=== PATIENT | female | born 1960 | race Caucasian/White ===

== ENCOUNTER → 2018-02-21 12:14 | Outpatient (REF) | payer BC, SELFPAY ==
--- NOTE | 2018-02-21 11:00 | PAPFT_PTH ---
PATIENT: Janeen Rogel LOC: [facility] U#:[id number] AGE/SX: 65/F ROOM: RE02/21/[address]: Tonya Costello MD, DC : 1960 BED: DIS: SPEC #: [id number] RECD: 02/21/18 18:15 STATUS: [place] RERonna #: [id number] MELLISA: 02/21/18 11:[address]: Tonya Costello DEPT: [facility] Cytology RECD BY: Kacie Leigh Tissues: 1 - CX/ENDOCX FOR PAP SMEARS Procedures: PAP THIN PREP/UVM Screening HPV DNA PROBE Comments: [id number]
== END ==
LOC: LBN 12:14
PROVIDERS: PCP Family Medicine; Visit Provider Family Medicine
DX: Z12.4 Encounter for screening for malignant neoplasm of cervix (principal); Z11.51 Encounter for screening for human papillomavirus (HPV)
CPT/HCPCS: 88142; 87624

== ENCOUNTER 2018-05-13 06:24 | Day surgery (SDC) | payer BC, SELFPAY ==
[2018-05-13 06:43] VITALS: BP 139/84; PULSE 77; RESP 16; TEMP 37.1; O2SAT 98
[2018-05-13] MEDS: Lidocaine 2% Pres-Free 5 ML VIAL (07:26)
--- NOTE | 2018-05-13 08:08 | W.PM.DSUDISC ---
Discharge Plan Disposition Patient Disposition: HOME Condition: Improving Discharge Details Attending Provider: Leonel Cuadra Primary Care Provider: Tonya Costello Home Meds and New Rx's Prescriptions: No Action aspirin [Aspirin Low-Strength] 81 MG tablet,chewable 1 tab PO DAILY RF: 0 triamcinolone acetonide 80 GM ointment 2 gm Topical BID Qty: 80 RF: 3 loratadine 10 MG tablet 10 mg PO DAILY PRNRF: 0 latanoprost [Xalatan] 2.5 ML drops 1 drp Ophthalmic HS RF: 0 carboxymethylcellulose-glycern [Lubricating Drops] 15 ML drops 15 ml Ophthalmic PRN RF: 0 cetirizine [Zyrtec] 10 MG tablet 10 mg PO DAILY PRNRF: 0 losartan 50 MG tablet 50 mg PO DAILY Qty: 90 RF: 12 clotrimazole-betamethasone 15 GM cream 15 gm Topical BID Qty: 15 RF: 12 estradiol [Vagifem] 10 MCG tablet 10 mcg VG 2X Week Qty: 25 RF: 12 ibuprofen [Advil] 200 MG tablet 200 mg PO PRN PRNRF: 0 chlorpheniramine-dextromethorp [Coricidin HBP Cough and Cold] 4-30 mg Tablet 1 tab PO PRN PRN (Reason: Cough) RF: 0 Discharge Instructions Additional Instructions: KEEP YOUR RIGHT HAND ELEVATED ABOVE HEART LEVEL MUCH POSSIBLE FOR THE NEXT 48 HOURS. EXERCISE YOUR FINGERS AND THUMB COMFORT ALLOWS. YOU MAY LOOSEN THE WRIST SPLINT AND/OR THE UNDERLYING OSMANY BANDAGE IF THEY FEEL TOO TIGHT. EXPECT SOME BLOODY DRAINAGE ON THE UNDERLYING GAUZE BANDAGES. FOR SHOWERING TOMORROW, COVER YOUR WRIST AND HAND WITH A PLASTIC BAG AND A RUBBER BAND ABOUT THE UPPER FOREARM TO KEEP THE WOUND DRY. ON 05/15/18, YOU MAY REMOVE ALL OF YOUR BANDAGES AND GET YOUR INCISION WET IN THE SHOWER WITH SOAP AND WATER. GENTLY PAT THE STITCHES DRY AND COVER THEM WITH GAUZE OR EXTRA-LARGE BANDAIDS. RESUME NORMAL USE TOLERATED GOING WITHOUT THE SPLINT SOON YOU ARE COMFORTABLE. FOLLOW-UP WITH DR. CUADRA IN 1 WEEK FOR STITCH REMOVAL. TAKE YOUR REGULAR MEDICATIONS BEFORE. TAKE TYLENOL, ADVIL OR ALEVE FOR MILDER PAIN. TYLENOL MAY BE TAKEN AT THE SAME TIME ALEVE OR AT THE SAME TIME ADVIL THEY ARE METABOLIZED DIFFERENTLY AND ARE NOT CROSS TOXIC. TAKE NORCO (HYDROCODONE 5/325MG) 1-2 EVERY 4-6 HOURS FOR MORE SERIOUS PAIN. [facility] [place] LIMIT THE AMOUNT OF NORCO THAT CAN BE PRESCRIBED TO 18 TABLETS. Stand Alone Forms: Alla Tapia (DSU) Equipment/Supplies: Brace Activity:: Elevate Remove Dressings/Wound Care:: 48 hours Shower/Bathe:: 48 hours Diet:: Carb Counting Discharge Orders Discharge Orders: Discharge Order (Routine); Ordered 05/13/18 Ordered By: Leonel Cuadra
--- NOTE | 2018-05-13 08:17 | PDOC.DSDIS_ITS ---
Discharge Plan Disposition Patient Disposition: HOME Condition: Improving Discharge Details Attending Provider: Leonel Cuadra Primary Care Provider: Tonya Costello Home Meds and New Rx's Prescriptions: No Action aspirin [Aspirin Low-Strength] 81 MG tablet,chewable 1 tab PO DAILY RF: 0 triamcinolone acetonide 80 GM ointment 2 gm Topical BID Qty: 80 RF: 3 loratadine 10 MG tablet 10 mg PO DAILY PRNRF: 0 latanoprost [Xalatan] 2.5 ML drops 1 drp Ophthalmic HS RF: 0 carboxymethylcellulose-glycern [Lubricating Drops] 15 ML drops 15 ml Ophthalmic PRN RF: 0 cetirizine [Zyrtec] 10 MG tablet 10 mg PO DAILY PRNRF: 0 losartan 50 MG tablet 50 mg PO DAILY Qty: 90 RF: 12 clotrimazole-betamethasone 15 GM cream 15 gm Topical BID Qty: 15 RF: 12 estradiol [Vagifem] 10 MCG tablet 10 mcg VG 2X Week Qty: 25 RF: 12 ibuprofen [Advil] 200 MG tablet 200 mg PO PRN PRNRF: 0 chlorpheniramine-dextromethorp [Coricidin HBP Cough and Cold] 4-30 mg Tablet 1 tab PO PRN PRN (Reason: Cough) RF: 0 Discharge Instructions Additional Instructions: KEEP YOUR RIGHT HAND ELEVATED ABOVE HEART LEVEL MUCH POSSIBLE FOR THE NEXT 48 HOURS. EXERCISE YOUR FINGERS AND THUMB COMFORT ALLOWS. YOU MAY LOOSEN THE WRIST SPLINT AND/OR THE UNDERLYING OSMANY BANDAGE IF THEY FEEL TOO TIGHT. EXPECT SOME BLOODY DRAINAGE ON THE UNDERLYING GAUZE BANDAGES. FOR SHOWERING TOMORROW, COVER YOUR WRIST AND HAND WITH A PLASTIC BAG AND A RUBBER BAND ABOUT THE UPPER FOREARM TO KEEP THE WOUND DRY. ON 05/15/18, YOU MAY REMOVE ALL OF YOUR BANDAGES AND GET YOUR INCISION WET IN THE SHOWER WITH SOAP AND WATER. GENTLY PAT THE STITCHES DRY AND COVER THEM WITH GAUZE OR EXTRA- LARGE BANDAIDS. RESUME NORMAL USE TOLERATED GOING WITHOUT THE SPLINT SOON YOU ARE COMFORTABLE. FOLLOW-UP WITH DR. CUADRA IN 1 WEEK FOR STITCH REMOVAL. TAKE YOUR REGULAR MEDICATIONS BEFORE. TAKE TYLENOL, ADVIL OR ALEVE FOR MILDER PAIN. TYLENOL MAY BE TAKEN AT THE SAME TIME ALEVE OR AT THE SAME TIME ADVIL THEY ARE METABOLIZED DIFFERENTLY AND ARE NOT CROSS TOXIC. TAKE NORCO (HYDROCODONE 5/325MG) 1-2 EVERY 4-6 HOURS FOR MORE SERIOUS PAIN. [facility] [place] THE AMOUNT OF NORCO THAT CAN BE PRESCRIBED TO 18 TABLETS. Stand Alone Forms: Alla Tapia (DSU) Equipment/Supplies: Brace Activity:: Elevate Remove Dressings/Wound Care:: 48 hours Shower/Bathe:: 48 hours Diet:: Carb Counting Discharge Orders Discharge Orders: Discharge Order (Routine); Ordered 05/13/18 Ordered By: Leonel Cuadra
--- NOTE | 2018-05-13 09:18 | ROE_ITS ---
REPORT OF OPERATIVE PROCEDURE DATE OF PROCEDURE May 13, 2018 PREOPERATIVE DIAGNOSIS Right chronic carpal tunnel syndrome. POSTOPERATIVE DIAGNOSIS Right chronic carpal tunnel syndrome. PROCEDURE Right open carpal tunnel release. SURGEON Leonel Giron M.D. [employer] Nurse. ANESTHETIC 2% lidocaine plain. PREP ChloraPrep. INDICATIONS This patient is 58, she is status post successful left ECTR. She presented to me several years after that operation for chronic right carpal tunnel syndrome. I recommended open carpal tunnel release as I felt that this had lesser morbidity in terms of potential injury to the common branch of the digita l nerve to the middle finger. I discussed the differences in detail and she understood and wished to proceed. I discussed this in the office and then reiterated it today in the Day Surgery holding area . The right arm was appropriately marked. OPERATIVE PROCEDURE The patient was taken to the Operating Suite and her right hand was prepped with ChloraPrep. Timeout was instituted confirming the planned surgical site and the procedure. As well, this also included t he patient allergies. After prepping the hand with ChloraPrep, a universal carpal tunnel incision was utilized centered ove r the ring finger ray. 2% lidocaine was then used to create an anesthetic wheal over the proposed inc ision site. After waiting and appropriate amount of time, and determining complete anesthesia of the incision region, I made the incision a #15-scalpel blade using loupe magnification. Skin and subcuta neous tissues were incised and hemostasis was controlled with just direct pressure. A combination of sharp and blunt dissection was utilized to expose the palmar fascia and the transverse carpal ligamen t. Heiss retractors were inserted. Under direct vision, the transverse carpal ligament was resected completely including the distal portion of the antebrachial fascia to the very distal edge of the lig ament. The underlying flexor tendon showed a mild to moderate amount of synovitis. No loose bodies, f oreign bodies or ganglion cysts were found. The median nerve had classic hourglass constriction in it s mid portion, there was also prominent vein traveling with the nerve that showed some edema. There w as no significant bleeding. I had the patient flex and extend the fingers and verified that there wer e no problems or cysts on the tendons themselves. The wound was then irrigated and the skin closed wi th sutures of #5-0 Ethilon, this was done with sutures placed in a near-far far-near retention techni que, as well as simple sutures. The wound was then dressed with Xeroform gauze, 4x4s, a 3-inch confo rming gauze bandage, a 3-inch Rubén wrap, and a commercial wrist immobilizer. The patient was taken to the outpatient Recovery Room in satisfactory condition, tolerating the procedure well.
--- NOTE | 2018-05-18 09:21 | W.PM.DSUDISC ---
Discharge Plan Disposition Patient Disposition: HOME Condition: Improving Discharge Details Attending Provider: Leonel Cuadra Primary Care Provider: Tonya Costello Home Meds and New Rx's Prescriptions: No Action aspirin [Aspirin Low-Strength] 81 MG tablet,chewable 1 tab PO DAILY RF: 0 triamcinolone acetonide 80 GM ointment 2 gm Topical BID Qty: 80 RF: 3 loratadine 10 MG tablet 10 mg PO DAILY PRNRF: 0 latanoprost [Xalatan] 2.5 ML drops 1 drp Ophthalmic HS RF: 0 carboxymethylcellulose-glycern [Lubricating Drops] 15 ML drops 15 ml Ophthalmic PRN RF: 0 cetirizine [Zyrtec] 10 MG tablet 10 mg PO DAILY PRNRF: 0 losartan 50 MG tablet 50 mg PO DAILY Qty: 90 RF: 12 clotrimazole-betamethasone 15 GM cream 15 gm Topical BID Qty: 15 RF: 12 estradiol [Vagifem] 10 MCG tablet 10 mcg VG 2X Week Qty: 25 RF: 12 ibuprofen [Advil] 200 MG tablet 200 mg PO PRN PRNRF: 0 chlorpheniramine-dextromethorp [Coricidin HBP Cough and Cold] 4-30 mg Tablet 1 tab PO PRN PRN (Reason: Cough) RF: 0 hydrocodone-acetaminophen [[place]] 5-325 mg Tablet 1 tab PO Q4H PRNRF: 0 Discharge Instructions Additional Instructions: KEEP YOUR RIGHT HAND ELEVATED ABOVE HEART LEVEL MUCH POSSIBLE FOR THE NEXT 48 HOURS. EXERCISE YOUR FINGERS AND THUMB COMFORT ALLOWS. YOU MAY LOOSEN THE WRIST SPLINT AND/OR THE UNDERLYING OSMANY BANDAGE IF THEY FEEL TOO TIGHT. EXPECT SOME BLOODY DRAINAGE ON THE UNDERLYING GAUZE BANDAGES. FOR SHOWERING TOMORROW, COVER YOUR WRIST AND HAND WITH A PLASTIC BAG AND A RUBBER BAND ABOUT THE UPPER FOREARM TO KEEP THE WOUND DRY. ON 05/15/18, YOU MAY REMOVE ALL OF YOUR BANDAGES AND GET YOUR INCISION WET IN THE SHOWER WITH SOAP AND WATER. GENTLY PAT THE STITCHES DRY AND COVER THEM WITH GAUZE OR EXTRA-LARGE BANDAIDS. RESUME NORMAL USE TOLERATED GOING WITHOUT THE SPLINT SOON YOU ARE COMFORTABLE. FOLLOW-UP WITH DR. CUADRA IN 1 WEEK FOR STITCH REMOVAL. TAKE YOUR REGULAR MEDICATIONS BEFORE. TAKE TYLENOL, ADVIL OR ALEVE FOR MILDER PAIN. TYLENOL MAY BE TAKEN AT THE SAME TIME ALEVE OR AT THE SAME TIME ADVIL THEY ARE METABOLIZED DIFFERENTLY AND ARE NOT CROSS TOXIC. TAKE NORCO (HYDROCODONE 5/325MG) 1-2 EVERY 4-6 HOURS FOR MORE SERIOUS PAIN. [facility] REGULATIONS LIMIT THE AMOUNT OF NORCO THAT CAN BE PRESCRIBED TO 18 TABLETS. Stand Alone Forms: Alla Tapia (STALIN) Equipment/Supplies: Brace Activity:: Elevate Remove Dressings/Wound Care:: 48 hours Shower/Bathe:: 48 hours Diet:: Carb Counting Discharge Orders Discharge Orders: Discharge Order (Routine); Ordered 05/13/18 Ordered By: Leonel Cuadra Discharge Data Discharge Date/Time-TO BE ENTERED AT DEPARTURE: 05/13/18 08:18 Discharge Comment: DISCHARGE INFORMATION REVIEWED WITH PT AND SPOUSE.
--- NOTE | 2018-05-19 08:45 | PDOC.DSDIS_ITS ---
Discharge Plan Disposition Patient Disposition: HOME Condition: Improving Discharge Details Attending Provider: Leonel Cuadra Primary Care Provider: Tonya Costello Home Meds and New Rx's Prescriptions: No Action aspirin [Aspirin Low-Strength] 81 MG tablet,chewable 1 tab PO DAILY RF: 0 triamcinolone acetonide 80 GM ointment 2 gm Topical BID Qty: 80 RF: 3 loratadine 10 MG tablet 10 mg PO DAILY PRNRF: 0 latanoprost [Xalatan] 2.5 ML drops 1 drp Ophthalmic HS RF: 0 carboxymethylcellulose-glycern [Lubricating Drops] 15 ML drops 15 ml Ophthalmic PRN RF: 0 cetirizine [Zyrtec] 10 MG tablet 10 mg PO DAILY PRNRF: 0 losartan 50 MG tablet 50 mg PO DAILY Qty: 90 RF: 12 clotrimazole-betamethasone 15 GM cream 15 gm Topical BID Qty: 15 RF: 12 estradiol [Vagifem] 10 MCG tablet 10 mcg VG 2X Week Qty: 25 RF: 12 ibuprofen [Advil] 200 MG tablet 200 mg PO PRN PRNRF: 0 chlorpheniramine-dextromethorp [Coricidin HBP Cough and Cold] 4-30 mg Tablet 1 tab PO PRN PRN (Reason: Cough) RF: 0 hydrocodone-acetaminophen [[place]] 5-325 mg Tablet 1 tab PO Q4H PRNRF: 0 Discharge Instructions Additional Instructions: KEEP YOUR RIGHT HAND ELEVATED ABOVE HEART LEVEL MUCH POSSIBLE FOR THE NEXT 48 HOURS. EXERCISE YOUR FINGERS AND THUMB COMFORT ALLOWS. YOU MAY LOOSEN THE WRIST SPLINT AND/OR THE UNDERLYING OSMANY BANDAGE IF THEY FEEL TOO TIGHT. EXPECT SOME BLOODY DRAINAGE ON THE UNDERLYING GAUZE BANDAGES. FOR SHOWERING TOMORROW, COVER YOUR WRIST AND HAND WITH A PLASTIC BAG AND A RUBBER BAND ABOUT THE UPPER FOREARM TO KEEP THE WOUND DRY. ON 05/15/18, YOU MAY REMOVE ALL OF YOUR BANDAGES AND GET YOUR INCISION WET IN THE SHOWER WITH SOAP AND WATER. GENTLY PAT THE STITCHES DRY AND COVER THEM WITH GAUZE OR EXTRA- LARGE BANDAIDS. RESUME NORMAL USE TOLERATED GOING WITHOUT THE SPLINT SOON YOU ARE COMFORTABLE. FOLLOW-UP WITH DR. CUADRA IN 1 WEEK FOR STITCH REMOVAL. TAKE YOUR REGULAR MEDICATIONS BEFORE. TAKE TYLENOL, ADVIL OR ALEVE FOR MILDER PAIN. TYLENOL MAY BE TAKEN AT THE SAME TIME ALEVE OR AT THE SAME TIME ADVIL THEY ARE METABOLIZED DIFFERENTLY AND ARE NOT CROSS TOXIC. TAKE NORCO (HYDROCODONE 5/325MG) 1-2 EVERY 4-6 HOURS FOR MORE SERIOUS PAIN. [facility] [place] REGULATIONS LIMIT THE AMOUNT OF NORCO THAT CAN BE PRESCRIBED TO 18 TABLETS. Stand Alone Forms: Alla Tapia (STALIN) Equipment/Supplies: Brace Activity:: Elevate Remove Dressings/Wound Care:: 48 hours Shower/Bathe:: 48 hours Diet:: Carb Counting Discharge Orders Discharge Orders: Discharge Order (Routine); Ordered 05/13/18 Ordered By: Leonel Cuadra Discharge Data Discharge Date/Time-TO BE ENTERED AT DEPARTURE: 05/13/18 08:18 Discharge Comment: DISCHARGE INFORMATION REVIEWED WITH PT AND SPOUSE.
== END 2018-05-13 08:18 | disposition home or self-care (01) ==
PROVIDERS: PCP Family Medicine; Visit Provider Orthopaedic Surgery
PROC: (CPT 64721; principal; 2018-05-13 07:30)
DX: G56.01 Carpal tunnel syndrome, right upper limb (principal)
CPT/HCPCS: 64721; L3908

== ENCOUNTER 2019-03-02 09:44 | Outpatient (CLI) | payer BC, SELFPAY ==
[2019-03-02 13:04] LABS: ALT 19 U/L (14-59); AST 15 U/L (15-37); Alkaline Phosphatase 79 U/L (46-116); Anion Gap 11.3 mmol/L (3-11); BUN 11 mg/dL (7-18); Bilirubin, Total 0.5 mg/dL (0.2-1.0); CO2 25.7 mmol/L (21.0-32.0); CREATININE 0.93 mg/dL (0.55-1.02); Calcium 9.3 mg/dL (8.5-10.1); Calculated LDL 208 mg/dL; Chloride 105 mmol/L (98-107); Cholesterol 275 mg/dL (50-200); Glucose 99 mg/dL (70-100); HDL Cholesterol 46 mg/dL (40-60); Potassium 4.6 mmol/L (3.5-5.1); Sodium 142 mmol/L (136-145); TSH (W/Ref FT4) 0.71 uIU/mL (0.36-3.74); Total Protein 7.4 g/dL (6.4-8.2); Triglyceride 109 mg/dL (30-150)
== END 2019-03-02 10:04 ==
PROVIDERS: PCP Family Medicine; Visit Provider Family Medicine
DX: I10 Essential (primary) hypertension (principal); Z00.00 Encounter for general adult medical examination without abnormal findings
CPT/HCPCS: 36415; 80053; 80061; 84443

== ENCOUNTER 2019-03-27 00:33 | Outpatient (CLI) | payer BC, SELFPAY ==
--- NOTE | 2019-03-27 16:13 | DI.MAMMO_ITS ---
EXAM: MG MAMMO SCREENING CLINICAL HISTORY: screening Z12.39. TECHNIQUE: Mammograms were interpreted according to the usual protocol including computer analysis w [employer] CAD system, tomosynthesis and C-view imaging. COMPARISON: Comparison with prior examination. FINDINGS: The breasts are of moderate radiodensity. There is no evidence of a dominant mass. There are no suspi cious calcifications. There has been no significant interval change when compared with prior images. IMPRESSION: No evidence of malignancy, Category 1, yearly screening mammography is recommended. Breast density Ca tegory B. BI-RADS Cat 1 - Negative Breast Density - Category B - Scattered areas of fibroglandular density
== END 2019-03-27 00:53 ==
PROVIDERS: PCP Family Medicine; Visit Provider Family Medicine
DX: Z12.31 Encounter for screening mammogram for malignant neoplasm of breast (principal)
CPT/HCPCS: 77063; 77067

== ENCOUNTER 2020-07-01 03:07 | Outpatient (CLI) | payer BC, SELFPAY ==
[2020-07-01 08:10] LABS: Hemoglobin A1C 5.4 % (<5.7)
[2020-07-01 08:53] LABS: ALT 21 U/L (14-59); AST 11 U/L (15-37); Alkaline Phosphatase 71 U/L (46-116); BUN 14 mg/dL (7-18); Bilirubin, Total 0.4 mg/dL (0.2-1.0); Calculated LDL 183 mg/dL (<100); Chloride 104 mmol/L (98-107); Cholesterol 276 mg/dL (<200); Estimated GFR 56.75 (mL/min/1.73m2); Glucose 99 mg/dL (74-106); HDL Cholesterol 37 mg/dL (40-60); Potassium 4.5 mmol/L (3.5-5.1); Sodium 141 mmol/L (136-145); TSH (W/Ref FT4) 0.74 uIU/mL (0.36-3.74); Total Protein 7.4 g/dL (6.4-8.2); Triglyceride 283 mg/dL (<150)
[2020-07-02 19:17] LABS: COVID-19 RT-PCR UVMMC Result Negative (Negative)
== END 2020-07-01 03:27 ==
PROVIDERS: PCP Family Medicine; Visit Provider Family Medicine
DX: Z00.00 Encounter for general adult medical examination without abnormal findings (principal); E78.00 Pure hypercholesterolemia, unspecified; E11.9 Type 2 diabetes mellitus without complications; Z20.828 Contact with and (suspected) exposure to other viral communicable diseases
CPT/HCPCS: 36415; 80053; 80061; U0003; 83036; 84443

== ENCOUNTER 2020-07-10 02:54 | Outpatient (CLI) | payer BC, SELFPAY ==
--- NOTE | 2020-07-10 08:10 | DI.RAD_ITS ---
EXAM: XR HIP LT COMPLETE AP PELVIS CLINICAL HISTORY: L hip pain,m25.552. TECHNIQUE: 2D digital imaging was performed. COMPARISON: No exams were available for comparison FINDINGS: The bones are intact and normally mineralized. There are degenerative changes seen at the left sacro iliac joint. Mild degenerative changes are seen in the left hip with mild prominence of the acetabul ar osteophyte. The joint spaces otherwise well maintained. The right hip is unremarkable. The soft tissues are unremarkable. 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 DATA REPOSITORY: RADIATION DOSE DELIVERED:
== END 2020-07-10 03:14 ==
PROVIDERS: PCP Family Medicine; Visit Provider Family Medicine
DX: M16.11 Unilateral primary osteoarthritis, right hip (principal)
CPT/HCPCS: 73502

== ENCOUNTER 2020-10-25 02:39 | Outpatient (CLI) | payer BC, SELFPAY ==
[2020-10-26 12:20] LABS: COVID-19 RT-PCR UVMMC Result Negative (Negative)
== END 2020-10-25 02:40 | disposition home or self-care (01) ==
LOC: LBO 02:39
PROVIDERS: PCP Family Medicine; Visit Provider Family Medicine
DX: Z20.822 Contact with and (suspected) exposure to COVID-19 (principal)
CPT/HCPCS: U0003

== ENCOUNTER 2021-04-07 17:15 | Outpatient (CLI) | payer BC, SELFPAY ==
--- NOTE | 2021-04-07 17:15 | RT.EKG_ITS ---
APPROVED REPORT Exam: Resting ECG Reason for Exam: Dizzy Patient Location: O HR:79 bpm ECG Measurements Heart Rate 79 AXIS OR 140 P 49 QRSd 78 QRS 0 QT 364 T 41 QTc 416 Conclusion Sinus rhythm...normal P axis, V-rate 60- 99 Low voltage, extremity leads...all extremity leads <0.5mV
== END 2021-04-07 17:16 | disposition home or self-care (01) ==
LOC: DI.CM 17:16
PROVIDERS: PCP Family Medicine; Visit Provider Nurse Practitioner Family
DX: R42 Dizziness and giddiness (principal)
CPT/HCPCS: 93010

== ENCOUNTER 2021-05-15 12:51 | Emergency (ER) | payer BC, SELFPAY ==
--- NOTE | 2021-05-15 12:45 | RT.EKG_ITS ---
APPROVED REPORT Exam: Resting ECG Reason for Exam: chest pain Patient Location: E HR:86 bpm ECG Measurements Heart Rate 86 AXIS NC 150 P 147 QRSd 80 QRS -26 QT 369 T -26 QTc 441 Conclusion Sinus or ectopic atrial rhythm...P axis (-45,135) Left atrial enlargement...P, P'>60mS, <-0.15mV V1 Inferior infarct, old...Q >35mS, II III aVF. Sinus. No STEMI. I have reviewed and interpreted ECG and agree with software generated interpretation.
[2021-05-15 12:59] VITALS: BP 160/86; PULSE 94; RESP 18; TEMP 36.8; O2SAT 99
--- NOTE | 2021-05-15 13:06 | W.ED.GENAD ---
Discharge Plan Disposition Patient Disposition: HOME Condition: Stable Discharge Details Clinical Impression: Chest pain Primary Care Provider: Tonya Costello ED Provider: Petrona Bolton Home Meds and New Rx's Prescriptions: Continued naproxen sodium [Aleve] 220 mg tablet 220 mg PO HS PRNRF: 0 cetirizine [Zyrtec] 10 mg tablet 10 mg PO DAILY PRNRF: 0 acetaminophen 650 mg tablet extended release 1,300 mg PO QAM RF: 0 clotrimazole-betamethasone 1-0.05 % cream 1 applic Topical BID PRNRF: 0 triamcinolone acetonide 0.1 % ointment 1 applic Topical BID PRNRF: 0 meclizine 12.5 mg tablet 12.5 mg PO TID PRN (Reason: dizziness) Qty: 21 RF: 0 latanoprost [Xalatan] 2.5 ML drops 1 drp Ophthalmic HS RF: 0 Lubricating Drops 15 ML drops 15 ml Ophthalmic PRN RF: 0 estradiol [Vagifem] 10 mcg tablet 10 mcg VG 2X Week Qty: 25 RF: 12 losartan 50 mg tablet 50 mg PO DAILY Qty: 90 RF: 12 Discharge Instructions Instructions: Chest Pain (ED) Additional Instructions: Your lab work, EKGs and CT scan today are reassuring and did not note any significant concerning findings. Your platelet count was elevated and it is recommended that you have this rechecked through your primary care doctor. An outpatient stress test has been ordered. You will receive a call from the radiology department to schedule this outpatient test. Follow-up with your primary care doctor in 1 week. Return to the emergency department with any worsening or new concerning symptoms such as worsening chest pain, shortness of breath, dizziness or any other concerns. Referrals: Adrianna Fajardo MD [ [facility] STAFF PHYSICIAN] - Discharge Data Discharge Date/Time-TO BE ENTERED AT DEPARTURE: 05/15/21 17:38 Discharge Physician: Petrona Bolton Medical Decision Making 61-year-old female with a history of hypertension, hyperlipidemia, GERD, migraines who presents for left-sided chest pain that started while sitting on the computer at work today. EKG on arrival notes a rate of 86, sinus, no STEMI, nondiagnostic. Patient appears comfortable and nontoxic. Chest is nontender. History and presentation does not appear consistent with ACS, PE or dissection. Will obtain screening labs, CT chest, give dose of morphine and valium and reassess. Labs and imaging reviewed. Normal white blood cell count. Hemoglobin 15. Normal electrolytes. Troponin negative. CT chest negative. Repeat troponin negative. Repeat EKG unchanged. Patient reassessed and she still has some pain but no acute complaints. She was given a dose of Toradol prior to discharge and patient feels good to go home. An outpatient stress test was ordered. Patient advised patient advised to call her PCP for follow-up and for results of the stress test. Usual and customary return precautions given prior to discharge. Medical Records Medical records reviewed: Yes I reviewed the patient's medical records. Imaging Data Radiologic Study: Radiologist's impression: CT CHEST PE CTA CLINICAL HISTORY: L chest and back pain, r/o pe. TECHNIQUE: Imaging Protocol: Axial CT angiography was performed with multi-slice acquisition and multi-planar and/or 3D reconstructions. CONTRAST MATERIAL: Intravenous: Omnipaque 350 Contrast volume:100 ml COMPARISON: No exams were available for comparison FINDINGS: Pulmonary Arteries: No evidence of filling defect to suggest pulmonary emboli. Tracheobronchial tree: Patent where visualized. Mediastinum and Sofia: No dominant adenopathy or fluid collection. Pulmonary parenchyma: Expiratory changes. No consolidation or dominant measurable mass. No architectural distortion. Pleura: No effusion or pneumothorax. Heart: The heart is mildly dilated. Coronary artery calcifications are seen. Aorta: Thoracic aorta non-dilated. No dissection Upper abdomen: Unremarkable. Bones: Degenerative disc changes. IMPRESSION: No evidence of pulmonary embolism or other acute abnormality.. Lab Data Lab results reviewed: Yes I reviewed the patient's lab results. Labs: Laboratory Tests Range/Units 05/15/21 05/15/21 13:20 13:20 WBC (4.4-10.8) 10^3/uL 7.30 RBC (3.93-5.22) 10^6/uL 5.25 H Hgb (11.2-15.7) g/dL 15.7 Hct (36.0-46.0) % 48.7 H MCV (80-95) fL 92.8 MCH (27.0-33.0) pg 29.9 MCHC (32.0-36.0) % 32.2 RDW (11.7-14.6) % 12.7 Plt Count (130-400) 10^3/uL 627 H MPV (8.0-11.0) fL 8.1 Immature Gran % 0.1 Neutrophils % 74.4 Lymphocytes % 15.9 Monocytes % 7.5 Eosinophils % 1.4 Basophils % 0.7 Nucleated RBC % % 0 Absolute Neutrophils (1.2-6.7) 10^3/uL 5.43 Absolute Lymphocytes (1.2-3.4) 10^3/uL 1.16 L Absolute Monocytes (0.1-0.8) 10^3/uL 0.55 Absolute Eosinophils (0.0-0.7) 10^3/uL 0.10 Absolute Basophils (0.0-0.2) 10^3/uL 0.05 Sodium (136-145) mmol/L 140 Potassium (3.5-5.1) mmol/L 4.5 Chloride (98-107) mmol/L 104 Carbon Dioxide (21.0-32.0) mmol/L 30.0 Anion Gap (3-11) mmol/L 6.0 BUN (7-18) mg/dL 11 Creatinine (0.55-1.02) mg/dL 1.0 Estimated GFR/1.73 m2 (mL/min/1.73m2) 56.56 Glucose (74-106) mg/dL 108 H Calcium (8.5-10.1) mg/dL 9.1 Magnesium (1.8-2.4) mg/dL 2.4 Total Bilirubin (0.2-1.0) mg/dL 0.4 AST (15-37) U/L 18 ALT (14-59) U/L 21 Alkaline Phosphatase (46-116) U/L 75 Troponin I (<0.06) ng/mL < 0.05 Total Protein (6.4-8.2) g/dL 7.5 Albumin (3.4-5.0) g/dL 4.0 ECG Data Attestation: I personally reviewed and interpreted this ECG (s) as follows: Interpretation: #1 -- rate of 86, sinus, no acute ST elevation or depression. IA 150. QRS 80. QTc 441. #2 -- rate of 70, sinus, no acute ST elevation or depression. IA 145. QRS 79. QTc 434. HPI General Mode of arrival: ambulatory. Date/Time Provider Initiated Documentation: 05/15/21 13:04. Limitations to Documentation: no limitations. Information obtained by: patient. HPI Narrative: Pt is a 61yo F who presents to the ED w/ a c/o L sided chest pain that started while sitting at her computer at work today. Pt states she felt fine when she awoke this morning. She states she was on a class on the computer and sitting down when she noticed sharp left sided chest pain that has been constant for the past few hours. She states it radiates around to the left side of her back and down her left arm intermittently. She denies fever, cough, nausea, vomiting, dizziness, or shortness of breath. She denies any recent injury. She is fully vaccinated including a booster for Covid and denies any known expsure to coronavirus. She does admit to stress at work recently. Related Data Home Medications Medication Instructions Recorded Confirmed Lubricating Drops 15 ml OPHTHALMIC PRN 02/15/17 05/15/21 latanoprost [Xalatan] 1 drp OPHTHALMIC HS drp 02/15/17 05/15/21 cetirizine 10 mg tablet 10 mg PO DAILY PRN 03/02/19 05/15/21 estradiol 10 mcg vaginal tablet 10 mcg VG 2X Week #25 tab-cap 01/31/20 05/15/21 losartan 50 mg tablet 50 mg PO DAILY #90 tab-cap 01/31/20 05/15/21 acetaminophen 650 mg 1,300 mg PO QAM tab 07/08/20 05/15/21 tablet,extended release clotrimazole-betamethasone 1 1 applic TOPICAL BID PRN gm 07/08/20 05/15/21 %-0.05 % topical cream triamcinolone acetonide 0.1 % 1 applic TOPICAL BID PRN gm 07/08/20 05/15/21 topical ointment meclizine 12.5 mg tablet 12.5 mg PO TID PRN #21 tab 04/07/21 05/15/21 naproxen sodium 220 mg tablet 220 mg PO HS PRN tab 04/11/21 05/15/21 Previous Rx's Medication Instructions Recorded estradiol 10 mcg vaginal tablet 10 mcg VG 2X Week #25 tab-cap 01/31/20 losartan 50 mg tablet 50 mg PO DAILY #90 tab-cap 01/31/20 meclizine 12.5 mg tablet 12.5 mg PO TID PRN #21 tab 04/07/21 Allergies Allergy/AdvReac Type Severity Reaction Status Date / Time aspartame AdvReac Intermediate Verified 05/15/21 13:01 hydrochlorothiazide AdvReac Intermediate Leg cramps Verified 05/15/21 13:01 latex AdvReac Intermediate skin Verified 05/15/21 13:01 cracks and bleeds General Stated Complaint: Chest Pain HCERI: 2 Review of Systems All systems reviewed & are unremarkable except as noted in HPI and below Constitutional Constitutional: Reports as per HPI, Denies chills and Denies fever(s) Eyes Eyes: Denies blurry vision ENT Ears, Nose, Mouth, and Throat: Denies dizziness, Denies sore throat and Denies throat swelling Cardiovascular Cardiovascular: Reports chest pain and Denies dyspnea Respiratory Respiratory: Denies cough and Denies dyspnea Gastrointestinal Gastrointestinal: Denies abdominal pain, Denies diarrhea and Denies vomiting Genitourinary Genitourinary: Denies hematuria and Denies dysuria Musculoskeletal Musculoskeletal: Denies back pain and Denies numbness Integumentary/Breasts Skin/Breast: Denies lesions and Denies rash Neurologic Neurologic: Denies dizziness, Denies localized weakness and Denies numbness Allergic/Immunologic Allergic/Immunologic: Denies throat swelling [facility] Medical History Abnormal glandular Pap smear of vagina 10/24/12 follow up normal Achilles bursitis confirmed by MRI 06/11 Achilles bursitis Atypical mole 01/18/17 Atypical mole (01/18/17) Carpal tunnel syndrome bilateral; left by EMS; left medial nerve release Carpal tunnel syndrome 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 3.5 cm left kidney cyst Eczema (08/20/14) Essential hypertension Essential hypertension (04/21/13) External otitis 05/07/14 Gastroesophageal reflux disease Hypercholesterolemia Hyperlipidemia Increased body mass index Knee pain (01/01/07) MRI 01/08= neg. tear; ? of chondromalacia; Med. patellar fault Latex allergy (04/21/13) SEVERE Left shoulder pain 08/05/15 Left shoulder pain (08/05/15) Microscopic hematuria neg. C&S; nl Bun and Cr.; neg IUP; neg cystocopy Microscopic hematuria Mild stage chronic narrow angle glaucoma of right eye 12/28/16 [facility] [place] Muscle strain Otitis externa (05/07/14) Peptic reflux disease (06/03/02) EGS=positive; neg. Hpylori; + BX-GERD; + HH Right carpal tunnel syndrome (02/21/18) Patient has clinically obvious carpal tunnel syndrome right upper extremity. I explained her that I know do all my carpal tunnel surgeries via open technique. This avoid an incomplete release or or an injury to the common digital nerve to the middle finger. Patient understands the reason for the change the open technique and agrees to have this done on her right side despite the fact that she had a E CTR on the left side Vaginal atrophy (11/26/15) Vascular headache Vascular headache Surgical History Endometrial Biopsy neg History of carpal tunnel release 05/13/18 DR. CUADRA; RIGHT History of gynecologic surgery endometrial Bx-neg Open Carpal Tunnel release (~2002) left medial nerve release PROCEDURES 07/21/16; LASERLIDOTOMY S/P carpal tunnel release left medial nerve release Status post carpal tunnel release Status post carpal tunnel release Family History Mother , 59 Essential hypertension Anxiety Depression Heart disease Hyperlipidemia Leukemia Father , MET/LUNG CA at age 79. Diabetes Alcohol abuse Essential hypertension Heart disease Hyperlipidemia Asthma Lung cancer Sister No problems noted. Brother Essential hypertension Anxiety Depression Hyperlipidemia Maternal Grandfather , 90s No problems noted. Paternal Grandfather , 90s Heart disease Stroke Maternal Grandmother , 70s No problems noted. Paternal Grandmother , 70s Alcohol abuse Heart disease Hypertension Stroke Social History Smoking/Tobacco Use Status: Never Second Hand Exposure: Yes Smoking risk assessment performed?: Yes Alcohol Intake: current Alcohol Intake frequency: holidays/special occasions only Alcohol type: wine Drug use: Never Substance use type: does not use Caregiver/Support person: No Household members: spouse Housing: house Communication Needs: Corrective Lenses Do you need help understanding health information?: Never Pets and animals: No Sexually active: Yes Do you think of yourself as: straight/heterosexual Current gender identity: female What is your relationship status?: How often do you talk on the phone with friends or family?: three or more times per week How often do you get together with friends or relatives?: twice per week How often do you attend yarsanism or scientology services?: 1-3 times per year Do you belong to any clubs or organized social groups?: no Panel score (0-1 are the most socially isolated patients): 2 What type of physical activity do you participate in: walking Duration: decline to answer Frequency: 1-2 times per week Barbara/Religious: L[employer] Special barbara needs: No Seatbelt use: always Drive intox or ride w/intox driver medic: No Do you feel safe at home: Yes Do you feel safe in your relationship?: Yes Exam Const General: cooperative and no acute distress HENMT Head: normal to inspection Face and sinus: normal facial exam Eyes General: appearance normal, both eyes and all related structures EOM: EOM intact bilaterally Neck Neck: normal visual inspection and No submandibular swelling Lymphatic: no lymphadenopathy noted Chest Chest: normal inspection of the chest and no tenderness Resp Effort & Inspection: normal respiratory effort and able to speak in complete sentences Auscultation: clear to auscultation bilaterally Cardio Rate: regular rate Rhythm: regular rhythm GI Inspection: normal to inspection and obesity Palpation: soft, not firm, not rigid and nontender Auscultation: hypoactive bowel sounds Skin General skin exam: no rashes or lesions noted Neuro General: patient alert, patient awake and patient oriented x3 Cognition: normal cognition Speech: speech normal Motor: muscle tone normal throughout Sensory Exam: no sensory deficits noted Extrem General: normal to inspection, full ROM, capillary refill normal, no calf tenderness bilaterally and no edema Other: Distal bilateral upper extremity pulses intact. Psych Appearance: grossly normal Mental Status: mental status grossly normal Speech and Movement: speech and movement normal Affect: normal affect Course Vital Signs Vital signs: Vital Signs Temperature 98.2 F 05/15/21 12:59 Pulse 94 H 05/15/21 12:59 Respiratory Rate 18 05/15/21 12:59 Blood Pressure 160/86 H 05/15/21 12:59 Pulse Oximetry 99 05/15/21 12:59 Temperature 98.2 F 05/15/21 12:59 Temperature Source Temporal Artery Scan 05/15/21 12:59 Pulse 94 H 05/15/21 12:59 Respiratory Rate 18 05/15/21 12:59 Blood Pressure 160/86 H 05/15/21 12:59 Blood Pressure Position Sitting 05/15/21 12:59 Pulse Oximetry 99 05/15/21 12:59 Oxygen Delivery Method Room Air 05/15/21 12:59 Oxygen Flow Rate 0 05/15/21 12:59 Pain Level 5 05/15/21 12:59
[2021-05-15 13:12] VITALS: RESP 18
[2021-05-15 13:30] LABS: Abs Immature Grans 0.01 10^3/uL (0.0-0.06); Absolute Basophil Count 0.05 10^3/uL (0.0-0.2); Absolute Lymphocyte Count 1.16 10^3/uL (1.2-3.4); Absolute Monocyte Count 0.55 10^3/uL (0.1-0.8); Absolute Neutrophil Count 5.43 10^3/uL (1.2-6.7); Basophils % 0.7; Eosinophils % 1.4; HCT 48.7 % (36.0-46.0); HGB 15.7 g/dL (11.2-15.7); Immature Grans % 0.1; Lymphocytes % 15.9; MCH 29.9 pg (27.0-33.0); MCHC 32.2 % (32.0-36.0); MCV 92.8 fL (80-95); MPV 8.1 fL (8.0-11.0); Monocytes % 7.5; Neutrophils % 74.4; Nucleated RBC 0 %; Platelet Count 627 10^3/uL (130-400); RBC 5.25 10^6/uL (3.93-5.22); RDW 12.7 % (11.7-14.6); RDW-SD 43.4 fL
[2021-05-15 13:46] LABS: BUN 11 mg/dL (7-18); Bilirubin, Total 0.4 mg/dL (0.2-1.0); Calcium 9.1 mg/dL (8.5-10.1); Estimated GFR 56.56 (mL/min/1.73m2); Glucose 108 mg/dL (74-106); Total Protein 7.5 g/dL (6.4-8.2)
[2021-05-15 13:47] LABS: ALT 21 U/L (14-59); AST 18 U/L (15-37); Alkaline Phosphatase 75 U/L (46-116); Chloride 104 mmol/L (98-107); Magnesium 2.4 mg/dL (1.8-2.4); Potassium 4.5 mmol/L (3.5-5.1); Sodium 140 mmol/L (136-145); Troponin I < 0.05 ng/mL (<0.06)
--- NOTE | 2021-05-15 14:15 | RT.EKG_ITS ---
APPROVED REPORT Exam: Resting ECG Reason for Exam: 2nd ekg Patient Location: E HR:70 bpm ECG Measurements Heart Rate 70 AXIS IL 145 P 92 QRSd 79 QRS -28 QT 402 T [id number] QTc 434 Conclusion Sinus rhythm...normal P axis, V-rate 60- 99 Left atrial enlargement...P, P'>60mS, <-0.15mV V1 Inferior infarct, old...Q >35mS, II III aVF. Sinus. No STEMI. I have reviewed and interpreted ECG and agree with software generated interpretation.
--- NOTE | 2021-05-15 14:15 | DI.CT_ITS ---
Exam(s) CT CHEST PE CTA EXAM: CT CHEST PE CTA CLINICAL HISTORY: L chest and back pain, r/o pe. TECHNIQUE: Imaging Protocol: Axial CT angiography was performed with multi-slice acquisition and mu lti-planar and/or 3D reconstructions. CONTRAST MATERIAL: Intravenous: Omnipaque 350 Contrast volume:100 ml COMPARISON: No exams were available for comparison FINDINGS: Pulmonary Arteries: No evidence of filling defect to suggest pulmonary emboli. Tracheobronchial tree: Patent where visualized. Mediastinum and Sofia: No dominant adenopathy or fluid collection. Pulmonary parenchyma: Expiratory changes. No consolidation or dominant measurable mass. No net application architect ural distortion. Pleura: No effusion or pneumothorax. Heart: The heart is mildly dilated. Coronary artery calcifications are seen. Aorta: Thoracic aorta non-dilated. No dissection Upper abdomen: Unremarkable. Bones: Degenerative disc changes. IMPRESSION: No evidence of pulmonary embolism or other acute abnormality.. RADIATION DOSE DELIVERED: 567.16mGy.cm Total DLP DATA REPOSITORY: All CT scans at this facility are submitted to the National Radiology Data Registry (NRDR) Dose Index Registry (DIR) with the [employer] (ACR). RADIATION OPTIMIZATION: All CT scans at this facility use at least one of these dose optimization te chniques: automated exposure control; mA and/or kV adjustment per patient size (includes targeted exa ms where dose is matched to clinical indication); or iterative reconstruction.
[2021-05-15] MEDS: Omnipaque 350 MG/ML 100 ML BTL IJ (14:33)
[2021-05-15] MEDS: Normal Saline 500 ML IV (15:09)
[2021-05-15] MEDS: diazePAM 5 MG TAB PO (15:10)
[2021-05-15 16:52] LABS: Troponin I < 0.05 ng/mL (<0.06)
[2021-05-15] MEDS: Ketorolac 30 MG/ML VIAL IVP (17:28)
[2021-05-15 17:41] VITALS: BP 151/71; PULSE 89; RESP 19; TEMP 37; O2SAT 98
--- NOTE | 2021-05-16 12:18 | PDOC.ERCMACT ---
- If Service Date Differs Date of service: 05/16/21 Time of Service: 12:18 Care Management Activity Note CM hand-delivered order for outpatient stress test to radiology.
== END 2021-05-15 17:38 | disposition home or self-care (01) ==
PROVIDERS: Emergency Provider Physician Assistant; PCP Family Medicine
DX: R07.9 Chest pain, unspecified (principal)
CPT/HCPCS: 36415; 71275; 80053; 93005; 96361; 96374; 96375; 99285; 83735; 84484; 85025; 93010; 99284; J1885; J3490

== ENCOUNTER 2021-05-19 15:40 | Outpatient (CLI) | payer BC, SELFPAY ==
--- NOTE | 2021-05-19 15:30 | RT.EKG_ITS ---
APPROVED REPORT Exam: Resting ECG Reason for Exam: chest pain Patient Location: O HR:79 bpm ECG Measurements Heart Rate 79 AXIS NC 151 P 45 QRSd 84 QRS -13 QT 390 T 28 QTc 447 Conclusion Sinus rhythm...normal P axis, V-rate 60- 99 Normal Electrocardiogram
== END 2021-05-19 15:41 | disposition home or self-care (01) ==
LOC: DI.CM 15:41
PROVIDERS: PCP Family Medicine; Visit Provider Family Medicine
DX: R07.89 Other chest pain (principal)
CPT/HCPCS: 93010

== ENCOUNTER 2021-05-19 16:37 | Observation (INO) | payer BC, SELFPAY ==
[2021-05-19] VITALS (16 sets, daily range): BP systolic 179–205; BP diastolic 84–104; PULSE 78–100; RESP 14–20; TEMP 36.2–37; O2SAT 93–100
--- NOTE | 2021-05-19 16:30 | DI.CT_ITS ---
Exam(s) CT ABDOMEN PELVIS W EXAM: CT ABDOMEN PELVIS W CLINICAL HISTORY: R/O Cholecystectomy,. TECHNIQUE: Imaging Protocol: Axial computed tomography images with coronal and sagittal reformatted images were created and reviewed CONTRAST MATERIAL: Intravenous: Omnipaque 350 Contrast volume:100 ml Oral: yes / no COMPARISON: CT CT CHEST PE CTA from 05/15/2021 FINDINGS: ABDOMEN: Lung Bases: Normal where visualized. Liver: Mildly enlarged. Normal density. No measurable mass. Gallbladder and biliary tract: No radiodense calculus or dilation. Pancreas: Normal density, no abnormal calcifications or inflammatory process. Spleen: Normal. Kidneys: Normal size, contour and axis. No radiodense stones or obstructive uropathy. No masses seen. Bilateral cysts, left larger than right. Adrenal glands: No masses seen. Abdominal Aorta: Abdominal portion non-dilated. Soft tissues: Small tiny fatty containing umbilical hernia. PELVIS: Bladder: No gross wall thickening. No calculi.No focal mass. Bowel: No obstruction . Appendix normal. Prominent diverticulosis descending and sigmoid colon. Que stion of minimal surrounding inflammatory changes. Large amount of stool in the rectum. Peritoneal cavity: No ascites, collection or mesenteric inflammatory response. Bones: Degenerative disc changes and facet degenerative changes. Reproductive organs: Within normal limits. Mild atherosclerotic changes. Lymph nodes: Unremarkable. Impression: Mild hepatomegaly. Normal gallbladder. Prominent diverticulosis with question of minimal inflammation in the sigmoid region. RADIATION DOSE DELIVERED: 1,397.46mGy.cm Total DLP DATA REPOSITORY: All CT scans at this facility are submitted to the National Radiology Data Registry (NRDR) Dose Index Registry (DIR) with the [employer] (ACR). RADIATION OPTIMIZATION: All CT scans at this facility use at least one of these dose optimization te chniques: automated exposure control; mA and/or kV adjustment per patient size (includes targeted exa ms where dose is matched to clinical indication); or iterative reconstruction.
--- NOTE | 2021-05-19 16:30 | RT.EKG_ITS ---
APPROVED REPORT Exam: Resting ECG Reason for Exam: Mid epigastric pain Patient Location: E HR:81 bpm ECG Measurements Heart Rate 81 AXIS CA 152 P 56 QRSd 76 QRS -6 QT 380 T 15 QTc 441 Conclusion Sinus rhythm...normal P axis, V-rate 60- 99
--- NOTE | 2021-05-19 16:44 | W.ED.FU ---
Date of service: 05/19/21 Time of Service: 16:45 Follow Up Plan: 61-year-old female presents to the ER chief complaint of midepigastric abdominal pain which began acutely at 245 this afternoon after eating some butter noodles and yogurt. Patient was seen by Dr. Costello her PCP prior to arrival and had a EKG done. Patient reports severe increase in pain not relieved by Tylenol. She does have some nausea has not vomited denies any diarrhea fever chills. She reports that Dr. Costello ordered a outpatient ultrasound and a stress test.
[2021-05-19] MEDS: HYDROmorphone 2 MG/ML VIAL 0.5 MG IVP ×2 (16:52→17:27)
[2021-05-19] MEDS: Normal Saline 1,000 ML 1000 ML IV (16:53)
[2021-05-19 16:59] LABS: Abs Immature Grans 0.04 10^3/uL (0.0-0.06); Absolute Basophil Count 0.06 10^3/uL (0.0-0.2); Absolute Eosinophil Count 0.09 10^3/uL (0.0-0.7); Absolute Lymphocyte Count 1.97 10^3/uL (1.2-3.4); Absolute Monocyte Count 0.63 10^3/uL (0.1-0.8); Absolute Neutrophil Count 7.82 10^3/uL (1.2-6.7); Basophils % 0.6; Eosinophils % 0.8; HCT 50.3 % (36.0-46.0); HGB 16.7 g/dL (11.2-15.7); Immature Grans % 0.4; Lymphocytes % 18.6; MCH 30.3 pg (27.0-33.0); MCHC 33.2 % (32.0-36.0); MCV 91.1 fL (80-95); MPV 8.2 fL (8.0-11.0); Monocytes % 5.9; Neutrophils % 73.7; Nucleated RBC 0 %; RBC 5.52 10^6/uL (3.93-5.22); RDW 12.6 % (11.7-14.6); RDW-SD 42.4 fL; WBC 10.61 10^3/uL (4.4-10.8)
[2021-05-19 17:01] LABS: Platelet Count 702 10^3/uL (130-400)
--- NOTE | 2021-05-19 17:04 | W.ED.GENAD ---
Discharge Plan Disposition Patient Disposition: [facility] INPATIENT Condition: Stable Discharge Details Clinical Impression: Chest pain Primary Care Provider: Tonya Costello ED Provider: Miles Brown Home Meds and New Rx's Prescriptions: No Action naproxen sodium [Aleve] 220 mg tablet 220 mg PO HS PRNRF: 0 cetirizine [Zyrtec] 10 mg tablet 10 mg PO DAILY PRNRF: 0 acetaminophen 650 mg tablet extended release 1,300 mg PO QAM RF: 0 clotrimazole-betamethasone 1-0.05 % cream 1 applic Topical BID PRNRF: 0 triamcinolone acetonide 0.1 % ointment 1 applic Topical BID PRNRF: 0 meclizine 12.5 mg tablet 12.5 mg PO TID PRN (Reason: dizziness) Qty: 21 RF: 0 losartan 100 mg tablet 100 mg PO DAILY Qty: 90 RF: 12 aspirin [Adult Aspirin Regimen] 81 mg tablet,delayed release (DR/EC) 81 mg PO DAILY Qty: 90 RF: 0 latanoprost [Xalatan] 2.5 ML drops 1 drp Ophthalmic HS RF: 0 Lubricating Drops 15 ML drops 15 ml Ophthalmic PRN RF: 0 estradiol [Vagifem] 10 mcg tablet 10 mcg VG 2X Week Qty: 25 RF: 12 Medical Decision Making 61-year-old female presents from home complaining of upper abdominal pain and seems similar to some mild pain earlier in the week but escalated significantly after seeing Dr. Costello in the office today. She has had a plan for outpatient ultrasound a cardiac work-up. Patient was seen in emergency room May [address] scan of the chest and laboratory data revealed troponin negative x2. Patient presents with moderate to severe distress. IV access established and she is given parenteral analgesia. The patient is referred for laboratory testing including troponin, comprehensive panel and CT of the abdomen and pelvis. Laboratories note a white count of 10, hematocrit 50, platelets 702, total bili 0.4, AST 14, ALT 26. CT scan shows colonic diverticulosis with questionable changes of mild diverticulitis in the proximal sigmoid. Note of bilateral adrenal gland congestion. See formal report. Patient did also undergo focused abdominal ultrasound: Mild hepatomegaly with slightly coarsened liver echotexture and mildly increased echogenicity around the portal triads. Gallbladder and bile ducts are normal in appearance. See formal report. Given patient's ongoing, undifferentiated kristin pain I discussed the case with Dr. Montano. She recommends consider treatment for early sigmoid diverticulitis, consideration of adrenal protocol CT tomorrow, admission to the medicine service with surgery in consultation. Patient seen by Dr. Lunsford, trial of nitroglycerin given with no significant change. Repeat troponin negative. Patient to be admitted to the hospitalist service. HPI General Mode of arrival: ambulatory. Date/Time Provider Initiated Documentation: 05/19/21 16:39. Limitations to Documentation: no limitations. Information obtained by: patient. History of Present Illness 61 year old F presents to the emergency department with the chief complaint of Upper abdominal pain, described as severe, Quality is described as dull and constant, and is localized to the abdomen. Patient reports radiation to back. Patient started experiencing this hour(s) and it has been constant. No relieving factors improve symptom(s), No exacerbating factors reported . Patient notes denies fever/chills. Patient did receive the following treatments prior to arrival, none Related Data Home Medications Medication Instructions Recorded Confirmed Lubricating Drops 15 ml OPHTHALMIC PRN 02/15/17 05/19/21 latanoprost [Xalatan] 1 drp OPHTHALMIC HS drp 02/15/17 05/19/21 cetirizine 10 mg tablet 10 mg PO DAILY PRN 03/02/19 05/19/21 estradiol 10 mcg vaginal tablet 10 mcg VG 2X Week #25 tab-cap 01/31/20 05/19/21 acetaminophen 650 mg 1,300 mg PO QAM tab 07/08/20 05/19/21 tablet,extended release clotrimazole-betamethasone 1 1 applic TOPICAL BID PRN gm 07/08/20 05/19/21 %-0.05 % topical cream triamcinolone acetonide 0.1 % 1 applic TOPICAL BID PRN gm 07/08/20 05/19/21 topical ointment meclizine 12.5 mg tablet 12.5 mg PO TID PRN #21 tab 04/07/21 05/19/21 naproxen sodium 220 mg tablet 220 mg PO HS PRN tab 04/11/21 05/19/21 aspirin 81 mg tablet,delayed 81 mg PO DAILY #90 tab 05/19/21 05/19/21 release losartan 100 mg tablet 100 mg PO DAILY #90 tab-cap 05/19/21 05/19/21 Previous Rx's Medication Instructions Recorded estradiol 10 mcg vaginal tablet 10 mcg VG 2X Week #25 tab-cap 01/31/20 meclizine 12.5 mg tablet 12.5 mg PO TID PRN #21 tab 04/07/21 aspirin 81 mg tablet,delayed 81 mg PO DAILY #90 tab 05/19/21 release losartan 100 mg tablet 100 mg PO DAILY #90 tab-cap 05/19/21 Allergies Allergy/AdvReac Type Severity Reaction Status Date / Time aspartame AdvReac Intermediate Verified 05/19/21 16:44 hydrochlorothiazide AdvReac Intermediate Leg cramps Verified 05/19/21 16:44 latex AdvReac Intermediate skin Verified 05/19/21 16:44 cracks and bleeds General Stated Complaint: Chest Pain CHERI: 2 Review of Systems Narrative: Seen on May [address] No recent illness. Denies change to bowel habits. 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 3.5 cm left kidney cyst Essential hypertension External otitis 05/07/14 Gastroesophageal reflux disease Hyperlipidemia Knee pain (01/01/07) MRI 01/08= neg. tear; ? of chondromalacia; Med. patellar fault Left shoulder pain 08/05/15 Left shoulder pain (08/05/15) Microscopic hematuria neg. C&S; nl Bun and Cr.; neg IUP; neg cystocopy Microscopic hematuria Muscle strain Otitis externa (05/07/14) Right carpal tunnel syndrome (02/21/18) Patient has clinically obvious carpal tunnel syndrome right upper extremity. I explained her that I know do all my carpal tunnel surgeries via open technique. This avoid an incomplete release or or an injury to the common digital nerve to the middle finger. Patient understands the reason for the change the open technique and agrees to have this done on her right side despite the fact that she had a E CTR on the left side Vascular headache Vascular headache Surgical History Endometrial Biopsy neg History of carpal tunnel release 05/13/18 DR. CUADRA; RIGHT History of gynecologic surgery endometrial Bx-neg Open Carpal Tunnel release (~2002) left medial nerve release PROCEDURES 07/21/16; LASERLIDOTOMY S/P carpal tunnel release left medial nerve release Status post carpal tunnel release Status post carpal tunnel release Family History Mother , 59 Essential hypertension Anxiety Depression Heart disease Hyperlipidemia Leukemia Father , MET/LUNG CA at age 79. Diabetes Alcohol abuse Essential hypertension Heart disease Hyperlipidemia Asthma Lung cancer Sister No problems noted. Brother Essential hypertension Anxiety Depression Hyperlipidemia Maternal Grandfather , 90s No problems noted. Paternal Grandfather , 90s Heart disease Stroke Maternal Grandmother , 70s No problems noted. Paternal Grandmother , 70s Alcohol abuse Heart disease Hypertension Stroke Social History Smoking/Tobacco Use Status: Never Second Hand Exposure: Yes Smoking risk assessment performed?: Yes Alcohol Intake: current Alcohol Intake frequency: holidays/special occasions only Alcohol type: wine Drug use: Never Substance use type: does not use Caregiver/Support person: No Household members: spouse Housing: house Communication Needs: Corrective Lenses Do you need help understanding health information?: Never Pets and animals: No Sexually active: Yes Do you think of yourself as: straight/heterosexual Current gender identity: female What is your relationship status?: How often do you talk on the phone with friends or family?: three or more times per week How often do you get together with friends or relatives?: twice per week How often do you attend baptism or adventism services?: 1-3 times per year Do you belong to any clubs or organized social groups?: no Panel score (0-1 are the most socially isolated patients): 2 What type of physical activity do you participate in: walking Duration: decline to answer Frequency: 1-2 times per week Barbara/Restoration: Sikhism Special barbara needs: No Seatbelt use: always 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 Pleasant, well groomed, interactive. HEAD: Normocephalic, atraumatic ENT: Mucous membranes moist, oropharynx unremarkable, External ear exam unremarkable EYES: PERRL, EOMI NECK: Full ROM, no DELMAR, no menigismus CHEST/RESP: Nontender, clear to auscultation bilateral, no wheeze/rhonchi/rales CARDIOVASCULAR: RRR, no murmur, rub rigoberto. 2+ Rad pulse bilateral ABDOMEN: Soft, tender in the upper abdomen without rebound or guarding, no mass. +Bowel sounds EXT: Full ROM, no edema, no rash Neuro: Grossly normal neurologic exam, conversant, interactive. Psych: Speech fluent, thoughts congruent, affect anxious Course Vital Signs Vital signs: Vital Signs Temperature 36.2 C L 05/19/21 16:40 Pulse 79 05/19/21 16:40 Respiratory Rate 14 05/19/21 16:40 Blood Pressure 179/98 H 05/19/21 16:40 Pulse Oximetry 99 05/19/21 16:40 Temperature 36.2 C L 05/19/21 16:40 Pulse 79 05/19/21 16:40 Respiratory Rate 14 05/19/21 16:40 Respiratory Effort Non-Labored 05/19/21 16:58 Respiratory Depth Normal 05/19/21 16:58 Respiratory Pattern Normal 05/19/21 16:58 Blood Pressure 179/98 H 05/19/21 16:40 Blood Pressure Position Sitting 05/19/21 16:40 Pulse Oximetry 99 05/19/21 16:40 Oxygen Delivery Method Room Air 05/19/21 16:40 Oxygen Flow Rate 0 05/19/21 16:40 Pain Level 10 05/19/21 16:40 Lab/Test Results Lab/Test Results: Laboratory Tests Range/Units 05/19/21 05/19/21 05/19/21 16:48 17:01 20:01 WBC (4.4-10.8) 10^3/uL 10.61 RBC (3.93-5.22) 10^6/uL 5.52 H Hgb (11.2-15.7) g/dL 16.7 H Hct (36.0-46.0) % 50.3 H MCV (80-95) fL 91.1 MCH (27.0-33.0) pg 30.3 MCHC (32.0-36.0) % 33.2 RDW (11.7-14.6) % 12.6 Plt Count (130-400) 10^3/uL 702 H MPV (8.0-11.0) fL 8.2 Immature Gran % 0.4 Neutrophils % 73.7 Lymphocytes % 18.6 Monocytes % 5.9 Eosinophils % 0.8 Basophils % 0.6 Nucleated RBC % % 0 Absolute Neutrophils (1.2-6.7) 10^3/uL 7.82 H Absolute Lymphocytes (1.2-3.4) 10^3/uL 1.97 Absolute Monocytes (0.1-0.8) 10^3/uL 0.63 Absolute Eosinophils (0.0-0.7) 10^3/uL 0.09 Absolute Basophils (0.0-0.2) 10^3/uL 0.06 Sodium Cancelled Potassium Cancelled Chloride Cancelled Carbon Dioxide Cancelled Anion Gap Cancelled BUN Cancelled Creatinine Cancelled Estimated GFR/1.73 m2 Cancelled Glucose Cancelled Calcium Cancelled Total Bilirubin Cancelled AST Cancelled ALT Cancelled Alkaline Phosphatase Cancelled Troponin I Cancelled Cancelled Total Protein Cancelled Albumin Cancelled PAWSS Have you Been Recently Intoxicated or Drunk Within the Last 30 days?: No Have you Ever Experienced Previous Episodes of Alcohol Withdrawal?: No Have you ever Experienced Withdrawal Seizures?: No Have you ever Experienced Delirium Tremens(DT)s?: No Have you ever undergone Alcohol Rehabilitation Treatment (i.e, inpt ot outpatient treatment programs)?: No Have you ever Experienced Blackouts?: No Have you ever Combined Alcohol with other Downers within the last 90 days?: No Have you ever Combined Alcohol with any other Substance of Abuse during the last 90 days?: No Positive Blood Alcohol level on Presentation? [PCS.BAL]: No Evidence of Increased Autonomic Activity (i.e. HR>120, tremor, sweating, agitation, nausea)?: No Result: 0
[2021-05-19] MEDS: Ondansetron 4 MG/2 ML VIAL IVP ×2 (17:06→18:35)
[2021-05-19] MEDS: HYDROmorphone 2 MG/ML VIAL 1 MG IVP (17:07)
[2021-05-19 17:17] LABS: ALT 26 U/L (14-59); AST 14 U/L (15-37); Albumin 4.5 g/dL (3.4-5.0); Alkaline Phosphatase 93 U/L (46-116); Anion Gap 14.7 mmol/L (3-11); BUN 13 mg/dL (7-18); Bilirubin, Total 0.4 mg/dL (0.2-1.0); CO2 25.3 mmol/L (21.0-32.0); CREATININE 1.1 mg/dL (0.55-1.02); Calcium 9.7 mg/dL (8.5-10.1); Chloride 99 mmol/L (98-107); Estimated GFR 50.67 (mL/min/1.73m2); Glucose 143 mg/dL (74-106); Lipase 49 U/L (73-393); Magnesium 2.1 mg/dL (1.8-2.4); Potassium 3.4 mmol/L (3.5-5.1); Sodium 139 mmol/L (136-145); Total Protein 8.5 g/dL (6.4-8.2)
[2021-05-19 17:18] LABS: Troponin I < 0.05 ng/mL (<0.06)
[2021-05-19] MEDS: Normal Saline - Diluent 50 ML VIAL IV (17:34)
[2021-05-19] MEDS: Omnipaque 350 MG/ML 100 ML BTL IJ (17:34)
[2021-05-19] MEDS: Normal Saline Flush 10 ML SYR IVP ×3 (17:35→22:40)
--- NOTE | 2021-05-19 17:45 | DI.US_ITS ---
Exam(s) US ABDOMEN LIMITED EXAM: US ABDOMEN LIMITED CLINICAL HISTORY: epigastric pain TECHNIQUE: Ultrasound abdomen performed using standard protocol. COMPARISON: CT CT ABDOMEN PELVIS W from 05/19/[address] ABDOMEN PELVIS W from 05/19/2021 FINDINGS: Exam is somewhat limited by patient body habitus. LIVER: Mildly enlarged at 16.8 cm. Normal echogenicity. No focal liver lesions are seen.. GALLBLADDER: No evidence of cholelithiasis. No evidence of wall thickening. No pericholecystic fluid identified. CROWDER'S SIGN: Negative. BILIARY SYSTEM: No intrahepatic or extrahepatic biliary ductal dilation. RIGHT KIDNEY: Normal size. No evidence of renal calculi. No evidence of hydronephrosis. No suspicious renal mass. Lower pole not well seen. PANCREAS: Normal where visualized. ABDOMINAL AORTA AND IVC: Visualized portions normal caliber. ASCITES: None seen. IMPRESSION: Mildly enlarged liver. No evidence of gallstones or gallbladder wall thickening. DATA REPOSITORY:
[2021-05-19] MEDS: Ketorolac 15 MG/ML VIAL IVP (17:59)
[2021-05-19] MEDS: fentaNYL 100 MCG/2 ML VIAL 50 MCG IVP (17:59)
--- NOTE | 2021-05-19 18:21 | DI.VRAD_ITS ---
PROCEDURE INFORMATION: Exam: CT Abdomen And Pelvis With Contrast Exam date and time: 05/19/2021 4:45 PM Age: 61 years old Clinical indication: Generalized; Patient HX: Abdominal pain; PT states hurts all sides; Additional info: R/O cholecystectomy TECHNIQUE: Imaging protocol: Computed tomography of the abdomen and pelvis with contrast. Total images: 1278 COMPARISON: CR XR HIP LT COMPLETE AP PELVIS 07/10/2020 8:01 AM FINDINGS: Lungs: Mild atelectasis in the lung bases. Heart: Heart size normal. Diaphragm: Question small hiatal hernia. Liver: Mild hepatomegaly measuring 19 cm craniocaudal. Normal contour. No mass lesions. No intrahepatic biliary ductal dilatation. Gallbladder and bile ducts: Normal. No calcified stones. No ductal dilation. Pancreas: Normal. No inflammatory changes or ductal dilation. Spleen: Mild splenomegaly measuring 14.0 cm craniocaudal. Adrenal glands: Symmetrical stranding around the adrenal glands suggesting adrenal congestion, nonspecific. No evidence of adrenal hemorrhage currently, correlate clinically for adrenal function. There is a 12 x 9 mm nodule in the right adrenal gland measuring 85 Hounsfield units average density. This is nonspecific in nature. Current consensus criteria do not require further evaluation for a nodule of this size. Kidneys and ureters: No acute abnormalities. No hydronephrosis or hydroureter. No urinary tract stones are identified. There are bilateral renal cortical lesions demonstrating low density values and circumscribed margins favoring simple renal cysts. No further imaging evaluation is required. Stomach and bowel: The stomach is unremarkable. The small bowel is nondilated with no gross abnormality. Moderate-severe distal colonic diverticulosis. Question minimal stranding/vascular congestion along the proximal sigmoid colon which may indicate mild diverticulitis but is not definitive. No evidence of perforation or abscess. Appendix: The appendix is normal in caliber and demonstrates no evidence of appendicitis. Intraperitoneal space: No free fluid or air. Vasculature: Mild atherosclerotic aortoiliac calcification without aneurysm. Lymph nodes: No adenopathy. Urinary bladder: Unremarkable as visualized. Reproductive: Unremarkable as visualized. Bones/joints: Transitional lumbosacral segment designated a partially lumbarized S1 segment for purposes of this exam. Grade 1 degenerative anterolisthesis at what are designated L4-L5 and L5-S1, with moderate lower lumbar degenerative facet hypertrophic changes. Soft tissues: Very small fatty umbilical hernia . No evidence of associated bowel herniation or strangulation. IMPRESSION: 1. Moderate-severe distal colonic diverticulosis, with questionable changes of mild diverticulitis in the proximal sigmoid colon. No evidence of perforation or abscess. 2. The gallbladder and bile ducts are unremarkable. 3. There is bilateral adrenal gland congestion, nonspecific. This has been described as a potential precursor to adrenal hemorrhage although there is no evidence of adrenal hemorrhage currently. Correlate clinically for adrenal function. 4. There is a right adrenal nodule measuring 9 mm short axis. This does not require further imaging based on current consensus criteria. 5. Mild hepatomegaly. 6. Mild splenomegaly. 7. Additional nonemergent findings detailed above. Dictated and Authenticated by: Douglas Green MD. Ordering:MYRON Ruiz MD
[2021-05-19] MEDS: ACETAMINOPHEN 1,000 MG/100 ML BTL 400 MG IVPB (18:34)
[2021-05-19 18:36] LABS: Clarity Clear (Clear); Leukocyte Esterase Negative (Negative)
[2021-05-19 18:37] LABS: Bilirubin Negative (Negative); Blood Trace-intact (Negative); Glucose Negative (Negative); Ketones 40 mg/dL (Negative); Nitrite Negative (Negative); Urobilinogen 0.2 EU/dL (Up TO 0.2)
[2021-05-19 18:41] LABS: Bacteria Negative HPF (Negative); C & S Indicated? No; Casts Negative LPF (Negative); Crystals Negative HPF (Negative); Epithelial Cells Few HPF (Negative); Mucus Trace (Negative)
--- NOTE | 2021-05-19 19:23 | DI.VRAD_ITS ---
PROCEDURE INFORMATION: Exam: US Abdomen, Limited; Right Upper Quadrant Exam date and time: 05/19/2021 5:49 PM Age: 61 years old Clinical indication: Other: Epigastric pain. TECHNIQUE: Imaging protocol: US abdomen. Real time ultrasound with image documentation. Limited exam focused on the right upper quadrant. Total images: 74 COMPARISON: CT ABDOMEN PELVIS W 05/19/2021 5:34 PM FINDINGS: Liver: Question mild hepatomegaly. No focal hepatic lesions are identified. No intrahepatic biliary ductal dilatation. Hepatopedal flow demonstrated in the main portal vein. Question slightly increased echogenicity around the portal triads and slight generalized coarsening of echotexture. This pattern can be seen with hepatitis. Gallbladder: The gallbladder is normal in appearance without evidence of stones, wall thickening, or pericholecystic fluid. Gallbladder wall thickness 1.6 mm. Negative sonographic Michaels's sign reported by the technologist. Common bile duct: Nondilated common bile duct measuring 5.9 mm diameter. Pancreas: Visualized portions of the pancreatic head, neck, and body were unremarkable. No pancreatic ductal dilatation is evident. Right kidney: The right kidney measures 11.2 x 4.9 x 4.9 cm. No hydronephrosis or gross nephrolithiasis. Normal cortical thickness and corticomedullary differentiation. Small simple renal cortical cysts in the lower pole of the right kidney seen on CT are not well seen sonographically due to obscuring bowel gas in the region. No perinephric abnormalities. Intraperitoneal space: No free fluid was identified. IMPRESSION: 1. Mild hepatomegaly with slightly coarsened liver echotexture and mildly increased echogenicity around the portal triads. This pattern can be seen with hepatitis or passive congestion, correlate clinically. 2. The gallbladder and bile ducts are normal in appearance. Dictated and Authenticated by: Douglas Green MD. Ordering:YOLANDA Aquino MD
[2021-05-19 20:12] LABS: Source Nasal/Nares
[2021-05-19] MEDS: nitroGLYcerin 0.4 MG TAB SL (20:23)
[2021-05-19 20:31] LABS: Troponin I < 0.05 ng/mL (<0.06)
[2021-05-19] MEDS: nitroGLYcerin 2% 1 INCH/1 GM PKT TP (20:35)
--- NOTE | 2021-05-19 20:37 | W.PM.HP.N ---
Date of service: 05/19/21 Time of Service: 20:37 Assessment and Plan Assessment and plan (1) Chest pain: Status: Acute Assessment and plan: CP. Note firstly that this was presented to ER more as abd pain, but she is absolutely clear to me that this in all essentials is entirely a matter of CP. At present I have no explanation, but extensive w/u has been so far unrevealing (I do note the issue of adrenal congestion, possible precursor lesion to adrenal hemorrhage, but this presentation is not c/w acute adrenal insufficiency and this finding will for present purposes be regarded as incidental. Will obtain ACTH stim but I think this is low likelihood). I would still consider esophageal origin and will await trial topical nitrates, and will trial PPI. I would also consider pericarditis in general terms, though nothing specific in presentation or findings to support this (although I do note the improvement in first ER visit following Toradol). There is also noted the thrombocytosis, possibly representing acute phase reactant, but this is nonspecific. Would consider trial dose Motrin 800. Would also consider EGD. History of Present Illness History of Present Illness Chief Complaint: CP Narrative: 61 female seen 4 days [employer] PUBL[employer] for episode of CP. W/u negative, including serial troponins and negative chest CT. Treated with Toradol and eventually pain resolved. Returns today with recurrent CP. It is described as diffuse, with involvement of entire back, and at its worst slightly into epigastrum. No SOB, but having some nausea. No diaphoresis. Here in ER w/u of note for negative EKG, negative trop, and CT abdomen negative except for questionable signs of mild sigmoid diverticulitis, and some congestion of adrenals, w/o hemorrhage. Labs otherwise of note for white count 10, Hct 50, platelet 702; Na 139, K 3.4, Cl 99, HCO3 25; glucose 143; negative TAs and lipase. Patient has received Toradol, Morphine, Dilaudid, Fentanyl and APAP -- all without help. Given NTG SL x one -- no effect, but it is noted that the tablet did not dissolve and patient reported no tingling. She has just been given NTG paste as of this writing. 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 3.5 cm left kidney cyst Essential hypertension External otitis 05/07/14 Gastroesophageal reflux disease Hyperlipidemia Knee pain (01/01/07) MRI 01/08= neg. tear; ? of chondromalacia; Med. patellar fault Left shoulder pain 08/05/15 Left shoulder pain (08/05/15) Microscopic hematuria neg. C&S; nl Bun and Cr.; neg IUP; neg cystocopy Microscopic hematuria Muscle strain Otitis externa (05/07/14) Right carpal tunnel syndrome (02/21/18) Patient has clinically obvious carpal tunnel syndrome right upper extremity. I explained her that I know do all my carpal tunnel surgeries via open technique. This avoid an incomplete release or or an injury to the common digital nerve to the middle finger. Patient understands the reason for the change the open technique and agrees to have this done on her right side despite the fact that she had a E CTR on the left side Vascular headache Vascular headache Surgical History Endometrial Biopsy neg History of carpal tunnel release 05/13/18 DR. CUADRA; RIGHT History of gynecologic surgery endometrial Bx-neg Open Carpal Tunnel release (~2002) left medial nerve release PROCEDURES 07/21/16; LASERLIDOTOMY S/P carpal tunnel release left medial nerve release Status post carpal tunnel release Status post carpal tunnel release Family History Mother , 59 Essential hypertension Anxiety Depression Heart disease Hyperlipidemia Leukemia Father , MET/LUNG CA at age 79. Diabetes Alcohol abuse Essential hypertension Heart disease Hyperlipidemia Asthma Lung cancer Sister No problems noted. Brother Essential hypertension Anxiety Depression Hyperlipidemia Maternal Grandfather , 90s No problems noted. Paternal Grandfather , 90s Heart disease Stroke Maternal Grandmother , 70s No problems noted. Paternal Grandmother , 70s Alcohol abuse Heart disease Hypertension Stroke Social History Smoking/Tobacco Use Status: Never Second Hand Exposure: Yes Smoking risk assessment performed?: Yes Alcohol Intake: current Alcohol Intake frequency: holidays/special occasions only Alcohol type: wine Drug use: Never Substance use type: does not use Caregiver/Support person: No Household members: spouse Housing: house Communication Needs: Corrective Lenses Do you need help understanding health information?: Never Pets and animals: No Sexually active: Yes Do you think of yourself as: straight/heterosexual Current gender identity: female What is your relationship status?: How often do you talk on the phone with friends or family?: three or more times per week How often do you get together with friends or relatives?: twice per week How often do you attend temple or congregation services?: 1-3 times per year Do you belong to any clubs or organized social groups?: no Panel score (0-1 are the most socially isolated patients): 2 What type of physical activity do you participate in: walking Duration: decline to answer Frequency: 1-2 times per week Barbara/Synagogue: [employer] Special barbara needs: No Seatbelt use: always Drive intox or ride w/intox full service vending driver: No Do you feel safe at home: Yes Do you feel safe in your relationship?: Yes Meds Allergies and Home Medications Allergies Allergy/AdvReac Type Severity Reaction Status Date / Time aspartame AdvReac Intermediate Verified 05/19/21 16:44 hydrochlorothiazide AdvReac Intermediate Leg cramps Verified 05/19/21 16:44 latex AdvReac Intermediate skin Verified 05/19/21 16:44 cracks and bleeds Home Medications Medication Instructions Recorded Confirmed Type Lubricating Drops 15 ml OPHTHALMIC PRN 02/15/17 05/19/21 History latanoprost [Xalatan] 1 drp OPHTHALMIC HS drp 02/15/17 05/19/21 History cetirizine 10 mg tablet 10 mg PO DAILY PRN 03/02/19 05/19/21 History estradiol 10 mcg vaginal tablet 10 mcg VG 2X Week #25 tab-cap 01/31/20 05/19/21 Rx acetaminophen 650 mg 1,300 mg PO QAM tab 07/08/20 05/19/21 History tablet,extended release clotrimazole-betamethasone 1 1 applic TOPICAL BID PRN gm 07/08/20 05/19/21 History %-0.05 % topical cream triamcinolone acetonide 0.1 % 1 applic TOPICAL BID PRN gm 07/08/20 05/19/21 History topical ointment meclizine 12.5 mg tablet 12.5 mg PO TID PRN #21 tab 04/07/21 05/19/21 Rx naproxen sodium 220 mg tablet 220 mg PO HS PRN tab 04/11/21 05/19/21 History aspirin 81 mg tablet,delayed 81 mg PO DAILY #90 tab 05/19/21 05/19/21 Rx release losartan 100 mg tablet 100 mg PO DAILY #90 tab-cap 05/19/21 05/19/21 Rx Exam Narrative Exam Narrative: 186/94, 100, 36.2, 20, 97% RA. HEENT atraumatic; neck supple; lungs clear; heart RRR w/o MRG; abdomen soft and NT; extremities w/o edema; neuro Ox3, lucid, moves all 4s. Results Labs Result diagrams: 05/19/21 16:48 05/19/21 16:48 Labs: Laboratory Results - last 24 hr 05/19/21 05/19/21 05/19/21 15:00 16:48 16:48 WBC 10.61 RBC 5.52 H Hgb 16.7 H Hct 50.3 H MCV 91.1 MCH 30.3 MCHC 33.2 RDW 12.6 Plt Count 702 H MPV 8.2 Immature Gran % 0.4 Neutrophils % 73.7 Lymphocytes % 18.6 Monocytes % 5.9 Eosinophils % 0.8 Basophils % 0.6 Nucleated RBC % 0 Absolute Neutrophils 7.82 H Absolute Lymphocytes 1.97 Absolute Monocytes 0.63 Absolute Eosinophils 0.09 Absolute Basophils 0.06 Sodium 139 Potassium 3.4 L Chloride 99 Carbon Dioxide 25.3 Anion Gap 14.7 H BUN 13 Creatinine 1.1 H Estimated GFR/1.73 m2 50.67 Glucose 143 H Calcium 9.7 Magnesium 2.1 Total Bilirubin 0.4 AST 14 L ALT 26 Alkaline Phosphatase 93 Troponin I < 0.05 < 0.05 Total Protein 8.5 H Albumin 4.5 Lipase 49 Urine Color Urine Clarity Urine pH Ur Specific [place] Urine Protein Urine Ketones Urine Blood Urine Nitrite Urine Bilirubin Urine Urobilinogen Ur Leukocyte Esterase Urine RBC Urine WBC Ur Epithelial Cells Urine Crystals Urine Bacteria Urine Casts Urine Mucus Ur Culture Indicated? Urine Glucose COVID-19 Source 05/19/21 05/19/21 05/19/21 17:01 18:28 20:01 WBC RBC Hgb Hct MCV MCH MCHC RDW Plt Count MPV Immature Gran % Neutrophils % Lymphocytes % Monocytes % Eosinophils % Basophils % Nucleated RBC % Absolute Neutrophils Absolute Lymphocytes Absolute Monocytes Absolute Eosinophils Absolute Basophils Sodium Cancelled Potassium Cancelled Chloride Cancelled Carbon Dioxide Cancelled Anion Gap Cancelled BUN Cancelled Creatinine Cancelled Estimated GFR/1.73 m2 Cancelled Glucose Cancelled Calcium Cancelled Magnesium Total Bilirubin Cancelled AST Cancelled ALT Cancelled Alkaline Phosphatase Cancelled Troponin I Cancelled Cancelled Total Protein Cancelled Albumin Cancelled Lipase Urine Color Yellow Urine Clarity Clear Urine pH 6.0 Ur Specific [place] 1.020 Urine Protein 30 H Urine Ketones 40 H Urine Blood Trace-intact H Urine Nitrite Negative Urine Bilirubin Negative Urine Urobilinogen 0.2 Ur Leukocyte Esterase Negative Urine RBC 3-5 H Urine WBC 3-5 Ur Epithelial Cells Few Urine Crystals Negative Urine Bacteria Negative Urine Casts Negative Urine Mucus Trace Ur Culture Indicated? No Urine Glucose Negative COVID-19 Source 05/19/21 20:05 WBC RBC Hgb Hct MCV MCH MCHC RDW Plt Count MPV Immature Gran % Neutrophils % Lymphocytes % Monocytes % Eosinophils % Basophils % Nucleated RBC % Absolute Neutrophils Absolute Lymphocytes Absolute Monocytes Absolute Eosinophils Absolute Basophils Sodium Potassium Chloride Carbon Dioxide Anion Gap BUN Creatinine Estimated GFR/1.73 m2 Glucose Calcium Magnesium Total Bilirubin AST ALT Alkaline Phosphatase Troponin I Total Protein Albumin Lipase Urine Color Urine Clarity Urine pH Ur Specific [place] Urine Protein Urine Ketones Urine Blood Urine Nitrite Urine Bilirubin Urine Urobilinogen Ur Leukocyte Esterase Urine RBC Urine WBC Ur Epithelial Cells Urine Crystals Urine Bacteria Urine Casts Urine Mucus Ur Culture Indicated? Urine Glucose COVID-19 Source Nasal/Nares Last Vital Signs Temp 36.2 C L 05/19/21 16:40 Pulse 100 H 05/19/21 20:34 Resp 20 05/19/21 20:34 BP 186/94 H 05/19/21 20:34 Pulse Ox 97 05/19/21 20:34 PAWSS Have you Been Recently Intoxicated or Drunk Within the Last 30 days?: No Have you Ever Experienced Previous Episodes of Alcohol Withdrawal?: No Have you ever Experienced Withdrawal Seizures?: No Have you ever Experienced Delirium Tremens(DT)s?: No Have you ever undergone Alcohol Rehabilitation Treatment (i.e, inpt ot outpatient treatment programs)?: No Have you ever Experienced Blackouts?: No Have you ever Combined Alcohol with other Downers within the last 90 days?: No Have you ever Combined Alcohol with any other Substance of Abuse during the last 90 days?: No Positive Blood Alcohol level on Presentation? [PCS.BAL]: No Evidence of Increased Autonomic Activity (i.e. HR>120, tremor, sweating, agitation, nausea)?: No Result: 0
[2021-05-19 21:06] LABS: COVID-19 PCR Negative (Negative)
[2021-05-19] MEDS: Lactated Ringers 1,000 ML 80 ML IV (22:12)
[2021-05-19] MEDS: Ibuprofen 800 MG TAB PO (22:26)
[2021-05-19] MEDS: Pantoprazole 40 MG VIAL IVP (22:28)
[2021-05-19 22:39] LABS: Troponin I < 0.05 ng/mL (<0.06)
[2021-05-19] MEDS: HYDROmorphone 2 MG/ML VIAL IVP (22:39)
--- NOTE | 2021-05-20 | DI.US_ITS ---
APPROVED REPORT EXAM: Comprehensive 2D, Doppler, and color-flow Echocardiogram Patient Location: In-Patient Room/Bed: [address] Carp[address] Instructor: Addie Bundy RDCS (AE) Indications: Severe unrelenting chest pain, r/o endocarditis Other Information Study Quality: Adequate. Technically limited study due to inability to position patient, body habitus . Conclusion Mild concentric left ventricular hypertrophy. Estimated ejection fraction is 60 to 65%. There are n o segmental wall motion abnormalities The right ventricle is not well visualized The left atrium is mildly dilated. The right atrium is normal in size There are no structural valvular abnormalities Trace mitral, tricuspid, and pulmonic regurgitation Mildly dilated ascending aorta measuring 3.5 cm Wall motion Left Ventricle The left ventricle is normal size. The left ventricular systolic function is normal. The left ventric ular ejection fraction is within the normal range. Mild concentric left ventricular hypertrophy. Ther e is normal LV segmental wall motion.. There is no ventricular septal defect visualized. LVEF is 60-6 5%. Right Ventricle Right ventricle is not well visualized. Right ventricular systolic function could not be assessed .Th e RVSP is 35.2 mmHg. Atria Left atrium is mildly dilated. The right atrium size is normal. The interatrial septum is intact with no evidence for an atrial septal defect. Aortic Valve The aortic valve is normal in structure. Aortic valve is trileaflet. No hemodynamically significant v alvular aortic stenosis. No aortic regurgitation is present. Mitral Valve The mitral valve is normal in structure. No evidence of mitral valve stenosis. Trace mitral regurgita tion. Tricuspid Valve The tricuspid valve is normal in structure. There is no tricuspid valve stenosis. Trace tricuspid reg urgitation. Pulmonic Valve The pulmonary valve is normal in structure. There is no pulmonic valvular stenosis. Trace pulmonic re gurgitation. Great Vessels The aortic root is normal in size. The ascending aorta is mildly dilated.3.5 cm IVC is normal in size and collapses >50% with inspiration. Pericardium There is no pericardial effusion. 2D Dimensions IVSD d PLAX 1.21 cm F: 0.6-1.0 LV Vol A2C d MOD 93.5 mL LVPW d PLAX 1.21 cm F: 0.6 - 1.0 LV Vol A4C d MOD 79.3 mL LVID d PLAX 4.46 cm F: 3.8 - 5.2 LA vol/ BSA A4C s A-L 26.3 mL/m2 LVDs 3.15 cm F: 2.2 - 3.5 LA Area A4C s MOD 20.31 cm2 Ao Root d 2.93 cm F: 2.7 - 3.3 LV EF A4C MOD 50.0 % RA Area A4C 11.59 cm2 LV EF A2C MOD 55.1 % RA Vol/ BSA A4C s A-L 11.7 mL/m2 LV EF Biplane MOD 52.8 % Ao Asc Diam d 3.50 cm F: 2.3 - 3.1 SV 47.25 mL LV EF Teichholz 55.2 % SV Index 21.80 mL/m2 LVEF (Chaudhary's) 52.79 % F: 54 - 74 LV Volume 65.40 mL F: 46 - 106 LV Volume Index 30.27 mL/m2 F: 29 - 61 LV Vol Biplane MOD 89.5 mL FS 28.50 % M-Mode TAPSE 2.77 cm (M/F) >1.7 LV Diastology MV E' medial 0.082 (>0.07 m/s) E/A Ratio 0.7 LV E/e MED 9.90 (<14) MV E Vmax 0.81 (0.4-1.3 m/s) MV E' lateral 0.093 (>0.1 m/s) MV A Vmax 1.15 (0.4-1.3 m/s) LV E/e LAT 8.75 (<14) MV E/A Ratio 0.69 MV E/E' medial 9.93 MV E/E' lateral 8.75 Aortic Valve LVOT Area 3.12 cm2 AoV Area Vmax 2.28 cm2 LVOT Vmax 1.59 m/s AoV Area/ BSA (Vmax) 1.05 cm2/m2 LVOT Mean Alonso. 0.94 m/s KEESHA Mean Alonso. 1.84 cm2 LVOT Peak Grad 10.1 mmHg KEESHA Mean Alonso. Index 0.85 cm2/m2 LVOT Mean Grad 4.4 mmHg LVOT VTI 0.324 m LVOT Diam s 1.95 cm AoV Vmax 2.18 m/s Velocity Ratio 0.72 AoV Mean Alonso. 1.59 m/s AoV Peak Grad 19.0 mmHg LVOT SV 101.14 mL AoV Mean Grad 11.0 mmHg AoV VTI 0.343 m AoV Area VTI 2.95 cm2 AoV Area/ BSA (VTI) 1.36 cm/m2 Mitral Valve MV DT 309 (160-240 msec) MV PHT 90 msec MV Area PHT 2.46 cm2 MV VTI 0.380 m MV Area VTI 2.66 (4.0-6.0 cm2) Pulmonary Valve PV Vmax 0.96 (0.5-1.5 m/s) RVOT Peak Gr. 2.32 mmHg PV Peak Grad 3.7 mmHg RVOT Mean Gr. 1.30 mmHg PV Mean Grad 2.2 mmHg RVOT VTI 0.203 m PV VTI 0.201 m RVOT Vmax 0.76 m/s Tricuspid Valve TR Peak Grad 32.1 mmHg TR Vmax 2.84 m/s RA Pressure 3.00 mmHg RVSP (TR) 35.2 mmHg
--- NOTE | 2021-05-20 | DI.US_ITS ---
Exam(s) US RENAL EXAM: US RENAL CLINICAL HISTORY: severe back pain, renal 9 mm nodule. TECHNIQUE: Bull scale, color and spectral Doppler were used. COMPARISON: CT CT CHEST PE CTA from 05/15/[address] CHEST PE CTA from 05/15/[address] ABDOMEN PELVIS W from 05/19/[address] ABDOMEN PELVIS W from 05/19/2021 FINDINGS: Exam is somewhat limited by patient body habitus. Renal size in cm: Right: 11.6 by 4.6 x 5.8 cm left: 11.2 x 5.8 x 4.8 cm Echogenicity: Normal Hydronephrosis: No Cyst or mass: 5.8 centimeter maximal dimension simple cyst mid left kidney. A 12 millimeters cyst wa s seen on recent CT at the lower pole of the right kidney which is not able to be visualized on this exam. Nephrolithiasis: No Bladder:Not well evaluated, nearly empty. Prevoid vol:15 cc Postvoid vol:Not performed. IMPRESSION: 5.8 centimeter left renal cyst. No evidence of hydronephrosis or perinephric collection. DATA REPOSITORY:
[2021-05-20] MEDS: Latanoprost 0.005% 2.5 ML BTL OP ×2 (00:20→22:02)
[2021-05-20] MEDS: HYDROmorphone 2 MG/ML VIAL IVP ×4 (02:30→13:44)
[2021-05-20] MEDS: Ondansetron 4 MG/2 ML VIAL IVP ×2 (03:40→09:48)
[2021-05-20 07:06] VITALS: PULSE 85
[2021-05-20 07:40] VITALS: BP 146/79; PULSE 82; RESP 17; TEMP 36.5; O2SAT 94
[2021-05-20] MEDS: Aspirin E.C. 81 MG TABEC PO (07:54)
[2021-05-20] MEDS: Losartan 50 MG TAB 100 MG PO (07:54)
[2021-05-20] MEDS: Acetaminophen 325 MG TAB 1300 MG PO (09:25)
[2021-05-20] MEDS: Normal Saline 10 ML VIAL UD (10:00)
[2021-05-20] MEDS: Cosyntropin 0.25 MG VIAL IM (10:00)
[2021-05-20] MEDS: Sucralfate 1 GM TAB PO ×3 (10:42→22:01)
[2021-05-20] MEDS: amLODIPine 2.5 MG TAB PO (10:42)
--- NOTE | 2021-05-20 10:51 | PDOC.CMIN ---
- If Service Date Differs Date of service: 05/20/21 Time of Service: 10:52 Care Management Initial Assess REASON FOR HOSPITALIZATION:: Chest Pain PAST MEDICAL HISTORY/PAST SURGICAL HISTORY:: Abnormal glandular Pap smear of vagina. 10/24/12 follow up normal. Achilles bursitis. confirmed by MRI 06/11. Achilles bursitis. Atypical mole. 01/18/17. Atypical mole (01/18/17). Carpal tunnel syndrome. bilateral; left by EMS; left medial nerve release. Carpal tunnel syndrome. Cough. 08/30/17. DUB (dysfunctional uterine bleeding). 2.6cm fundal fibroid; 3.8 cm right ovary cyst in 01/08 since resolved. 3.5 cm left kidney cyst. Essential hypertension. External otitis. 05/07/14. Gastroesophageal reflux disease. Hyperlipidemia. Knee pain (01/01/07). MRI 01/08= neg. tear; ? of chondromalacia; Med. patellar fault. Left shoulder pain. 08/05/15. Left shoulder pain (08/05/15). Microscopic hematuria. neg. C&S; nl Bun and Cr.; neg IUP; neg cystocopy. Microscopic hematuria. Muscle strain. Otitis externa (05/07/14). Right carpal tunnel syndrome (02/21/18). Patient has clinically obvious carpal tunnel syndrome right upper extremity. I explained her that I know do all my carpal tunnel surgeries via open technique. This avoid an incomplete release or or an injury to the common digital nerve to the middle finger. Patient understands the reason for the change the open technique and agrees to have this done on her right side despite the fact that she had a E CTR on the left side. Vascular headache. Vascular headache. Surgical History . Endometrial Biopsy. neg. History of carpal tunnel release. 05/13/18 DR. CUADRA; RIGHT. History of gynecologic surgery. endometrial Bx-neg. Open Carpal Tunnel release (~2002). left medial nerve release. PROCEDURES. 07/21/16; LASERLIDOTOMY. S/P carpal tunnel release. left medial nerve release. Status post carpal tunnel release. Status post carpal tunnel release PREVIOUS FUNCTIONAL STATUS/SOCIAL/FAMILY SUPPORTS:: Janeen resides in [place] with her , Travis. She is independent at baseline and employed at the [employer]. ADVANCE DIRECTIVES:: On file: Travis as agent, Vandana Plummer-sister as alternate. Others: Natasha Rogel, Aaron Powers. Has patient been provided with info about the portal/API?: Yes Did the patient sign up for the portal?: Yes (Previously ) CODE STATUS:: Full Code INSURANCE COVERAGE / FINANCIAL ISSUES:: BC/BS CURRENT HOME/COMMUNITY SERVICES/EQUIPMENT:: None, currently. PRIMARY CARE PHYSICIAN:: Tonya Costello DO. POTENTIAL DISCHARGE NEEDS:: Follow up appointments. PATIENT/FAMILY EDUCATION NEEDS:: Review discharge instructions, discuss Ask Me Three. ANTICIPATED BARRIERS TO DISCHARGE:: None identified at this time. TRANSPORTATION:: Via private vehicle with . PLAN:: Janeen will return home when ready per MD. Work up for chest pain continues, results will determine dispositon-anticipate at this time that Janeen will follow up with PCP and outpatient follow up appointments as prescribed in discharge plan. She will transport via private vehicle with her .
[2021-05-20] MEDS: Lactated Ringers 1,000 ML 80 ML IV (10:57)
--- NOTE | 2021-05-20 11:03 | NUR.NOTE ---
Nitroglycerin patch with cream on it removed from her right side of her chest and placed in the sharps container. Area cleaned to remove excess cream. JORGE TeagueN
[2021-05-20 11:14] LABS: ESR 20 mm/hr (0-30)
[2021-05-20 12:31] LABS: C-Reactive Protein 1.15 mg/dL (0.0-0.3)
[2021-05-20] MEDS: Prochlorperazine 10 MG/2 ML VIAL 5 MG IVP (13:07)
--- NOTE | 2021-05-20 14:53 | CHAPLAIN ---
I had a pleasant visit with Janeen and her Francisco. Janeen was in bed and explained she did not sleep last night because of pain control and needed interruptions, so she is very tired, and the pain is more controlled now. She said she has been stressed and now is dealing with pain and a health issue on top of this new pain. When I asked what she does to relax herself at home, she said she meditates and listens to a meditation karli. Last month she and Franciscob spent four days in [place], [place], and that spot is what Janeen said she thinks of when she is stressed. At one time she was connected to the [employer] but is no longer and was not interested in my contacting the advanced practice registered nurse there. Francisco said, we are more Jorge 18-16 'where are two or more gathered in my name, I am there. I left when Janeen was taken for xrays, but will continue to visit.
[2021-05-20 15:00] VITALS: PULSE 66
[2021-05-20 15:01] VITALS: BP 135/77; PULSE 69; RESP 16; TEMP 36.3; O2SAT 96
--- NOTE | 2021-05-20 16:05 | PGE_ITS ---
Date of Service Date of service: 05/20/21 Time of Service: 16:05 Assessment and Plan Assessment and plan (1) Chest pain: Start date: 05/20/21 Start time: 16:10 Status: Acute Assessment and plan: Echo: Conclusion Mild concentric left ventricular hypertrophy. Estimated ejection fraction is 60 to 65%. There are no segmental wall motion abnormalities The right ventricle is not well visualized The left atrium is mildly dilated. The right atrium is normal in size There are no structural valvular abnormalities Trace mitral, tricuspid, and pulmonic regurgitation Mildly dilated ascending aorta measuring 3.5 cm Not cardiac. CRP slightly elevated likely d/t vomiting. Could be esophageal spasms. Added reglan, compazine to regimen. Will trial toradol possible mesentric adenitis. Renal u/s with 5.8 cm cyst. Otherwise unremarkable. Abd/pelvis with diverticulosis, patient not exhibiting signs of diverticulitis all pain is midsternum and upper gastric. Qualifiers: Chest pain type: intercostal pain Qualified Code(s): R07.82 - Intercostal pain (2) Essential hypertension: Start date: 05/20/21 Start time: 16:14 Status: Chronic Assessment and plan: Elevated, amlodipine added to regimen, will trial small dose and monitor bp (3) Peptic reflux disease: Start date: 05/20/21 Start time: 16:15 Status: Chronic Assessment and plan: continue protonix discussed with Dr. Oconnell Subjective Subjective Patient reports: nausea Interval history since last seen: Patient continues to have nausea and upper abd pain radiating to chest. Imaging not revealing for anything. Question of mesenteric adenitis vs esophegeal spasms. Can not correlate sx with anything. Patient has not been eating or drinking. Will trial reglan and toradol. Add compazine for nausea Exam Narrative Exam Narrative: HEENT atraumatic; neck supple; lungs clear; heart RRR w/o MRG; abdomen soft and NT; extremities w/o edema; neuro Ox3, lucid, moves all 4s. Objective Last Vital Signs Temp 36.3 C L 05/20/21 15:01 Pulse 69 05/20/21 15:01 Resp 16 05/20/21 15:01 BP 135/77 05/20/21 15:01 Pulse Ox 96 05/20/21 15:01 Laboratory Results - last 24 hr 05/19/21 05/19/21 05/19/21 15:00 16:48 16:48 WBC 10.61 RBC 5.52 H Hgb 16.7 H Hct 50.3 H MCV 91.1 MCH 30.3 MCHC 33.2 RDW 12.6 Plt Count 702 H MPV 8.2 Immature Gran % 0.4 Neutrophils % 73.7 Lymphocytes % 18.6 Monocytes % 5.9 Eosinophils % 0.8 Basophils % 0.6 Nucleated RBC % 0 Absolute Neutrophils 7.82 H Absolute Lymphocytes 1.97 Absolute Monocytes 0.63 Absolute Eosinophils 0.09 Absolute Basophils 0.06 ESR Sodium 139 Potassium 3.4 L Chloride 99 Carbon Dioxide 25.3 Anion Gap 14.7 H BUN 13 Creatinine 1.1 H Estimated GFR/1.73 m2 50.67 Glucose 143 H Calcium 9.7 Magnesium 2.1 Total Bilirubin 0.4 AST 14 L ALT 26 Alkaline Phosphatase 93 Troponin I < 0.05 < 0.05 C-Reactive Protein Total Protein 8.5 H Albumin 4.5 Lipase 49 Urine Color Urine Clarity Urine pH Ur Specific [place] Urine Protein Urine Ketones Urine Blood Urine Nitrite Urine Bilirubin Urine Urobilinogen Ur Leukocyte Esterase Urine RBC Urine WBC Ur Epithelial Cells Urine Crystals Urine Bacteria Urine Casts Urine Mucus Ur Culture Indicated? Urine Glucose COVID-19 Source SARS-CoV-2 (PCR) 05/19/21 05/19/21 05/19/21 17:01 18:28 20:01 WBC RBC Hgb Hct MCV MCH MCHC RDW Plt Count MPV Immature Gran % Neutrophils % Lymphocytes % Monocytes % Eosinophils % Basophils % Nucleated RBC % Absolute Neutrophils Absolute Lymphocytes Absolute Monocytes Absolute Eosinophils Absolute Basophils ESR Sodium Cancelled Potassium Cancelled Chloride Cancelled Carbon Dioxide Cancelled Anion Gap Cancelled BUN Cancelled Creatinine Cancelled Estimated GFR/1.73 m2 Cancelled Glucose Cancelled Calcium Cancelled Magnesium Total Bilirubin Cancelled AST Cancelled ALT Cancelled Alkaline Phosphatase Cancelled Troponin I Cancelled Cancelled C-Reactive Protein Total Protein Cancelled Albumin Cancelled Lipase Urine Color Yellow Urine Clarity Clear Urine pH 6.0 Ur Specific [place] 1.020 Urine Protein 30 H Urine Ketones 40 H Urine Blood Trace-intact H Urine Nitrite Negative Urine Bilirubin Negative Urine Urobilinogen 0.2 Ur Leukocyte Esterase Negative Urine RBC 3-5 H Urine WBC 3-5 Ur Epithelial Cells Few Urine Crystals Negative Urine Bacteria Negative Urine Casts Negative Urine Mucus Trace Ur Culture Indicated? No Urine Glucose Negative COVID-19 Source SARS-CoV-2 (PCR) 05/19/21 05/19/21 05/20/21 20:05 22:13 11:00 WBC RBC Hgb Hct MCV MCH MCHC RDW Plt Count MPV Immature Gran % Neutrophils % Lymphocytes % Monocytes % Eosinophils % Basophils % Nucleated RBC % Absolute Neutrophils Absolute Lymphocytes Absolute Monocytes Absolute Eosinophils Absolute Basophils ESR Sodium Potassium Chloride Carbon Dioxide Anion Gap BUN Creatinine Estimated GFR/1.73 m2 Glucose Calcium Magnesium Total Bilirubin AST ALT Alkaline Phosphatase Troponin I < 0.05 C-Reactive Protein 1.15 H Total Protein Albumin Lipase Urine Color Urine Clarity Urine pH Ur Specific [place] Urine Protein Urine Ketones Urine Blood Urine Nitrite Urine Bilirubin Urine Urobilinogen Ur Leukocyte Esterase Urine RBC Urine WBC Ur Epithelial Cells Urine Crystals Urine Bacteria Urine Casts Urine Mucus Ur Culture Indicated? Urine Glucose COVID-19 Source Nasal/Nares SARS-CoV-2 (PCR) Negative 05/20/21 11:00 WBC RBC Hgb Hct MCV MCH MCHC RDW Plt Count MPV Immature Gran % Neutrophils % Lymphocytes % Monocytes % Eosinophils % Basophils % Nucleated RBC % Absolute Neutrophils Absolute Lymphocytes Absolute Monocytes Absolute Eosinophils Absolute Basophils ESR 20 Sodium Potassium Chloride Carbon Dioxide Anion Gap BUN Creatinine Estimated GFR/1.73 m2 Glucose Calcium Magnesium Total Bilirubin AST ALT Alkaline Phosphatase Troponin I C-Reactive Protein Total Protein Albumin Lipase Urine Color Urine Clarity Urine pH Ur Specific [place] Urine Protein Urine Ketones Urine Blood Urine Nitrite Urine Bilirubin Urine Urobilinogen Ur Leukocyte Esterase Urine RBC Urine WBC Ur Epithelial Cells Urine Crystals Urine Bacteria Urine Casts Urine Mucus Ur Culture Indicated? Urine Glucose COVID-19 Source SARS-CoV-2 (PCR) PAWSS Have you Been Recently Intoxicated or Drunk Within the Last 30 days?: No Have you Ever Experienced Previous Episodes of Alcohol Withdrawal?: No Have you ever Experienced Withdrawal Seizures?: No Have you ever Experienced Delirium Tremens(DT)s?: No Have you ever undergone Alcohol Rehabilitation Treatment (i.e, inpt ot outpatient treatment programs)?: No Have you ever Experienced Blackouts?: No Have you ever Combined Alcohol with other Downers within the last 90 days?: No Have you ever Combined Alcohol with any other Substance of Abuse during the last 90 days?: No Positive Blood Alcohol level on Presentation? [PCS.BAL]: No Evidence of Increased Autonomic Activity (i.e. HR>120, tremor, sweating, agitati on, nausea)?: No Result: 0
[2021-05-20] MEDS: Ketorolac 15 MG/ML VIAL IVP ×2 (17:06→22:01)
[2021-05-20 17:30] LABS: Cortisol (Baseline) 27 ug/dL (4-23)
[2021-05-20] MEDS: Normal Saline Flush 10 ML SYR IVP (22:02)
[2021-05-20 22:12] VITALS: BP 139/80; PULSE 76; RESP 18; TEMP 37; O2SAT 96
[2021-05-21] MEDS: Lactated Ringers 1,000 ML 80 ML IV (00:54)
[2021-05-21 03:30] VITALS: BP 160/89; PULSE 79; RESP 16; TEMP 37.4; O2SAT 96
[2021-05-21] MEDS: Ketorolac 15 MG/ML VIAL IVP ×2 (03:50→09:39)
[2021-05-21] MEDS: Metoclopramide 10 MG/2 ML VIAL IVP (03:50)
[2021-05-21] MEDS: Normal Saline Flush 10 ML SYR IVP (03:51)
[2021-05-21 07:00] VITALS: PULSE 70
[2021-05-21 08:30] VITALS: BP 130/77; PULSE 91; RESP 16; TEMP 37.1; O2SAT 93
[2021-05-21] MEDS: amLODIPine 2.5 MG TAB PO (08:37)
[2021-05-21] MEDS: Sucralfate 1 GM TAB PO ×2 (08:37→11:26)
[2021-05-21] MEDS: Acetaminophen 325 MG TAB 1300 MG PO (08:37)
[2021-05-21] MEDS: Losartan 50 MG TAB 100 MG PO (08:37)
[2021-05-21] MEDS: Aspirin E.C. 81 MG TABEC PO (08:37)
--- NOTE | 2021-05-21 09:45 | RT.EKG_ITS ---
APPROVED REPORT Exam: Resting ECG Reason for Exam: SVT RUN Patient Location: I HR:76 bpm ECG Measurements Heart Rate 76 AXIS OR 133 P 42 QRSd 78 QRS -16 QT 371 T 8 QTc 418 Conclusion Sinus rhythm...normal P axis, V-rate 60- 99
[2021-05-21 10:09] LABS: Anion Gap 6.7 mmol/L (3-11); BUN 10 mg/dL (7-18); CO2 29.3 mmol/L (21.0-32.0); CREATININE 0.8 mg/dL (0.55-1.02); Calcium 8.9 mg/dL (8.5-10.1); Chloride 107 mmol/L (98-107); Glucose 115 mg/dL (74-106); Sodium 143 mmol/L (136-145)
[2021-05-21 10:21] LABS: Troponin I < 0.05 ng/mL (<0.06)
--- NOTE | 2021-05-21 11:29 | W.PM.DS.N ---
Date of service: 05/21/21 Time of Service: 11:29 DS: Diagnosis Discharge Diagnosis (1) Chest pain: Start date: 05/21/21 Start time: 11:29 Status: Resolved Asessment and Plan: Patient feeling much better. CP resolved. She has not had any since last night. Per telemetry she did have a run of SVT 9 beats. No one available for stress today. She was ambulated by around the unit at a fast pace by cardiac nurse HR increase to 137 NSR, no c/o CP, she stated she felt great ambulating. Low probability for ischemic disease. EKG this am was normal NSR. Troponin negative. Abd symptoms resolved n/v resolved. She is ready for discharge. She states this is the best she has felt. Will give reglan schedule BID for a couple of days, compazine PRN, Celebrex 200 mg BID, protonix BID, carafate QID, unless eating ACHS. Follow up with PCP [place] as she is flying out on Wednesday Holter x 48 hours Follow up with GI for further work up. She states she does have hital hernia, CT reveals small tiny fatty containing umbicial hernia (2) Essential hypertension: Start date: 05/21/21 Start time: 11:37 Status: Chronic Asessment and Plan: Add amlodpine in addition to losartan as bp was 190-200' systolically. Will defer to PCP for further management. (3) Peptic reflux disease: Start date: 05/21/21 Start time: 11:38 Status: Chronic Asessment and Plan: as above discussed with Dr. lees Discharge Plan Disposition Patient Disposition: HOME Condition: Good Discharge Details Reason For Visit: CP Admit Date/Time: 05/19/21 21:01 Admit Provider: Garcia Lunsford Attending Provider: Garcia Lunsford Primary Care Provider: Tonya Costello Hospital Course Hospital Course: 61 y.o male admitted to [facility] with c/o upper gastric pain that radiates to sternum and initially down arm. On day of admission she went to see PCP who recommend NSAIDs. She proceeded to get in her car and drive home when the pain worsened, per her by the time she got home the pain was so bad he could hear her crying in the car outside. She was also nauseated and vomiting. She was brought to the emergency room for further evaluation. CBC was unremarkable expected elevated platelet count, polycythemia. Potassium was low and repleted, anion gap elevated trops negative. She was given, GI cocktail, dilaudid, ibprobfen, and nitro. She did not have any relief with any of the medication given. CXR normal, u/a without any evidence UTI. There was some concern for renal congestion abd us ordered revealing mildly enlarged liver. No evidence gall stone or gallbladder thickening. She was admitted to [facility] by hospitalist group for obs. She was vomiting overnight of admission without relief of zofran. compazine ordered. This gave her relief. Renal u/s ordered with only revealing renal cyst, no obstruction or hydronephrosis. She was placed on protonix BID, carafate. She described pain as in the middle under her breast radiating up to mid sternum. Differentials included mesenteric adenitis, she was placed on toradol mg q 6 scheduled vs esophegeal spasm, regalan 10 mg q 4 prn. Today after this regimen she stated she feels great. No CP or vomiting over night. Concern overnight as she had a 9 beat run of SVT. No stress test available however EKG with NSR at 76, trops negative. No CP and patient feels well. Patient was ambulated by cardiac nurse; HR increased to 137 no SOB with excretion, CP or difficulty ambulating. She stated it felt great to walk. She feels she is ready for discharge. No pain or n/v. She will be discharged home on 48 hour holter monitor. Reglan, compazine, celebrix, protonix and carafate. Recommend GI consult will defer to PCP for this. Will also discharge home on amlodipine will defer to PCP for further management of HTN. She denies CP, SOB, N/VD Home Meds and New Rx's Prescriptions: New sucralfate 1 gram Tablet 1 g PO AC & HS Qty: 120 RF: 0 amlodipine 2.5 mg Tablet 2.5 mg PO DAILY Qty: 30 RF: 0 prochlorperazine maleate [Compazine] 10 mg tablet 10 mg PO TID PRNQty: 90 RF: 0 metoclopramide HCl [Reglan] 10 mg tablet 10 mg PO Q6H PRNQty: 90 RF: 0 celecoxib [Celebrex] 200 mg capsule 200 mg PO BID Qty: 60 RF: 0 pantoprazole [Protonix] 40 mg tablet,delayed release (DR/EC) 40 mg PO BID Qty: 60 RF: 0 Continued cetirizine [Zyrtec] 10 mg tablet 10 mg PO DAILY PRNRF: 0 acetaminophen 650 mg tablet extended release 1,300 mg PO QAM RF: 0 clotrimazole-betamethasone 1-0.05 % cream 1 applic Topical BID PRNRF: 0 triamcinolone acetonide 0.1 % ointment 1 applic Topical BID PRNRF: 0 meclizine 12.5 mg tablet 12.5 mg PO TID PRN (Reason: dizziness) Qty: 21 RF: 0 losartan 100 mg tablet 100 mg PO DAILY Qty: 90 RF: 12 aspirin [Adult Aspirin Regimen] 81 mg tablet,delayed release (DR/EC) 81 mg PO DAILY Qty: 90 RF: 0 latanoprost [Xalatan] 2.5 ML drops 1 drp Ophthalmic HS RF: 0 Lubricating Drops 15 ML drops 15 ml Ophthalmic PRN RF: 0 estradiol [Vagifem] 10 mcg tablet 10 mcg VG 2X Week Qty: 25 RF: 12 Discontinued naproxen sodium [Aleve] 220 mg tablet 220 mg PO HS PRNRF: 0 Discharge Instructions Instructions: Chest Pain (DC), Diet for Stomach Ulcers and Gastritis (GEN), GERD (Gastroesophageal Reflux Disease) (DC), Esophageal Spasm (GEN), Mesenteric Adenitis (DC) Additional Instructions: You have been started on a new blood pressure while you were here in addition to your new one. Take daily Take reglan twice a day for 5 days, if you need to take this more for sternum pain or nausea you can take up to 4 times a day, after 5 days take as needed Take compazine as well as needed Take protonix twice a day as needed and take carafate four times a day if you are not eating much or 30 mins before every meal and at bedtime. Take celebrex twice a day this should help with any swelling Recommend follow up with GI for further testing Recommend official stress test. Holter monitor for 48 hours. Referrals: Tonya Costello MD, [place] [Primary Care Provider] - 05/23/21 9:20 am Activity:: Activity as Tolerated Equipment/Supplies:: No Equipment Needed Diet:: Mediterranean diet Discharge Orders Discharge Orders: Discharge Order (Routine); Ordered 05/21/21 Ordered By: Faith Whitney Other Ambulatory Orders: Holter Monitor (Routine) Timeframe: 1 Week Facility: [facility] - Location: Respiratory Therapy Ordered By: Faith Whitney NM MPI rest & stress grp (Routine) Location: None Selected Ordered By: Faith Whitney DS: Summary Time Spent with Patient providing and/or coordinating discharge services: Greater than 30 minutes Status at Discharge Functional status at discharge: independent ambulation Overall status at discharge: patient is back to baseline Mental Status: mental status grossly normal Speech and Movement: speech and movement normal Mood: congruent mood Affect: normal affect Exam Narrative Exam Narrative: HEENT atraumatic; neck supple; lungs clear; heart RRR w/o MRG; abdomen soft and NT; extremities w/o edema; neuro Ox3, lucid, moves all 4s. Psych Mental Status: mental status grossly normal Speech and Movement: speech and movement normal Mood: congruent mood Affect: normal affect DS: Data Vitals/I&O Vitals and I&O: Vital Signs Temperature 37.1 C 05/21/21 08:30 Temperature Source Tympanic 05/21/21 08:30 Pulse 91 H 05/21/21 08:30 Pulse Rhythm Regular 05/21/21 08:30 Respiratory Rate 16 05/21/21 08:30 Respiratory Effort 05/21/21 08:30 Respiratory Depth Normal 05/21/21 08:30 Respiratory Pattern Normal 05/21/21 08:30 Blood Pressure 130/77 05/21/21 08:30 Blood Pressure Mean 110 05/19/21 21:27 Blood Pressure Position Sitting 05/19/21 16:40 Pulse Oximetry 93 05/21/21 08:30 Oxygen Delivery Method Room Air 05/21/21 08:30 Oxygen Flow Rate 0 05/21/21 08:30 Pain Level 0 05/21/21 09:39 Comment 05/20/21 15:01 Intake & Output 05/20/21 05/20/21 05/21/21 11:59 23:59 11:59 Intake Total 1000 / 2375 1375 / 2375 540 / 540 Output Total 200 / 720 520 / 720 1200 / 1200 Balance 800 / 1655 855 / 1655 -660 / -660 Intake: IV 999 Oral 365 / 365 530 / 530 Output: Urine 200 / 720 520 / 720 1200 / 1200 Other: Urine Color Straw Dark Ting Yellow Light Ting Urine Appearance Clear Sediment Clear Urine Odor Normal Normal Comment Patient voids independently. patient up to void independently. Voiding Methods Toilet Toilet Toilet Data Completed and Pending Completed studies during hospitalization [Text1]: Exam(s) US ABDOMEN LIMITED EXAM: US ABDOMEN LIMITED CLINICAL HISTORY: epigastric pain TECHNIQUE: Ultrasound abdomen performed using standard protocol. COMPARISON: CT CT ABDOMEN PELVIS W from 05/19/[address] ABDOMEN PELVIS W from 05/19/2021 FINDINGS: Exam is somewhat limited by patient body habitus. LIVER: Mildly enlarged at 16.8 cm. Normal echogenicity. No focal liver lesions are seen.. GALLBLADDER: No evidence of cholelithiasis. No evidence of wall thickening. No pericholecystic fluid identified. MICHAELS'S SIGN: Negative. BILIARY SYSTEM: No intrahepatic or extrahepatic biliary ductal dilation. RIGHT KIDNEY: Normal size. No evidence of renal calculi. No evidence of hydronephrosis. No suspicious renal mass. Lower pole not well seen. PANCREAS: Normal where visualized. ABDOMINAL AORTA AND IVC: Visualized portions normal caliber. ASCITES: None seen. IMPRESSION: Mildly enlarged liver. No evidence of gallstones or gallbladder wall thickening. Exam(s) a CT:CT abdomen & pelvis w Exam(s) CT ABDOMEN PELVIS W EXAM: CT ABDOMEN PELVIS W CLINICAL HISTORY: R/O Cholecystectomy,. TECHNIQUE: Imaging Protocol: Axial computed tomography images with coronal and sagittal reformatted images were created and reviewed CONTRAST MATERIAL: Intravenous: Omnipaque 350 Contrast volume:100 ml Oral: yes / no COMPARISON: CT CT CHEST PE CTA from 05/15/2021 FINDINGS: ABDOMEN: Lung Bases: Normal where visualized. Liver: Mildly enlarged. Normal density. No measurable mass. Gallbladder and biliary tract: No radiodense calculus or dilation. Pancreas: Normal density, no abnormal calcifications or inflammatory process. Spleen: Normal. Kidneys: Normal size, contour and axis. No radiodense stones or obstructive uropathy. No masses seen. Bilateral cysts, left larger than right. Adrenal glands: No masses seen. Abdominal Aorta: Abdominal portion non-dilated. Soft tissues: Small tiny fatty containing umbilical hernia. PELVIS: Bladder: No gross wall thickening. No calculi.No focal mass. Bowel: No obstruction . Appendix normal. Prominent diverticulosis descending and sigmoid colon. Question of minimal surrounding inflammatory changes. Large amount of stool in the rectum. Peritoneal cavity: No ascites, collection or mesenteric inflammatory response. Bones: Degenerative disc changes and facet degenerative changes. Reproductive organs: Within normal limits. Mild atherosclerotic changes. Lymph nodes: Unremarkable. Impression: Mild hepatomegaly. Normal gallbladder. Prominent diverticulosis with question of minimal inflammation in the sigmoid region. Exam(s) PROCEDURE INFORMATION: Exam: CT Abdomen And Pelvis With Contrast Exam date and time: 05/19/2021 4:45 PM Age: 61 years old Clinical indication: Generalized; Patient HX: Abdominal pain; PT states hurts all sides; Additional info: R/O cholecystectomy TECHNIQUE: Imaging protocol: Computed tomography of the abdomen and pelvis with contrast. Total images: 1278 COMPARISON: CR XR HIP LT COMPLETE AP PELVIS 07/10/2020 8:01 AM FINDINGS: Lungs: Mild atelectasis in the lung bases. Heart: Heart size normal. Diaphragm: Question small hiatal hernia. Liver: Mild hepatomegaly measuring 19 cm craniocaudal. Normal contour. No mass lesions. No intrahepatic biliary ductal dilatation. Gallbladder and bile ducts: Normal. No calcified stones. No ductal dilation. Pancreas: Normal. No inflammatory changes or ductal dilation. Spleen: Mild splenomegaly measuring 14.0 cm craniocaudal. Adrenal glands: Symmetrical stranding around the adrenal glands suggesting adrenal congestion, nonspecific. No evidence of adrenal hemorrhage currently, correlate clinically for adrenal function. There is a 12 x 9 mm nodule in the right adrenal gland measuring 85 Hounsfield units average density. This is nonspecific in nature. Current consensus criteria do not require further evaluation for a nodule of this size. Kidneys and ureters: No acute abnormalities. No hydronephrosis or hydroureter. No urinary tract stones are identified. There are bilateral renal cortical lesions demonstrating low density values and circumscribed margins favoring simple renal cysts. No further imaging evaluation is required. Stomach and bowel: The stomach is unremarkable. The small bowel is nondilated with no gross abnormality. Moderate-severe distal colonic diverticulosis. Question minimal stranding/vascular congestion along the proximal sigmoid colon which may indicate mild diverticulitis but is not definitive. No evidence of perforation or abscess. Appendix: The appendix is normal in caliber and demonstrates no evidence of appendicitis. Intraperitoneal space: No free fluid or air. Vasculature: Mild atherosclerotic aortoiliac calcification without aneurysm. Lymph nodes: No adenopathy. Urinary bladder: Unremarkable as visualized. Reproductive: Unremarkable as visualized. Bones/joints: Transitional lumbosacral segment designated a partially lumbarized S1 segment for purposes of this exam. Grade 1 degenerative anterolisthesis at what are designated L4-L5 and L5-S1, with moderate lower lumbar degenerative facet hypertrophic changes. Soft tissues: Very small fatty umbilical hernia . No evidence of associated bowel herniation or strangulation. IMPRESSION: 1. Moderate-severe distal colonic diverticulosis, with questionable changes of mild diverticulitis in the proximal sigmoid colon. No evidence of perforation or abscess. 2. The gallbladder and bile ducts are unremarkable. 3. There is bilateral adrenal gland congestion, nonspecific. This has been described as a potential precursor to adrenal hemorrhage although there is no evidence of adrenal hemorrhage currently. Correlate clinically for adrenal function. 4. There is a right adrenal nodule measuring 9 mm short axis. This does not require further imaging based on current consensus criteria. 5. Mild hepatomegaly. 6. Mild splenomegaly. 7. Additional nonemergent findings detailed above. : 1960ge: 61 Exam(s) PROCEDURE INFORMATION: Exam: US Abdomen, Limited; Right Upper Quadrant Exam date and time: 05/19/2021 5:49 PM Age: 61 years old Clinical indication: Other: Epigastric pain. TECHNIQUE: Imaging protocol: US abdomen. Real time ultrasound with image documentation. Limited exam focused on the right upper quadrant. Total images: 74 COMPARISON: CT ABDOMEN PELVIS W 05/19/2021 5:34 PM FINDINGS: Liver: Question mild hepatomegaly. No focal hepatic lesions are identified. No intrahepatic biliary ductal dilatation. Hepatopedal flow demonstrated in the main portal vein. Question slightly increased echogenicity around the portal triads and slight generalized coarsening of echotexture. This pattern can be seen with hepatitis. Gallbladder: The gallbladder is normal in appearance without evidence of stones, wall thickening, or pericholecystic fluid. Gallbladder wall thickness 1.6 mm. Negative sonographic Michaels's sign reported by the technologist. Common bile duct: Nondilated common bile duct measuring 5.9 mm diameter. Pancreas: Visualized portions of the pancreatic head, neck, and body were unremarkable. No pancreatic ductal dilatation is evident. Right kidney: The right kidney measures 11.2 x 4.9 x 4.9 cm. No hydronephrosis or gross nephrolithiasis. Normal cortical thickness and corticomedullary differentiation. Small simple renal cortical cysts in the lower pole of the right kidney seen on CT are not well seen sonographically due to obscuring bowel gas in the region. No perinephric abnormalities. Intraperitoneal space: No free fluid was identified. IMPRESSION: 1. Mild hepatomegaly with slightly coarsened liver echotexture and mildly increased echogenicity around the portal triads. This pattern can be seen with hepatitis or passive congestion, correlate clinically. 2. The gallbladder and bile ducts are normal in appearance. Exam(s) PROCEDURE INFORMATION: Exam: US Abdomen, Limited; Right Upper Quadrant Exam date and time: 05/19/2021 5:49 PM Age: 61 years old Clinical indication: Other: Epigastric pain. TECHNIQUE: Imaging protocol: US abdomen. Real time ultrasound with image documentation. Limited exam focused on the right upper quadrant. Total images: 74 COMPARISON: CT ABDOMEN PELVIS W 05/19/2021 5:34 PM FINDINGS: Liver: Question mild hepatomegaly. No focal hepatic lesions are identified. No intrahepatic biliary ductal dilatation. Hepatopedal flow demonstrated in the main portal vein. Question slightly increased echogenicity around the portal triads and slight generalized coarsening of echotexture. This pattern can be seen with hepatitis. Gallbladder: The gallbladder is normal in appearance without evidence of stones, wall thickening, or pericholecystic fluid. Gallbladder wall thickness 1.6 mm. Negative sonographic Michaels's sign reported by the technologist. Common bile duct: Nondilated common bile duct measuring 5.9 mm diameter. Pancreas: Visualized portions of the pancreatic head, neck, and body were unremarkable. No pancreatic ductal dilatation is evident. Right kidney: The right kidney measures 11.2 x 4.9 x 4.9 cm. No hydronephrosis or gross nephrolithiasis. Normal cortical thickness and corticomedullary differentiation. Small simple renal cortical cysts in the lower pole of the right kidney seen on CT are not well seen sonographically due to obscuring bowel gas in the region. No perinephric abnormalities. Intraperitoneal space: No free fluid was identified. IMPRESSION: 1. Mild hepatomegaly with slightly coarsened liver echotexture and mildly increased echogenicity around the portal triads. This pattern can be seen with hepatitis or passive congestion, correlate clinically. 2. The gallbladder and bile ducts are normal in appearance. EXAM: Comprehensive 2D, Doppler, and color-flow Echocardiogram Patient Location: In-Patient Room/Bed: 218 [employer]pet [employer] U[employer]olstery: Addie Bundy RDCS (AE) Indications: Severe unrelenting chest pain, r/o endocarditis Other Information Study Quality: Adequate. Technically limited study due to inability to position patient, body habitus. Conclusion Mild concentric left ventricular hypertrophy. Estimated ejection fraction is 60 to 65%. There are no segmental wall motion abnormalities The right ventricle is not well visualized The left atrium is mildly dilated. The right atrium is normal in size There are no structural valvular abnormalities Trace mitral, tricuspid, and pulmonic regurgitation Mildly dilated ascending aorta measuring 3.5 cm FINDINGS: Exam is somewhat limited by patient body habitus. Renal size in cm: Right: 11.6 by 4.6 x 5.8 cm left: 11.2 x 5.8 x 4.8 cm Echogenicity: Normal Hydronephrosis: No Cyst or mass: 5.8 centimeter maximal dimension simple cyst mid left kidney. A 12 millimeters cyst was seen on recent CT at the lower pole of the right kidney which is not able to be visualized on this exam. Nephrolithiasis: No Bladder:Not well evaluated, nearly empty. Prevoid vol:15 cc Postvoid vol:Not performed. IMPRESSION: 5.8 centimeter left renal cyst. No evidence of hydronephrosis or perinephric collection. Labs on day of discharge: Labs from last 24 hours 05/21/21 05/21/21 05/20/21 09:42 09:42 11:00 Sodium 143 Potassium 4.0 Chloride 107 Carbon Dioxide 29.3 Anion Gap 6.7 BUN 10 Creatinine 0.8 Estimated GFR/1.73 m2 >= 60.00 Glucose 115 H Calcium 8.9 Troponin I < 0.05 C-Reactive Protein 1.15 H Cortisol Baseline Cortisol 60 Minute 05/20/21 05/20/21 11:00 10:00 Sodium Potassium Chloride Carbon Dioxide Anion Gap BUN Creatinine Estimated GFR/1.73 m2 Glucose Calcium Troponin I C-Reactive Protein Cortisol Baseline 27 H Cortisol 60 Minute 32 PFSH Active Problem List Chest pain (Acute) Abdominal pain (Acute) Chest pain (Acute) Hip pain, left (Acute) Annual physical exam (Acute) Cervical pain (Acute) Essential hypertension (Chronic 04/21/13) Vaginal atrophy (Chronic 11/26/15) Peptic reflux disease (Chronic 06/03/02) 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) Increased body mass index (Chronic) Hypercholesterolemia (Chronic) Eczema (Chronic 08/20/14) 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 3.5 cm left kidney cyst Essential hypertension External otitis 05/07/14 Gastroesophageal reflux disease Hyperlipidemia Knee pain (01/01/07) MRI 01/08= neg. tear; ? of chondromalacia; Med. patellar fault Left shoulder pain 08/05/15 Left shoulder pain (08/05/15) Microscopic hematuria neg. C&S; nl Bun and Cr.; neg IUP; neg cystocopy Microscopic hematuria Muscle strain Otitis externa (05/07/14) Right carpal tunnel syndrome (02/21/18) Patient has clinically obvious carpal tunnel syndrome right upper extremity. I explained her that I know do all my carpal tunnel surgeries via open technique. This avoid an incomplete release or or an injury to the common digital nerve to the middle finger. Patient understands the reason for the change the open technique and agrees to have this done on her right side despite the fact that she had a E CTR on the left side Vascular headache Vascular headache Surgical History Endometrial Biopsy neg History of carpal tunnel release 05/13/18 DR. CUADRA; RIGHT History of gynecologic surgery endometrial Bx-neg Open Carpal Tunnel release (~2002) left medial nerve release PROCEDURES 07/21/16; LASERLIDOTOMY S/P carpal tunnel release left medial nerve release Status post carpal tunnel release Status post carpal tunnel release Family History Mother , 59 Essential hypertension Anxiety Depression Heart disease Hyperlipidemia Leukemia Father , MET/LUNG CA at age 79. Diabetes Alcohol abuse Essential hypertension Heart disease Hyperlipidemia Asthma Lung cancer Sister No problems noted. Brother Essential hypertension Anxiety Depression Hyperlipidemia Maternal Grandfather , 90s No problems noted. Paternal Grandfather , 90s Heart disease Stroke Maternal Grandmother , 70s No problems noted. Paternal Grandmother , 70s Alcohol abuse Heart disease Hypertension Stroke Social History Smoking/Tobacco Use Status: Never Second Hand Exposure: Yes Smoking risk assessment performed?: Yes Alcohol Intake: current Alcohol Intake frequency: holidays/special occasions only Alcohol type: wine Drug use: Never Substance use type: does not use Caregiver/Support person: No Household members: spouse Housing: house Communication Needs: Corrective Lenses Do you need help understanding health information?: Never Pets and animals: No Sexually active: Yes Do you think of yourself as: straight/heterosexual Current gender identity: female What is your relationship status?: How often do you talk on the phone with friends or family?: three or more times per week How often do you get together with friends or relatives?: twice per week How often do you attend pentecostalism or jew services?: 1-3 times per year Do you belong to any clubs or organized social groups?: no Panel score (0-1 are the most socially isolated patients): 2 What type of physical activity do you participate in: walking Duration: decline to answer Frequency: 1-2 times per week Barbara/Alevism: Orthodox Special barbara needs: No Seatbelt use: always Drive intox or ride w/intox tank truck driver: No Do you feel safe at home: Yes Do you feel safe in your relationship?: Yes
[2021-05-21 13:08] VITALS: PULSE 84
--- NOTE | 2021-05-21 16:48 | PDOC.CMDIS ---
- If Service Date Differs Date of service: 05/21/21 Time of Service: 16:48 LACE Index Scoring Tool - Questions: Length of Stay (in days): 2 Acuity (Admit via E.D.?): Yes E.D. Visits: 2 - Answers: Total Score: 7 Risk of Readmission: Low Risk Care Management Discharge Reason for Hospitalization: Chest Pain Discharge Plan: Janeen returned home today with no new services. Her drove her home via private vehicle. She will follow up with her PCP and discharge plan of care. Patient/Family Education Needs: Review discharge instructions and limitations, discussion of self care needs including ask me three.
== END 2021-05-21 14:37 | disposition home or self-care (01) ==
LOC: ER 21:53 → MS 21:54
PROVIDERS: Nurse Practitioner Family; Registered Nurse Emergency; Admitting Provider General Practice; Emergency Provider Emergency Medicine; PCP Family Medicine; Visit Provider General Practice
DX: R07.9 Chest pain, unspecified (principal); I47.1 Supraventricular tachycardia; I77.810 Thoracic aortic ectasia; I10 Essential (primary) hypertension; K21.9 Gastro-esophageal reflux disease without esophagitis; R11.10 Vomiting, unspecified; R10.13 Epigastric pain; E78.00 Pure hypercholesterolemia, unspecified; Z20.822 Contact with and (suspected) exposure to COVID-19
CPT/HCPCS: 36410; 36415; 76770; 80048; 80053; 80400; 83690; 85652; 87206; 87635; 93005; 96361; 96365; 96375; 96376; 99285; 74177; 76705; 81003; 81015; 83735; 84484; 85025; 86140; 93010; 93306; 99217; 99220; 99226; G0378; J0131; J0780; J0834; J1885; J2405; J2765; J3010; J3490

== ENCOUNTER 2021-05-21 14:11 | Outpatient (RCR) | payer BC, SELFPAY ==
--- NOTE | 2021-05-21 14:00 | HOLTER_ITS ---
APPROVED REPORT Conclusion This is a 48-hour Holter monitor reportedly ordered for chest pain Rhythm throughout was sinus with an average heart rate of 82. Minimum was 62, maximum 131 There were very rare ventricular ectopic beats, no couplets, no ventricular tachycardia There were very rare atrial premature beats. There was one 7 beat atrial run There was no atrial fibrillation, no high-grade AV block, no pauses greater than 3 seconds There were no apparent patient symptoms
== END 2021-06-03 23:59 | disposition home or self-care (01) ==
LOC: RT 14:11
PROVIDERS: PCP Family Medicine; Visit Provider Family Medicine
DX: R07.9 Chest pain, unspecified (principal); I49.1 Atrial premature depolarization
CPT/HCPCS: 93225; 93226

== ENCOUNTER 2021-06-03 01:49 | Outpatient (CLI) | payer BC, SELFPAY ==
--- NOTE | 2021-06-03 07:15 | DI.NM_ITS ---
APPROVED REPORT Exam: Exercise Treadmill Patient Location: Out-Patient Room/Bed: Stress Nurse: María Landis RN Ordering Provider:TAVIA FARRIS, Contact Number: [phone] BMI: 39.93 Baseline Rhythm: Sinus Rhythm Indications: CHEST PAIN Medical History Medical History: HTN, HLD, Peptic reflux disease Cardiac Medications: Aspirin, Amlodipine, Losartan, Pantoprazole Allergies: Aspartame, Latex, Hydrochlorothiazide Cardiac Risk Factors: FHX of CAD, HTN, Hyperlipidemia, Obesity Previous Cardiac Procedures: None Pretest Chest Pain Characteristics: No chest pain Exercise History: Indeterminate Physical Disabilities: None Lung Sounds: Clear to auscultation Heart Sounds: Regular Stress Test Details Test: Exercise stress testing was performed using a Pa protocol. Nuclear Acquisition: Rest Tc-99m/Stress Tc-99m 1 day Rest Isotope: Tc-99m Sestamibi. Dose: 12.0 Date: 06/03/2021 Injection Time: 0900 Stress Isotope: Tc-99m Sestamibi. Dose: 37.0 Date: 06/03/2021 Injection Time: 1040 HR Resting HR Supine: 74 bpm Max Heart Rate (APMHR): 160.217629 bpm Resting HR Standin bpm Target HR (85% APMHR): 136.823915 bpm Max HR Achieved: 167 bpm % of APMHR: 104.38 Recovery HR: 92 bpm HR response to stress: Normal HR response to stress BP Resting BP Supine: 128/84 mmHg Resting BP Standin/88 mmHg Max BP: 202/94 mmHg Recovery BP: 130/70 mmHg BP response to stress: Normal blood pressure response to stress. ECG Resting ECG: Sinus Rhythm Ectopy: None Stress ECG: Sinus Tachycardia ST Change: No significant ST segment changes noted Arrhythmia: rare PVC Recovery ECG: Sinus Rhythm Recovery ST Change: No significant ST segment changes noted Recovery Arrhythmia: None Clinical Reason for Termination: Fatigue Stress Symptoms: General Fatigue Exercise duration: 06 min05 sec Highest Stage Reached: Stage 3: 3.4 mph at 14% grade. Exercise capacity: 7.15 METs Dean Treadmill Score: 5.6 Rate Pressure Product: 26782 Stress ECG Conclusion 1. Resting electrocardiogram showed poor R wave progression 2. Patient exercised on the Pa protocol and completed a workload of 7.15 METS, limited by fatigue 3. Normal heart rate and blood pressure response to exercise. Patient achieved greater than 100% of predicted heart rate for age 4. Electrocardiographically there was no evidence of myocardial ischemia 5. There were no significant dysrhythmias Dean Treadmill Score is 5.6 which is Low risk. Stress Test Summary STAGE Time (mins) Speed (mph) Grade (%) HR BP SYMPTOMS METS Supine 74 128/84 Standing 93 134/88 1 3 1.7 10 121 152/92 4.6 2 6 2.5 12 154 170/92 7 1 min recovery 130 202/94 3 min recovery 103 186/78 6 min recovery 92 130/70 MPI Conclusion No evidence of myocardial ischemia or prior infarction LV wall motion appears normal Calculated EF 43% Radiologist Interpretation Radiologist Interpretation by: Lamont Amezquita MD Interpretation Date/Time: 06/03/2021 15:49:34
== END 2021-06-03 02:09 ==
PROVIDERS: PCP Family Medicine; Visit Provider Family Medicine
DX: R07.9 Chest pain, unspecified (principal); Z82.49 Family history of ischemic heart disease and other diseases of the circulatory system; I10 Essential (primary) hypertension; E78.5 Hyperlipidemia, unspecified; E66.9 Obesity, unspecified
CPT/HCPCS: 78452; 93017

== ENCOUNTER 2021-06-03 02:37 | Outpatient (CLI) | payer BC, SELFPAY ==
[2021-06-03 07:39] LABS: Abs Immature Grans 0.02 10^3/uL (0.0-0.06); Absolute Basophil Count 0.04 10^3/uL (0.0-0.2); Absolute Eosinophil Count 0.16 10^3/uL (0.0-0.7); Absolute Lymphocyte Count 1.09 10^3/uL (1.2-3.4); Absolute Monocyte Count 0.49 10^3/uL (0.1-0.8); Absolute Neutrophil Count 4.24 10^3/uL (1.2-6.7); Basophils % 0.7; Eosinophils % 2.6; HGB 16.4 g/dL (11.2-15.7); Immature Grans % 0.3; MCH 29.8 pg (27.0-33.0); MCHC 32.2 % (32.0-36.0); MCV 92.6 fL (80-95); MPV 8.1 fL (8.0-11.0); Monocytes % 8.1; Neutrophils % 70.3; Nucleated RBC 0 %; RBC 5.51 10^6/uL (3.93-5.22); RDW 12.6 % (11.7-14.6); RDW-SD 43.6 fL; WBC 6.04 10^3/uL (4.4-10.8)
[2021-06-03 07:55] LABS: Platelet Count 678 10^3/uL (130-400)
[2021-06-03 10:21] LABS: ALT 33 U/L (14-59); AST 13 U/L (15-37); Alkaline Phosphatase 87 U/L (46-116); Anion Gap 7.5 mmol/L (3-11); BUN 12 mg/dL (7-18); Bilirubin, Total 0.6 mg/dL (0.2-1.0); CO2 29.5 mmol/L (21.0-32.0); CREATININE 0.9 mg/dL (0.55-1.02); Calcium 9.2 mg/dL (8.5-10.1); Calculated LDL 148 mg/dL (<100); Chloride 105 mmol/L (98-107); Cholesterol 228 mg/dL (<200); Glucose 99 mg/dL (74-106); HDL Cholesterol 30 mg/dL (40-60); Potassium 4.5 mmol/L (3.5-5.1); Sodium 142 mmol/L (136-145); TSH (W/Ref FT4) 0.92 uIU/mL (0.36-3.74); Total Protein 7.3 g/dL (6.4-8.2); Triglyceride 254 mg/dL (<150)
[2021-06-03 10:37] LABS: Lipase 42 U/L (73-393)
== END 2021-06-03 02:38 | disposition home or self-care (01) ==
LOC: LBO 02:37
PROVIDERS: PCP Family Medicine; Visit Provider Family Medicine
DX: E78.5 Hyperlipidemia, unspecified; D75.1 Secondary polycythemia; D75.839 Thrombocytosis, unspecified; R07.9 Chest pain, unspecified; I10 Essential (primary) hypertension
CPT/HCPCS: 36415; 80053; 80061; 83690; 84443; 85025

== ENCOUNTER 2021-06-16 04:04 | Outpatient (CLI) | payer BC, SELFPAY ==
[2021-06-16 07:46] LABS: HCT 46.2 % (36.0-46.0); HGB 14.9 g/dL (11.2-15.7); MCH 29.6 pg (27.0-33.0); MCHC 32.3 % (32.0-36.0); MCV 91.8 fL (80-95); MPV 8.4 fL (8.0-11.0); Platelet Count 578 10^3/uL (130-400); RBC 5.03 10^6/uL (3.93-5.22); WBC 5.65 10^3/uL (4.4-10.8)
[2021-06-16 08:54] LABS: ALT 30 U/L (14-59); AST 18 U/L (15-37); Albumin 3.7 g/dL (3.4-5.0); Alkaline Phosphatase 83 U/L (46-116); Anion Gap 8.3 mmol/L (3-11); BUN 11 mg/dL (7-18); Bilirubin, Total 0.5 mg/dL (0.2-1.0); CO2 28.7 mmol/L (21.0-32.0); CREATININE 0.9 mg/dL (0.55-1.02); Calculated LDL 72 mg/dL (<100); Chloride 105 mmol/L (98-107); Cholesterol 133 mg/dL (<200); Glucose 91 mg/dL (74-106); HDL Cholesterol 28 mg/dL (40-60); Potassium 4.7 mmol/L (3.5-5.1); Sodium 142 mmol/L (136-145); Total Protein 6.8 g/dL (6.4-8.2); Triglyceride 167 mg/dL (<150)
[2021-06-16 09:24] LABS: Ferritin 134 ng/mL (8-252)
[2021-06-24 12:27] LABS: Result Summary NEGATIVE; Specimen WB Whole Blood
== END 2021-06-16 04:05 | disposition home or self-care (01) ==
LOC: LBO 04:04
PROVIDERS: PCP Family Medicine; Visit Provider Family Medicine
DX: Z00.00 Encounter for general adult medical examination without abnormal findings (principal); I10 Essential (primary) hypertension; D58.2 Other hemoglobinopathies
CPT/HCPCS: 36415; 80053; 80061; 85027; 81256; 82728

== ENCOUNTER 2021-06-19 09:51 | Outpatient (REF) | payer BC, SELFPAY ==
--- NOTE | 2021-06-19 09:00 | PAPFT_PTH ---
PATIENT: Janeen Rogel LOC: [facility] U#:[id number] AGE/SX: 61/F ROOM: RE06/19/[address]: Tonya Costello MD, DC : 1960 BED: DIS: 06/19/2021 SPEC #: [id number] RECD: 06/19/21 12:49 STATUS: [place] REQ #: [id number] MELLISA: 06/19/21 09:[address]: Tonya Costello DEPT: [facility] Cytology RECD BY: Kacie Leigh Tissues: 1 - CX/ENDOCX FOR PAP SMEARS Procedures: PAP THIN PREP/UVM Screening HPV DNA PROBE Comments: [id number]
== END 2021-06-19 09:52 | disposition home or self-care (01) ==
LOC: LBN 09:51
PROVIDERS: PCP Family Medicine; Visit Provider Family Medicine
DX: Z12.4 Encounter for screening for malignant neoplasm of cervix (principal); Z11.51 Encounter for screening for human papillomavirus (HPV)
CPT/HCPCS: 88142; 87624

== ENCOUNTER 2021-07-18 01:52 | Outpatient (CLI) | payer BC, SELFPAY ==
--- NOTE | 2021-07-18 07:20 | DI.MAMMO_ITS ---
Exam(s) MAMMO SCREENING EXAM: MAMMO SCREENING CLINICAL HISTORY: screening,z12.39. TECHNIQUE: Bilateral full field digital CC and MLO mammographic images were obtained with 3D tomosyn thesis and utilizing computer aided detection (CAD). COMPARISON: Prior mammograms dating back to 2011, the most recent being March 2019. FINDINGS: There are no new spiculated masses nor malignant appearing microcalcification groups. Benign microcalcifications left breast unchanged from previous There is no significant architectural distortion nor skin thickening-retraction. IMPRESSION: No radiographic evidence of malignancy. BI-RADS Category 1 - Negative Breast Density - Category B - Scattered areas of fibroglandular density Breast density Category C or D implies that the patient has dense breast tissue. Dense breast tissue can make it harder to find cancer on a mammogram. Dense breast tissue is also associated with an incr eased risk of breast cancer. This information about the result of the mammogram report was provided to the patient to raise their awareness. Use this report when you speak with the patient about their risks for breast cancer, which includes their family history. At that time, you may recommend additional screening tests (Ultrasoun d or MRI) as these tests may add significant information. A negative radiographic report should not delay biopsy if a dominant or clinically suspicious mass is present. Up to ten percent of cancers are not identified on mammography. A negative report may reinforce clinical impression. Adenosis and dense breasts may obscure an underlying neoplasm. False positive reports average 6 to 10%. Patient will receive a letter notifying them of these results.
== END 2021-07-18 02:12 ==
PROVIDERS: PCP Family Medicine; Visit Provider Family Medicine
DX: Z12.31 Encounter for screening mammogram for malignant neoplasm of breast (principal)
CPT/HCPCS: 77063; 77067

== ENCOUNTER 2021-07-18 04:21 | Outpatient (CLI) | payer BC, SELFPAY ==
[2021-07-18 07:35] LABS: HCT 48.5 % (36.0-46.0); HGB 15.3 g/dL (11.2-15.7); MCH 29.9 pg (27.0-33.0); MCHC 31.5 % (32.0-36.0); MCV 94.7 fL (80-95); MPV 8.3 fL (8.0-11.0); RBC 5.12 10^6/uL (3.93-5.22); RDW 13.3 % (11.7-14.6); RDW-SD 47.1 fL; WBC 6.82 10^3/uL (4.4-10.8)
[2021-07-18 07:46] LABS: Platelet Count 675 10^3/uL (130-400)
[2021-07-18 08:31] LABS: ALT 30 U/L (14-59); AST 19 U/L (15-37); Albumin 4.1 g/dL (3.4-5.0); Alkaline Phosphatase 81 U/L (46-116); Anion Gap 6.2 mmol/L (3-11); BUN 10 mg/dL (7-18); Bilirubin, Total 0.5 mg/dL (0.2-1.0); CO2 28.8 mmol/L (21.0-32.0); Calcium 9.1 mg/dL (8.5-10.1); Chloride 105 mmol/L (98-107); Estimated GFR 56.56 (mL/min/1.73m2); Glucose 97 mg/dL (74-106); Potassium 4.4 mmol/L (3.5-5.1); Sodium 140 mmol/L (136-145); Total Protein 7.3 g/dL (6.4-8.2)
== END 2021-07-18 04:22 | disposition home or self-care (01) ==
LOC: LBO 04:21
PROVIDERS: PCP Family Medicine; Visit Provider Family Medicine
DX: D58.2 Other hemoglobinopathies (principal); I10 Essential (primary) hypertension; Z00.00 Encounter for general adult medical examination without abnormal findings; D75.1 Secondary polycythemia
CPT/HCPCS: 36415; 80053; 85027

== ENCOUNTER 2021-08-04 01:25 | Outpatient (CLI) | payer BC, SELFPAY | END 2021-08-04 01:26 | disposition home or self-care (01) | LOC: LBO 01:25 | PROVIDERS: PCP Family Medicine; Visit Provider Surgery ==

== ENCOUNTER 2021-08-05 01:55 | Outpatient (CLI) | payer BC, SELFPAY ==
[2021-08-05 13:03] LABS: Source Nasal/Nares
[2021-08-05 16:28] LABS: COVID-19 PCR Negative (Negative)
== END 2021-08-05 01:56 | disposition home or self-care (01) ==
PROVIDERS: PCP Family Medicine; Visit Provider Surgery
DX: Z20.822 Contact with and (suspected) exposure to COVID-19 (principal); Z01.818 Encounter for other preprocedural examination
CPT/HCPCS: 87635

== ENCOUNTER 2021-08-06 09:56 | Day surgery (SDC) | payer BC, SELFPAY ==
--- NOTE | 2021-08-06 06:53 | W.PREOPHP ---
Assessment and Plan Assessment and plan (1) Abdominal pain: Status: Acute Assessment and plan: The patient is here for Colonoscopy pre-op. Her last screening was in 2011 and was unremarkable. She has no family history of colon cancer. She has not had any bowel habit changes. -Discussed colonoscopy bowel prep as well as the procedure. Discussed possible complications of the procedure to include bleeding, pain, perforation, missed small lesion/polyp, sore throat, aspiration and adverse reaction to the medications. Questions were answered to patient?s satisfaction. No guarantees were implied or given. -Discussed Upper endoscopy procedure and the need to be NPO after midnight the night prior. Discussed possible complications of the procedure to include bleeding, pain, perforation, missed small lesion/polyp/ulcers, sore throat, aspiration and adverse reaction to the medications or sedation. Questions were answered to patient?s satisfaction. No guarantees were implied or given. She will hold her aspirin x 5 days prior to her procedure. I spent 36 minutes in reviewing the record, seeing the patient, providing patient education, answering patient's questions and documenting in the medical record. P// Colonoscopy and EGD under sedation Qualifiers: Abdominal location: epigastric Qualified Code(s): R10.13 - Epigastric pain History of Present Illness Narrative: 61 y/o female with history of polycythemia presents for colonoscopy screening pre-op with her Travis. Her last screening was in 2011, which was unremarkable. She denies a family history of colon cancer. She denies any changes in bowel habits stating she keeps her bowels regular with Prune Juice. Denies bloody or black tarry stools, diarrhea or constipation. Patient reports recent hospitalization from 05/19-05/21 for chest and abdominal pain. Cardiac causes were r/o. Abdominal pain was located in the epigastric region, which extended around her bilateral breast line and around to her back. This improved following starting protonix. Since d/c she has followed a bland diet trying to avoid anything that may trigger her symptoms. This has been going well and she has lost over 15 pounds since changing her diet. Of note both she and her describe noting that Janeen coughs when laying down flat at night. She denies constitutional symptoms. Denies use of marijuana or any other recreational or illegal drugs. She denies chest pain, palpitations, dyspnea or dyspnea with exertion. She denies prior history or family history of adverse reactions with anesthesia. She does however describe a history of nausea and vomiting. The patient denies any history of stroke, [place], seizures, bleeding or clotting disorders. She denies having any implanted metal in his body. No changes in her health since she was last seen Review of Systems Cardiovascular Cardiovascular: Denies chest pain, Denies chest pain at rest, Denies irregular heart rhythm, Denies dyspnea and Denies dyspnea on exertion Respiratory Respiratory: Denies cough, Denies dyspnea and Denies dyspnea on exertion Gastrointestinal Gastrointestinal: Reports as per HPI Genitourinary Genitourinary: Denies dysuria, Denies urinary incontinence and Denies urinary urgency Endocrine Endocrine: Reports system reviewed and no additional complaints, except as documented Hematologic/Lymphatic Hematologic/Lymphatic: Denies easy bruising and Denies lymphadenopathy [facility] All Active Problems (Updated 08/06/21 @ 11:10 by Vickie Montano MD) 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 Hpylori; + BX-GERD; + HH Vaginal atrophy (Chronic 11/26/15) Essential hypertension (Chronic 04/21/13) Cervical pain (Acute) Annual physical exam (Acute) Hip pain, left (Acute) Abdominal pain (Acute) Annual physical exam (Acute) Elevated hemoglobin (Acute) Polycythemia (Acute) Medical History (Updated 08/06/21 @ 11:10 by Vickie Montano MD) Abnormal glandular Pap smear of vagina 10/24/12 follow up normal Achilles bursitis confirmed by MRI 06/11 Achilles bursitis Atypical mole 01/18/17 Atypical mole (01/18/17) Carpal tunnel syndrome bilateral; left by EMS; left medial nerve release Carpal tunnel syndrome Chest pain Pt. stated this was r/o to be cardiac in nature, and is why she is have C&G procedure done on 08/06/21 Chest pain Cough 08/30/17 DUB (dysfunctional uterine bleeding) 2.6cm fundal fibroid; 3.8 cm right ovary cyst in 01/08 since resolved. 3.5 cm left kidney cyst Essential hypertension External otitis 05/07/14 Gastroesophageal reflux disease Hyperlipidemia Knee pain (01/01/07) MRI 01/08= neg. tear; ? of chondromalacia; Med. patellar fault Left shoulder pain 08/05/15 Left shoulder pain (08/05/15) Microscopic hematuria neg. C&S; nl Bun and Cr.; neg IUP; neg cystocopy Microscopic hematuria Muscle strain Otitis externa (05/07/14) Right carpal tunnel syndrome (02/21/18) Patient has clinically obvious carpal tunnel syndrome right upper extremity. I explained her that I know do all my carpal tunnel surgeries via open technique. This avoid an incomplete release or or an injury to the common digital nerve to the middle finger. Patient understands the reason for the change the open technique and agrees to have this done on her right side despite the fact that she had a E CTR on the left side Vascular headache Vascular headache Surgical History Endometrial Biopsy neg History of carpal tunnel release 05/13/18 DR. CUADRA; RIGHT History of gynecologic surgery endometrial Bx-neg Open Carpal Tunnel release (~2002) left medial nerve release PROCEDURES 07/21/16; LASERLIDOTOMY S/P carpal tunnel release left medial nerve release Status post carpal tunnel release Status post carpal tunnel release Family History Mother , 59 Essential hypertension Anxiety Depression Heart disease Hyperlipidemia Leukemia Father , MET/LUNG CA at age 79. Diabetes Alcohol abuse Essential hypertension Heart disease Hyperlipidemia Asthma Lung cancer Sister No problems noted. Brother Essential hypertension Anxiety Depression Hyperlipidemia Maternal Grandfather , 90s No problems noted. Paternal Grandfather , 90s Heart disease Stroke Maternal Grandmother , 70s No problems noted. Paternal Grandmother , 70s Alcohol abuse Heart disease Hypertension Stroke Social History Smoking/Tobacco Use Status: Never Second Hand Exposure: Yes Smoking risk assessment performed?: Yes Alcohol Intake: current Alcohol type: wine and hard liquor Drug use: Never Substance use type: does not use Caregiver/Support person: No Household members: spouse Housing: house Communication Needs: Corrective Lenses Do you need help understanding health information?: Rarely Pets and animals: No Sexually active: Yes Do you think of yourself as: straight/heterosexual Current gender identity: female What is your relationship status?: How often do you talk on the phone with friends or family?: three or more times per week How often do you get together with friends or relatives?: three or more times per week Do you belong to any clubs or organized social groups?: no Panel score (0-1 are the most socially isolated patients): 2 What type of physical activity do you participate in: none Barbara/Pentecostalism: No preference Special barbara needs: No Seatbelt use: always Drive intox or ride w/intox chain saw driver: No Do you feel safe at home: Yes Do you feel safe in your relationship?: Yes Meds Allergies and Home Medications Allergies Allergy/AdvReac Type Severity Reaction Status Date / Time aspartame AdvReac Intermediate Verified 08/06/21 10:10 hydrochlorothiazide AdvReac Intermediate Leg cramps Verified 08/06/21 10:10 latex AdvReac Intermediate skin Verified 08/06/21 10:10 cracks and bleeds Home Medications Medication Instructions Recorded Confirmed Type Lubricating Drops 15 ml OPHTHALMIC PRN 02/15/17 08/06/21 History latanoprost [Xalatan] 1 drp OPHTHALMIC HS drp 02/15/17 08/06/21 History cetirizine 10 mg tablet 10 mg PO DAILY PRN 03/02/19 08/06/21 History estradiol 10 mcg vaginal tablet 10 mcg VG 2X Week #25 tab-cap 01/31/20 08/06/21 Rx acetaminophen 650 mg 1,300 mg PO QAM tab 07/08/20 08/06/21 History tablet,extended release clotrimazole-betamethasone 1 1 applic TOPICAL BID PRN gm 07/08/20 08/06/21 History %-0.05 % topical cream triamcinolone acetonide 0.1 % 1 applic TOPICAL BID PRN gm 07/08/20 08/06/21 History topical ointment meclizine 12.5 mg tablet 12.5 mg PO TID PRN #21 tab 04/07/21 08/06/21 Rx aspirin 81 mg tablet,delayed 81 mg PO DAILY #90 tab 05/19/21 08/06/21 Rx release atorvastatin 20 mg tablet 20 mg PO QHS #90 tab 06/05/21 08/06/21 Rx pantoprazole 40 mg tablet,delayed 40 mg PO BID #180 tab 06/19/21 08/06/21 Rx release metoclopramide HCl 10 mg tablet 10 mg PO BID & HS PRN #270 tab 06/30/21 08/06/21 Rx losartan 100 mg PO HS 08/04/21 08/06/21 History Exam Const General: healthy appearing and comfortable Resp Effort & Inspection: normal respiratory effort Auscultation: clear to auscultation bilaterally Cardio Rate: regular rate Rhythm: regular rhythm Heart Sounds: no click, no gallops and no murmurs
--- NOTE | 2021-08-06 06:55 | ENDO_ITS ---
Date of service: 08/06/21 Time of Service: 11:20 Endoscopy Report DATE OF PROCEDURE: 08/06/21 PRE-OP DIAGNOSIS: Abdominal pain POST-OP DIAGNOSIS: other (gastritis, esophagitis, diverticulosis) PROCEDURE: 1. EGD with biopsies 2. Colonoscopy SURGEON: Vickie Montano ANESTHESIA TYPE: General:No Airway (Kamron Griffiths CRNA) ESTIMATED BLOOD LOSS: 5 PATHOLOGY: other (Gastric bx, GE junction bx) COMPLICATIONS: None DISPOSITION: same day INDICATIONS: The patient is here for Colonoscopy pre-op. His last screening was in 2011 and was unremarkable. He has no family history of colon cancer. He has not had any bowel habit changes. -Discussed colonoscopy bowel prep as well as the procedure. Discussed possible complications of the procedure to include bleeding, pain, perforation, missed small lesion/polyp, sore throat, aspiration and adverse reaction to the medications. Questions were answered to patient?s satisfaction. No guarantees were implied or given. -Discussed Upper endoscopy procedure and the need to be NPO after midnight the night prior. Discussed possible complications of the procedure to include bleeding, pain, perforation, missed small lesion/polyp/ulcers, sore throat, aspiration and adverse reaction to the medications or sedation. Questions were answered to patient?s satisfaction. No guarantees were implied or given. She will hold her aspirin x 5 days prior to her procedure. I spent 36 minutes in reviewing the record, seeing the patient, providing patient education, answering patient's questions and documenting in the medical record. P// Colonoscopy and EGD under sedation PREP: Miralax/Dulcolax PROCEDURE START TIME: 11:20 PROCEDURE END TIME: 11:51 COLONOSCOPY RETRACTION TIME: 9 minutes FINDINGS: Upper: moderate inflammation and gastric polyps moderate esophagitis Lower: Diverticulosis PROCEDURE DESCRIPTION: After informed consent was obtained the patient was take to the procedure room and placed in a supine position. Monitors were applied and a time out was done. The patients name, date of , procedure type, allergies to medications and metal in their body was reviewed. A bite block was placed and the patient was sedated. Once sedated and comfortable the gastroscope was advanced through the oropharynx which was grossly normal into the esophagus. The proximal and mid- esophagus were normal. In the distal esophagus there was mild to moderate inflammation noted. The scope was advanced into the stomach and through the pylorus into the 3rd portion of the duodenum. The duodenum was noted to be normal. The scope was retracted back into the stomach. There was moderate inflammation noted in the antrum and body. Biopsies were done to rule out H. pylori. There were no ulcers. The scope was retro-flexed. The cardia and fundus were noted to be normal. There was no hiatal hernia noted. The scope was retracted back into the esophagus and biopsies were done of the GE junction to rule out Osborne's. The Z line was regular. The GE junction was at 38 cm. Biopsies were also done at 36 cm. While the patient was still sedated they were placed in a left decubitous position. A rectal exam was done. External exam was normal. Internal exam revealed a normal sphincter tone and no palpable masses. The scope was then introduced and retro-flexed. No internal hemorrhoids, masses or polyps were identified on retroflexion. The scope was then advanced to the cecum without difficulty. The ileocecal valve and appendiceal orifice were identified. The prep was adequate. The scope was then slowly retracted over 9 minutes back into the rectum. There were no polyps. There was mild right sided diverticulosis and moderate left sided diverticulosis. The scope was removed and the patient was woken up and taken back to Same day surgery in stable cond ition. The patient tolerated the procedure well and there were no immediate complications. Follow up: 10 years for the next colonoscopy. Continue with pantoprazole for now.
--- NOTE | 2021-08-06 06:55 | W.PM.DSUDISC ---
Discharge Plan Disposition Patient Disposition: HOME Condition: Good Discharge Details Reason For Visit: [place]/EGD Attending Provider: Vickie Montano Primary Care Provider: Tonya Costello Home Meds and New Rx's Prescriptions: Continued pantoprazole [Protonix] 40 mg tablet,delayed release (DR/EC) 40 mg PO BID Qty: 180 RF: 6 atorvastatin 20 mg tablet 20 mg PO QHS Qty: 90 RF: 4 cetirizine [Zyrtec] 10 mg tablet 10 mg PO DAILY PRNRF: 0 acetaminophen 650 mg tablet extended release 1,300 mg PO QAM RF: 0 clotrimazole-betamethasone 1-0.05 % cream 1 applic Topical BID PRNRF: 0 triamcinolone acetonide 0.1 % ointment 1 applic Topical BID PRNRF: 0 meclizine 12.5 mg tablet 12.5 mg PO TID PRN (Reason: dizziness) Qty: 21 RF: 0 aspirin [Adult Aspirin Regimen] 81 mg tablet,delayed release (DR/EC) 81 mg PO DAILY Qty: 90 RF: 0 latanoprost [Xalatan] 2.5 ML drops 1 drp Ophthalmic HS RF: 0 Lubricating Drops 15 ML drops 15 ml Ophthalmic PRN RF: 0 estradiol [Vagifem] 10 mcg tablet 10 mcg VG 2X Week Qty: 25 RF: 12 metoclopramide HCl [Reglan] 10 mg tablet 10 mg PO BID & HS PRN (Reason: nausea and vomiting) Qty: 270 RF: 3 losartan 100 mg tablet 100 mg PO HS RF: 0 Discharge Instructions Instructions: Diet for Stomach Ulcers and Gastritis (ED), Gastric Polyps (DC), Gastritis (DC), GERD (Gastroesophageal Reflux Disease) (DC), Diverticulosis (DC) Additional Instructions: Findings: Inflammation of the stomach and esophagus- biopsies were done Diverticulosis Follow up: 10 years for next colonoscopy I will send a letter with results and recommendations Please call if you develop: fevers >101.5 Nausea or Vomiting Abdominal pain that is not transient Rectal bleeding that is more then a tbsp A hard abdomen and inability to pass gas DAY SURGERY UNIT POST ENDOSCOPY INSTRUCTIONS Instructions for everyone who is given Anesthesia: For your safety, please do the following for the next 24 Hours: a. Do not drive or operate dangerous equipment b. Do not drink alcohol beverages or use any recreational drugs for the first 24 hours or while taking pain medications. The medications in your body may have a reaction that can be dangerous. c. Do not make any important decisions or sign any important papers 1. Generally there are no restrictions on your activity after a day or so has gone by, but you may feel a bit fatigued for a few days. 2. After you arrive home you may have a light meal and return to a normal diet as you can tolerate it without feeling sick to your stomach. 3. After surgery, you may feel pain or discomfort. This should be only transient, but if it persists please contact your doctor. 4. If there are any questions regarding the findings of your procedure, please feel free to contact your doctor. 6. If you are unable to contact your doctor with a problem, contact the hospital at [phone]. 7. Continue all your regular medications unless directed otherwise. I understand the above instructions and have no questions. Signature of Patient or Responsible Adult Escort Date/Time Name of Responsible Adult Escort Signature of Nurse Date/Time Stand Alone Forms: Anesthesia Discharge Inst. Activity:: Activity as Tolerated Diet:: high fiber/low acid Discharge Orders Discharge Orders: Discharge Order (Routine); Ordered 08/06/21 Ordered By: Vickie Montano DS: Diagnosis Discharge Diagnosis (1) Abdominal pain: Status: Acute
--- NOTE | 2021-08-06 09:10 | ANES.PREOP_ITS ---
General Info Date of Service Date Performed: 08/06/21 Height: 5 ft 5 in Weight: 106.821 kg Body Mass Index (BMI): 39.2 Surgical Procedure: Operation Date: 08/06/21 12:20 Proposed Procedures Side Surgeon p Colonoscopy/Gastroscopy Vickie Montano MD Meds Allergies and Home Medications Allergies Allergy/AdvReac Type Severity Reaction Status Date / Time aspartame AdvReac Intermediate Verified 08/06/21 10:10 hydrochlorothiazide AdvReac Intermediate Leg cramps Verified 08/06/21 10:10 latex AdvReac Intermediate skin Verified 08/06/21 10:10 cracks and bleeds Home Medication Medication Instructions Recorded Lubricating Drops 15 ml OPHTHALMIC PRN 02/15/17 latanoprost [Xalatan] 1 drp OPHTHALMIC HS drp 02/15/17 cetirizine 10 mg tablet 10 mg PO DAILY PRN 03/02/19 estradiol 10 mcg vaginal tablet 10 mcg VG 2X Week #25 tab-cap 01/31/20 acetaminophen 650 mg 1,300 mg PO QAM tab 07/08/20 tablet,extended release clotrimazole-betamethasone 1 1 applic TOPICAL BID PRN gm 07/08/20 %-0.05 % topical cream triamcinolone acetonide 0.1 % 1 applic TOPICAL BID PRN gm 07/08/20 topical ointment meclizine 12.5 mg tablet 12.5 mg PO TID PRN #21 tab 04/07/21 aspirin 81 mg tablet,delayed 81 mg PO DAILY #90 tab 05/19/21 release atorvastatin 20 mg tablet 20 mg PO QHS #90 tab 06/05/21 pantoprazole 40 mg tablet,delayed 40 mg PO BID #180 tab 06/19/21 release metoclopramide HCl 10 mg tablet 10 mg PO BID & HS PRN #270 tab 06/30/21 losartan 100 mg PO HS 08/04/21 Current Visit Medications: Current Medications Generic Name Dose Route Start Last Admin Trade Name Freq PRN Reason Stop Dose Admin Hyoscyamine Sulfate 0.125 mg 08/06/21 06:56 Hyoscyamine 0.125 Mg Sl/Oral/Chew SL DIRECTED PRN Ringer's Solution 1,000 mls @ 80 mls/hr 08/06/21 06:00 IV 09/01/21 23:59 INFUSION BRADY IV Miscellaneous Supplies 1 each 08/06/21 06:00 Iv Access IV 09/01/21 23:59 DIRECTED BRADY Ondansetron HCl 4 mg 08/06/21 06:56 Ondansetron 4 Mg/2 Ml Vial IVP Q4H PRN PRN Nausea / Vomiting Sodium Chloride 0 ml 08/06/21 06:00 Normal Saline Flush 10 Ml Syr IV 09/01/21 23:59 PRN PRN Sodium Chloride 0 ml 08/06/21 06:00 Normal Saline 10 Ml Vial IJ 09/01/21 23:59 DIRECTED PRN Sterile Water 0 ml 08/06/21 06:00 Water,Injection,Sterile 10 Ml Vial IJ 09/01/21 23:59 DIRECTED PRN PFSH Active Problems Active Problems: Problem Status Onset Code Chronic narrow angle glaucoma of left eye H40.2220 Mild stage chronic narrow angle glaucoma of right eye H40.2211 Eczema 08/20/14 L30.9 Hypercholesterolemia E78.00 Increased body mass index R63.8 Latex allergy 04/21/13 Z91.040 Peptic reflux disease 06/03/02 K21.9 Vaginal atrophy 11/26/15 N95.2 Essential hypertension 04/21/13 I10 Cervical pain Annual physical exam Z00.00 Hip pain, left M25.552 Abdominal pain R10.9 Annual physical exam Z00.00 Elevated hemoglobin D58.2 Polycythemia D75.1 Medical History Medical History Abnormal glandular Pap smear of vagina 10/24/12 follow up normal Achilles bursitis confirmed by MRI 06/11 Achilles bursitis Atypical mole 01/18/17 Atypical mole (01/18/17) Carpal tunnel syndrome bilateral; left by EMS; left medial nerve release Carpal tunnel syndrome Chest pain Pt. stated this was r/o to be cardiac in nature, and is why she is have C&G procedure done on 08/06/21 Chest pain Cough 08/30/17 DUB (dysfunctional uterine bleeding) 2.6cm fundal fibroid; 3.8 cm right ovary cyst in 01/08 since resolved. 3.5 cm left kidney cyst Essential hypertension External otitis 05/07/14 Gastroesophageal reflux disease Hyperlipidemia Knee pain (01/01/07) MRI 01/08= neg. tear; ? of chondromalacia; Med. patellar fault Left shoulder pain 08/05/15 Left shoulder pain (08/05/15) Microscopic hematuria neg. C&S; nl Bun and Cr.; neg IUP; neg cystocopy Microscopic hematuria Muscle strain Otitis externa (05/07/14) Right carpal tunnel syndrome (02/21/18) Patient has clinically obvious carpal tunnel syndrome right upper extremity. I explained her that I know do all my carpal tunnel surgeries via open technique. This avoid an incomplete release or or an injury to the common digital nerve to the middle finger. Patient understands the reason for the change the open technique and agrees to have this done on her right side despite the fact that she had a E CTR on the left side Vascular headache Vascular headache Surgical History Surgical History Endometrial Biopsy neg History of carpal tunnel release 05/13/18 DR. CUADRA; RIGHT History of gynecologic surgery endometrial Bx-neg Open Carpal Tunnel release (~2002) left medial nerve release PROCEDURES 07/21/16; LASERLIDOTOMY S/P carpal tunnel release left medial nerve release Status post carpal tunnel release Status post carpal tunnel release Tobacco Smoking/Tobacco Use Status: Never Passive smoking exposure: Yes Second hand exposure: Yes Alcohol Alcohol Intake: former Substance Use Substance use: Never Substance use type: does not use Vital Signs and Lab Results Lab Results Blood Type / Crossmatch: No Data to Display Complete Blood Count: White Blood Count 6.82 10^3/uL (4.4-10.8) 07/18/21 07:28 07/18/21 Red Blood Count 5.12 10^6/uL (3.93-5.22) 07/18/21 07:28 07/18/21 Hemoglobin 15.3 g/dL (11.2-15.7) 07/18/21 07:28 07/18/21 Hematocrit 48.5 % (36.0-46.0) H 07/18/21 07:28 07/18/21 Platelet Count 675 10^3/uL (130-400) H 07/18/21 07:28 07/18/21 Complete Metabolic Panel: Sodium Level 140 mmol/L (136-145) 07/18/21 07:28 07/18/21 Potassium Level 4.4 mmol/L (3.5-5.1) 07/18/21 07:28 07/18/21 Chloride Level 105 mmol/L (98-107) 07/18/21 07:28 07/18/21 Carbon Dioxide Level 28.8 mmol/L (21.0-32.0) 07/18/21 07:28 07/18/21 Blood Urea Nitrogen 10 mg/dL (7-18) 07/18/21 07:07/18/21 Creatinine 1.0 mg/dL (0.55-1.02) 07/18/21 07:07/18/21 Estimated GFR/1.73 m2 56.56 (mL/min/1.73m2) 07/18/21 07:07/18/21 Calcium Level 9.1 mg/dL (8.5-10.1) 07/18/21 07:28 07/18/21 Albumin 4.1 g/dL (3.4-5.0) 07/18/21 07:07/18/21 Glucose Level 97 mg/dL (74-106) 07/18/21 07:28 07/18/21 Liver Function Panel: Alanine Aminotransferase (ALT/SGPT) 30 U/L (14-59) 07/18/21 07:28 07/18/21 Aspartate Amino Transf (AST/SGOT) 19 U/L (15-37) 07/18/21 07:28 07/18/21 Coagulation Panel: No Data to Display Cardiac Panel: No Data to Display Arterial Blood Gas: No Data to Display Venous Blood Gas: No Data to Display Pancreas Panel: No Data to Display Thyroid Panel: No Data to Display Infectious Disease: Coronavirus (COVID-19)(PCR) Negative (Negative) 08/05/21 08:34 08/05/21 Coronavirus 2019 Source Nasal/Nares 08/05/21 08:34 08/05/21 Blood Cultures: No Data to Display Toxicology Panel: No Data to Display Imaging and Studies Imaging and Studies Study information below may be from another EMR and interpreted by another provider. Please see original notes in EMR for more complete details. Other Study Summary:: Conclusion This is a 48-hour Holter monitor reportedly ordered for chest pain Rhythm throughout was sinus with an average heart rate of 82. Minimum was 62, maximum 131 There were very rare ventricular ectopic beats, no couplets, no ventricular tachycardia There were very rare atrial premature beats. There was one 7 beat atrial run There was no atrial fibrillation, no high-grade AV block, no pauses greater than 3 seconds There were no apparent patient symptoms ------ <Electronically signed by GOVIND MAURO MD in [place]> E-Sign Date: 05/26/21 E-Sign Time: 1214 Anesthesia Assessment and Plan Anesthesia History Personal History: No History of Anesthesia Complications Family History: No Family History of Anesthesia Complications Exercise Tolerance Exercise Tolerance: Metabolic Equivalents>4 Pertinent Negatives Pertinent Negatives: No Symptoms of GERD, No Major Cardiovascular Symptoms or Complaints, No Major Pulmonary Symptoms or Complaints and No History of CVA/TIA Cardiac & Pulmonary Exam Cardiac Exam: Normal S1/S2 Heart Sounds Pulmonary Exam: Clear Bilateral Breath Sounds Implantable Cardiac Device Does patient have a Pacemaker or an ICD?: No Airway Exam Known Difficult Airway: No Mallampati Class: 1 Mouth Opening: Normal (> 3cm) Thyromental Distance: Greater than 3 cm Neck Range of Motion: Full ROM Neck Circumference: Normal Teeth Condition: Normal Dentition ASA Classification ASA Score: ASA 2 Emergency Case?: No NPO Status NPO Status: NPO Clears >2 hours, Solids >8 hours Anesthesia Plan Resuscitation Status: Full Code Anesthesia Technique: General Anesthesia Airway Planned: Natural Airway Monitors Used: Standard Monitors
[2021-08-06 09:57] VITALS: BP 114/104; PULSE 87; RESP 16; TEMP 36.6; O2SAT 99
[2021-08-06 10:39] VITALS: BMI 39.2
[2021-08-06] MEDS: Lactated Ringers 1,000 ML 80 ML IV (10:40)
[2021-08-06 11:00] VITALS: BP 103/72
--- NOTE | 2021-08-06 11:25 | STOM_PTH ---
PATIENT: Janeen Rogel LOC: [facility] U#:[id number] AGE/SX: 61/F ROOM: RE08/06/[address]: Vickie Montano MD : 1960 BED: DIS: 08/06/2021 SPEC #: [id number] RECD: 08/06/21 12:47 STATUS: [place] RERonna #: [id number] MELLISA: 08/06/21 11:[address]: Vickie Montano DEPT: Surgical Specimen RECD BY: Kacie Leigh ENTERED: 08/06/21 12:50 SP TYPE: STOMACH OTHR DR: Tonya Costello MD, DC Tissues: 1 - STOMACH BIOPSY 2 - STOMACH BIOPSY 3 - ESOPHAGUS BIOPSY 4 - ESOPHAGUS BIOPSY Procedures: GROSS AND MICRO LEVEL 4 Comments: [id number]
[2021-08-06 12:05] VITALS: BP 114/88; PULSE 89; RESP 16; TEMP 36.6; O2SAT 96
--- NOTE | 2021-08-06 12:09 | W.ANESPOSTOP ---
Postoperative Evaluation Date, Time and Location Date Performed: 08/06/21 Time Performed: 12:09 Patient Location: Day [facility] Unit Vital Signs Most Recent Imported Vital Signs: Most Recent Vital Signs Temp Pulse Resp BP Pulse Ox 36.6 C 87 16 103/72 99 08/06/21 09:57 08/06/21 09:57 08/06/21 09:57 08/06/21 11:00 08/06/21 09:57 Pain Score Most Recent Pain Score: Most Recent Pain Score Pain Level 0 08/06/21 09:57 Assessment Mental Status: Awake (Alert & Oriented to Patient Baseline) Airway and Respiratory Function: Patent airway with normal (patient baseline) respiratory exam Cardiovascular Function: Hemodynamically Stable Hydration Status: Adequately Hydrated Nausea & Vomiting: No Nausea or Vomiting Pain: Pt. Denies Any Pain Peripheral Nerve Block: Patient did not receive a nerve block
[2021-08-06 12:35] VITALS: BP 125/84; PULSE 73; RESP 16; TEMP 36.3; O2SAT 99
== END 2021-08-06 13:30 | disposition home or self-care (01) ==
LOC: SUR 09:56
PROVIDERS: PCP Family Medicine; Visit Provider Surgery
PROC: (CPT 43239; principal; 2021-08-06 12:15)
DX: R10.13 Epigastric pain (principal); D75.1 Secondary polycythemia; I10 Essential (primary) hypertension; K29.70 Gastritis, unspecified, without bleeding; K20.90 Esophagitis, unspecified without bleeding; K57.30 Diverticulosis of large intestine without perforation or abscess without bleeding; Z12.11 Encounter for screening for malignant neoplasm of colon
CPT/HCPCS: 43239; 45378; 88305; J2001

== ENCOUNTER 2021-09-19 01:28 | Outpatient (CLI) | payer BC, SELFPAY ==
[2021-09-19 09:03] LABS: Abs Immature Grans 0.02 10^3/uL (0.0-0.06); Absolute Basophil Count 0.06 10^3/uL (0.0-0.2); Absolute Eosinophil Count 0.25 10^3/uL (0.0-0.7); Absolute Lymphocyte Count 1.03 10^3/uL (1.2-3.4); Absolute Monocyte Count 0.63 10^3/uL (0.1-0.8); Absolute Neutrophil Count 4.55 10^3/uL (1.2-6.7); Basophils % 0.9; Eosinophils % 3.8; HCT 46.5 % (36.0-46.0); HGB 14.7 g/dL (11.2-15.7); Immature Grans % 0.3; Lymphocytes % 15.7; MCH 30.2 pg (27.0-33.0); MCHC 31.6 % (32.0-36.0); MCV 95.7 fL (80-95); MPV 8.2 fL (8.0-11.0); Monocytes % 9.6; Neutrophils % 69.7; Nucleated RBC 0 %; Platelet Count 591 10^3/uL (130-400); RBC 4.86 10^6/uL (3.93-5.22); RDW 13.4 % (11.7-14.6); RDW-SD 47.9 fL; WBC 6.54 10^3/uL (4.4-10.8)
[2021-09-19 10:26] LABS: ALT 29 U/L (14-59); AST 14 U/L (15-37); Albumin 3.8 g/dL (3.4-5.0); Alkaline Phosphatase 81 U/L (46-116); Anion Gap 8.1 mmol/L (3-11); BUN 17 mg/dL (7-18); Bilirubin, Total 0.5 mg/dL (0.2-1.0); CO2 27.9 mmol/L (21.0-32.0); CREATININE 1.2 mg/dL (0.55-1.02); Calcium 8.9 mg/dL (8.5-10.1); Chloride 105 mmol/L (98-107); Estimated GFR 45.83 (mL/min/1.73m2); Glucose 98 mg/dL (74-106); Potassium 4.6 mmol/L (3.5-5.1); Sodium 141 mmol/L (136-145); Total Protein 6.9 g/dL (6.4-8.2)
== END 2021-09-19 01:29 | disposition home or self-care (01) ==
LOC: LBO 01:30
PROVIDERS: PCP Family Medicine; Visit Provider Family Medicine
DX: D75.839 Thrombocytosis, unspecified (principal); E78.00 Pure hypercholesterolemia, unspecified; K21.9 Gastro-esophageal reflux disease without esophagitis; R71.8 Other abnormality of red blood cells
CPT/HCPCS: 36415; 80053; 85025

== ENCOUNTER 2021-10-07 04:39 | Outpatient (CLI) | payer BC, SELFPAY ==
[2021-10-07 13:15] LABS: Hemoglobin A1C 5.2 % (<5.7)
[2021-10-07 13:20] LABS: ESR 22 mm/hr (0-30)
[2021-10-07 14:11] LABS: Vitamin B12 264 pg/mL (193-986)
[2021-10-07 14:24] LABS: Creatine Kinase 44 U/L (26-192)
[2021-10-08 11:02] LABS: Hepatitis C Ab w Rflx HCV PCR Negative (Negative)
[2021-10-08 11:25] LABS: Lyme Ab w Rflx to Lyme Confirm Negative (Negative)
[2021-10-08 12:34] LABS: HIV-1/2 Ag & Ab Screen Negative (Negative)
[2021-10-13 14:44] LABS: Albumin 57.5 % (55.8-66.1); Comment (See Note); Total Protein 7.2 g/dL (6.3-8.2)
[2021-10-13 14:54] LABS: Immunotyping, Serum (See Note)
== END 2021-10-07 04:40 | disposition home or self-care (01) ==
LOC: LBO 04:39
PROVIDERS: PCP Family Medicine; Visit Provider Family Medicine
DX: E11.9 Type 2 diabetes mellitus without complications (principal); R11.0 Nausea; R63.4 Abnormal weight loss; R29.898 Other symptoms and signs involving the musculoskeletal system
CPT/HCPCS: 36415; 82550; 85652; 86803; 87389; 82607; 83036; 84165; 84443; 86320; 86618

== ENCOUNTER 2021-10-15 02:15 | Outpatient (RCR) | payer BC, SELFPAY ==
[2021-10-13] MEDS: Normal Saline Flush 10 ML SYR IVP (08:02)
[2021-10-13] MEDS: IMMUNE GLOBULIN 5 GM/50 ML BTL IVPB (08:02)
[2021-10-13 08:05] VITALS: BP 116/75; PULSE 84; RESP 18; TEMP 36.5; O2SAT 98
[2021-10-13 08:24] VITALS: BP 126/84; PULSE 76; RESP 18; TEMP 36.5; O2SAT 96
[2021-10-13 08:40] VITALS: BP 124/77; PULSE 76; RESP 16; TEMP 36.5; O2SAT 97
[2021-10-13] MEDS: IMMUNE GLOBULIN 20 GM/200 ML BTL IVPB (08:43)
[2021-10-13 09:10] VITALS: BP 120/77; PULSE 74; RESP 17; TEMP 36.4; O2SAT 97
[2021-10-13] MEDS: IMMUNE GLOBULIN 40 GM/400 ML BTL IVPB (09:32)
[2021-10-13 09:40] VITALS: BP 124/75; PULSE 68; RESP 17; TEMP 36.2; O2SAT 97
[2021-10-13 10:10] VITALS: BP 135/85; PULSE 78; RESP 17; TEMP 36.4; O2SAT 99
[2021-10-14] MEDS: IMMUNE GLOBULIN 5 GM/50 ML BTL IVPB (08:03)
[2021-10-14] MEDS: Normal Saline Flush 10 ML SYR IVP (08:03)
[2021-10-14 08:05] VITALS: BP 133/80; PULSE 72; RESP 18; TEMP 36.5; O2SAT 100
[2021-10-14 08:18] LABS: CREATININE 1.1 mg/dL (0.55-1.02); Estimated GFR 50.67 (mL/min/1.73m2)
[2021-10-14 08:20] VITALS: BP 120/77; PULSE 86; RESP 18; TEMP 36.2; O2SAT 97
[2021-10-14 08:35] VITALS: BP 119/74; PULSE 77; RESP 17; TEMP 36.7; O2SAT 96
[2021-10-14] MEDS: IMMUNE GLOBULIN 20 GM/200 ML BTL IVPB (08:43)
[2021-10-14 09:05] VITALS: BP 120/77; PULSE 70; RESP 17; TEMP 36.5; O2SAT 97
[2021-10-14] MEDS: IMMUNE GLOBULIN 40 GM/400 ML BTL IVPB (09:29)
[2021-10-14 09:35] VITALS: BP 123/74; PULSE 71; RESP 17; TEMP 36.5; O2SAT 97
[2021-10-14 10:05] VITALS: BP 127/80; PULSE 71; RESP 17; TEMP 36.5; O2SAT 97
[2021-10-15] VITALS (7 sets, daily range): BP systolic 128–151; BP diastolic 80–86; PULSE 68–77; RESP 17; TEMP 36.3–36.5; O2SAT 96–98
[2021-10-15] MEDS: Normal Saline Flush 10 ML SYR IVP (07:53)
[2021-10-15] MEDS: IMMUNE GLOBULIN 5 GM/50 ML BTL IVPB (08:03)
[2021-10-15] MEDS: IMMUNE GLOBULIN 20 GM/200 ML BTL IVPB (08:36)
[2021-10-15] MEDS: IMMUNE GLOBULIN 40 GM/400 ML BTL IVPB (09:35)
== END 2021-11-01 23:59 | disposition home or self-care (01) ==
LOC: INF 02:15
PROVIDERS: PCP Family Medicine; Visit Provider Psychiatry & Neurology Neurology
DX: G61.81 Chronic inflammatory demyelinating polyneuritis (principal)
CPT/HCPCS: 36415; 96365; 96366; 82565; J1459

== ENCOUNTER 2021-11-10 00:52 | Outpatient (RCR) | payer BC, SELFPAY ==
[2021-11-02 00:08] VITALS: BP 146/86; PULSE 75; RESP 17; TEMP 36.4
[2021-11-03] MEDS: Normal Saline Flush 10 ML SYR IVP (13:07)
[2021-11-04] MEDS: Normal Saline Flush 10 ML SYR IVP (13:42)
[2021-11-05] MEDS: Normal Saline Flush 10 ML SYR IVP (13:28)
== END 2021-12-02 23:59 | disposition home or self-care (01) ==
LOC: INF 00:52
PROVIDERS: PCP Family Medicine; Visit Provider Psychiatry & Neurology Neurology
DX: G61.81 Chronic inflammatory demyelinating polyneuritis (principal)
CPT/HCPCS: 96365; J2930

== ENCOUNTER → 2021-12-10 01:49 | Outpatient (CLI) | payer BC, SELFPAY ==
[2021-12-10] MEDS: Normal Saline Flush 10 ML SYR IVP (08:07)
[2021-12-10] MEDS: Gadoterate meglumine 20 ML VIAL 19 ML IVP (08:08)
--- NOTE | 2021-12-10 08:52 | DI.MRI_ITS ---
Exam(s) MR PELVIS WO/W EXAM: MR PELVIS WO/W CLINICAL HISTORY: abnormal PET Scan of the uterus,r94.8 COMPARISON: US US ABDOMEN from 10/03/2021 CT,PT NM PET CT STANDARD SKULL BASE TO MID-THIGH from 11/27/2021 FINDINGS: Multisequence MRI scan of pelvis was both pre and post contrast sequences contrast infused was 19 mL Dotarem. Uterus: Uterus is nongravid anteverted. Fibroids are noted. Largest of these is at fundus approximate ly 2.2 by 2.7 cm. Endometrial thickness is upper normal. Junctional zone appears. Ovaries: Appear age-appropriate. No abnormal adnexal masses. No free fluid. Urinary bladder: No obvious abnormality. No diverticuli. Focal Other: Extensive sigmoid diverticulosis. No obvious acute diverticulitis. No adenopathy along the cara ac chains and there is no inguinal adenopathy. Osseous: No significant osseous lesions. Sacrum and SI joints unremarkable. Sacral canal unremarkable . IMPRESSION: 1. There are multiple uterine fibroids. These measure up to 2.7 cm. 2. No abnormal adnexal findings. 3. Extensive sigmoid diverticulosis. No obvious acute diverticulitis. DATA REPOSITORY:
--- NOTE | 2021-12-10 09:25 | DI.VRAD_ITS ---
PROCEDURE INFORMATION: Exam: MR Pelvis Without and With Contrast; Uterus and Adnexa Exam date and time: 12/10/2021 7:58 AM Age: 61 years old Clinical indication: Abnormal findings; Abnormal imaging test; Patient HX: Abnormal pet/ct scan TECHNIQUE: Imaging protocol: Magnetic resonance images of the pelvis without and with contrast. Exam focused on the uterus and adnexa. Contrast material: DOTAREM; Contrast volume: 19 ml; Contrast route: INTRAVENOUS (IV); COMPARISON: CT ABDOMEN PELVIS W 05/19/2021 5:34 PM FINDINGS: Uterus: Multiple uterine fibroids, up to 1.5 cm. Normal endometrium and junctional zone. Right ovary/adnexa: Ovary is normal in size. No ovarian mass or cyst. Left ovary/adnexa: Ovary is normal in size. No ovarian mass or cyst. Intraperitoneal space: No free fluid. Soft tissues: Unremarkable. IMPRESSION: Fibroid uterus. Dictated and Authenticated by: Kamron Orantes MD. Ordering:[email or web address] Pravin Castaneda MD
== END ==
PROVIDERS: PCP Family Medicine; Visit Provider Family Medicine
DX: R93.89 Abnormal findings on diagnostic imaging of other specified body structures (principal); D25.9 Leiomyoma of uterus, unspecified; K57.30 Diverticulosis of large intestine without perforation or abscess without bleeding
CPT/HCPCS: 72197

== ENCOUNTER 2021-12-12 00:56 | Outpatient (RCR) | payer BC, SELFPAY ==
[2021-12-03 00:14] VITALS: BP 146/86; PULSE 75; RESP 17; TEMP 36.4
[2021-12-10] MEDS: Normal Saline Flush 10 ML SYR IVP (11:17)
[2021-12-11] MEDS: Normal Saline Flush 10 ML SYR IVP (11:22)
[2021-12-12] MEDS: Normal Saline Flush 10 ML SYR IVP (12:44)
[2021-12-14 11:08] VITALS: BP 148/79; PULSE 67; RESP 20; TEMP 36.3; O2SAT 98
[2021-12-14] MEDS: Normal Saline Flush 10 ML SYR IVP (12:05)
== END 2022-01-01 23:59 | disposition home or self-care (01) ==
LOC: INF 00:56
PROVIDERS: PCP Family Medicine; Visit Provider Psychiatry & Neurology Neurology
DX: G61.81 Chronic inflammatory demyelinating polyneuritis (principal); M21.371 Foot drop, right foot; M21.372 Foot drop, left foot
CPT/HCPCS: 96365; J2930

== ENCOUNTER 2022-03-03 03:26 | Outpatient (CLI) | payer BC, SELFPAY ==
[2022-03-03 12:42] LABS: ALT 24 U/L (14-59); AST 17 U/L (15-37); Albumin 3.6 g/dL (3.4-5.0); Alkaline Phosphatase 64 U/L (46-116); Anion Gap 7.2 mmol/L (3-11); BUN 22 mg/dL (7-18); Bilirubin, Total 0.3 mg/dL (0.2-1.0); CO2 29.8 mmol/L (21.0-32.0); CREATININE 1.1 mg/dL (0.55-1.02); Calculated LDL 168 mg/dL (<100); Chloride 107 mmol/L (98-107); Cholesterol 265 mg/dL (<200); Estimated GFR 57.52 (mL/min/1.73m2); Glucose 97 mg/dL (74-106); HDL Cholesterol 33 mg/dL (40-60); Potassium 4.5 mmol/L (3.5-5.1); Sodium 144 mmol/L (136-145); Total Protein 7.4 g/dL (6.4-8.2); Triglyceride 320 mg/dL (<150)
[2022-03-03 12:58] LABS: Hemoglobin A1C 5.1 % (<5.7)
[2022-03-03 13:28] LABS: Vitamin B12 521 pg/mL (193-986)
== END 2022-03-03 03:27 | disposition home or self-care (01) ==
LOC: LBO 03:26
PROVIDERS: PCP Family Medicine; Visit Provider Psychiatry & Neurology Neurology
DX: Z00.00 Encounter for general adult medical examination without abnormal findings (principal); G61.81 Chronic inflammatory demyelinating polyneuritis; R73.9 Hyperglycemia, unspecified
CPT/HCPCS: 36415; 80053; 80061; 84153; 82607; 83036

== ENCOUNTER 2022-03-16 04:14 | Outpatient (CLI) | payer BC, SELFPAY ==
[2022-03-16] MEDS: Albuterol HFA 18 GM 200 PUFF INH IH (16:33)
[2022-03-16] MEDS: Inhaler, Assist Device 1 EACH MC (16:34)
--- NOTE | 2022-03-27 16:40 | W.PFT ---
Date of service: 03/16/22 Time of Service: 14:57 Pulmonary Function Test Result Requesting Provider Tonya Costello Indications: Dyspnea Interpretation Spirometry: There is no airflow limitation. There is no significant bronchodilator response. The FVC is low. Impression No airflow obstruction. Low FVC could represent pseudo-obstruction from an elevated BMI, however cannot rule out restrictive lung disease including ILD or neuromuscular weakness. Recommend lung volumes and DLCO for further evaluation. Clinical Correlation therefore is recommended.
== END 2022-03-16 04:15 | disposition home or self-care (01) ==
LOC: RT 04:14
PROVIDERS: PCP Family Medicine; Visit Provider Family Medicine
DX: R06.02 Shortness of breath (principal); R05.9 Cough, unspecified
CPT/HCPCS: 94060

== ENCOUNTER 2022-04-20 04:00 | Outpatient (CLI) | payer BC, SELFPAY ==
--- NOTE | 2022-04-20 15:00 | RT.PFT_ITS ---
The report has been sent as a scanned image. This report serves to complete the order.
--- NOTE | 2022-04-24 10:11 | W.PFT ---
Date of service: 04/20/22 Time of Service: 15:01 Pulmonary Function Test Result Requesting Provider Laverne Arreola Indications: CDIP with dyspnea Interpretation Spirometry: The MIP and MEP are decreased Lung Volumes: The total lung capacity is technically normal, but borderline low Diffusion Capacity: Normal diffusion Airway Pressure: Normal airways resistance Impression Decreased MIP and MEP in the setting of a borderline TLC and normal diffusion raise concern for restrictive lung disease due to neuromuscular weakness. Clinical Correlation therefore is recommended.
== END 2022-04-20 04:01 | disposition home or self-care (01) ==
LOC: RT 04:00
PROVIDERS: PCP Family Medicine; Visit Provider Psychiatry & Neurology Neurology
DX: R06.02 Shortness of breath (principal); R94.2 Abnormal results of pulmonary function studies; G61.81 Chronic inflammatory demyelinating polyneuritis
CPT/HCPCS: 94726; 94729

== ENCOUNTER 2022-07-03 00:19 | Outpatient (CLI) | payer BC, SELFPAY ==
--- NOTE | 2022-07-03 07:00 | DI.DEXA_ITS ---
Exam(s) XR DEXA BONE DENSITY W/WO SHIAR EXAM: XR DEXA BONE DENSITY W/WO SHIRA CLINICAL HISTORY: chronic prednisone therapy,z79.52 TECHNIQUE: [email or web address] C densitometer analysis of left hip, lumbar spine and left forearm. COMPARISON: CR XR HIP LT COMPLETE AP PELVIS from 07/10/[address] ABDOMEN PELVIS W from 05/19/2021 FINDINGS: Lateral view of the thoracic and lumbar spine shows no evidence of compression fractures. Bone mineral density measurements of the lumbar spine correspond to a total T-score of 2.8, in the n ormal range. Bone mineral density measurements of the left hip correspond to a total T-score of 1.2. The femoral neck T-score is 0.2, in the normal range.. The left forearm bone mineral density measurements correspond to a T-score of the distal 3rd of 0.5, in the normal range.. IMPRESSION: Normal bone mineral density.
== END 2022-07-03 00:39 ==
LOC: DI 00:19
PROVIDERS: PCP Family Medicine; Visit Provider Family Medicine
DX: Z13.820 Encounter for screening for osteoporosis (principal); Z79.52 Long term (current) use of systemic steroids; G61.81 Chronic inflammatory demyelinating polyneuritis
CPT/HCPCS: 77080

== ENCOUNTER 2022-07-10 03:02 | Outpatient (CLI) | payer BC, SELFPAY ==
[2022-07-10 13:15] LABS: HCT 47.9 % (36.0-46.0); MCH 29.6 pg (27.0-33.0); MCHC 31.3 % (32.0-36.0); MCV 95 fL (80-95); MPV 9.1 fL (8.0-11.0); Platelet Count 419 10^3/uL (130-400); RBC 5.07 10^6/uL (3.93-5.22); RDW 13.2 % (11.7-14.6); RDW-SD 46.2 fL; WBC 9.57 10^3/uL (4.4-10.8)
[2022-07-10 14:07] LABS: ALT 9 U/L (14-59); AST 11 U/L (15-37); Albumin 3.4 g/dL (3.4-5.0); Alkaline Phosphatase 82 U/L (46-116); Anion Gap 5.6 mmol/L (3-11); BUN 16 mg/dL (7-18); Bilirubin, Total 0.4 mg/dL (0.2-1.0); CO2 31.4 mmol/L (21.0-32.0); CREATININE 1.1 mg/dL (0.55-1.02); Calcium 9.1 mg/dL (8.5-10.1); Chloride 104 mmol/L (98-107); Estimated GFR 57.17 (mL/min/1.73m2); Glucose 89 mg/dL (74-106); Potassium 4.6 mmol/L (3.5-5.1); Sodium 141 mmol/L (136-145); Total Protein 7.4 g/dL (6.4-8.2)
[2022-07-10 14:11] LABS: Hemoglobin A1C 5.1 % (<5.7)
== END 2022-07-10 03:03 | disposition home or self-care (01) ==
LOC: LBO 03:02
PROVIDERS: PCP Family Medicine; Visit Provider Family Medicine
DX: E11.9 Type 2 diabetes mellitus without complications (principal); E55.9 Vitamin D deficiency, unspecified; R06.02 Shortness of breath; Z79.52 Long term (current) use of systemic steroids
CPT/HCPCS: 36415; 80053; 82306; 85027; 83036

== ENCOUNTER 2022-07-29 01:10 | Outpatient (CLI) | payer BC, SELFPAY ==
--- NOTE | 2022-07-29 07:15 | DI.RAD_ITS ---
Exam(s) XR CHEST 2V PA LATERAL EXAM: XR CHEST 2V PA LATERAL CLINICAL HISTORY: dyspnea, ? diaphragm paralysis,cidp,g61.81,r06.02 TECHNIQUE: 2D digital imaging was performed. COMPARISON: CT CT CHEST PE CTA from 05/15/2021 FINDINGS: Elevated left diaphragm. Splenic flexure of colon positioned beneath left diaphragm. HEART: Normal size. Aorta: Not dilated. PULMONARY VASCULATURE: Normal. LUNGS: Minimal atelectasis or scarring at the left diaphragm. PLEURAL SPACE: No pleural effusion or pneumothorax. BONE:Degenerative changes. IMPRESSION: Elevated left diaphragm. DATA REPOSITORY: RADIATION DOSE DELIVERED:
== END 2022-07-29 01:30 ==
LOC: DI 01:10
PROVIDERS: PCP Family Medicine; Visit Provider Student in an Organized Health Care Education/Training Program
DX: R06.02 Shortness of breath (principal); G61.81 Chronic inflammatory demyelinating polyneuritis; J98.4 Other disorders of lung; J98.6 Disorders of diaphragm
CPT/HCPCS: 71046

== ENCOUNTER 2022-08-26 01:36 | Outpatient (RCR) | payer BC, SELFPAY ==
[2022-08-24] VITALS (14 sets, daily range): BP systolic 105–164; BP diastolic 67–103; PULSE 67–82; RESP 16–20; TEMP 36.4–36.7; O2SAT 97–100
[2022-08-24] MEDS: IMMUNE GLOBULIN 5 GM/50 ML BTL IVPB (10:16)
[2022-08-24] MEDS: Normal Saline Flush 10 ML SYR IVP (10:20)
[2022-08-24] MEDS: IMMUNE GLOBULIN 20 GM/200 ML BTL IVPB (10:40)
[2022-08-24] MEDS: IMMUNE GLOBULIN 40 GM/400 ML BTL IVPB (11:33)
[2022-08-25] VITALS (7 sets, daily range): BP systolic 124–152; BP diastolic 75–87; PULSE 73–84; RESP 17–18; TEMP 36.3–37.3; O2SAT 95–98
[2022-08-25] MEDS: IMMUNE GLOBULIN 5 GM/50 ML BTL IVPB (11:26)
[2022-08-25] MEDS: Normal Saline Flush 10 ML SYR IVP (11:26)
[2022-08-25 11:57] LABS: CREATININE 0.9 mg/dL (0.55-1.02); Estimated GFR 72.73 (mL/min/1.73m2)
[2022-08-25] MEDS: IMMUNE GLOBULIN 20 GM/200 ML BTL IVPB (12:01)
[2022-08-25] MEDS: IMMUNE GLOBULIN 40 GM/400 ML BTL IVPB (12:55)
[2022-08-26] MEDS: IMMUNE GLOBULIN 5 GM/50 ML BTL IVPB (11:24)
[2022-08-26 11:30] VITALS: BP 132/79; PULSE 82; RESP 17; TEMP 36.6; O2SAT 97
[2022-08-26 11:45] VITALS: BP 126/75; PULSE 72; RESP 16; TEMP 36.7; O2SAT 96
[2022-08-26 12:00] VITALS: BP 121/75; PULSE 74; RESP 16; TEMP 36.5; O2SAT 96
[2022-08-26] MEDS: IMMUNE GLOBULIN 20 GM/200 ML BTL IVPB (12:07)
[2022-08-26 12:30] VITALS: BP 126/83; PULSE 67; RESP 16; TEMP 36.6; O2SAT 98
[2022-08-26] MEDS: IMMUNE GLOBULIN 40 GM/400 ML BTL IVPB (13:03)
[2022-08-26 13:06] VITALS: BP 137/85; PULSE 70; RESP 17; TEMP 36.6; O2SAT 100
[2022-08-26 14:20] VITALS: BP 136/80; PULSE 54; RESP 17; TEMP 36.6; O2SAT 97
== END 2022-09-01 23:59 | disposition home or self-care (01) ==
LOC: INF 01:36
PROVIDERS: PCP Family Medicine; Visit Provider Psychiatry & Neurology Neurology
DX: G61.81 Chronic inflammatory demyelinating polyneuritis (principal)
CPT/HCPCS: 96365; 96366; 82565; J1459

== ENCOUNTER 2022-09-25 01:53 | Outpatient (RCR) | payer BC, SELFPAY ==
[2022-09-02 00:18] VITALS: BP 136/80; PULSE 54; RESP 17; TEMP 36.6
[2022-09-23] VITALS (7 sets, daily range): BP systolic 119–155; BP diastolic 72–91; PULSE 64–82; RESP 16–18; TEMP 36.6–36.9; O2SAT 96–100
[2022-09-23] MEDS: IMMUNE GLOBULIN 5 GM/50 ML BTL IVPB (12:44)
[2022-09-23] MEDS: IMMUNE GLOBULIN 20 GM/200 ML BTL IV (13:40)
[2022-09-23] MEDS: Normal Saline Flush 10 ML SYR IVP (14:32)
[2022-09-23] MEDS: IMMUNE GLOBULIN 40 GM/400 ML BTL IV (14:32)
[2022-09-24] VITALS (7 sets, daily range): BP systolic 114–145; BP diastolic 71–87; PULSE 66–75; RESP 17–18; TEMP 36.3–36.7; O2SAT 97–99
[2022-09-24] MEDS: Normal Saline Flush 10 ML SYR IVP (11:13)
[2022-09-24] MEDS: IMMUNE GLOBULIN 5 GM/50 ML BTL IVPB (11:14)
[2022-09-24] MEDS: IMMUNE GLOBULIN 20 GM/200 ML BTL IV (11:46)
[2022-09-24 11:47] LABS: CREATININE 1.2 mg/dL (0.55-1.02)
[2022-09-24] MEDS: IMMUNE GLOBULIN 40 GM/400 ML BTL IV (12:48)
[2022-09-25] MEDS: IMMUNE GLOBULIN 5 GM/50 ML BTL IVPB (11:15)
[2022-09-25 11:20] VITALS: BP 125/81; PULSE 76; TEMP 36.7; O2SAT 97
[2022-09-25 11:35] VITALS: BP 131/80; PULSE 79; TEMP 36.5; O2SAT 98
[2022-09-25 11:50] VITALS: BP 122/79; PULSE 80; TEMP 36.6; O2SAT 97
[2022-09-25] MEDS: IMMUNE GLOBULIN 20 GM/200 ML BTL IV (11:52)
[2022-09-25 12:20] VITALS: BP 127/82; PULSE 75; TEMP 36.6; O2SAT 97
[2022-09-25] MEDS: IMMUNE GLOBULIN 40 GM/400 ML BTL IV (12:45)
[2022-09-25 12:50] VITALS: BP 135/79; PULSE 68; TEMP 36.4; O2SAT 97
[2022-09-25] MEDS: Normal Saline Flush 10 ML SYR IVP (16:06)
== END 2022-10-02 23:59 | disposition home or self-care (01) ==
LOC: INF 01:53
PROVIDERS: PCP Family Medicine; Visit Provider Psychiatry & Neurology Neurology
DX: G61.81 Chronic inflammatory demyelinating polyneuritis (principal)
CPT/HCPCS: 36415; 96365; 96366; 82565; J1459

== ENCOUNTER 2022-10-23 01:13 | Outpatient (RCR) | payer BC, SELFPAY ==
[2022-10-03 00:21] VITALS: BP 135/79; PULSE 68; RESP 17; TEMP 36.4
[2022-10-21] VITALS (7 sets, daily range): BP systolic 114–133; BP diastolic 73–84; PULSE 69–82; RESP 16–17; TEMP 36.9–37.3; O2SAT 97–99
[2022-10-21] MEDS: IMMUNE GLOBULIN 5 GM/50 ML BTL IVPB (11:12)
[2022-10-21] MEDS: Normal Saline Flush 10 ML SYR IVP (11:16)
[2022-10-21] MEDS: IMMUNE GLOBULIN 20 GM/200 ML BTL IV (11:49)
[2022-10-21] MEDS: IMMUNE GLOBULIN 40 GM/400 ML BTL IV (12:47)
[2022-10-22 11:10] VITALS: BP 105/41; PULSE 81; RESP 16; TEMP 37.3; O2SAT 99
[2022-10-22] MEDS: IMMUNE GLOBULIN 5 GM/50 ML BTL IVPB (11:14)
[2022-10-22] MEDS: Normal Saline Flush 10 ML SYR IVP (11:15)
[2022-10-22 11:30] VITALS: BP 118/76; PULSE 78; RESP 17; TEMP 37; O2SAT 97
[2022-10-22] MEDS: IMMUNE GLOBULIN 20 GM/200 ML BTL IV (11:43)
[2022-10-22 11:55] LABS: CREATININE 1.1 mg/dL (0.55-1.02); Estimated GFR 57.17 (mL/min/1.73m2)
[2022-10-22 12:00] VITALS: BP 122/76; PULSE 79; RESP 16; TEMP 37.1; O2SAT 96
[2022-10-22 12:30] VITALS: BP 128/72; PULSE 71; RESP 16; TEMP 37.3; O2SAT 97
[2022-10-22] MEDS: IMMUNE GLOBULIN 40 GM/400 ML BTL IV (12:37)
[2022-10-22 13:00] VITALS: BP 116/71; PULSE 83; RESP 16; TEMP 37.1; O2SAT 97
[2022-10-22 13:35] VITALS: BP 133/84; PULSE 79; RESP 16; TEMP 37.2; O2SAT 98
[2022-10-23] VITALS (7 sets, daily range): BP systolic 123–144; BP diastolic 77–83; PULSE 72–89; RESP 16–17; TEMP 36.4–36.9; O2SAT 96–100
[2022-10-23] MEDS: Normal Saline Flush 10 ML SYR IVP (11:09)
[2022-10-23] MEDS: IMMUNE GLOBULIN 5 GM/50 ML BTL IVPB (11:09)
[2022-10-23] MEDS: IMMUNE GLOBULIN 20 GM/200 ML BTL IV (11:30)
[2022-10-23] MEDS: IMMUNE GLOBULIN 40 GM/400 ML BTL IV (12:23)
== END 2022-11-01 23:59 | disposition home or self-care (01) ==
LOC: INF 01:13
PROVIDERS: PCP Family Medicine; Visit Provider Psychiatry & Neurology Neurology
DX: G61.81 Chronic inflammatory demyelinating polyneuritis (principal)
CPT/HCPCS: 36415; 96365; 96366; 82565; J1459

== ENCOUNTER 2022-11-20 01:42 | Outpatient (RCR) | payer BC, SELFPAY ==
[2022-11-02 00:20] VITALS: BP 144/77; PULSE 72; RESP 16; TEMP 36.4
[2022-11-18] VITALS (7 sets, daily range): BP systolic 120–139; BP diastolic 69–81; PULSE 70–76; RESP 14–17; TEMP 36.4–36.9; O2SAT 98–100
[2022-11-18] MEDS: IMMUNE GLOBULIN 5 GM/50 ML BTL IVPB (11:29)
[2022-11-18] MEDS: Normal Saline Flush 10 ML SYR IVP (11:34)
[2022-11-18] MEDS: IMMUNE GLOBULIN 20 GM/200 ML BTL IVPB (11:56)
[2022-11-18] MEDS: IMMUNE GLOBULIN 40 GM/400 ML BTL IVPB (12:51)
[2022-11-19] VITALS (7 sets, daily range): BP systolic 117–136; BP diastolic 76–86; PULSE 74–85; RESP 14–17; TEMP 36.5–37.2; O2SAT 96–99
[2022-11-19] MEDS: IMMUNE GLOBULIN 5 GM/50 ML BTL IVPB (11:18)
[2022-11-19] MEDS: Normal Saline Flush 10 ML SYR IVP (11:21)
[2022-11-19 11:40] LABS: CREATININE 1.1 mg/dL (0.55-1.02); Estimated GFR 57.17 (mL/min/1.73m2)
[2022-11-19] MEDS: IMMUNE GLOBULIN 20 GM/200 ML BTL IVPB (11:50)
[2022-11-19] MEDS: IMMUNE GLOBULIN 40 GM/400 ML BTL IVPB (12:41)
[2022-11-20] VITALS (8 sets, daily range): BP systolic 131–159; BP diastolic 81–88; PULSE 66–81; RESP 14–17; TEMP 36.6–37; O2SAT 95–98
[2022-11-20] MEDS: IMMUNE GLOBULIN 5 GM/50 ML BTL IVPB (11:05)
[2022-11-20] MEDS: Normal Saline Flush 10 ML SYR IVP (11:15)
[2022-11-20] MEDS: IMMUNE GLOBULIN 20 GM/200 ML BTL IVPB (11:42)
[2022-11-20] MEDS: IMMUNE GLOBULIN 40 GM/400 ML BTL IVPB (12:33)
== END 2022-12-02 23:59 | disposition home or self-care (01) ==
LOC: INF 01:42
PROVIDERS: PCP Family Medicine; Visit Provider Psychiatry & Neurology Neurology
DX: G61.81 Chronic inflammatory demyelinating polyneuritis (principal)
CPT/HCPCS: 96365; 96366; 82565; J1459

== ENCOUNTER 2022-12-16 02:36 | Outpatient (CLI) | payer BC, SELFPAY ==
--- NOTE | 2022-12-16 15:41 | DI.MAMMO_ITS ---
Exam(s) MAMMO SCREENING EXAM: MAMMO SCREENING CLINICAL HISTORY: screening,Z12.39. TECHNIQUE: Bilateral full field digital CC and MLO mammographic images were obtained with 3D tomosyn thesis and utilizing computer aided detection (CAD). COMPARISON: Prior mammograms were reviewed. FINDINGS: There has been no significant change in the appearance and distribution of the fibroglandular tissue. Asymmetric tissue in the breasts are unchanged from prior studies. There are no new spiculated masses nor malignant appearing microcalcification groups. There is no significant architectural distortion nor skin thickening-retraction. IMPRESSION: No radiographic evidence of malignancy. BI-RADS Category 1 - Negative Breast Density - Category B - Scattered areas of fibroglandular density Breast density Category C or D implies that the patient has dense breast tissue. Dense breast tissue can make it harder to find cancer on a mammogram. Dense breast tissue is also associated with an incr eased risk of breast cancer. This information about the result of the mammogram report was provided to the patient to raise their awareness. Use this report when you speak with the patient about their risks for breast cancer, which includes their family history. At that time, you may recommend additional screening tests (Ultrasoun d or MRI) as these tests may add significant information. A negative radiographic report should not delay biopsy if a dominant or clinically suspicious mass is present. Up to ten percent of cancers are not identified on mammography. A negative report may reinforce clinical impression. Adenosis and dense breasts may obscure an underlying neoplasm. False positive reports average 6 to 10%. Patient will receive a letter notifying them of these results.
== END 2022-12-16 02:56 ==
LOC: DI 02:36
PROVIDERS: PCP Family Medicine; Visit Provider Family Medicine
DX: Z12.31 Encounter for screening mammogram for malignant neoplasm of breast (principal)
CPT/HCPCS: 77063; 77067

== ENCOUNTER 2022-12-18 01:40 | Outpatient (RCR) | payer BC, SELFPAY ==
[2022-12-03 00:18] VITALS: BP 148/82; PULSE 72; RESP 14; TEMP 36.6
[2022-12-16] VITALS (7 sets, daily range): BP systolic 112–127; BP diastolic 76–84; PULSE 75–86; RESP 16–18; TEMP 36.6–36.9; O2SAT 96–100
[2022-12-16] MEDS: IMMUNE GLOBULIN 5 GM/50 ML BTL IVPB (11:18)
[2022-12-16] MEDS: Normal Saline Flush 10 ML SYR IVP (11:19)
[2022-12-16] MEDS: IMMUNE GLOBULIN 20 GM/200 ML BTL IVPB (11:56)
[2022-12-16] MEDS: IMMUNE GLOBULIN 40 GM/400 ML BTL IVPB (12:51)
[2022-12-17] MEDS: Normal Saline Flush 10 ML SYR IVP (11:15)
[2022-12-17] MEDS: IMMUNE GLOBULIN 5 GM/50 ML BTL 0.95 GM IVPB (11:15)
[2022-12-17 11:30] VITALS: BP 119/79; PULSE 79; RESP 17; TEMP 36.7; O2SAT 98
[2022-12-17] MEDS: IMMUNE GLOBULIN 20 GM/200 ML BTL IVPB (11:40)
[2022-12-17 11:45] VITALS: BP 117/75; PULSE 75; RESP 16; TEMP 37; O2SAT 97
[2022-12-17 12:02] LABS: CREATININE 1.3 mg/dL (0.55-1.02); Estimated GFR 46.78 (mL/min/1.73m2)
[2022-12-17 12:17] VITALS: BP 134/86; PULSE 75; RESP 16; TEMP 36.8; O2SAT 96
[2022-12-17] MEDS: IMMUNE GLOBULIN 40 GM/400 ML BTL IVPB (12:37)
[2022-12-17 12:46] VITALS: BP 125/83; PULSE 70; RESP 16; TEMP 36.9; O2SAT 97
[2022-12-17 13:15] VITALS: BP 138/81; PULSE 77; RESP 17; TEMP 36.9; O2SAT 100
[2022-12-17 13:45] VITALS: BP 132/79; PULSE 76; RESP 16; TEMP 37; O2SAT 96
[2022-12-18 11:18] VITALS: BP 127/79; PULSE 83; RESP 16; TEMP 36.7; O2SAT 98
[2022-12-18] MEDS: IMMUNE GLOBULIN 5 GM/50 ML BTL IVPB (11:21)
[2022-12-18 11:42] VITALS: BP 115/72; PULSE 73; TEMP 36.4; O2SAT 99
[2022-12-18 11:56] VITALS: BP 119/78; PULSE 72; TEMP 36.5; O2SAT 97
[2022-12-18] MEDS: IMMUNE GLOBULIN 20 GM/200 ML BTL IVPB (12:00)
[2022-12-18 12:25] VITALS: BP 119/78; PULSE 69; RESP 16; TEMP 36.4; O2SAT 99
[2022-12-18 12:54] VITALS: BP 128/79; PULSE 74; RESP 17; TEMP 36.4; O2SAT 96
[2022-12-18] MEDS: IMMUNE GLOBULIN 40 GM/400 ML BTL IVPB (12:58)
[2022-12-18 13:25] VITALS: BP 123/81; PULSE 75; RESP 17; TEMP 36.5; O2SAT 97
== END 2023-01-01 23:59 | disposition home or self-care (01) ==
LOC: INF 01:40
PROVIDERS: PCP Family Medicine; Visit Provider Psychiatry & Neurology Neurology
DX: G61.81 Chronic inflammatory demyelinating polyneuritis (principal)
CPT/HCPCS: 36415; 96365; 96366; 82565; J1459

== ENCOUNTER 2022-12-31 15:07 | Emergency (ER) | payer BC, SELFPAY ==
[2022-12-31] VITALS (16 sets, daily range): BP systolic 126–157; BP diastolic 68–94; PULSE 72–86; RESP 17–27; TEMP 36.5–37.4; O2SAT 97–99
--- NOTE | 2022-12-31 16:45 | DI.CT_ITS ---
Exam(s) CT ABDOMEN PELVIS W EXAM: CT ABDOMEN PELVIS W CLINICAL HISTORY: Epigastric pain. TECHNIQUE: Imaging Protocol: Axial computed tomography images with coronal and sagittal reformatted images were created and reviewed CONTRAST MATERIAL: Intravenous: Omnipaque 350 Contrast volume:100 ml Oral: no COMPARISON: CT CT ABDOMEN PELVIS W from 05/19/2021 CT,NM,TMT NM MPI REST STRESS GRP from 06/03/2021 CT,PT NM PET CT STANDARD SKULL BASE TO MID-THIGH from 11/27/2021 CR XR CHEST 2V PA LATERAL from 07/29/2022 FINDINGS: Exam somewhat limited by motion. ABDOMEN: Lung Bases: Elevated left diaphragm area of basilar consolidation with air bronchograms. Some calcif ications are also seen. No pleural effusion. Right lung appears clear. Heart mildly enlarged. Cor onary artery calcifications and mitral annular calcifications. Trace pericardial effusion. Liver: Normal density. No measurable mass. Gallbladder and biliary tract: No radiodense calculus or dilation. Pancreas: Normal density, no abnormal calcifications or inflammatory process. Spleen: Normal. Kidneys: Right kidney again noted to be mildly atrophic no radiodense stones or obstructive uropathy. Renal cysts again noted. No suspicious masses seen. Adrenal glands: No masses seen. Abdominal Aorta: Abdominal portion non-dilated. Atherosclerotic changes. Soft tissues: Small fatty containing umbilical hernia. Small amount of fluid in hernia. PELVIS: Bladder: Distended. No gross wall thickening. No calculi.No focal mass. Bowel: Large quantity of stool. Prominent diverticulosis of the descending and sigmoid colon. No ev idence of diverticulitis. No obstruction. No bowel wall thickening. Appendix normal. Peritoneal cavity: No ascites, collection or mesenteric inflammatory response. Bones: Degenerative changes in the spine. Reproductive organs: Small fibroids.. Lymph nodes: Unremarkable. Impression: Left lower lobe pneumonia. Distended urinary bladder. Prominent diverticulosis of the descending and sigmoid colon. No evidence of diverticulitis. RADIATION DOSE DELIVERED: 1,327.54mGy.cm Total DLP DATA REPOSITORY: All CT scans at this facility are submitted to the National Radiology Data Registry (NRDR) Dose Index Registry (DIR) with the [employer] (A[employer]). RADIATION OPTIMIZATION: All CT scans at this facility use at least one of these dose optimization te chniques: automated exposure control; mA and/or kV adjustment per patient size (includes targeted exa ms where dose is matched to clinical indication); or iterative reconstruction.
[2022-12-31 17:06] LABS: Abs Immature Grans 0.09 10^3/uL (0.0-0.06); Absolute Basophil Count 0.04 10^3/uL (0.0-0.2); Absolute Eosinophil Count 0.29 10^3/uL (0.0-0.7); Absolute Lymphocyte Count 1.33 10^3/uL (1.2-3.4); Absolute Monocyte Count 0.76 10^3/uL (0.1-0.8); Basophils % 0.3; Eosinophils % 2.2; HCT 49.7 % (36.0-46.0); HGB 15.6 g/dL (11.2-15.7); Immature Grans % 0.7; MCH 28.2 pg (27.0-33.0); MCHC 31.4 % (32.0-36.0); MCV 90 fL (80-95); MPV 9.2 fL (8.0-11.0); Monocytes % 5.7; Neutrophils % 81.1; Platelet Count 455 10^3/uL (130-400); RBC 5.53 10^6/uL (3.93-5.22); RDW 15.7 % (11.7-14.6); RDW-SD 51.6 fL; WBC 13.34 10^3/uL (4.4-10.8)
[2022-12-31 17:11] LABS: Absolute Neutrophil Count 10.82 10^3/uL (1.2-6.7)
[2022-12-31 17:33] LABS: ALT 11 U/L (14-59); AST 5 U/L (15-37); Albumin 3.3 g/dL (3.4-5.0); Alkaline Phosphatase 78 U/L (46-116); BUN 29 mg/dL (7-18); Bilirubin, Total 0.3 mg/dL (0.2-1.0); CREATININE 1.3 mg/dL (0.55-1.02); Calcium 8.6 mg/dL (8.5-10.1); Chloride 104 mmol/L (98-107); Estimated GFR 46.78 (mL/min/1.73m2); Glucose 110 mg/dL (74-106); Lipase 37 U/L (16-77); Magnesium 2.2 mg/dL (1.8-2.4); Potassium 4.4 mmol/L (3.5-5.1); Sodium 140 mmol/L (136-145); Troponin I < 50 ng/L (<or=60)
--- NOTE | 2022-12-31 17:38 | ED.GENADUL_ITS ---
Discharge Plan Disposition Patient Disposition: Home Condition: Improving Discharge Details Clinical Impression: Abdominal pain, Pneumonia Primary Care Provider: Tonya Costello ED Provider: Kin Huizar Home Meds and New Rx's Prescriptions: New amoxicillin-pot clavulanate 875-125 mg tablet 1 tab PO Q12H 7 Days Qty: 14 0RF Continued loratadine [Claritin] 10 mg tablet 10 mg PO DAILY cholecalciferol (vitamin D3) 25 mcg (1,000 unit) capsule 25 mcg PO DAILY calcium carbonate [Calcium 600] 600 mg calcium (1,500 mg) tablet 600 mg PO DAILY clotrimazole-betamethasone 1-0.05 % cream 1 applic Topical BID PRN Rx Instructions: apply to involved area triamcinolone acetonide 0.1 % ointment 1 applic Topical BID PRN Rx Instructions: apply to arms mecobalamin (vitamin B12) 1,000 mcg tablet,chewable 1,000 mcg PO DAILY dexamethasone 4 mg tablet 40 mg PO DAILY Qty: 40 0RF Rx Instructions: Take 40 mg daily x 4 days latanoprost [Xalatan] 2.5 ML drops 1 drp Ophthalmic HS Lubricating Drops 15 ML drops 15 ml Ophthalmic PRN hydrocortisone [Anusol-HC] 2.5 % cream with perineal applicator 1 applic VT QD-BID PRN (Reason: hemorrhoids) Qty: 30 4RF estradiol [Vagifem] 10 mcg tablet 10 mcg VG 2X Week Qty: 25 12RF duloxetine 20 mg capsule,delayed release(DR/EC) 20 mg PO DAILY Qty: 90 3RF pantoprazole [Protonix] 40 mg tablet,delayed release (DR/EC) 40 mg PO DAILY Qty: 90 6RF pregabalin 225 mg capsule 225 mg PO BID Qty: 180 3RF Discharge Instructions Instructions: Abdominal Pain (ED), Pneumonia (ED) Additional Instructions: Please continue to monitor symptoms return immediately to the emergency department for any new or significant worsening of your condition. There was an incidental pneumonia found on your chest x-ray and you have been prescribed antibiotics. Please take these as prescribed and until fully completed and do not save any medications. Please follow-up with your primary care provider in 1 week for reassessment. Referrals: Tonya Costello MD, [place] [Primary Care Provider] - 1 week (For reassessment and to ensure improving) Medical Decision Making Patient presenting to the emergency department for chief complaint of abdominal discomfort. Patient states at around 115 this afternoon she felt like she also had severe sudden abdominal pain with a feeling of a hard ball about the size of a golf ball being present just above her bellybutton. Patient states over the past 2 or 3 months she has noted decrease in her capacity to eat, pain after eating that is becoming progressively worsening and some general GI discomfort. Patient denies any fever chills, vomiting, chest pain shortness of breath or other symptoms. 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 By the time I was able to assess the patient due to volume in the emergency department pain had mostly resolved but patient still has some discomfort around bellybutton. Exam otherwise nondiagnostic with no specific findings noted. We will plan on checking patient's labs and performing CT imaging given severity of pain and worsening symptoms over the last couple months. Reviewed patient's labs and CBC shows elevated white count of 13.34, high RBCs at 5.53, elevated hematocrit, platelet count is also elevated at 455, neutrophils also up at 10.2 otherwise all other values within normal range, CMP does show an elevated BUN of 29, creatinine of 1.3, GFR 46 which was consistent with what patient had approximately 2 weeks ago. Glucose of 110, low AST ALT and low albumin. Lipase is within normal range, negative troponin. Given CT imaging with contrast will give patient liter of fluids given low renal function. Reviewed CT imaging along with radiologist interpretation that shows nonemergent incidental findings but there is noted a left lower lobe pneumonia. Knowing that her demyelinating polyneuropathy has caused some left diaphragm dysfunction and that she has nightly on a CPAP I am concerned that the pneumonia could worsen especially since she does have elevated white count. We will place patient on Augmentin and have patient follow-up with primary care provider. Patient had no intra-abdominal or worrisome findings for her belly pain that I do not feel was caused by this pneumonia so we will have patient continue to monitor for symptoms return for any new or significant worsening of her abdominal discomfort otherwise to follow-up with primary care provider as well. After discussion of diagnosis and plan of care patient has no further needs, questions, or concerns and states clear understanding to return to the emergency department for any worsening symptoms. This documentation was generated using [employer] dictation system, please disregard any oddities of phrase or misspellings. Imaging Data Radiologic Study: Imaging: CT Scan Radiologist's impression: Patient Name: Janeen Rogel AUnit #: [id number]: ER Ordering Provider: : [facility] Primary Care Provider: Tonya Costello M.D., DCDate of Exam: 12/31/22Sex: F : 1960ge: 62 Exam(s) PROCEDURE INFORMATION: Exam: CT Abdomen And Pelvis With Contrast Exam date and time: 12/31/2022 17:48 Age: 62 years old Clinical indication: Other: Epigastric pain TECHNIQUE: Imaging protocol: Computed tomography of the abdomen and pelvis with contrast. Contrast material: OMNIPAQUE 350; Contrast volume: 100 ml; Contrast route: INTRAVENOUS (IV); COMPARISON: MR PELVIS WO/W 12/10/2021 07:58 FINDINGS: Lungs: Airspace consolidation in the left lower lobe with air bronchograms at least moderate in severity. Surrounding compressive atelectasis. Heart: Small pericardial fluid. Liver: No mass. Gallbladder and bile ducts: No calcified stones. No ductal dilation. Pancreas: No ductal dilation. No masses. Spleen: Splenomegaly. No focal splenic lesions allowing for motion and the timing of contrast injection.. Adrenal glands: No mass. Kidneys and ureters: Mildly atrophic right kidney. Benign-appearing renal cysts and probable cysts. No renal masses or hydronephrosis bilaterally. Stomach and bowel: Colonic diverticulosis without diverticulitis. Allowing for motion no acute pathology in small bowel. Appendix: No evidence of appendicitis. Intraperitoneal space: No free air. No significant fluid collection. Vasculature: No abdominal aortic aneurysm. Lymph nodes: No significantly enlarged lymph nodes. Urinary bladder: The urinary bladder is distended. No urinary bladder wall thickening. Reproductive: Unremarkable as visualized. Bones/joints: Chronic bony changes with no acute fracture. Soft tissues: Miniscule umbilical hernia contains fat and a small amount of fluid. Chronic bony changes with no acute fracture. Other findings: Motion artifact in the abdomen. Motion artifact in the pelvis. IMPRESSION: 1. Left lower lobe pneumonia. 2. Incidental findings as described. Lab Data Lab results reviewed: Yes I reviewed the patient's lab results. HPI General Mode of arrival: wheelchair . Date/Time Provider Initiated Documentation: 12/31/22 16:07 . Limitations to Documentation: no limitations . Information obtained by: patient, family and RN notes reviewed . History of Present Illness 62 year old F presents to the emergency department with the chief complaint of Abdominal pain, described as moderate and severe, with intensity rated at 8. Quality is described as sharp, and is localized to the abdomen. Patient reports no radiation. Patient started experiencing this hour(s) (2) and it has been constant. No relieving factors improve symptom(s), Eating worsens symptoms . Patient notes no other symptoms.. Patient did receive the following treatments prior to arrival, none Related Data Home Medications Medication Instructions Recorded Confirmed carboxymethylcellulose 0.5 15 ml ophthalmic (eye) PRN 02/15/17 12/31/22 %-glycerin 0.9 % eye drops (Lubricating Drops) latanoprost 0.005 % eye drops 1 drp ophthalmic (eye) HS 02/15/17 12/31/22 (Xalatan) clotrimazole-betamethasone 1 1 applic topical BID PRN 07/08/20 12/31/22 %-0.05 % topical cream triamcinolone acetonide 0.1 % 1 applic topical BID PRN 07/08/20 12/31/22 topical ointment hydrocortisone 2.5 % topical cream 1 applic VT QD-BID PRN hemorrhoids 09/10/21 12/31/22 with perineal applicator #30 grams (Anusol-HC) estradiol 10 mcg vaginal tablet 10 mcg vaginal 2X Week #25 tab-caps 01/12/22 12/31/22 (Vagifem) duloxetine 20 mg capsule,delayed 20 mg PO DAILY #90 caps 03/11/22 12/31/22 release pantoprazole 40 mg tablet,delayed 40 mg PO DAILY #90 tabs 08/17/22 12/31/22 release (Protonix) pregabalin 225 mg capsule 225 mg PO BID #180 caps 09/21/22 12/31/22 calcium carbonate 600 mg calcium 600 mg PO DAILY 10/19/22 12/31/22 (1,500 mg) tablet (Calcium) cholecalciferol (vitamin D3) 25 25 mcg PO DAILY 04/17/23 06/29/23 mcg (1,000 unit) capsule loratadine 10 mg tablet (Claritin) 10 mg PO DAILY 10/19/22 12/31/22 mecobalamin (vitamin B12) 1,000 1,000 mcg PO DAILY 10/20/22 12/31/22 mcg chewable tablet dexamethasone 4 mg tablet 40 mg PO DAILY #40 tabs 12/22/22 12/31/22 amoxicillin 875 mg-potassium 1 tab PO Q12H 7 days #14 tabs 12/31/22 clavulanate 125 mg tablet Previous Rx's Medication Instructions Recorded hydrocortisone 2.5 % topical cream 1 applic VT QD-BID PRN hemorrhoids 09/10/21 with perineal applicator #30 grams (Anusol-HC) estradiol 10 mcg vaginal tablet 10 mcg vaginal 2X Week #25 tab-caps 01/12/22 (Vagifem) duloxetine 20 mg capsule,delayed 20 mg PO DAILY #90 caps 03/11/22 release pantoprazole 40 mg tablet,delayed 40 mg PO DAILY #90 tabs 08/17/22 release (Protonix) pregabalin 225 mg capsule 225 mg PO BID #180 caps 09/21/22 dexamethasone 4 mg tablet 40 mg PO DAILY #40 tabs 12/22/22 amoxicillin 875 mg-potassium 1 tab PO Q12H 7 days #14 tabs 12/31/22 clavulanate 125 mg tablet Allergies Allergy/AdvReac Type Severity Reaction Status Date / Time aspartame AdvReac Intermediate Verified 12/22/22 09:35 hydrochlorothiazide AdvReac Intermediate Leg cramps Verified 12/22/22 09:35 latex AdvReac Intermediate skin Verified 12/22/22 09:35 cracks and bleeds General Stated Complaint: Abd Prob CHERI: 3 Review of Systems Constitutional Constitutional: Denies chills, Denies fever(s) and Reports poor appetite ENT Ears, Nose, Mouth, and Throat: Denies dysphagia Cardiovascular Cardiovascular: Denies chest pain and Denies dyspnea Respiratory Respiratory: Denies cough and Denies dyspnea Gastrointestinal Gastrointestinal: Reports as per HPI, Reports abdominal pain, Denies melena, Denies change in bowel habits, Denies constipation, Denies dysphagia, Reports early satiety, Reports dyspepsia, Denies diarrhea, Reports nausea, Denies vomiting and Denies hematemesis Genitourinary Genitourinary: Denies hematuria Integumentary/Breasts Skin/Breast: Denies rash PFSH All Active Problems (Updated 12/31/22 @ 19:31 by Kin Huizar NP) Abdominal pain (Acute) Pneumonia (Acute) Balance disorder (Acute) Vitamin D deficiency (Acute) CIDP (chronic inflammatory demyelinating polyneuropathy) (Acute) Nausea (Acute) Impaired ambulation (Acute) Chronic narrow angle glaucoma of left eye (Chronic) [place] [facility] [place]ema (Chronic 08/20/14) Hypercholesterolemia (Chronic) 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 Hpylori; + BX-GERD; + HH Vaginal atrophy (Chronic 11/26/15) Essential hypertension (Chronic 04/21/13) Annual physical exam (Acute) Annual physical exam (Acute) Polycythemia (Acute) Medical History Abdominal pain Abnormal glandular Pap smear of vagina 10/24/12 follow up normal Abnormal positron emission tomography (PET) scan Achilles bursitis confirmed by MRI 06/11 Achilles bursitis Atypical mole 01/18/17 Atypical mole (01/18/17) Carpal tunnel syndrome bilateral; left by EMS; left medial nerve release Carpal tunnel syndrome Cervical pain Chest pain Pt. stated this was r/o to be cardiac in nature, and is why she is have C&G procedure done on 08/06/21 Chest pain Cough 08/30/17 Cough Difficulty breathing DUB (dysfunctional uterine bleeding) 2.6cm fundal fibroid; 3.8 cm right ovary cyst in 01/08 since resolved. 3.5 cm left kidney cyst Elevated hematocrit Elevated hemoglobin Esophagitis (~08/2021) Essential hypertension External otitis 05/07/14 Gastroesophageal reflux disease Hip pain, left Hyperlipidemia Increased body mass index Knee pain (01/01/07) MRI 01/08= neg. tear; ? of chondromalacia; Med. patellar fault Left shoulder pain 08/05/15 Left shoulder pain (08/05/15) Leg weakness, bilateral Lymphadenopathy Microscopic hematuria neg. C&S; nl Bun and Cr.; neg IUP; neg cystocopy Microscopic hematuria Mild stage chronic narrow angle glaucoma of right eye 12[place]28[place]16 [facility] [place]cle strain Normal colonoscopy (~08/2021) On prednisone therapy Otitis externa (05/07/14) Right carpal tunnel syndrome (02/21/18) Patient has clinically obvious carpal tunnel syndrome right upper extremity. I explained her that I know do all my carpal tunnel surgeries via open technique. This avoid an incomplete release or or an injury to the common digital nerve to the middle finger. Patient understands the reason for the change the open technique and agrees to have this done on her right side despite the fact that she had a E CTR on the left side SOB (shortness of breath) Thrombocytosis Vascular headache Vascular headache Weight loss Surgical History Endometrial Biopsy neg H/O esophagogastroduodenoscopy (~08/2021) History of carpal tunnel release 05/13/18 DR. CUADRA; RIGHT History of colonoscopy (~08/2021) History of gynecologic surgery endometrial Bx-neg Open Carpal Tunnel release (~2002) left medial nerve release PROCEDURES 07/21/16; LASERLIDOTOMY S/P carpal tunnel release left medial nerve release Status post carpal tunnel release Status post carpal tunnel release Family History Mother , 59 Essential hypertension Anxiety Depression Heart disease Hyperlipidemia Leukemia Father , MET/LUNG CA at age 79. Diabetes Alcohol abuse Essential hypertension Heart disease Hyperlipidemia Asthma Lung cancer Sister No problems noted. Brother Essential hypertension Anxiety Depression Hyperlipidemia Maternal Grandfather , 90s No problems noted. Paternal Grandfather , 90s Heart disease Stroke Maternal Grandmother , 70s No problems noted. Paternal Grandmother , 70s Alcohol abuse Heart disease Hypertension Stroke Social History Smoking/Tobacco Use Status: Never Second Hand Exposure: Yes Smoking risk assessment performed?: Yes Alcohol Intake: current Alcohol type: wine and hard liquor Drug use: Never Substance use type: does not use Caregiver/Support person: No Household members: spouse Housing: house Communication Needs: Corrective Lenses Education Level: college Do you need help understanding health information?: Rarely Pets and animals: No Sexually active: Yes Do you think of yourself as: straight/heterosexual Current gender identity: female What is your relationship status?: How often do you talk on the phone with friends or family?: three or more times per week How often do you get together with friends or relatives?: three or more times per week Do you belong to any clubs or organized social groups?: no Panel score (0-1 are the most socially isolated patients): 2 What type of physical activity do you participate in: none Barbara/Shinto: No preference Special barbara needs: No Seatbelt use: always Drive intox or ride w/intox trencher driver: No Do you feel safe at home: Yes Do you feel safe in your relationship?: Yes Exam Const General: cooperative Orientation: alert, awake and oriented x3 Resp Effort & Inspection: normal respiratory effort and able to speak in complete sentences Auscultation: clear to auscultation bilaterally Cardio Rate: regular rate Rhythm: regular rhythm Heart Sounds: S1 normal and S2 normal GI Palpation: soft, no hepatosplenomegaly, not firm, no guarding, no masses, no pulsatile masses, not rigid, no splenomegaly and tender periumbilically; Michaels's sign negative, psoas sign negative, with no rebound tenderness and Rovsing's sign negative Auscultation: normal bowel sounds Back/Spine/Pelvis Back: no CVA tenderness Neuro General: patient alert, patient awake, patient oriented x3, gait normal and moves all extremities Course Vital Signs Vital signs: Vital Signs Temperature 36.5 C 12/31/22 15:11 Pulse 80 12/31/22 15:11 Respiratory Rate 20 12/31/22 15:11 Blood Pressure 157/94 H 12/31/22 15:11 Pulse Oximetry 99 12/31/22 15:11 Temperature 36.5 C 12/31/22 15:11 Pulse 74 12/31/22 17:01 Pulse 82 12/31/22 17:01 Respiratory Rate 26 H 12/31/22 17:01 Respiratory Effort Normal 12/31/22 15:15 Blood Pressure 151/83 H 12/31/22 17:01 Blood Pressure Mean 97 12/31/22 17:01 Pulse Oximetry 99 12/31/22 17:01 Oxygen Delivery Method Room Air 12/31/22 15:53 Oxygen Flow Rate 0 12/31/22 15:53 Lab/Test Results Lab/Test Results: Laboratory Tests Range/Units 12/31/22 12/31/22 16:55 16:55 WBC (4.4-10.8) 10^3/uL 13.34 H RBC (3.93-5.22) 10^6/uL 5.53 H Hgb (11.2-15.7) g/dL 15.6 Hct (36.0-46.0) % 49.7 H MCV (80-95) fL 90 MCH (27.0-33.0) pg 28.2 MCHC (32.0-36.0) % 31.4 L RDW (11.7-14.6) % 15.7 H Plt Count (130-400) 10^3/uL 455 H MPV (8.0-11.0) fL 9.2 Immature Gran % 0.7 Neutrophils % 81.1 Lymphocytes % 10.0 Monocytes % 5.7 Eosinophils % 2.2 Basophils % 0.3 Nucleated RBC % (0.0-0.3) % 0.0 Absolute Neutrophils (1.2-6.7) 10^3/uL 10.82 H Absolute Lymphocytes (1.2-3.4) 10^3/uL 1.33 Absolute Monocytes (0.1-0.8) 10^3/uL 0.76 Absolute Eosinophils (0.0-0.7) 10^3/uL 0.29 Absolute Basophils (0.0-0.2) 10^3/uL 0.04 Sodium (136-145) mmol/L 140 Potassium (3.5-5.1) mmol/L 4.4 Chloride (98-107) mmol/L 104 Carbon Dioxide (21.0-32.0) mmol/L 30.0 Anion Gap (3-11) mmol/L 6.0 BUN (7-18) mg/dL 29 H Creatinine (0.55-1.02) mg/dL 1.3 H Est GFR (CKD-EPI 2020) (mL/min/1.73m2) 46.78 Glucose (74-106) mg/dL 110 H Calcium (8.5-10.1) mg/dL 8.6 Magnesium (1.8-2.4) mg/dL 2.2 Total Bilirubin (0.2-1.0) mg/dL 0.3 AST (15-37) U/L 5 L ALT (14-59) U/L 11 L Alkaline Phosphatase (46-116) U/L 78 Troponin I (<or=60) ng/L < 50 Total Protein (6.4-8.2) g/dL 8.0 Albumin (3.4-5.0) g/dL 3.3 L Lipase (16-77) U/L 37 PAWSS Have you Been Recently Intoxicated or Drunk Within the Last 30 days?: No Have you Ever Experienced Previous Episodes of Alcohol Withdrawal?: No Have you ever Experienced Withdrawal Seizures?: No Have you ever Experienced Delirium Tremens(DT)s?: No Have you ever undergone Alcohol Rehabilitation Treatment (i.e, inpt ot outpatient treatment programs)?: No Have you ever Experienced Blackouts?: No Have you ever Combined Alcohol with other Downers within the last 90 days?: No Have you ever Combined Alcohol with any other Substance of Abuse during the last 90 days?: No Result: 0
[2022-12-31] MEDS: Normal Saline - Diluent 50 ML VIAL IJ (17:53)
[2022-12-31] MEDS: Omnipaque 350 MG/ML 100 ML BTL IJ (17:53)
[2022-12-31] MEDS: Normal Saline 1,000 ML 1000 ML IV (18:01)
--- NOTE | 2022-12-31 18:29 | DI.VRAD_ITS ---
PROCEDURE INFORMATION: Exam: CT Abdomen And Pelvis With Contrast Exam date and time: 12/31/2022 17:48 Age: 62 years old Clinical indication: Other: Epigastric pain TECHNIQUE: Imaging protocol: Computed tomography of the abdomen and pelvis with contrast. Contrast material: OMNIPAQUE 350; Contrast volume: 100 ml; Contrast route: INTRAVENOUS (IV); COMPARISON: MR PELVIS WO/W 12/10/2021 07:58 FINDINGS: Lungs: Airspace consolidation in the left lower lobe with air bronchograms at least moderate in severity. Surrounding compressive atelectasis. Heart: Small pericardial fluid. Liver: No mass. Gallbladder and bile ducts: No calcified stones. No ductal dilation. Pancreas: No ductal dilation. No masses. Spleen: Splenomegaly. No focal splenic lesions allowing for motion and the timing of contrast injection.. Adrenal glands: No mass. Kidneys and ureters: Mildly atrophic right kidney. Benign-appearing renal cysts and probable cysts. No renal masses or hydronephrosis bilaterally. Stomach and bowel: Colonic diverticulosis without diverticulitis. Allowing for motion no acute pathology in small bowel. Appendix: No evidence of appendicitis. Intraperitoneal space: No free air. No significant fluid collection. Vasculature: No abdominal aortic aneurysm. Lymph nodes: No significantly enlarged lymph nodes. Urinary bladder: The urinary bladder is distended. No urinary bladder wall thickening. Reproductive: Unremarkable as visualized. Bones/joints: Chronic bony changes with no acute fracture. Soft tissues: Miniscule umbilical hernia contains fat and a small amount of fluid. Chronic bony changes with no acute fracture. Other findings: Motion artifact in the abdomen. Motion artifact in the pelvis. IMPRESSION: 1. Left lower lobe pneumonia. 2. Incidental findings as described. Dictated and Authenticated by: Carmen Schulte MD. Ordering:CAPRI Sanderson MD
[2022-12-31] MEDS: Amoxicillin 875/Clav. 125 TAB PO (19:34)
--- NOTE | 2022-12-31 19:35 | NUR.NOTE ---
Nursing Note:referral to pcp for 1 week followup
== END 2022-12-31 20:20 | disposition home or self-care (01) ==
PROVIDERS: Emergency Provider Nurse Practitioner Family; PCP Family Medicine
DX: J18.9 Pneumonia, unspecified organism (principal); R10.9 Unspecified abdominal pain
CPT/HCPCS: 80053; 83690; 96360; 99285; 74177; 83735; 84484; 85025; 99284; J3490

== ENCOUNTER 2023-01-15 01:24 | Outpatient (RCR) | payer BC, SELFPAY ==
[2023-01-02 00:18] VITALS: BP 123/81; PULSE 75; RESP 17; TEMP 36.5
[2023-01-13] VITALS (7 sets, daily range): BP systolic 113–133; BP diastolic 71–81; PULSE 75–87; RESP 17–18; TEMP 36.3–36.9; O2SAT 97–100
[2023-01-13] MEDS: IMMUNE GLOBULIN 5 GM/50 ML BTL IVPB (11:09)
[2023-01-13] MEDS: Normal Saline Flush 10 ML SYR IVP (11:10)
[2023-01-13] MEDS: IMMUNE GLOBULIN 20 GM/200 ML BTL IVPB (11:40)
[2023-01-13] MEDS: IMMUNE GLOBULIN 40 GM/400 ML BTL IVPB (12:40)
[2023-01-14 11:15] VITALS: BP 128/80; PULSE 76; RESP 17; TEMP 36; O2SAT 99
[2023-01-14] MEDS: IMMUNE GLOBULIN 5 GM/50 ML BTL IVPB (11:20)
[2023-01-14] MEDS: Normal Saline Flush 10 ML SYR IVP (11:24)
[2023-01-14 11:35] VITALS: BP 122/83; PULSE 79; RESP 16; TEMP 36.5; O2SAT 98
[2023-01-14 11:46] LABS: CREATININE 1.3 mg/dL (0.55-1.02); Estimated GFR 46.78 (mL/min/1.73m2)
[2023-01-14 11:50] VITALS: BP 114/76; PULSE 82; RESP 17; TEMP 36.6; O2SAT 96
[2023-01-14] MEDS: IMMUNE GLOBULIN 20 GM/200 ML BTL IVPB (11:50)
[2023-01-14 12:50] VITALS: BP 122/77; PULSE 78; RESP 17; TEMP 36.6; O2SAT 99
[2023-01-14] MEDS: IMMUNE GLOBULIN 40 GM/400 ML BTL IVPB (12:52)
[2023-01-14 13:20] VITALS: BP 136/84; PULSE 74; RESP 16; TEMP 36.4; O2SAT 100
[2023-01-14 13:50] VITALS: BP 132/81; PULSE 71; RESP 17; TEMP 36.5; O2SAT 99
[2023-01-15] VITALS (7 sets, daily range): BP systolic 118–135; BP diastolic 78–85; PULSE 74–82; RESP 17–18; TEMP 36.9–37.4; O2SAT 95–98
[2023-01-15] MEDS: IMMUNE GLOBULIN 5 GM/50 ML BTL IVPB (11:04)
[2023-01-15] MEDS: Normal Saline Flush 10 ML SYR IVP (11:04)
[2023-01-15] MEDS: Acetaminophen 325 MG TAB (11:19)
[2023-01-15] MEDS: IMMUNE GLOBULIN 20 GM/200 ML BTL IVPB (11:44)
[2023-01-15] MEDS: IMMUNE GLOBULIN 40 GM/400 ML BTL IVPB (12:34)
== END 2023-02-01 23:59 | disposition home or self-care (01) ==
LOC: INF 01:24
PROVIDERS: PCP Family Medicine; Visit Provider Psychiatry & Neurology Neurology
DX: G61.81 Chronic inflammatory demyelinating polyneuritis (principal)
CPT/HCPCS: 36415; 96365; 96366; 82565; J1459

== ENCOUNTER 2023-02-12 01:26 | Outpatient (RCR) | payer BC, SELFPAY ==
[2023-02-02 00:06] VITALS: BP 135/79; PULSE 79; RESP 17; TEMP 36.9
[2023-02-10] MEDS: IMMUNE GLOBULIN 5 GM/50 ML BTL IVPB (11:41)
[2023-02-10] MEDS: Normal Saline Flush 10 ML SYR IVP (11:41)
[2023-02-10 11:42] VITALS: BP 118/78; PULSE 84; RESP 18; TEMP 37.2; O2SAT 98
[2023-02-10 11:55] VITALS: BP 111/71; PULSE 79; TEMP 36.9; O2SAT 100
[2023-02-10 12:10] VITALS: BP 115/75; PULSE 72; RESP 17; TEMP 37.2; O2SAT 96
[2023-02-10] MEDS: IMMUNE GLOBULIN 20 GM/200 ML BTL IV (12:11)
[2023-02-10 12:45] VITALS: BP 110/69; PULSE 78; TEMP 36.5; O2SAT 98
[2023-02-10] MEDS: IMMUNE GLOBULIN 40 GM/400 ML BTL IVPB (13:07)
[2023-02-10 13:15] VITALS: BP 132/83; PULSE 75; TEMP 36.6; O2SAT 99
[2023-02-10 13:45] VITALS: BP 144/96; PULSE 73; TEMP 36.7; O2SAT 100
[2023-02-11] VITALS (7 sets, daily range): BP systolic 111–130; BP diastolic 70–80; PULSE 77–86; RESP 16–17; TEMP 36.5–37.2; O2SAT 96–100
[2023-02-11] MEDS: Normal Saline Flush 10 ML SYR IVP (11:16)
[2023-02-11] MEDS: IMMUNE GLOBULIN 5 GM/50 ML BTL IVPB (11:16)
[2023-02-11] MEDS: IMMUNE GLOBULIN 20 GM/200 ML BTL IV (11:42)
[2023-02-11 12:36] LABS: CREATININE 1.2 mg/dL (0.55-1.02)
[2023-02-11] MEDS: IMMUNE GLOBULIN 40 GM/400 ML BTL IVPB (12:43)
[2023-02-12] VITALS (7 sets, daily range): BP systolic 111–129; BP diastolic 70–80; PULSE 80–87; RESP 16–17; TEMP 36.4–37.2; O2SAT 97–98
[2023-02-12] MEDS: IMMUNE GLOBULIN 5 GM/50 ML BTL IVPB (11:10)
[2023-02-12] MEDS: Normal Saline Flush 10 ML SYR IVP (11:39)
[2023-02-12] MEDS: IMMUNE GLOBULIN 20 GM/200 ML BTL IV (11:39)
[2023-02-12] MEDS: IMMUNE GLOBULIN 40 GM/400 ML BTL IVPB (12:35)
== END 2023-03-04 23:59 | disposition home or self-care (01) ==
LOC: INF 01:26
PROVIDERS: PCP Family Medicine; Visit Provider Psychiatry & Neurology Neurology
DX: G61.81 Chronic inflammatory demyelinating polyneuritis (principal)
CPT/HCPCS: 36415; 96365; 96366; 82565; J1459

== ENCOUNTER → 2023-02-24 15:16 | Outpatient (CLI) | payer BC, SELFPAY ==
--- NOTE | 2023-02-24 12:42 | DI.RAD_ITS ---
Exam(s) XR CHEST 2V PA LATERAL EXAM: XR CHEST 2V PA LATERAL CLINICAL HISTORY: increased cough,r05 TECHNIQUE: 2D digital imaging was performed of the chest. Two images were obtained. PA and lateral views were obtained. COMPARISON: CR XR CHEST 2V PA LATERAL from 07/29/2022 FINDINGS: MEDIASTINUM: Normal. HEART: Normal. PULMONARY VASCULATURE: Normal. LUNGS: No focal consolidating infiltrates. PLEURAL SPACE: No pleural effusion or pneumothorax. BONE:Within normal limits for the patient's age. OTHER FINDINGS:There is unchanged elevation of the left hemidiaphragm. IMPRESSION: 1. No acute pulmonary findings. 2. If findings persist a CT scan of the chest should be considered for further evaluation. DATA REPOSITORY: RADIATION DOSE DELIVERED:
== END ==
PROVIDERS: PCP Family Medicine; Visit Provider Nurse Practitioner Family
DX: R05.9 Cough, unspecified (principal)
CPT/HCPCS: 71046

== ENCOUNTER 2023-03-19 01:02 | Outpatient (RCR) | payer BC, SELFPAY ==
[2023-03-05 00:16] VITALS: BP 122/79; PULSE 84; RESP 17; TEMP 37
[2023-03-17] VITALS (7 sets, daily range): BP systolic 101–125; BP diastolic 66–80; PULSE 71–85; RESP 17; TEMP 36.4–36.6; O2SAT 96–99
[2023-03-17] MEDS: Normal Saline Flush 10 ML SYR IVP (11:04)
[2023-03-17] MEDS: IMMUNE GLOBULIN 20 GM/200 ML BTL IV (11:07)
[2023-03-17] MEDS: IMMUNE GLOBULIN 40 GM/400 ML BTL IVPB (12:29)
[2023-03-18] MEDS: Normal Saline Flush 10 ML SYR IVP (11:26)
[2023-03-18] MEDS: Acetaminophen 500 MG TAB 1000 MG PO (11:26)
[2023-03-18] MEDS: IMMUNE GLOBULIN 20 GM/200 ML BTL IV (11:27)
[2023-03-18 11:30] VITALS: BP 118/76; PULSE 82; RESP 17; TEMP 36.7; O2SAT 97
[2023-03-18 11:43] LABS: CREATININE 1.2 mg/dL (0.55-1.02); Estimated GFR 51.18 (mL/min/1.73m2)
[2023-03-18 11:50] VITALS: BP 110/70; PULSE 78; TEMP 36.5; O2SAT 97
[2023-03-18 12:30] VITALS: BP 111/69; PULSE 76; RESP 17; TEMP 36.5; O2SAT 96
[2023-03-18] MEDS: IMMUNE GLOBULIN 40 GM/400 ML BTL IVPB (12:45)
[2023-03-18 12:50] VITALS: BP 116/72; PULSE 76; RESP 17; TEMP 36.5; O2SAT 97
[2023-03-18 13:01] VITALS: BP 109/70; PULSE 74; RESP 17; TEMP 36.4; O2SAT 97
[2023-03-18 13:31] VITALS: BP 119/74; PULSE 68; RESP 17; TEMP 36.5; O2SAT 97
[2023-03-19 11:10] VITALS: BP 120/72; PULSE 83; RESP 17; TEMP 36.8; O2SAT 97
[2023-03-19] MEDS: IMMUNE GLOBULIN 20 GM/200 ML BTL IV (11:16)
[2023-03-19] MEDS: Normal Saline Flush 10 ML SYR IVP (11:16)
[2023-03-19 11:30] VITALS: BP 117/76; PULSE 87; RESP 17; TEMP 37; O2SAT 97
[2023-03-19 11:45] VITALS: BP 119/71; PULSE 84; RESP 17; TEMP 36.8; O2SAT 96
[2023-03-19 12:19] VITALS: BP 121/68; PULSE 80; RESP 17; TEMP 37; O2SAT 96
[2023-03-19] MEDS: IMMUNE GLOBULIN 40 GM/400 ML BTL IVPB (12:30)
[2023-03-19 12:45] VITALS: BP 125/73; PULSE 81; RESP 17; TEMP 36.6; O2SAT 96
[2023-03-19 13:15] VITALS: BP 111/71; PULSE 83; RESP 17; TEMP 36.6; O2SAT 96
== END 2023-04-03 23:59 | disposition home or self-care (01) ==
LOC: INF 01:02
PROVIDERS: PCP Family Medicine; Visit Provider Psychiatry & Neurology Neurology
DX: G61.81 Chronic inflammatory demyelinating polyneuritis (principal)
CPT/HCPCS: 96365; 96366; 82565; J1459

== ENCOUNTER 2023-04-02 09:09 | Observation (INO) | payer BC, SELFPAY ==
[2023-04-02] VITALS (49 sets, daily range): BP systolic 114–158; BP diastolic 62–88; PULSE 74–129; RESP 18–43; TEMP 36–37.2; O2SAT 92–99
--- NOTE | 2023-04-02 09:00 | RT.EKG_ITS ---
APPROVED REPORT Exam: Resting ECG Reason for Exam: Dyspnea Patient Location: E HR:93 bpm ECG Measurements Heart Rate 93 AXIS NE 140 P 33 QRSd 81 QRS -18 QT 334 T 25 QTc 415 Conclusion Sinus rhythm...normal P axis, V-rate 60- 99 Probable left atrial enlargement...P >50mS, <-0.10mV V1 Inferior infarct, old...Q >35mS, II III aVF Sinus ryhthm. Increased HR from prior 05/21/21. WD
--- NOTE | 2023-04-02 09:15 | DI.RAD_ITS ---
Exam(s) XR CHEST 2V PA LATERAL EXAM: XR CHEST 2V PA LATERAL CLINICAL HISTORY: Shortness of breath, Cough, Chest Pain TECHNIQUE: 2D digital imaging was performed of the chest. Two images were obtained. PA and lateral views were obtained. COMPARISON: CR XR CHEST 2V PA LATERAL from 02/24/2023 FINDINGS: There is poor inspiration. MEDIASTINUM: Normal. HEART: Normal. PULMONARY VASCULATURE: The pulmonary vasculature appears mildly indistinct suggesting pulmonary venou s congestion. There is also mild prominence of the interstitium suggesting interstitial edema. LUNGS: There is a new opacity in the left lung base. PLEURAL SPACE: No pleural effusion or pneumothorax. BONE:Within normal limits for the patient's age. OTHER FINDINGS:There is unchanged elevation of the left hemidiaphragm. IMPRESSION: 1. Findings suggest a pulmonary venous congestion and interstitial edema. 2. New opacity in the left lung base which may represent a focal consolidation or atelectasis. DATA REPOSITORY: RADIATION DOSE DELIVERED:
--- NOTE | 2023-04-02 09:29 | ED.GENADUL_ITS ---
Discharge Plan Discharge Details Chief Complaint: SOB Primary Care Provider: Tonya Costello ED Provider: Sara Brown Home Meds and New Rx's Prescriptions: No Action cholecalciferol (vitamin D3) 25 mcg (1,000 unit) capsule 25 mcg PO DAILY calcium carbonate [Calcium 600] 600 mg calcium (1,500 mg) tablet 600 mg PO DAILY loratadine [Claritin] 10 mg tablet 10 mg PO DAILY PRN clotrimazole-betamethasone 1-0.05 % cream 1 applic Topical BID PRN Rx Instructions: apply to involved area triamcinolone acetonide 0.1 % ointment 1 applic Topical BID PRN Rx Instructions: apply to arms mecobalamin (vitamin B12) 1,000 mcg tablet,chewable 1,000 mcg PO DAILY pregabalin 150 mg capsule 150 mg PO Q8H Qty: 270 3RF duloxetine 30 mg capsule,delayed release(DR/EC) 30 mg PO DAILY Qty: 90 3RF dexamethasone 4 mg tablet 40 mg PO DAILY Qty: 40 0RF Rx Instructions: Take 40 mg daily x 4 days Linzess 145 mcg capsule 145 mcg PO DAILY Qty: 30 12RF latanoprost [Xalatan] 2.5 ML drops 1 drp Ophthalmic HS Lubricating Drops 15 ML drops 15 ml Ophthalmic PRN hydrocortisone [Anusol-HC] 2.5 % cream with perineal applicator 1 applic ND QD-BID PRN (Reason: hemorrhoids) Qty: 30 4RF estradiol [Vagifem] 10 mcg tablet 10 mcg VG 2X Week Qty: 25 12RF pantoprazole [Protonix] 40 mg tablet,delayed release (DR/EC) 40 mg PO DAILY Qty: 90 6RF Medical Decision Making 63-year-old female with a history of CIDP, chronic inflammatory demyelinating polyneuropathy, with some left-sided diaphragm paralyzation, impaired ambulation, hypertension hypercholesterolemia, eczema and chronic constipation presents to the ER with a chief complaint of increasing shortness of breath, left-sided chest and rib pain which began last night and congested cough. Their concern for pneumonia which patient has had multiple times in the past. She does use a CPAP at night and has a trilogy machine. She has been seen by neurology on the of this month. She denies any vomiting diarrhea, she does report some nausea denies any fever. Cardiac work-up ordered including serial troponins, CBC CMP, D-dimer chest x- ray. At this time O2 sat is 98% heart rate 96. EKG was reviewed by Dr. Chávez ER attending, please see her official report. Dimer elevated, CT chest ordered. DI here to transport pateint, however patient is saying she cannot lay flat on the CT table, she is complaining of pain. Morphine and aZofran ordered and NS of 150 ml/hr. Attempted to start IV unsuccessful, Anesthesia called to BS to attempt IV access. Multiple unsuccessful attempts by multiple staff members in the ED. Care is to be handed off to oncoming provider Kacie ARZATE pending CT results and dispo. Medical Records Medical records reviewed: Yes I reviewed the patient's medical records. Imaging Data Radiologic Study: Imaging: X-Ray Radiologist's impression: Exam(s) XR CHEST 2V PA ? LATERAL EXAM:? XR CHEST 2V PA ? LATERAL CLINICAL HISTORY:? Shortness of breath, Cough, Chest Pain TECHNIQUE:? 2D digital imaging was performed of the chest.? Two images were obtained.? PA and lateral views were obtained. COMPARISON:? CR XR CHEST 2V PA ? LATERAL from 02/24/2023 FINDINGS: There is poor inspiration. MEDIASTINUM: Normal.? HEART: Normal. PULMONARY VASCULATURE: The pulmonary vasculature appears mildly indistinct suggesting pulmonary venous congestion.? There is also mild prominence of the interstitium suggesting interstitial edema.? LUNGS: There is a new opacity in the left lung base. ? PLEURAL SPACE: No pleural effusion or pneumothorax. BONE:Within normal limits for the patient's age.? OTHER FINDINGS:There is unchanged elevation of the left hemidiaphragm. ? IMPRESSION: 1. Findings suggest a pulmonary venous congestion and interstitial edema. 2. New opacity in the left lung base which may represent a focal consolidation or atelectasis.? Lab Data Lab results reviewed: Yes I reviewed the patient's lab results. Labs: Laboratory Tests Range/Units 04/02/23 04/02/23 04/02/23 10:31 10:31 10:31 WBC (4.4-10.8) 10^3/uL 10.27 RBC (3.93-5.22) 10^6/uL 5.71 H Hgb (11.2-15.7) g/dL 15.5 Hct (36.0-46.0) % 50.8 H MCV (80-95) fL 89 MCH (27.0-33.0) pg 27.1 MCHC (32.0-36.0) % 30.5 L RDW (11.7-14.6) % 15.7 H Plt Count (130-400) 10^3/uL 272 MPV (8.0-11.0) fL 9.0 Immature Gran % 0.5 Neutrophils % 73.4 Lymphocytes % 13.5 Monocytes % 11.9 Eosinophils % 0.5 Basophils % 0.2 Nucleated RBC % (0.0-0.3) % 0.0 Absolute Neutrophils (1.2-6.7) 10^3/uL 7.54 H Absolute Lymphocytes (1.2-3.4) 10^3/uL 1.39 Absolute Monocytes (0.1-0.8) 10^3/uL 1.22 H Absolute Eosinophils (0.0-0.7) 10^3/uL 0.05 Absolute Basophils (0.0-0.2) 10^3/uL 0.02 D-Dimer (<500) ng/mlFEU 1134 H Sodium (136-145) mmol/L 139 Potassium (3.5-5.1) mmol/L 3.4 L Chloride (98-107) mmol/L 103 Carbon Dioxide (21.0-32.0) mmol/L 28.4 Anion Gap (3-11) mmol/L 7.6 BUN (7-18) mg/dL 37 H Creatinine (0.55-1.02) mg/dL 1.1 H Est GFR (CKD-EPI 2020) (mL/min/1.73m2) 56.81 Glucose (74-106) mg/dL 91 Calcium (8.5-10.1) mg/dL 9.5 Magnesium (1.8-2.4) mg/dL 2.3 Total Bilirubin (0.2-1.0) mg/dL 0.3 AST (15-37) U/L 8 L ALT (14-59) U/L 7 L Alkaline Phosphatase (46-116) U/L 72 Troponin I (<or=60) ng/L < 50 Total Protein (6.4-8.2) g/dL 8.1 Albumin (3.4-5.0) g/dL 3.3 L Range/Units 04/02/23 13:25 WBC (4.4-10.8) 10^3/uL RBC (3.93-5.22) 10^6/uL Hgb (11.2-15.7) g/dL Hct (36.0-46.0) % MCV (80-95) fL MCH (27.0-33.0) pg MCHC (32.0-36.0) % RDW (11.7-14.6) % Plt Count (130-400) 10^3/uL MPV (8.0-11.0) fL Immature Gran % Neutrophils % Lymphocytes % Monocytes % Eosinophils % Basophils % Nucleated RBC % (0.0-0.3) % Absolute Neutrophils (1.2-6.7) 10^3/uL Absolute Lymphocytes (1.2-3.4) 10^3/uL Absolute Monocytes (0.1-0.8) 10^3/uL Absolute Eosinophils (0.0-0.7) 10^3/uL Absolute Basophils (0.0-0.2) 10^3/uL D-Dimer (<500) ng/mlFEU Sodium (136-145) mmol/L Potassium (3.5-5.1) mmol/L Chloride (98-107) mmol/L Carbon Dioxide (21.0-32.0) mmol/L Anion Gap (3-11) mmol/L BUN (7-18) mg/dL Creatinine (0.55-1.02) mg/dL Est GFR (CKD-EPI 2020) (mL/min/1.73m2) Glucose (74-106) mg/dL Calcium (8.5-10.1) mg/dL Magnesium (1.8-2.4) mg/dL Total Bilirubin (0.2-1.0) mg/dL AST (15-37) U/L ALT (14-59) U/L Alkaline Phosphatase (46-116) U/L Troponin I (<or=60) ng/L < 50 Total Protein (6.4-8.2) g/dL Albumin (3.4-5.0) g/dL HPI General Mode of arrival: wheelchair . Date/Time Provider Initiated Documentation: 04/02/23 09:10 . Limitations to Documentation: no limitations . Information obtained by: patient, family (), RN notes reviewed and old records reviewed . HPI Narrative: 63-year-old female with a history of CIDP, chronic inflammatory demyelinating polyneuropathy, with some left-sided diaphragm paralyzation, impaired ambulation, hypertension hypercholesterolemia, eczema and chronic constipation presents to the ER with a chief complaint of increasing shortness of breath, left-sided chest and rib pain which began last night and congested cough. Their concern for pneumonia which patient has had multiple times in the past. She does use a CPAP at night and has a trilogy machine. She has been seen by neurology on the of this month. She denies any vomiting diarrhea, she does report some nausea denies any fever. Related Data Home Medications Medication Instructions Recorded Confirmed carboxymethylcellulose 0.5 15 ml ophthalmic (eye) PRN 02/15/17 03/23/23 %-glycerin 0.9 % eye drops (Lubricating Drops) latanoprost 0.005 % eye drops 1 drp ophthalmic (eye) HS 02/15/17 03/23/23 (Xalatan) clotrimazole-betamethasone 1 1 applic topical BID PRN 07/08/20 03/23/23 %-0.05 % topical cream triamcinolone acetonide 0.1 % 1 applic topical BID PRN 07/08/20 03/23/23 topical ointment hydrocortisone 2.5 % topical cream 1 applic ND QD-BID PRN hemorrhoids 09/10/21 03/23/23 with perineal applicator #30 grams (Anusol-HC) estradiol 10 mcg vaginal tablet 10 mcg vaginal 2X Week #25 tab-caps 01/12/22 03/23/23 (Vagifem) pantoprazole 40 mg tablet,delayed 40 mg PO DAILY #90 tabs 08/17/22 03/23/23 release (Protonix) calcium carbonate 600 mg calcium 600 mg PO DAILY 10/19/22 03/23/23 (1,500 mg) tablet (Calcium) cholecalciferol (vitamin D3) 25 25 mcg PO DAILY 10/19/22 03/23/23 mcg (1,000 unit) capsule mecobalamin (vitamin B12) 1,000 1,000 mcg PO DAILY 10/20/22 03/23/23 mcg chewable tablet linaclotide 145 mcg capsule 145 mcg PO DAILY #30 caps 02/01/23 03/23/23 (Linzess) loratadine 10 mg tablet (Claritin) 10 mg PO DAILY PRN 02/01/23 03/23/23 duloxetine 30 mg capsule,delayed 30 mg PO DAILY #90 caps 03/09/23 03/23/23 release pregabalin 150 mg capsule 150 mg PO Q8H #270 caps 03/09/23 03/23/23 dexamethasone 4 mg tablet 40 mg PO DAILY #40 tabs 03/23/23 03/23/23 Previous Rx's Medication Instructions Recorded hydrocortisone 2.5 % topical cream 1 applic ND QD-BID PRN hemorrhoids 09/10/21 with perineal applicator #30 grams (Anusol-HC) estradiol 10 mcg vaginal tablet 10 mcg vaginal 2X Week #25 tab-caps 01/12/22 (Vagifem) pantoprazole 40 mg tablet,delayed 40 mg PO DAILY #90 tabs 08/17/22 release (Protonix) linaclotide 145 mcg capsule 145 mcg PO DAILY #30 caps 02/01/23 (Linzess) duloxetine 30 mg capsule,delayed 30 mg PO DAILY #90 caps 03/09/23 release pregabalin 150 mg capsule 150 mg PO Q8H #270 caps 03/09/23 dexamethasone 4 mg tablet 40 mg PO DAILY #40 tabs 03/23/23 Allergies Allergy/AdvReac Type Severity Reaction Status Date / Time aspartame AdvReac Intermediate Verified 03/23/23 10:10 hydrochlorothiazide AdvReac Intermediate Leg cramps Verified 03/23/23 10:10 latex AdvReac Intermediate skin Verified 03/23/23 10:10 cracks and bleeds General CHERI: 3 Review of Systems All systems reviewed & are unremarkable except as noted in HPI and below Constitutional Constitutional: Reports as per HPI Cardiovascular Cardiovascular: Reports chest pain and Reports dyspnea Respiratory Respiratory: Reports chest congestion, Reports cough and Reports dyspnea Gastrointestinal Gastrointestinal: Denies diarrhea, Reports nausea and Denies vomiting PFSH All Active Problems Chronic narrow angle glaucoma of left eye (Chronic) 12/28/16 [facility] [place] Eczema (Chronic 08/20/14) Hypercholesterolemia (Chronic) Latex allergy (Chronic 10/18/13) SEVERE Peptic reflux disease (Chronic 06/03/02) EGS=positive; neg. 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 stated this was r/o to be cardiac in nature, and is why she is have C&G procedure done on 08/06/21 Chest pain Cough 08/30/17 Cough Difficulty breathing DUB (dysfunctional uterine bleeding) 2.6cm fundal fibroid; 3.8 cm right ovary cyst in 01/08 since resolved. 3.5 cm left kidney cyst Elevated hematocrit Elevated hemoglobin Esophagitis (~08/2021) Essential hypertension External otitis 05/07/14 Gastroesophageal reflux disease Hip pain, left Hyperlipidemia Increased body mass index Knee pain (01/01/07) MRI 01/08= neg. tear; ? of chondromalacia; Med. patellar fault Left shoulder pain 08/05/15 Left shoulder pain (08/05/15) Leg weakness, bilateral Lymphadenopathy Microscopic hematuria neg. C&S; nl Bun and Cr.; neg IUP; neg cystocopy Microscopic hematuria Mild stage chronic narrow angle glaucoma of right eye 12/28/16 [facility] [place] Muscle strain Normal colonoscopy (~08/2021) On prednisone therapy Otitis externa (05/07/14) Right carpal tunnel syndrome (02/21/18) Patient has clinically obvious carpal tunnel syndrome right upper extremity. I explained her that I know do all my carpal tunnel surgeries via open technique. This avoid an incomplete release or or an injury to the common digital nerve to the middle finger. Patient understands the reason for the change the open technique and agrees to have this done on her right side despite the fact that she had a E CTR on the left side SOB (shortness of breath) Thrombocytosis Vascular headache Vascular headache Weight loss Surgical History Endometrial Biopsy neg H/O esophagogastroduodenoscopy (~08/2021) History of carpal tunnel release 05/13/18 DR. CUADRA; RIGHT History of colonoscopy (~08/2021) History of gynecologic surgery endometrial Bx-neg Open Carpal Tunnel release (~2002) left medial nerve release PROCEDURES 07/21/16; LASERLIDOTOMY S/P carpal tunnel release left medial nerve release Status post carpal tunnel release Status post carpal tunnel release Family History Mother , 59 Essential hypertension Anxiety Depression Heart disease Hyperlipidemia Leukemia Father , MET/LUNG CA at age 79. Diabetes Alcohol abuse Essential hypertension Heart disease Hyperlipidemia Asthma Lung cancer Sister No problems noted. Brother Essential hypertension Anxiety Depression Hyperlipidemia Maternal Grandfather , 90s No problems noted. Paternal Grandfather , 90s Heart disease Stroke Maternal Grandmother , 70s No problems noted. Paternal Grandmother , 70s Alcohol abuse Heart disease Hypertension Stroke Social History Smoking/Tobacco Use Status: Never Second Hand Exposure: Yes Smoking risk assessment performed?: Yes Alcohol Intake: current Alcohol type: wine and hard liquor Drug use: Never Substance use type: marijuana Details: comsumse THC eatables at night for sleep Caregiver/Support person: No Household members: spouse Housing: house Communication Needs: Corrective Lenses Education Level: college Do you need help understanding health information?: Rarely Pets and animals: No Sexually active: Yes Do you think of yourself as: straight/heterosexual Current gender identity: female What is your relationship status?: How often do you talk on the phone with friends or family?: three or more times per week How often do you get together with friends or relatives?: three or more times per week Do you belong to any clubs or organized social groups?: no Panel score (0-1 are the most socially isolated patients): 2 What type of physical activity do you participate in: none Barbara/Worship: No preference Special barbara needs: No Seatbelt use: always Drive intox or ride w/intox route delivery driver: No Do you feel safe at home: Yes Do you feel safe in your relationship?: Yes Sign Out Sign Out Data: Sign Out Comment: Pending CT chest R/O PE. Dimer elevated, probable pneumonia, hx of paralyzed diaphragm of chronic inflammatory demyelinating polyneuropathy. Here with Chest pain, sob. Last updated by Sara Brown NP at 04/02/23 15:45
[2023-04-02 10:39] LABS: Abs Immature Grans 0.05 10^3/uL (0.0-0.06); Absolute Basophil Count 0.02 10^3/uL (0.0-0.2); Absolute Eosinophil Count 0.05 10^3/uL (0.0-0.7); Absolute Lymphocyte Count 1.39 10^3/uL (1.2-3.4); Absolute Monocyte Count 1.22 10^3/uL (0.1-0.8); Absolute Neutrophil Count 7.54 10^3/uL (1.2-6.7); Basophils % 0.2; Eosinophils % 0.5; HCT 50.8 % (36.0-46.0); HGB 15.5 g/dL (11.2-15.7); Immature Grans % 0.5; Lymphocytes % 13.5; MCH 27.1 pg (27.0-33.0); MCHC 30.5 % (32.0-36.0); MCV 89 fL (80-95); Monocytes % 11.9; Neutrophils % 73.4; Platelet Count 272 10^3/uL (130-400); RBC 5.71 10^6/uL (3.93-5.22); RDW 15.7 % (11.7-14.6); RDW-SD 51.1 fL; WBC 10.27 10^3/uL (4.4-10.8)
[2023-04-02 10:55] LABS: ALT 7 U/L (14-59); AST 8 U/L (15-37); Albumin 3.3 g/dL (3.4-5.0); Alkaline Phosphatase 72 U/L (46-116); Anion Gap 7.6 mmol/L (3-11); BUN 37 mg/dL (7-18); Bilirubin, Total 0.3 mg/dL (0.2-1.0); CO2 28.4 mmol/L (21.0-32.0); CREATININE 1.1 mg/dL (0.55-1.02); Calcium 9.5 mg/dL (8.5-10.1); Chloride 103 mmol/L (98-107); Estimated GFR 56.81 (mL/min/1.73m2); Glucose 91 mg/dL (74-106); Magnesium 2.3 mg/dL (1.8-2.4); Potassium 3.4 mmol/L (3.5-5.1); Sodium 139 mmol/L (136-145); Total Protein 8.1 g/dL (6.4-8.2); Troponin I < 50 ng/L (<or=60)
[2023-04-02 11:07] LABS: D-Dimer 1134 ng/mlFEU (<500)
[2023-04-02] MEDS: MORPHine 4 MG/ML SYR IVP ×3 (12:20→18:02)
[2023-04-02] MEDS: Ondansetron 4 MG/2 ML VIAL IVP (12:20)
[2023-04-02] MEDS: Normal Saline 1,000 ML 150 ML IV (13:14)
[2023-04-02] MEDS: Normal Saline Flush 10 ML SYR IVP ×2 (13:38→19:28)
[2023-04-02] MEDS: Normal Saline - Diluent 50 ML VIAL IJ (13:39)
[2023-04-02 13:50] LABS: Troponin I < 50 ng/L (<or=60)
[2023-04-02] MEDS: Omnipaque 350 MG/ML 100 ML BTL IJ (15:45)
--- NOTE | 2023-04-02 15:55 | DI.CT_ITS ---
Exam(s) CT CHEST PE CTA EXAM: CT CHEST PE CTA CLINICAL HISTORY: Elevated Dimer, SOB, CP. TECHNIQUE: Imaging Protocol: Axial CT angiography was performed with multi-slice acquisition and mu lti-planar and/or 3D reconstructions. CONTRAST MATERIAL: Intravenous: Omnipaque 350 contrast volume:100 mL COMPARISON: CT CT CHEST PE CTA from 05/15/[address] ABDOMEN PELVIS W from 12/31/2022 FINDINGS: The examination is limited due to patient motion artifact. Tracheobronchial tree: Patent where visualized. Pulmonary parenchyma: Atelectatic changes are seen in the right lower lobe. There is a large area of consolidation in the left lower lobe. While pneumonia and atelectasis should be considered, infarct ion cannot be excluded given the pulmonary emboli present. No architectural distortion. Pulmonary Arteries: The examination is limited due to patient motion artifact. There are pulmonary e mboli in segmental and subsegmental branches of the left upper and left lower lobe. There is no sadd le embolus. Mediastinum and Sofia: No dominant adenopathy or fluid collection. The esophagus is unremarkable. Visualized thyroid gland: Unremarkable. Pleura: No effusion or pneumothorax. Heart: Cardiomegaly. Coronary artery calcifications are present. The RV to LV ratio is greater than 1. Aorta: Thoracic aorta non-dilated. No evidence of dissection. Atherosclerosis. Upper abdomen: Unremarkable. Soft tissues: Unremarkable. Bones: Within normal limits for the patient's age. IMPRESSION: 1. Pulmonary emboli in segmental and subsegmental branches to the left upper and left lower lobe. No saddle embolus. 2. Peripheral left lower lobe infiltrate which given the pulmonary emboli, fracture infarction cannot be excluded. 3. RV to LV ratio greater than 1 suggesting right heart strain. 4. Findings were discussed with Kacie Alarcon at 4:11 p.m. on 04/02/2023. RADIATION DOSE DELIVERED: 432.41mGy.cm Total DLP DATA REPOSITORY: All CT scans at this facility are submitted to the National Radiology Data Registry (NRDR) Dose Index Registry (DIR) with the [employer] ([employer]). RADIATION OPTIMIZATION: All CT scans at this facility use at least one of these dose optimization te chniques: automated exposure control; mA and/or kV adjustment per patient size (includes targeted exa ms where dose is matched to clinical indication); or iterative reconstruction.
--- NOTE | 2023-04-02 16:08 | W.ANESVAS ---
Midline Placement Date Performed: 04/02/23 Procedure Time: 15:00 Requesting Provider: Sara Brown Procedure Location: Emergency Department Sedation Given (Indicate Dose Given): No Sedation given Patient Mental Status: Awake Sterility: Hand Hygiene, Surgical Cap, Surgical Mask, Sterile Gloves and Chlorhexidine Laterality: Right Insertion Site: Basilic Midline Device: PowerGlide Pro 18G Catheter Length: 10 cm Midline Procedure Procedure: 1% Lidocaine to skin and subcutaneous tissue with 25g needle and Catheter placed without resistance Dressing: Tegaderm Applied and Statlock Applied Blood Return: Present Flushes: Easily Ultrasound: Sterile probe cover and gel used Ultrasound Image Saved?: No Number of Attempts (See previous attempts in note section): 1 Procedure Tolerated: No Complications Procedure Outcome: Successful Performed By: Collin Brown
--- NOTE | 2023-04-02 16:48 | PUCON_ITS ---
General Date Of Service Date of service: 04/02/23 Time of Service: 16:48 Reason for Consult: Pulmonary Embolism Assessment and Plan Assessment and plan (1) Pulmonary embolism and infarction: Status: Acute Assessment and plan: This is a 63 yo with CIDP found to have left sided PE and likely evolving in farction. Her troponin is negative and her lactate is normal. Her POCUS does show a dilated RV, without LV compression or concern for impending obstructive shock. Her bnp is also elevated. Her PESI score is 92 (III). Based on data available she is intermediate low risk. I do not see an indication to transfer to tertiary as I do not think she warrants catheter directed thrombolytics or half dose thrombolytic therapy. I recommend Lovenox today with a plan to transition to PO tomorrow. I would recheck a lactate and troponin if her symptoms worsen or if she develops hypoxia. There is literature connecting CIDP to pulmonary embolism. The mechanisms for clot formation in CIDP include systemic inflammation and denervation of peripheral vessels resulting in stasis. 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 Low-intermediate risk PE wit infarction - recommend Lovenox today, can transition to PO tomorrow - repeat lactate and troponin is worsening or O2 need - clotting labs ordered - recommend echo when able (even if this means as outpatient) - recommend LE Doppler if available Neuromuscular weakness 2/2 CIDP - will have her home Trilogy ventilator brought in for use History of Present Illness Narrative: This is a 63 with an atypical CIDP who presented to the ED with complaints of dyspnea and left sided chest pain. I see her for respiratory neuromuscular weakness, diaphragm paralysis and Trilogy management. She states a few days ago she noticed worsening dyspnea and then early this morning she developed acute and sharp left sided chest pains. She was found to have a left sided PE with possible evolving infarct. I was called to assess the patient for safety with admission to [facility]. He largest complaints are significant dyspnea, specifically orthopnea as well as severe left sided chest pain. Her CIDP causes considerable pain already but she is very uncomfortable currently. He denies leg pain or swelling preceding the dyspnea. He denies recent travel or surgery. She has been prescribed vaginal suppository estrogen, but takes nothing systemic and has not started the suppositories. Denies familial clotting issues. Review of Systems All systems reviewed & are unremarkable except as noted in HPI and below PFSH All Active Problems (Updated 04/02/23 @ 17:59 by Ilene Smith MD) Pulmonary embolism and infarction (Acute) Chronic narrow angle glaucoma of left [place] (Chronic) [place] [facility] [place]ema (Chronic 08/20/14) Hypercholesterolemia (Chronic) 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 stated this was r/o to be cardiac in nature, and is why she is have C&G procedure done on 08/06/21 Chest pain Cough 08/30/17 Cough Difficulty breathing DUB (dysfunctional uterine bleeding) 2.6cm fundal fibroid; 3.8 cm right ovary cyst in 01/08 since resolved. 3.5 cm left kidney cyst Elevated hematocrit Elevated hemoglobin Esophagitis (~08/2021) Essential hypertension External otitis 05/07/14 Gastroesophageal reflux disease Hip pain, left Hyperlipidemia Increased body mass index Knee pain (01/01/07) MRI 01/08= neg. tear; ? of chondromalacia; Med. patellar fault Left shoulder pain 08/05/15 Left shoulder pain (08/05/15) Leg weakness, bilateral Lymphadenopathy Microscopic hematuria neg. C&S; nl Bun and Cr.; neg IUP; neg cystocopy Microscopic hematuria Mild stage chronic narrow angle glaucoma of right eye [place]28[place]16 [facility] [place] strain Normal colonoscopy (~08/2021) On prednisone therapy Otitis externa (05/07/14) Right carpal tunnel syndrome (02/21/18) Patient has clinically obvious carpal tunnel syndrome right upper extremity. I explained her that I know do all my carpal tunnel surgeries via open technique. This avoid an incomplete release or or an injury to the common digital nerve to the middle finger. Patient understands the reason for the change the open technique and agrees to have this done on her right side despite the fact that she had a E CTR on the left side SOB (shortness of breath) Thrombocytosis Vascular headache Vascular headache Weight loss Surgical History Endometrial Biopsy neg H/O esophagogastroduodenoscopy (~08/2021) History of carpal tunnel release 05/13/18 DR. CUADRA; RIGHT History of colonoscopy (~08/2021) History of gynecologic surgery endometrial Bx-neg Open Carpal Tunnel release (~2002) left medial nerve release PROCEDURES 07/21/16; LASERLIDOTOMY S/P carpal tunnel release left medial nerve release Status post carpal tunnel release Status post carpal tunnel release Family History Mother , 59 Essential hypertension Anxiety Depression Heart disease Hyperlipidemia Leukemia Father , MET/LUNG CA at age 79. Diabetes Alcohol abuse Essential hypertension Heart disease Hyperlipidemia Asthma Lung cancer Sister No problems noted. Brother Essential hypertension Anxiety Depression Hyperlipidemia Maternal Grandfather , 90s No problems noted. Paternal Grandfather , 90s Heart disease Stroke Maternal Grandmother , 70s No problems noted. Paternal Grandmother , 70s Alcohol abuse Heart disease Hypertension Stroke Social History Smoking/Tobacco Use Status: Never Second Hand Exposure: Yes Smoking risk assessment performed?: Yes Alcohol Intake: current Alcohol type: wine and hard liquor Drug use: Never Substance use type: marijuana Details: comsumse THC eatables at night for sleep Caregiver/Support person: No Household members: spouse Housing: house Communication Needs: Corrective Lenses Education Level: college Do you need help understanding health information?: Rarely Pets and animals: No Sexually active: Yes Do you think of yourself as: straight/heterosexual Current gender identity: female What is your relationship status?: How often do you talk on the phone with friends or family?: three or more times per week How often do you get together with friends or relatives?: three or more times per week Do you belong to any clubs or organized social groups?: no Panel score (0-1 are the most socially isolated patients): 2 What type of physical activity do you participate in: none Barbara/Sikhism: No preference Special barbara needs: No Seatbelt use: always Drive intox 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 Do you feel safe at home: Yes Do you feel safe in your relationship?: Yes Visit Medication and Allergies Active Medications Generic Name Dose Route Start Last Admin Trade Name Freq PRN Reason Stop Dose Admin Sodium Chloride 1,000 mls @ 150 mls/hr 04/02/23 12:09 04/02/23 13:14 Saline 1000ml Bag IV 04/02/23 18:48 150 mls/hr INFUSION STA Administration IV Miscellaneous Supplies 1 each 04/02/23 09:30 Iv Access-Emergency Dept IV DIRECTED BRADY Iohexol 100 ml 04/02/23 15:45 04/02/23 15:45 Omnipaque 350 Mg/Ml 100 Ml Btl IJ 05/02/23 23:59 100 ml DIRECTED BRADY Administration Sodium Chloride 0 ml 04/02/23 09:24 04/02/23 13:38 Normal Saline Flush 10 Ml Syr IVP 10 ml PRN PRN Administration Sodium Chloride 50 ml 04/02/23 13:45 04/02/23 13:39 Normal Saline - Diluent 50 Ml Vial IJ 50 ml .FOR DI USE BRADY Administration Allergies aspartame Adverse Reaction (Intermediate, Verified 03/23/23 10:10) hydrochlorothiazide Adverse Reaction (Intermediate, Verified 03/23/23 10:10) Leg cramps latex Adverse Reaction (Intermediate, Verified 03/23/23 10:10) skin cracks and bleeds Exam Narrative Exam Narrative: Gen: In acute distress, well-nourished HENT: PERRL, no clear JVD Chest: Moderate respiratory distress. Guarding left chest. Clear to auscultation on right. Left with diminished breath sounds Heart: regular rate and rhythym, no murmurs, rubs or gallops Abdomen: Non-distended, soft, non tender Extremities: No clubbing, edema, cyanosis, rashes Neuro: AAOx3 , non focal Psych: cooperative, appropriate mental affect Results Last Vital Signs Temp 37.2 C 04/02/23 09:14 Pulse 97 H 04/02/23 09:46 Resp 20 04/02/23 11:42 BP 142/88 H 04/02/23 09:46 Pulse Ox 95 04/02/23 11:30 Labs 04/02/23 10:31 04/02/23 10:31 Labs: Laboratory Results - last 24 hr 04/02/23 04/02/23 04/02/23 10:31 10:31 10:31 WBC 10.27 RBC 5.71 H Hgb 15.5 Hct 50.8 H MCV 89 MCH 27.1 MCHC 30.5 L RDW 15.7 H Plt Count 272 MPV 9.0 Immature Gran % 0.5 Neutrophils % 73.4 Lymphocytes % 13.5 Monocytes % 11.9 Eosinophils % 0.5 Basophils % 0.2 Nucleated RBC % 0.0 Absolute Neutrophils 7.54 H Absolute Lymphocytes 1.39 Absolute Monocytes 1.22 H Absolute Eosinophils 0.05 Absolute Basophils 0.02 D-Dimer 1134 H Sodium 139 Potassium 3.4 L Chloride 103 Carbon Dioxide 28.4 Anion Gap 7.6 BUN 37 H Creatinine 1.1 H Est GFR (CKD-EPI 2020) 56.81 Glucose 91 Calcium 9.5 Magnesium 2.3 Total Bilirubin 0.3 AST 8 L ALT 7 L Alkaline Phosphatase 72 Troponin I < 50 Total Protein 8.1 Albumin 3.3 L 04/02/23 13:25 WBC RBC Hgb Hct MCV MCH MCHC RDW Plt Count MPV Immature Gran % Neutrophils % Lymphocytes % Monocytes % Eosinophils % Basophils % Nucleated RBC % Absolute Neutrophils Absolute Lymphocytes Absolute Monocytes Absolute Eosinophils Absolute Basophils D-Dimer Sodium Potassium Chloride Carbon Dioxide Anion Gap BUN Creatinine Est GFR (CKD-EPI 2020) Glucose Calcium Magnesium Total Bilirubin AST ALT Alkaline Phosphatase Troponin I < 50 Total Protein Albumin Pocus Exam Limited Cardiac Exam DATE OF EXAM: 04/02/23 TIME OF EXAM: 16:30 PROVIDER THAT PERFORMED THE STUDY: Ilene Smith IS THIS A REPEAT EXAM DURING THIS ENCOUNTER: no REASON FOR EXAM: Right heart strain/PE VISUALIZED STRUCTURES: left ventricle, right atrium, right ventricle and Interventricular septum VIEW OBTAINED: Parasternal long-axis, Parasternal short-axis and Subxiphoid PERTINENT FINDINGS/IMPRESSION: RV dilation, RV dysfunction (mild?) and Other hyperdynamic LV Exam complete
[2023-04-02 16:50] LABS: COVID-19 PCR Negative (Negative); Influenza A PCR Negative (Negative); Influenza B PCR Negative (Negative); RSV PCR Negative (Negative)
[2023-04-02 16:51] LABS: Source NASOPHARYNX
[2023-04-02 17:18] LABS: NT-proBNP 1465 pg/mL (<300)
[2023-04-02] MEDS: Enoxaparin 80 MG/0.8 ML SYR 90 MG SC (17:38)
--- NOTE | 2023-04-02 18:40 | W.PM.HP.N ---
Date of service: 04/02/23 Time of Service: 18:40 Assessment and Plan Assessment and plan (1) Pulmonary embolism and infarction: Status: Acute Assessment and plan: PESI of 92 indicates low intermediate risk. Dr Smith with pulmonary medicine has evaluated. Lovenox administered in therapeutic dosage today with plan to transition to Eliquis tomorrow if she remains stable. Dr Smith recommends repeating troponin and lactate if respiratory status worsens. POCUS exam performed at bedside. No formal echocardiogram will be available for this wknd so will likely be obtained as outpt. Pain meds prn. (2) Hypercholesterolemia: Status: Chronic Assessment and plan: Not on medication. (3) Essential hypertension: Status: Chronic Assessment and plan: Not on medication. Monitor. (4) CIDP (chronic inflammatory demyelinating polyneuropathy): Status: Acute Assessment and plan: She recently saw Dr Arreola, neurology, and was placed on a short burst of dexamethasone. F/U at [facility] [place] is scheduled. Cont Duloxetine and Lyrica. (5) Discharge planning issues: Status: Acute Assessment and plan: Pt is a full code. History of Present Illness History of Present Illness Chief Complaint: left sided chest pain, dyspnea Narrative: This is a 63 yo female with a h/o CIDP (chronic inflammatory demyelinating polyneuropathy), HLD, HTN, polychthemia, Restrictive lung mechanics, chronic constipation. She presented to the ED with c/o dyspnea and left sided chest pain. Her symptom of dyspnea began several days prior to admission. Her acute CP occurred the AM of admission; sharp in nature. In the ED she was not hypoxic. +tachycardic. Normal WBC count, hgb.Lactate normal. K 3.4. BUN 37. Creatinine 1.1. NTProBNP 1465. Troponin negative x3 PESI score of 92 (intermediate low risk). CT chest 1. Pulmonary emboli in segmental and subsegmental branches to the left upper and left lower lobe.? No saddle embolus. 2. Peripheral left lower lobe infiltrate which given the pulmonary emboli, fracture infarction cannot be excluded. 3. RV to LV ratio greater than [address] right heart strain. Dr Smith, pulmonary/intensive care medicine consulted. She performed a bedside POCUS exam that showed a dilated RV, without LV compression or concern for impending obstructive shock. Lovenox 80mg SQ administered. Admitted for observation Review of Systems All systems reviewed & are unremarkable except as noted in HPI and below PFSH All Active Problems (Updated 04/02/23 @ 22:51 by HUEY Dominguez) Embolism, pulmonary with infarction (Acute) Discharge planning issues (Acute) Pulmonary embolism and infarction (Acute) Chronic narrow angle glaucoma of left eye (Chronic) 12/28/16 [facility] [place] Eczema (Chronic 08/20/14) Hypercholesterolemia (Chronic) 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 stated this was r/o to be cardiac in nature, and is why she is have C&G procedure done on 08/06/21 Chest pain Cough 08/30/17 Cough Difficulty breathing DUB (dysfunctional uterine bleeding) 2.6cm fundal fibroid; 3.8 cm right ovary cyst in 01/08 since resolved. 3.5 cm left kidney cyst Elevated hematocrit Elevated hemoglobin Esophagitis (~08/2021) Essential hypertension External otitis 05/07/14 Gastroesophageal reflux disease Hip pain, left Hyperlipidemia Increased body mass index Knee pain (01/01/07) MRI 01/08= neg. tear; ? of chondromalacia; Med. patellar fault Left shoulder pain 08/05/15 Left shoulder pain (08/05/15) Leg weakness, bilateral Lymphadenopathy Microscopic hematuria neg. C&S; nl Bun and Cr.; neg IUP; neg cystocopy Microscopic hematuria Mild stage chronic narrow angle glaucoma of right eye 12/28/16 [facility] [place] Muscle strain Normal colonoscopy (~08/2021) On prednisone therapy Otitis externa (05/07/14) Right carpal tunnel syndrome (02/21/18) Patient has clinically obvious carpal tunnel syndrome right upper extremity. I explained her that I know do all my carpal tunnel surgeries via open technique. This avoid an incomplete release or or an injury to the common digital nerve to the middle finger. Patient understands the reason for the change the open technique and agrees to have this done on her right side despite the fact that she had a E CTR on the left side SOB (shortness of breath) Thrombocytosis Vascular headache Vascular headache Weight loss Surgical History Endometrial Biopsy neg H/O esophagogastroduodenoscopy (~08/2021) History of carpal tunnel release 05/13/18 DR. CUADRA; RIGHT History of colonoscopy (~08/2021) History of gynecologic surgery endometrial Bx-neg Open Carpal Tunnel release (~2002) left medial nerve release PROCEDURES 07/21/16; LASERLIDOTOMY S/P carpal tunnel release left medial nerve release Status post carpal tunnel release Status post carpal tunnel release Family History Mother , 59 Essential hypertension Anxiety Depression Heart disease Hyperlipidemia Leukemia Father , MET/LUNG CA at age 79. Diabetes Alcohol abuse Essential hypertension Heart disease Hyperlipidemia Asthma Lung cancer Sister No problems noted. Brother Essential hypertension Anxiety Depression Hyperlipidemia Maternal Grandfather , 90s No problems noted. Paternal Grandfather , 90s Heart disease Stroke Maternal Grandmother , 70s No problems noted. Paternal Grandmother , 70s Alcohol abuse Heart disease Hypertension Stroke Social History Smoking/Tobacco Use Status: Never Second Hand Exposure: Yes Smoking risk assessment performed?: Yes Alcohol Intake: current Alcohol type: wine and hard liquor Drug use: Never Substance use type: marijuana Details: comsumse THC eatables at night for sleep Caregiver/Support person: No Household members: spouse Housing: house Communication Needs: Corrective Lenses Education Level: college Do you need help understanding health information?: Rarely Pets and animals: No Sexually active: Yes Do you think of yourself as: straight/heterosexual Current gender identity: female What is your relationship status?: How often do you talk on the phone with friends or family?: three or more times per week How often do you get together with friends or relatives?: three or more times per week Do you belong to any clubs or organized social groups?: no Panel score (0-1 are the most socially isolated patients): 2 What type of physical activity do you participate in: none Barbara/Scientology: No preference Special barbara needs: No Seatbelt use: always Drive intox 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 Do you feel safe at home: Yes Do you feel safe in your relationship?: Yes Meds Allergies and Home Medications Allergies Allergy/AdvReac Type Severity Reaction Status Date / Time aspartame AdvReac Intermediate Verified 04/02/23 18:45 hydrochlorothiazide AdvReac Intermediate Leg cramps Verified 04/02/23 18:45 latex AdvReac Intermediate skin Verified 04/02/23 18:45 cracks and bleeds Home Medications Medication Instructions Recorded Confirmed Type carboxymethylcellulose 0.5 15 ml ophthalmic (eye) PRN 02/15/17 04/02/23 History %-glycerin 0.9 % eye drops (Lubricating Drops) latanoprost 0.005 % eye drops 1 drp ophthalmic (eye) HS 02/15/17 04/02/23 History (Xalatan) clotrimazole-betamethasone 1 1 applic topical PRN PRN 07/08/20 04/02/23 History %-0.05 % topical cream triamcinolone acetonide 0.1 % 1 applic topical PRN PRN 07/08/20 04/02/23 History topical ointment hydrocortisone 2.5 % topical cream 1 applic IL QD-BID PRN hemorrhoids 09/10/21 04/02/23 Rx with perineal applicator #30 grams (Anusol-HC) estradiol 10 mcg vaginal tablet 10 mcg vaginal 2X Week #25 tab-caps 01/12/22 04/02/23 Rx (Vagifem) pantoprazole 40 mg tablet,delayed 40 mg PO DAILY #90 tabs 08/17/22 04/02/23 Rx release (Protonix) calcium carbonate 600 mg calcium 600 mg PO DAILY 10/19/22 04/02/23 History (1,500 mg) tablet (Calcium) cholecalciferol (vitamin D3) 25 25 mcg PO DAILY 10/19/22 04/02/23 History mcg (1,000 unit) capsule mecobalamin (vitamin B12) 1,000 1,000 mcg PO DAILY 10/20/22 04/02/23 History mcg chewable tablet linaclotide 145 mcg capsule 145 mcg PO DAILY #30 caps 02/01/23 04/02/23 Rx (Linzess) loratadine 10 mg tablet (Claritin) 10 mg PO PRN PRN 02/01/23 04/02/23 History duloxetine 30 mg capsule,delayed 30 mg PO DAILY #90 caps 03/09/23 04/02/23 Rx release pregabalin 150 mg capsule 150 mg PO Q8H #270 caps 03/09/23 04/02/23 Rx dexamethasone 4 mg tablet 40 mg PO DAILY #40 tabs 03/23/23 04/02/23 Rx Exam Narrative Exam Narrative: Gen: Pleasant and conversant. NAD HENT: PERRL, MMM Chest: Lungs clear but diminished. Nonlabored breathing. Heart: regular rate and rhythym, no murmurs Abdomen: Non-distended, soft, non tender Extremities: No edema calf tenderness. Neuro: AAOx3 , GARCIA. Psych: Gross appearance normal, appropriate affect Results Labs 04/02/23 10:31 04/03/23 06:35 Labs: Laboratory Results - last 24 hr 04/02/23 04/02/23 04/02/23 10:31 10:31 10:31 WBC 10.27 RBC 5.71 H Hgb 15.5 Hct 50.8 H MCV 89 MCH 27.1 MCHC 30.5 L RDW 15.7 H Plt Count 272 MPV 9.0 Immature Gran % 0.5 Neutrophils % 73.4 Lymphocytes % 13.5 Monocytes % 11.9 Eosinophils % 0.5 Basophils % 0.2 Nucleated RBC % 0.0 Absolute Neutrophils 7.54 H Absolute Lymphocytes 1.39 Absolute Monocytes 1.22 H Absolute Eosinophils 0.05 Absolute Basophils 0.02 D-Dimer 1134 H VBG Lactate Sodium 139 Potassium 3.4 L Chloride 103 Carbon Dioxide 28.4 Anion Gap 7.6 BUN 37 H Creatinine 1.1 H Est GFR (CKD-EPI 2020) 56.81 Glucose 91 Calcium 9.5 Magnesium 2.3 Total Bilirubin 0.3 AST 8 L ALT 7 L Alkaline Phosphatase 72 Troponin I < 50 NT-Pro-B Natriuret Pep Total Protein 8.1 Albumin 3.3 L COVID-19 Source SARS-CoV-2 (PCR) Influenza Type A (PCR) Influenza Type B (PCR) RSV (PCR) 04/02/23 04/02/23 04/02/23 13:25 16:03 16:50 WBC RBC Hgb Hct MCV MCH MCHC RDW Plt Count MPV Immature Gran % Neutrophils % Lymphocytes % Monocytes % Eosinophils % Basophils % Nucleated RBC % Absolute Neutrophils Absolute Lymphocytes Absolute Monocytes Absolute Eosinophils Absolute Basophils D-Dimer VBG Lactate 1.0 Sodium Potassium Chloride Carbon Dioxide Anion Gap BUN Creatinine Est GFR (CKD-EPI 2020) Glucose Calcium Magnesium Total Bilirubin AST ALT Alkaline Phosphatase Troponin I < 50 NT-Pro-B Natriuret Pep Total Protein Albumin COVID-19 Source NASOPHARYNX SARS-CoV-2 (PCR) Negative Influenza Type A (PCR) Negative Influenza Type B (PCR) Negative RSV (PCR) Negative 04/02/23 16:50 WBC RBC Hgb Hct MCV MCH MCHC RDW Plt Count MPV Immature Gran % Neutrophils % Lymphocytes % Monocytes % Eosinophils % Basophils % Nucleated RBC % Absolute Neutrophils Absolute Lymphocytes Absolute Monocytes Absolute Eosinophils Absolute Basophils D-Dimer VBG Lactate Sodium Potassium Chloride Carbon Dioxide Anion Gap BUN Creatinine Est GFR (CKD-EPI 2020) Glucose Calcium Magnesium Total Bilirubin AST ALT Alkaline Phosphatase Troponin I NT-Pro-B Natriuret Pep 1465 H Total Protein Albumin COVID-19 Source SARS-CoV-2 (PCR) Influenza Type A (PCR) Influenza Type B (PCR) RSV (PCR) Last Vital Signs Temp 37.2 C 04/02/23 09:14 Pulse 110 H 04/02/23 18:30 Resp 21 04/02/23 18:30 BP 134/83 04/02/23 18:30 Pulse Ox 92 04/02/23 18:30 Time Spent Time spent with Patient: 40-54 minutes Time was spent: preparing to see the patient(eg.review tests), obtaining and/or reviewing separately otained hiistory, ordering medications,tests, procedures, referring, communicating with other health critical care specialist, indepentently interpreting results, counseling the patient and care coordination
[2023-04-02] MEDS: Acetaminophen 325 MG TAB PO (19:27)
[2023-04-02] MEDS: Latanoprost 0.005% 2.5 ML BTL OP (20:58)
[2023-04-02] MEDS: Pregabalin 150 MG CAP PO (20:58)
[2023-04-03] VITALS (8 sets, daily range): BP systolic 107–128; BP diastolic 62–80; PULSE 83–99; RESP 8–20; TEMP 36–37.4; O2SAT 94–99
[2023-04-03] MEDS: HYDROmorphone 2 MG TAB PO ×3 (01:15→17:48)
[2023-04-03] MEDS: Pregabalin 150 MG CAP PO ×3 (04:00→20:51)
[2023-04-03] MEDS: Acetaminophen 325 MG TAB PO (05:30)
[2023-04-03] MEDS: Enoxaparin 100 MG/ML SYR 90 MG SC (05:37)
[2023-04-03 07:37] LABS: Anion Gap 7.8 mmol/L (3-11); BUN 39 mg/dL (7-18); CO2 26.2 mmol/L (21.0-32.0); CREATININE 1.5 mg/dL (0.55-1.02); Calcium 9.3 mg/dL (8.5-10.1); Chloride 103 mmol/L (98-107); Estimated GFR 39.16 (mL/min/1.73m2); Glucose 90 mg/dL (74-106); Potassium 4.3 mmol/L (3.5-5.1); Sodium 137 mmol/L (136-145); Troponin I < 50 ng/L (<or=60)
[2023-04-03] MEDS: Cholecalciferol (Vitamin D3) 1,000 UNIT TAB 1000 UNITS PO (08:06)
[2023-04-03] MEDS: Pantoprazole 40 MG TABCR PO (08:06)
[2023-04-03] MEDS: DULoxetine 30 MG CAP PO (08:06)
[2023-04-03] MEDS: Calcium Carbonate 1.5 GM TAB PO (08:06)
--- NOTE | 2023-04-03 09:30 | W.PM.DS.N ---
Date of service: 04/03/23 Time of Service: 09:30 DS: Diagnosis Discharge Diagnosis (1) Pulmonary embolism and infarction: Status: Acute Asessment and Plan: First occurrence. No c/o LE pain, swelling, erythema. Not hypoxic Bedside POCUS exam performed by Dr Smith showed a dilated right RV. Therapeutic dose of Lovenox administered in the ED. Troponins were negative x4 and patient had no respiratory symptoms overnight. Transitioned to Eliquis for anticoagulation which will likely be lifelong given her sedentary state d/t CIDP. Outpt Echocardiogram ordered. BLE dopplers studies ordered for outpt. (2) Hypercholesterolemia: Status: Chronic Asessment and Plan: Not on medication (3) Essential hypertension: Status: Chronic Asessment and Plan: Not on medication. Mostly normotensive BP readings during this hospitalization. (4) CIDP (chronic inflammatory demyelinating polyneuropathy): Status: Acute Asessment and Plan: Interestly, she is going to a conference in [facility] this coming Tues on this condition. She will continue to f/u with her [facility] neurologist and Dr Arreola. (5) Discharge planning issues: Status: Acute Asessment and Plan: Home with prescription for Eliquis Pt is a Full Code status. Discharge Plan Disposition Patient Disposition: Home Condition: Good Discharge Details Reason For Visit: Pulmonary Emboli Admit Date/Time: 04/02/23 17:27 Admit Provider: Pankaj Henderson Attending Provider: Pankaj Henderson Primary Care Provider: Tonya Costello [facility] Course Hospital Course: This is a 63 yo female with a h/o CIDP (chronic inflammatory demyelinating polyneuropathy), HLD, HTN, polychthemia, Restrictive lung mechanics, chronic constipation.? She presented to the ED with c/o dyspnea and left sided chest pain.? Her symptom of dyspnea began several days prior to admission.? Her acute CP occurred the AM of admission; sharp in nature. In the ED she was not hypoxic.? +tachycardic.? Normal WBC count, hgb.Lactate normal. K 3.4. BUN 37. Creatinine 1.1. NTProBNP 1465. Troponin negative x3 PESI score of 92 (intermediate low risk). CT chest?1. Pulmonary emboli in segmental and subsegmental branches to the left upper and left lower lobe.? No saddle embolus. 2. Peripheral left lower lobe infiltrate which given the pulmonary emboli, fracture infarction cannot be excluded. 3. RV to LV ratio greater than [address] right heart strain. Dr Smith, pulmonary/intensive care medicine consulted.? She performed a bedside POCUS exam that showed a dilated RV, without LV compression or concern for impending obstructive shock. Lovenox 80mg SQ administered. See Diagnosis PCP f/u in 1-2 weeks. Home Meds and New Rx's Prescriptions: New Eliquis 5 mg tablet See Rx Instructions .ROUTE .COMPLEX Qty: 74 0RF Rx Instructions: 2 tabs twice daily for 13 doses, then 1 tab twice daily Continued cholecalciferol (vitamin D3) 25 mcg (1,000 unit) capsule 25 mcg PO DAILY calcium carbonate [Calcium 600] 600 mg calcium (1,500 mg) tablet 600 mg PO DAILY loratadine [Claritin] 10 mg tablet 10 mg PO PRN PRN clotrimazole-betamethasone 1-0.05 % cream 1 applic Topical PRN PRN Rx Instructions: apply to involved area triamcinolone acetonide 0.1 % ointment 1 applic Topical PRN PRN Rx Instructions: apply to arms mecobalamin (vitamin B12) 1,000 mcg tablet,chewable 1,000 mcg PO DAILY pregabalin 150 mg capsule 150 mg PO Q8H Qty: 270 3RF duloxetine 30 mg capsule,delayed release(DR/EC) 30 mg PO DAILY Qty: 90 3RF dexamethasone 4 mg tablet 40 mg PO DAILY Qty: 40 0RF Rx Instructions: Take 40 mg daily x 4 days every 4weeks Linzess 145 mcg capsule 145 mcg PO DAILY Qty: 30 12RF latanoprost [Xalatan] 2.5 ML drops 1 drp Ophthalmic HS Lubricating Drops 15 ML drops 15 ml Ophthalmic PRN hydrocortisone [Anusol-HC] 2.5 % cream with perineal applicator 1 applic NV QD-BID PRN (Reason: hemorrhoids) Qty: 30 4RF estradiol [Vagifem] 10 mcg tablet 10 mcg VG 2X Week Qty: 25 12RF pantoprazole [Protonix] 40 mg tablet,delayed release (DR/EC) 40 mg PO DAILY Qty: 90 6RF Discharge Instructions Instructions: Pulmonary Embolism (DC) Stand Alone Forms: Nursing Discharge Form Referrals: Dobbertin,Tonya, [place], [place] [Primary Care Provider] - (Please call Wednesday to make a follow up appointment for 1-2 weeks. ) Activity:: Activity as Tolerated Equipment/Supplies:: No Equipment Needed Diet:: Resume home diet Discharge Orders Discharge Orders: Discharge Order (Routine); Ordered 04/03/23 Ordered By: Pankaj Henderson Other Ambulatory Orders: US echocardiogram (Routine) Location: None Selected Ordered By: Pankaj Henderson US lower extremity venous LT (Routine) Location: None Selected Ordered By: Pankaj Henderson US lower extremity venous RT (Routine) Location: None Selected Ordered By: Pankaj Henderson DS: Summary Time Spent with Patient providing and/or coordinating discharge services: Greater than 30 minutes Status at Discharge Functional status at discharge: uses cane/walker Overall status at discharge: patient is progressing back to baseline Mental Status: mental status grossly normal Speech and Movement: speech clear Mood: congruent mood Affect: normal affect Exam Narrative Exam Narrative: Gen: Pt is sitting in recliner. Her and sister are present. Pleasant and conversant. NAD HENT: PERRL, MMM Chest: Lungs clear but diminished. Nonlabored breathing. Speaks in complete sentences w/o SOA Heart: regular rate and rhythym, no murmurs Abdomen: Non-distended, soft, non tender Extremities: No edema calf tenderness. Neuro: A&Ox3 , GARCIA. Psych: Gross appearance normal, appropriate affect Psych Mental Status: mental status grossly normal Speech and Movement: speech clear Mood: congruent mood Affect: normal affect DS: Data Vitals/I&O Vitals and I&O: Vital Signs Temperature 37.4 C 04/03/23 08:47 Temperature Source Tympanic 04/03/23 08:47 Pulse 93 H 04/03/23 08:47 Pulse Rhythm Regular 04/03/23 07:50 Pulse 111 H 04/02/23 18:30 Respiratory Rate 18 04/03/23 08:47 Respiratory Effort Non-Labored 04/03/23 07:50 Respiratory Depth Normal 04/03/23 07:50 Respiratory Pattern Normal 04/03/23 07:50 Blood Pressure 123/74 04/03/23 08:47 Blood Pressure Mean 101 04/02/23 18:30 Blood Pressure Position Sitting 04/02/23 09:14 Pulse Oximetry 97 04/03/23 08:47 Oxygen Delivery Method Room Air 04/03/23 08:47 Oxygen Flow Rate 0 04/03/23 08:47 Pain Level 0 04/03/23 08:47 Comment Trilogy 04/03/23 03:57 Intake & Output 04/02/23 04/02/23 04/03/23 11:59 23:59 11:59 Intake Total 1030 / 1030 Balance 1030 / 1030 Weight 90.265 kg 91.4 kg Intake: IV 1030 / 1030 Other: Urine Color Yellow Urine Appearance Clear Clear Comment unmeasured amount urine Voiding Methods Toilet Toilet Data Completed and Pending Labs on day of discharge: Labs from last 24 hours 04/03/23 04/02/23 04/02/23 06:35 Unknown 17:53 WBC RBC Hgb Hct MCV MCH MCHC RDW Plt Count MPV Immature Gran % Neutrophils % Lymphocytes % Monocytes % Eosinophils % Basophils % Nucleated RBC % Absolute Neutrophils Absolute Lymphocytes Absolute Monocytes Absolute Eosinophils Absolute Basophils PT Pending INR Pending APTT Pending D-Dimer LA dRVVT Screen Ratio Pending LA Technical Interp Pending Protein C Antigen Functional Protein C Free Protein S Antigen Pending Functional Protein S Pending Func Antithrombin III Pending Antithrombin III Activ Pending Throm-Antithrom Complex Ag Pending Factor V Leiden Mutat Pending Factor V Leiden Interp Pending Fact V Leiden Review By Pending VBG Lactate Sodium 137 Potassium 4.3 Chloride 103 Carbon Dioxide 26.2 Anion Gap 7.8 BUN 39 H Creatinine 1.5 H Est GFR (CKD-EPI 2020) 39.16 Glucose 90 Calcium 9.3 Magnesium Total Bilirubin AST ALT Alkaline Phosphatase Troponin I < 50 NT-Pro-B Natriuret Pep Total Protein Albumin COVID-19 Source SARS-CoV-2 (PCR) Influenza Type A (PCR) Influenza Type B (PCR) RSV (PCR) 04/02/23 04/02/23 04/02/23 17:52 16:50 16:50 WBC RBC Hgb Hct MCV MCH MCHC RDW Plt Count MPV Immature Gran % Neutrophils % Lymphocytes % Monocytes % Eosinophils % Basophils % Nucleated RBC % Absolute Neutrophils Absolute Lymphocytes Absolute Monocytes Absolute Eosinophils Absolute Basophils PT INR APTT D-Dimer LA dRVVT Screen Ratio LA Technical Interp Protein C Antigen Pending Functional Protein C Pending Free Protein S Antigen Functional Protein S Func Antithrombin III Antithrombin III Activ Throm-Antithrom Complex Ag Factor V Leiden Mutat Factor V Leiden Interp Fact V Leiden Review By VB Lactate 1.0 Sodium Potassium Chloride Carbon Dioxide Anion Gap BUN Creatinine Est GFR (CKD-EPI 2020) Glucose Calcium Magnesium Total Bilirubin AST ALT Alkaline Phosphatase Troponin I NT-Pro-B Natriuret Pep 1465 H Total Protein Albumin COVID-19 Source SARS-CoV-2 (PCR) Influenza Type A (PCR) Influenza Type B (PCR) RSV (PCR) 04/02/23 04/02/23 04/02/23 16:03 13:25 10:31 WBC RBC Hgb Hct MCV MCH MCHC RDW Plt Count MPV Immature Gran % Neutrophils % Lymphocytes % Monocytes % Eosinophils % Basophils % Nucleated RBC % Absolute Neutrophils Absolute Lymphocytes Absolute Monocytes Absolute Eosinophils Absolute Basophils PT INR APTT D-Dimer 1134 H LA dRVVT Screen Ratio LA Technical Interp Protein C Antigen Functional Protein C Free Protein S Antigen Functional Protein S Func Antithrombin III Antithrombin III Activ Throm-Antithrom Complex Ag Factor V Leiden Mutat Factor V Leiden Interp Fact V Leiden Review By VBG Lactate Sodium Potassium Chloride Carbon Dioxide Anion Gap BUN Creatinine Est GFR (CKD-EPI 2020) Glucose Calcium Magnesium Total Bilirubin AST ALT Alkaline Phosphatase Troponin I < 50 NT-Pro-B Natriuret Pep Total Protein Albumin COVID-19 Source NASOPHARYNX SARS-CoV-2 (PCR) Negative Influenza Type A (PCR) Negative Influenza Type B (PCR) Negative RSV (PCR) Negative 04/02/23 04/02/23 10:31 10:31 WBC 10.27 RBC 5.71 H Hgb 15.5 Hct 50.8 H MCV 89 MCH 27.1 MCHC 30.5 L RDW 15.7 H Plt Count 272 MPV 9.0 Immature Gran % 0.5 Neutrophils % 73.4 Lymphocytes % 13.5 Monocytes % 11.9 Eosinophils % 0.5 Basophils % 0.2 Nucleated RBC % 0.0 Absolute Neutrophils 7.54 H Absolute Lymphocytes 1.39 Absolute Monocytes 1.22 H Absolute Eosinophils 0.05 Absolute Basophils 0.02 PT INR APTT D-Dimer LA dRVVT Screen Ratio LA Technical Interp Protein C Antigen Functional Protein C Free Protein S Antigen Functional Protein S Func Antithrombin III Antithrombin III Activ Throm-Antithrom Complex Ag Factor V Leiden Mutat Factor V Leiden Interp Fact V Leiden Review By VBG Lactate Sodium 139 Potassium 3.4 L Chloride 103 Carbon Dioxide 28.4 Anion Gap 7.6 BUN 37 H Creatinine 1.1 H Est GFR (CKD-EPI 2020) 56.81 Glucose 91 Calcium 9.5 Magnesium 2.3 Total Bilirubin 0.3 AST 8 L ALT 7 L Alkaline Phosphatase 72 Troponin I < 50 NT-Pro-B Natriuret Pep Total Protein 8.1 Albumin 3.3 L COVID-19 Source SARS-CoV-2 (PCR) Influenza Type A (PCR) Influenza Type B (PCR) RSV (PCR) PFSH All Active Problems Embolism, pulmonary with infarction (Acute) Discharge planning issues (Acute) Pulmonary embolism and infarction (Acute) Chronic narrow angle glaucoma of left eye (Chronic) 12/28/16 [facility] Eczema (Chronic 08/20/14) Hypercholesterolemia (Chronic) 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 stated this was r/o to be cardiac in nature, and is why she is have C&G procedure done on 08/06/21 Chest pain Cough 08/30/17 Cough Difficulty breathing DUB (dysfunctional uterine bleeding) 2.6cm fundal fibroid; 3.8 cm right ovary cyst in 01/08 since resolved. 3.5 cm left kidney cyst Elevated hematocrit Elevated hemoglobin Esophagitis (~08/2021) Essential hypertension External otitis 05/07/14 Gastroesophageal reflux disease Hip pain, left Hyperlipidemia Increased body mass index Knee pain (01/01/07) MRI 01/08= neg. tear; ? of chondromalacia; Med. patellar fault Left shoulder pain 08/05/15 Left shoulder pain (08/05/15) Leg weakness, bilateral Lymphadenopathy Microscopic hematuria neg. C&S; nl Bun and Cr.; neg IUP; neg cystocopy Microscopic hematuria Mild stage chronic narrow angle glaucoma of right eye 12/28/16 [facility] Muscle strain Normal colonoscopy (~08/2021) On prednisone therapy Otitis externa (05/07/14) Right carpal tunnel syndrome (02/21/18) Patient has clinically obvious carpal tunnel syndrome right upper extremity. I explained her that I know do all my carpal tunnel surgeries via open technique. This avoid an incomplete release or or an injury to the common digital nerve to the middle finger. Patient understands the reason for the change the open technique and agrees to have this done on her right side despite the fact that she had a E CTR on the left side SOB (shortness of breath) Thrombocytosis Vascular headache Vascular headache Weight loss Surgical History Endometrial Biopsy neg H/O esophagogastroduodenoscopy (~08/2021) History of carpal tunnel release 05/13/18 DR. CUADRA; RIGHT History of colonoscopy (~08/2021) History of gynecologic surgery endometrial Bx-neg Open Carpal Tunnel release (~2002) left medial nerve release PROCEDURES 07/21/16; LASERLIDOTOMY S/P carpal tunnel release left medial nerve release Status post carpal tunnel release Status post carpal tunnel release Family History Mother , 59 Essential hypertension Anxiety Depression Heart disease Hyperlipidemia Leukemia Father , MET/LUNG CA at age 79. Diabetes Alcohol abuse Essential hypertension Heart disease Hyperlipidemia Asthma Lung cancer Sister No problems noted. Brother Essential hypertension Anxiety Depression Hyperlipidemia Maternal Grandfather , 90s No problems noted. Paternal Grandfather , 90s Heart disease Stroke Maternal Grandmother , 70s No problems noted. Paternal Grandmother , 70s Alcohol abuse Heart disease Hypertension Stroke Social History Smoking/Tobacco Use Status: Never Second Hand Exposure: Yes Smoking risk assessment performed?: Yes Alcohol Intake: current Alcohol type: wine and hard liquor Drug use: Never Substance use type: marijuana Details: comsumse THC eatables at night for sleep Caregiver/Support person: No Household members: spouse Housing: house Communication Needs: Corrective Lenses Education Level: college Do you need help understanding health information?: Rarely Pets and animals: No Sexually active: Yes Do you think of yourself as: straight/heterosexual Current gender identity: female What is your relationship status?: How often do you talk on the phone with friends or family?: three or more times per week How often do you get together with friends or relatives?: three or more times per week Do you belong to any clubs or organized social groups?: no Panel score (0-1 are the most socially isolated patients): 2 What type of physical activity do you participate in: none Barbara/Faith: No preference Special barbara needs: No Seatbelt use: always Drive intox or ride w/intox hazardous materials tanker driver: No Do you feel safe at home: Yes Do you feel safe in your relationship?: Yes Time Spent with Patient Time Spent with Patient: 45-69 minutes Time was spent: preparing to see the patient(eg.review tests), obtaining and/or reviewing separately otained hiistory, ordering medications,tests, procedures, referring, communicating with other health career development coordinator/teacher, indepentently interpreting results, counseling the patient and care coordination
[2023-04-03] MEDS: Apixaban 5 MG TAB 10 MG PO ×2 (10:08→19:58)
[2023-04-03] MEDS: Bacitracin 1 PACKET (10:08)
--- NOTE | 2023-04-03 10:19 | PDOC.CMDIS ---
Date of service: 04/05/23 Time of Service: 16:00 LACE Index Scoring Tool Questions: Length of Stay (in days): 3 Was the patient admitted via the E.D.?: Yes E.D. Visits: 2 Answers: Total Score: 8 Risk of Readmission: Low Risk Care Management Discharge Plan Reason for Hospitalization: chronic inflammatory demyelinating polyneuropathy Discharge Plan: Janeen is discharged home via private vehicle with her . She will follow up with community providers and her discharge plan of care as instructed. New [facility] RN/PT/OT services are ordered prior to discharge. Patient/Family Education Needs: Review discharge instructions, limitations, medications and plan to follow up with community providers. Discuss ask me three.
--- NOTE | 2023-04-03 10:45 | RT.EKG_ITS ---
APPROVED REPORT Exam: Resting ECG Reason for Exam: chest pain, nausea, numbness Patient Location: I HR:98 bpm ECG Measurements Heart Rate 98 AXIS [place] 140 P 19 QRSd 83 QRS -18 QT 322 T 35 QTc 412 Conclusion Sinus rhythm...normal P axis, V-rate 50- 99 Left atrial enlargement...P, P'>60mS, <-0.15mV V1 Inferior infarct, old...Q >35mS, II III aVF
--- NOTE | 2023-04-03 12:42 | PDOC.CMIN ---
Date of service: 04/03/23 Time of Service: 12:43 Care Management Initial Assmt Initial Assessment REASON FOR HOSPITALIZATION:: Pulmonary embolism and infarction PREVIOUS FUNCTIONAL STATUS/SOCIAL/FAMILY SUPPORTS:: Janeen resides in [place] with her , Travis. Her sister lives next door and is very supportive. 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 Kallie requires assistance with her ADL's. She is able to ambulate with a rolator and still loves to spend time outdoors. CURRENT FUNCTIONAL STATUS:: Janeen was lying in bed when CM met with her. Her was sitting in the recliner. The couple are very pleasant and her seems very supportive. ADVANCE DIRECTIVES:: On file: Travis as agent, Vandana Plummer-sister as alternate. Others: Natasha Rogel, Aaron Powers. Has patient been provided with info about the portal/API?: Yes Did the patient sign up for the portal?: No CODE STATUS:: Full Code INSURANCE COVERAGE / FINANCIAL ISSUES:: BC/BS of ID CURRENT HOME/COMMUNITY SERVICES/EQUIPMENT:: Rolator Ankle orthotics Chair lift Hand rales PRIMARY CARE PHYSICIAN:: Tonya Costello POTENTIAL DISCHARGE NEEDS:: evaluations for increase support, follow up appointments, discharge plan of care PATIENT/FAMILY EDUCATION NEEDS:: Review discharge instructions, limitations, medications and plan to follow up with community providers. Discuss ask me three. ANTICIPATED BARRIERS TO DISCHARGE:: None identified TRANSPORTATION:: Via private vehicle with PLAN:: Anticipate, Janeen will discharge home via private vehicle with her . She will follow up with community providers and her discharge plan of care as instructed. No services are ordered at the time of this discharge. CM will follow. PFSH All Active Problems Embolism, pulmonary with infarction (Acute) Discharge planning issues (Acute) Pulmonary embolism and infarction (Acute) Chronic narrow angle glaucoma of left eye (Chronic) 12/28/16 [facility] [place] Eczema (Chronic 08/20/14) Hypercholesterolemia (Chronic) 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 stated this was r/o to be cardiac in nature, and is why she is have C&G procedure done on 08/06/21 Chest pain Cough 08/30/17 Cough Difficulty breathing DUB (dysfunctional uterine bleeding) 2.6cm fundal fibroid; 3.8 cm right ovary cyst in 01/08 since resolved. 3.5 cm left kidney cyst Elevated hematocrit Elevated hemoglobin Esophagitis (~08/2021) Essential hypertension External otitis 05/07/14 Gastroesophageal reflux disease Hip pain, left Hyperlipidemia Increased body mass index Knee pain (01/01/07) MRI 01/08= neg. tear; ? of chondromalacia; Med. patellar fault Left shoulder pain 08/05/15 Left shoulder pain (08/05/15) Leg weakness, bilateral Lymphadenopathy Microscopic hematuria neg. C&S; nl Bun and Cr.; neg IUP; neg cystocopy Microscopic hematuria Mild stage chronic narrow angle glaucoma of right eye 12/28/16 [facility] [place] Muscle strain Normal colonoscopy (~08/2021) On prednisone therapy Otitis externa (05/07/14) Right carpal tunnel syndrome (02/21/18) Patient has clinically obvious carpal tunnel syndrome right upper extremity. I explained her that I know do all my carpal tunnel surgeries via open technique. This avoid an incomplete release or or an injury to the common digital nerve to the middle finger. Patient understands the reason for the change the open technique and agrees to have this done on her right side despite the fact that she had a E CTR on the left side SOB (shortness of breath) Thrombocytosis Vascular headache Vascular headache Weight loss Surgical History Endometrial Biopsy neg H/O esophagogastroduodenoscopy (~08/2021) History of carpal tunnel release 05/13/18 DR. CUADRA; RIGHT History of colonoscopy (~08/2021) History of gynecologic surgery endometrial Bx-neg Open Carpal Tunnel release (~2002) left medial nerve release PROCEDURES 07/21/16; LASERLIDOTOMY S/P carpal tunnel release left medial nerve release Status post carpal tunnel release Status post carpal tunnel release Family History Mother , 59 Essential hypertension Anxiety Depression Heart disease Hyperlipidemia Leukemia Father , MET/LUNG CA at age 79. Diabetes Alcohol abuse Essential hypertension Heart disease Hyperlipidemia Asthma Lung cancer Sister No problems noted. Brother Essential hypertension Anxiety Depression Hyperlipidemia Maternal Grandfather , 90s No problems noted. Paternal Grandfather , 90s Heart disease Stroke Maternal Grandmother , 70s No problems noted. Paternal Grandmother , 70s Alcohol abuse Heart disease Hypertension Stroke Social History Smoking/Tobacco Use Status: Never Second Hand Exposure: Yes Smoking risk assessment performed?: Yes Alcohol Intake: current Alcohol type: wine and hard liquor Drug use: Never Substance use type: marijuana Details: comsumse THC eatables at night for sleep Caregiver/Support person: No Household members: spouse Housing: house Communication Needs: Corrective Lenses Education Level: college Do you need help understanding health information?: Rarely Pets and animals: No Sexually active: Yes Do you think of yourself as: straight/heterosexual Current gender identity: female What is your relationship status?: How often do you talk on the phone with friends or family?: three or more times per week How often do you get together with friends or relatives?: three or more times per week Do you belong to any clubs or organized social groups?: no Panel score (0-1 are the most socially isolated patients): 2 What type of physical activity do you participate in: none Barbara/Denominational: No preference Special barbara needs: No Seatbelt use: always Drive intox or ride w/intox van driver helper: No Do you feel safe at home: Yes Do you feel safe in your relationship?: Yes
[2023-04-03 13:10] LABS: Troponin I < 50 ng/L (<or=60)
[2023-04-03] MEDS: Naproxen 500 MG TAB PO (13:22)
[2023-04-03] MEDS: Normal Saline 250 ML 500 ML IV (13:22)
--- NOTE | 2023-04-03 15:36 | W.ANESVAS ---
Peripheral IV Placement Date Performed: 04/03/23 Procedure Time: 14:50 Requesting Provider: Pankaj Henderson Procedure Location: Med/Surg Sedation Given (Indicate Dose Given): No Sedation given Patient Mental Status: Awake Laterality: Right Insertion Site: Wrist Size & Type: 22 ga. Dressing: IV Dressing Placed Ultrasound: Not Used Number of Attempts (See previous attempts in note section): 3 Procedure Tolerated: No Complications and Patient tolerated well Procedure Outcome: Successful Performed By: Palma Conti
--- NOTE | 2023-04-03 17:45 | W.PM.PROGNOT ---
Date of Service Date of service: 04/03/23 Time of Service: 17:45 Assessment and Plan Assessment and plan (1) Pulmonary embolism and infarction: Status: Acute Assessment and plan: PESI of 92 indicates low intermediate risk. Dr Smith with pulmonary medicine has evaluated. Lovenox administered in therapeutic dosage today with plan to transition to Eliquis tomorrow if she remains stable. Dr Smith recommends repeating troponin and lactate if respiratory status worsens. POCUS exam performed at bedside. No formal echocardiogram will be available for this wknd so will likely be obtained as outpt. After experiencing sharp left flank/chest pain this AM after d/c and midline pulled: -given a dose of oral dilaudid. -Troponin neg. -EKD w/o changes. -pain improved -watching overnight. If continues to recur, consider repeat CT chest. -gave a 500ml NS bolus in event she will have a repeat CT chest with contrast tomorrow. Her creatinine did elevate modestly to 1.[address] last PM (2) Hypercholesterolemia: Status: Chronic Assessment and plan: Not on medication. (3) Essential hypertension: Status: Chronic Assessment and plan: Not on medication. Monitor. (4) CIDP (chronic inflammatory demyelinating polyneuropathy): Status: Acute Assessment and plan: She recently saw Dr Arreola, neurology, and was placed on a short burst of dexamethasone. F/U at [facility] [place] is scheduled. Cont Duloxetine and Lyrica. (5) Discharge planning issues: Status: Acute Assessment and plan: Pt is a full code. D/C was cancelled today d/t the above outline issues. Subjective Subjective Interval history since last seen: Pt was feeling better this AM and was discharged. However, she then developed a sudden onset of sharp left flank and somewhat anterior chest pain. Similar but more intense than what she had experienced that brought her to the hospital. Discharge cancelled. Exam Narrative Exam Narrative: Initial exam in the AM Gen: Pt is sitting in recliner. Her and sister are present. Pleasant and conversant. NAD HENT: PERRL, MMM Chest: Lungs clear but diminished. Nonlabored breathing. Speaks in complete sentences w/o SOA Heart: regular rate and rhythym, no murmurs Abdomen: Non-distended, soft, non tender Extremities: No edema calf tenderness. Neuro: A&Ox3 , GARCIA. Psych: Gross appearance normal, appropriate affect Exam after experiencing painful episode. Pt was anxious and was placed on her trilogy for a short period of time. Lungs clear. HR mildly tachycardic. Objective Last Vital Signs Temp 37.0 C 04/03/23 15:40 Pulse 88 04/03/23 15:40 Resp 18 04/03/23 15:40 BP 112/62 04/03/23 15:40 Pulse Ox 98 04/03/23 15:40 Laboratory Results - last 24 hr 04/03/23 04/03/23 06:35 12:40 Sodium 137 Potassium 4.3 Chloride 103 Carbon Dioxide 26.2 Anion Gap 7.8 BUN 39 H Creatinine 1.5 H Est GFR (CKD-EPI 2020) 39.16 Glucose 90 Calcium 9.3 Troponin I < 50 < 50 Time Spent with Patient Time Spent with Patient: 35-49 minutes Time was spent: preparing to see the patient(eg.review tests), obtaining and/or reviewing separately otained hiistory, ordering medications,tests, procedures, referring, communicating with other health manager care management, indepentently interpreting results, counseling the patient and care coordination
[2023-04-03] MEDS: Latanoprost 0.005% 2.5 ML BTL OP (22:28)
--- NOTE | 2023-04-03 22:45 | RESPIRATORY ---
BIPAP Note Pt's own Trilogy. DME: [facility] Pt wears size M mask and rarely uses humidification. IPAP: 10/15 MIN/MAX EPAP: 5/10 MIN/MAX [ End ]
[2023-04-04] MEDS: Pregabalin 150 MG CAP PO ×3 (04:25→19:43)
[2023-04-04 04:28] VITALS: BP 117/13; PULSE 78; RESP 14; TEMP 36.6; O2SAT 97
[2023-04-04 07:47] LABS: HCT 39.2 % (36.0-46.0); HGB 12.4 g/dL (11.2-15.7)
[2023-04-04] MEDS: Apixaban 5 MG TAB 10 MG PO ×2 (07:48→19:43)
[2023-04-04] MEDS: Calcium Carbonate 1.5 GM TAB PO (07:48)
[2023-04-04] MEDS: DULoxetine 30 MG CAP PO (07:48)
[2023-04-04] MEDS: Cholecalciferol (Vitamin D3) 1,000 UNIT TAB 1000 UNITS PO (07:48)
[2023-04-04] MEDS: Pantoprazole 40 MG TABCR PO (07:48)
[2023-04-04 07:54] VITALS: BP 112/70; PULSE 85; RESP 18; TEMP 36.4; O2SAT 97
[2023-04-04 08:01] LABS: Anion Gap 10.2 mmol/L (3-11); BUN 39 mg/dL (7-18); CO2 23.8 mmol/L (21.0-32.0); CREATININE 1.3 mg/dL (0.55-1.02); Calcium 9.2 mg/dL (8.5-10.1); Chloride 102 mmol/L (98-107); Estimated GFR 46.49 (mL/min/1.73m2); Glucose 83 mg/dL (74-106); Potassium 4.1 mmol/L (3.5-5.1); Sodium 136 mmol/L (136-145)
[2023-04-04 09:17] VITALS: O2SAT 97
[2023-04-04 11:06] VITALS: PULSE 100; PULSE 88; PULSE 97; O2SAT 95; O2SAT 96; O2SAT 97
--- NOTE | 2023-04-04 12:30 | DI.US_ITS ---
Exam(s) US EXTREMITY VENOUS BI EXAM: US EXTREMITY VENOUS BI CLINICAL HISTORY: Acute PE, concern for DVT TECHNIQUE: Grayscale, color, and doppler imaging of the deep venous system of both lower extremities was performed. COMPARISON: US POCUS EXAM from 04/02/2023 FINDINGS: There is no evidence of intraluminal thrombus and there is normal compression and augmentation demons trated within the common femoral veins, femoral veins, and popliteal veins of both lower extremities. In the calves the interrogated veins also exhibit normal compression/ augmentation properties. The greater saphenous veins also appear patent as do the saphenofemoral junctions bilaterally.. IMPRESSION: 1. No ultrasound evidence of DVT in either lower extremity. DATA REPOSITORY:
--- NOTE | 2023-04-04 14:06 | DI.VRAD_ITS ---
PROCEDURE INFORMATION: Exam: US Duplex Lower Extremity Veins, Bilateral Exam date and time: 04/04/2023 1:32 PM Age: 63 years old Clinical indication: Other: Known pe TECHNIQUE: Imaging protocol: Real-time duplex ultrasound of the bilateral extremities with 2-D mccabe scale, color Doppler flow and spectral waveform analysis including responses to compression and other maneuvers (when performed) with image documentation. Complete exam focused on the lower extremity veins. COMPARISON: US RENAL 20/05/2021 14:21 FINDINGS: Right deep veins: Unremarkable. The common femoral, femoral, proximal profunda femoral and popliteal veins are patent without thrombus. Normal Doppler waveforms. Normal compressibility and/or augmentation response. Left deep veins: Unremarkable. The common femoral, femoral, proximal profunda femoral and popliteal veins are patent without thrombus. Normal Doppler waveforms. Normal compressibility and/or augmentation response. Superficial veins: Bilateral saphenofemoral junctions are patent without thrombus. Soft tissues: Unremarkable. IMPRESSION: No evidence of deep vein thrombosis. Dictated and Authenticated by: Carolina Rodriguez MD. Ordering:TAYLOR Morales MD
--- NOTE | 2023-04-04 17:36 | PGE_ITS ---
Date of Service Date of service: 04/04/23 Time of Service: 17:36 Assessment and Plan Assessment and plan (1) Pulmonary embolism and infarction: Status: Acute Assessment and plan: Continue apixaban. Await echocardiogram tomorrow. I do wonder if she did not have a recurrent PE, but I think I would get more information from an echo than from a repeat CTA and it would not exchange underwriting consultant. Pain is controlled. Encourage IS (2) Hypercholesterolemia: Status: Chronic Assessment and plan: Not on therapy. F/u as outpatient (3) Essential hypertension: Status: Chronic Assessment and plan: Not requiring therapy at this time (4) CIDP (chronic inflammatory demyelinating polyneuropathy): Status: Acute Assessment and plan: patient of Dr Arreola and Dr Smith. Continue duloxetine/lyrica. She is not currently on dexamethasone. Continue trelegy. (5) Discharge planning issues: Status: Acute Assessment and plan: Full code Anticipate discharge home tomorrow after her echo. Exercise oximetry: 95% on RA. Subjective Subjective Interval history since last seen: Ms Rogel states that her rib pain is better. Deep breathing is always difficult for her because of diaphragmatic paralysis. Denies dizziness, nausea. Her IV site is bleeding. Shared with me how important it is for her to get to DC to the CIDP conference. Exam Narrative Exam Narrative: General: Pleasant middle-aged female who is A&Ox3, appears comfortable in bed, on RA, not dyspneic, tachypneic, or cyanotic on RA HEENT: EOMI, MMM Heart: RRR, no m/r/g Lungs: crackles R base Abdomen: soft, nontender, nondistended Extremities: trace edema BLEs, symmetric Objective Last Vital Signs Temp 36.4 C L 04/04/23 07:54 Pulse 85 04/04/23 07:54 Resp 18 04/04/23 07:54 BP 112/70 04/04/23 07:54 Pulse Ox 97 04/04/23 09:17 Laboratory Results - last 24 hr 04/04/23 04/04/23 07:10 07:10 Hgb 12.4 D Hct 39.2 Sodium 136 Potassium 4.1 Chloride 102 Carbon Dioxide 23.8 Anion Gap 10.2 BUN 39 H Creatinine 1.3 H Est GFR (CKD-EPI 2020) 46.49 Glucose 83 Calcium 9.2 Objective Narrative Objective Narrative: Venous doppler BLEs: 1.? No ultrasound evidence of DVT in either lower extremity. Time Spent with Patient Time Spent with Patient: 25-34 minutes Time was spent: preparing to see the patient(eg.review tests), obtaining and/or reviewing separately otained hiistory, ordering medications,tests, procedures, referring, communicating with other health childcare center administrator, indepentently interpreting results, counseling the patient and care coordination
[2023-04-04] MEDS: Latanoprost 0.005% 2.5 ML BTL OP (19:44)
[2023-04-04 19:50] VITALS: BP 117/75; PULSE 88; RESP 18; TEMP 37.2; O2SAT 98
[2023-04-04] MEDS: Normal Saline Flush 10 ML SYR IVP (19:57)
[2023-04-05] MEDS: Pregabalin 150 MG CAP PO ×2 (02:49→11:18)
[2023-04-05 04:20] VITALS: BP 108/66; PULSE 84; RESP 18; TEMP 36.9; O2SAT 94
[2023-04-05 07:06] LABS: Abs Immature Grans 0.21 10^3/uL (0.0-0.06); Absolute Basophil Count 0.04 10^3/uL (0.0-0.2); Absolute Eosinophil Count 0.24 10^3/uL (0.0-0.7); Absolute Lymphocyte Count 1.08 10^3/uL (1.2-3.4); Absolute Monocyte Count 0.81 10^3/uL (0.1-0.8); Absolute Neutrophil Count 8.37 10^3/uL (1.2-6.7); Basophils % 0.4; Eosinophils % 2.2; HCT 39.8 % (36.0-46.0); HGB 12.4 g/dL (11.2-15.7); MCH 27.6 pg (27.0-33.0); MCHC 31.2 % (32.0-36.0); MCV 88 fL (80-95); MPV 9.9 fL (8.0-11.0); Monocytes % 7.5; Neutrophils % 77.9; Platelet Count 316 10^3/uL (130-400); RDW 15.6 % (11.7-14.6); RDW-SD 50.7 fL; WBC 10.75 10^3/uL (4.4-10.8)
--- NOTE | 2023-04-05 07:13 | W.PULMPROG ---
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 Her troponin is negative and her lactate is normal. Her POCUS does show a dilated RV, without LV compression or concern for impending obstructive shock. Her bnp is also elevated. Her PESI score is 92 (III). Based on data available she is intermediate low risk. There is literature connecting CIDP to pulmonary embolism. The mechanisms for clot formation in CIDP include systemic inflammation and denervation of peripheral vessels resulting in stasis. 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 She is planned for an echo today and then hopefully will be discharged. I will arrange follow up with her with me as an outpatient. I do worry that she will need to be on life long anticoagulation since there is no provoking cause and due to her CIDP. 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 The pain is much better and she is breathing better. She is scheduled for an echo cardiogram today and then is planned for discharge. Exam Narrative Exam Narrative: Gen:?Marybeth cute distress HENT:?PERRL Chest:?Moderate respiratory distress. clear to auscultation bilaterally, anteriorly Heart:?regular rate and rhythym, no murmurs, rubs or gallops Abdomen:?Non-distended, soft, non tender Extremities:?No clubbing, edema, cyanosis, rashes Neuro:?AAOx3 , non focal Psych:?cooperative, appropriate mental affect Objective Last Vital Signs Temp 36.9 C 04/05/23 04:20 Pulse 84 04/05/23 04:20 Resp 18 04/05/23 04:20 BP 108/66 04/05/23 04:20 Pulse Ox 94 04/05/23 04:20 Laboratory Results - last 24 hr 04/04/23 04/04/23 07:10 07:10 Hgb 12.4 D Hct 39.2 Sodium 136 Potassium 4.1 Chloride 102 Carbon Dioxide 23.8 Anion Gap 10.2 BUN 39 H Creatinine 1.3 H Est GFR (CKD-EPI 2020) 46.49 Glucose 83 Calcium 9.2 Results Medications Medications: Active Medications Generic Name Dose Route Start Last Admin Trade Name Freq PRN Reason Stop Dose Admin Acetaminophen 0 mg 04/02/23 17:31 04/03/23 05:30 Acetaminophen 325 Mg Tab PO 650 mg Q4H PRN PRN Administration Apixaban 10 mg 04/03/23 20:00 04/04/23 19:43 Apixaban 5 Mg Tab PO 04/10/23 08:31 10 mg BID BRADY Administration Calcium Carbonate 1.5 gm 04/03/23 08:30 04/04/23 07:48 Calcium Carbonate 1.5 Gm Tab PO 1.5 gm DAILY BRADY Administration Cholecalciferol 1,000 units 04/03/23 08:30 04/04/23 07:48 Cholecalciferol (Vitamin D3) 1,000 Unit Tab PO 1,000 units DAILY BRADY Administration Duloxetine HCl 30 mg 04/03/23 08:30 04/04/23 07:48 Duloxetine 30 Mg Cap PO 30 mg DAILY BRADY Administration Hydrocortisone 0 gm 04/03/23 07:46 Hydrocortisone 2.5% Cr 30 Gm Tube TP BID PRN PRN hemorrhoids Hydromorphone HCl 2 mg 04/02/23 17:33 04/03/23 17:48 Hydromorphone 2 Mg Tab PO 2 mg Q6H PRN PRN Administration IV Miscellaneous Supplies 1 each 04/02/23 09:30 Iv Access-Emergency Dept IV DIRECTED BRADY Iohexol 100 ml 04/02/23 15:45 04/02/23 15:45 Omnipaque 350 Mg/Ml 100 Ml Btl IJ 05/02/23 23:59 100 ml DIRECTED BRDAY Administration Latanoprost 0 ml 04/02/23 22:00 04/04/23 19:44 Latanoprost 0.005% 2.5 Ml Btl OP 1 drp HS BRADY Administration Pantoprazole Sodium 40 mg 04/03/23 08:30 04/04/23 07:48 Pantoprazole 40 Mg Tabcr PO 40 mg DAILY BRADY Administration Patient's Own 1 each 04/03/23 08:30 04/04/23 07:51 Medication ( PO 1 each Linaclotide [Linzess DAILY BRADY Administration ] 145 Mcg Capsule) Polyethylene Glycol 17 gm 04/02/23 17:31 Polyethylene Glycol 3350 17 Gm Packet PO DAILY PRN PRN Constipation Pregabalin 150 mg 04/02/23 19:00 04/05/23 02:49 Pregabalin 150 Mg Cap PO 150 mg Q8H BRADY Administration Sodium Chloride 0 ml 04/02/23 09:24 04/04/23 19:57 Normal Saline Flush 10 Ml Syr IVP 20 ml PRN PRN Administration Sodium Chloride 50 ml 04/02/23 13:45 04/02/23 13:39 Normal Saline - Diluent 50 Ml Vial IJ 50 ml .FOR DI USE BRADY Administration Triamcinolone Acetonide 0 gm 04/02/23 18:22 Triamcinolone 0.1% Oint 15 Gm Tube TP BID PRN Allergies aspartame Adverse Reaction (Intermediate, Verified 04/02/23 18:45) hydrochlorothiazide Adverse Reaction (Intermediate, Verified 04/02/23 18:45) Leg cramps latex Adverse Reaction (Intermediate, Verified 04/02/23 18:45) skin cracks and bleeds Labs 04/05/23 06:32 04/05/23 06:32 Labs: Laboratory Tests Range/Units 04/02/23 04/02/23 04/02/23 10:31 10:31 10:31 WBC (4.4-10.8) 10^3/uL 10.27 RBC (3.93-5.22) 10^6/uL 5.71 H Hgb (11.2-15.7) g/dL 15.5 Hct (36.0-46.0) % 50.8 H MCV (80-95) fL 89 MCH (27.0-33.0) pg 27.1 MCHC (32.0-36.0) % 30.5 L RDW (11.7-14.6) % 15.7 H Plt Count (130-400) 10^3/uL 272 MPV (8.0-11.0) fL 9.0 Immature Gran % 0.5 Neutrophils % 73.4 Lymphocytes % 13.5 Monocytes % 11.9 Eosinophils % 0.5 Basophils % 0.2 Nucleated RBC % (0.0-0.3) % 0.0 Absolute Neutrophils (1.2-6.7) 10^3/uL 7.54 H Absolute Lymphocytes (1.2-3.4) 10^3/uL 1.39 Absolute Monocytes (0.1-0.8) 10^3/uL 1.22 H Absolute Eosinophils (0.0-0.7) 10^3/uL 0.05 Absolute Basophils (0.0-0.2) 10^3/uL 0.02 D-Dimer (<500) ng/mlFEU 1134 H VBG Lactate (0.6-1.4) mmol/L Sodium (136-145) mmol/L 139 Potassium (3.5-5.1) mmol/L 3.4 L Chloride (98-107) mmol/L 103 Carbon Dioxide (21.0-32.0) mmol/L 28.4 Anion Gap (3-11) mmol/L 7.6 BUN (7-18) mg/dL 37 H Creatinine (0.55-1.02) mg/dL 1.1 H Est GFR (CKD-EPI 2020) (mL/min/1.73m2) 56.81 Glucose (74-106) mg/dL 91 Calcium (8.5-10.1) mg/dL 9.5 Magnesium (1.8-2.4) mg/dL 2.3 Total Bilirubin (0.2-1.0) mg/dL 0.3 AST (15-37) U/L 8 L ALT (14-59) U/L 7 L Alkaline Phosphatase (46-116) U/L 72 Troponin I (<or=60) ng/L < 50 NT-Pro-B Natriuret Pep (<300) pg/mL Total Protein (6.4-8.2) g/dL 8.1 Albumin (3.4-5.0) g/dL 3.3 L COVID-19 Source SARS-CoV-2 (PCR) (Negative) Influenza Type A (PCR) (Negative) Influenza Type B (PCR) (Negative) RSV (PCR) (Negative) Range/Units 04/02/23 04/02/23 04/02/23 13:25 16:03 16:50 WBC (4.4-10.8) 10^3/uL RBC (3.93-5.22) 10^6/uL Hgb (11.2-15.7) g/dL Hct (36.0-46.0) % MCV (80-95) fL MCH (27.0-33.0) pg MCHC (32.0-36.0) % RDW (11.7-14.6) % Plt Count (130-400) 10^3/uL MPV (8.0-11.0) fL Immature Gran % Neutrophils % Lymphocytes % Monocytes % Eosinophils % Basophils % Nucleated RBC % (0.0-0.3) % Absolute Neutrophils (1.2-6.7) 10^3/uL Absolute Lymphocytes (1.2-3.4) 10^3/uL Absolute Monocytes (0.1-0.8) 10^3/uL Absolute Eosinophils (0.0-0.7) 10^3/uL Absolute Basophils (0.0-0.2) 10^3/uL D-Dimer (<500) ng/mlFEU VBG Lactate (0.6-1.4) mmol/L 1.0 Sodium (136-145) mmol/L Potassium (3.5-5.1) mmol/L Chloride (98-107) mmol/L Carbon Dioxide (21.0-32.0) mmol/L Anion Gap (3-11) mmol/L BUN (7-18) mg/dL Creatinine (0.55-1.02) mg/dL Est GFR (CKD-EPI 2020) (mL/min/1.73m2) Glucose (74-106) mg/dL Calcium (8.5-10.1) mg/dL Magnesium (1.8-2.4) mg/dL Total Bilirubin (0.2-1.0) mg/dL AST (15-37) U/L ALT (14-59) U/L Alkaline Phosphatase (46-116) U/L Troponin I (<or=60) ng/L < 50 NT-Pro-B Natriuret Pep (<300) pg/mL Total Protein (6.4-8.2) g/dL Albumin (3.4-5.0) g/dL COVID-19 Source NASOPHARYNX SARS-CoV-2 (PCR) (Negative) Negative Influenza Type A (PCR) (Negative) Negative Influenza Type B (PCR) (Negative) Negative RSV (PCR) (Negative) Negative Range/Units 04/02/23 04/03/23 04/03/23 16:50 06:35 12:40 WBC (4.4-10.8) 10^3/uL RBC (3.93-5.22) 10^6/uL Hgb (11.2-15.7) g/dL Hct (36.0-46.0) % MCV (80-95) fL MCH (27.0-33.0) pg MCHC (32.0-36.0) % RDW (11.7-14.6) % Plt Count (130-400) 10^3/uL MPV (8.0-11.0) fL Immature Gran % Neutrophils % Lymphocytes % Monocytes % Eosinophils % Basophils % Nucleated RBC % (0.0-0.3) % Absolute Neutrophils (1.2-6.7) 10^3/uL Absolute Lymphocytes (1.2-3.4) 10^3/uL Absolute Monocytes (0.1-0.8) 10^3/uL Absolute Eosinophils (0.0-0.7) 10^3/uL Absolute Basophils (0.0-0.2) 10^3/uL D-Dimer (<500) ng/mlFEU VBG Lactate (0.6-1.4) mmol/L Sodium (136-145) mmol/L 137 Potassium (3.5-5.1) mmol/L 4.3 Chloride (98-107) mmol/L 103 Carbon Dioxide (21.0-32.0) mmol/L 26.2 Anion Gap (3-11) mmol/L 7.8 BUN (7-18) mg/dL 39 H Creatinine (0.55-1.02) mg/dL 1.5 H Est GFR (CKD-EPI 2020) (mL/min/1.73m2) 39.16 Glucose (74-106) mg/dL 90 Calcium (8.5-10.1) mg/dL 9.3 Magnesium (1.8-2.4) mg/dL Total Bilirubin (0.2-1.0) mg/dL AST (15-37) U/L ALT (14-59) U/L Alkaline Phosphatase (46-116) U/L Troponin I (<or=60) ng/L < 50 < 50 NT-Pro-B Natriuret Pep (<300) pg/mL 1465 H Total Protein (6.4-8.2) g/dL Albumin (3.4-5.0) g/dL COVID-19 Source SARS-CoV-2 (PCR) (Negative) Influenza Type A (PCR) (Negative) Influenza Type B (PCR) (Negative) RSV (PCR) (Negative) Range/Units 04/04/23 04/04/23 07:10 07:10 WBC (4.4-10.8) 10^3/uL RBC (3.93-5.22) 10^6/uL Hgb (11.2-15.7) g/dL 12.4 D Hct (36.0-46.0) % 39.2 MCV (80-95) fL MCH (27.0-33.0) pg MCHC (32.0-36.0) % RDW (11.7-14.6) % Plt Count (130-400) 10^3/uL MPV (8.0-11.0) fL Immature Gran % Neutrophils % Lymphocytes % Monocytes % Eosinophils % Basophils % Nucleated RBC % (0.0-0.3) % Absolute Neutrophils (1.2-6.7) 10^3/uL Absolute Lymphocytes (1.2-3.4) 10^3/uL Absolute Monocytes (0.1-0.8) 10^3/uL Absolute Eosinophils (0.0-0.7) 10^3/uL Absolute Basophils (0.0-0.2) 10^3/uL D-Dimer (<500) ng/mlFEU VBG Lactate (0.6-1.4) mmol/L Sodium (136-145) mmol/L 136 Potassium (3.5-5.1) mmol/L 4.1 Chloride (98-107) mmol/L 102 Carbon Dioxide (21.0-32.0) mmol/L 23.8 Anion Gap (3-11) mmol/L 10.2 BUN (7-18) mg/dL 39 H Creatinine (0.55-1.02) mg/dL 1.3 H Est GFR (CKD-EPI 2020) (mL/min/1.73m2) 46.49 Glucose (74-106) mg/dL 83 Calcium (8.5-10.1) mg/dL 9.2 Magnesium (1.8-2.4) mg/dL Total Bilirubin (0.2-1.0) mg/dL AST (15-37) U/L ALT (14-59) U/L Alkaline Phosphatase (46-116) U/L Troponin I (<or=60) ng/L NT-Pro-B Natriuret Pep (<300) pg/mL Total Protein (6.4-8.2) g/dL Albumin (3.4-5.0) g/dL COVID-19 Source SARS-CoV-2 (PCR) (Negative) Influenza Type A (PCR) (Negative) Influenza Type B (PCR) (Negative) RSV (PCR) (Negative)
[2023-04-05] MEDS: Calcium Carbonate 1.5 GM TAB PO (07:55)
[2023-04-05] MEDS: Cholecalciferol (Vitamin D3) 1,000 UNIT TAB 1000 UNITS PO (07:55)
[2023-04-05] MEDS: Apixaban 5 MG TAB 10 MG PO (07:55)
[2023-04-05] MEDS: DULoxetine 30 MG CAP PO (07:55)
[2023-04-05] MEDS: Pantoprazole 40 MG TABCR PO (07:55)
[2023-04-05 07:57] VITALS: BP 119/70; PULSE 82; RESP 18; TEMP 36.6; O2SAT 97
--- NOTE | 2023-04-05 08:00 | DI.US_ITS ---
APPROVED REPORT EXAM: Comprehensive 2D, Doppler, and color-flow Echocardiogram Patient Location: In-Patient Room/Bed: [address] Machine Operator: Artie Payne RDCS (AE) Other Information Study Quality: Fair. Technically limited study due to body habitus, inability to position patient. Conclusion Technically difficult study Concentric left ventricular hypertrophy. Ejection fraction is 60 to 65%. Wall motion is hyperdynami c Normal right ventricular size Both atria are normal in size Aortic valve is sclerotic without stenosis or regurgitation Mild mitral annular calcification. Mildly thickened mitral leaflets. Trace mitral regurgitation Trivial pericardial effusion Wall motion Left Ventricle The left ventricle is grossly normal size. Unable to obtain measurements due to the vertical position . The left ventricular systolic function is normal. The left ventricular ejection fraction is within the normal range. There appears to be mild concentric left ventricular hypertrophy. There is normal L V segmental wall motion. There is no ventricular septal defect visualized. LVEF is 60-65%. Right Ventricle The right ventricle is normal size. Right ventricular systolic function could not be assessed. The RV SP is 8.2 mmHg. Atria The left atrium size is normal. The right atrium size is normal. The interatrial septum is intact wit h no evidence for an atrial septal defect. Aortic Valve The Aortic valve appears sclerotic. Number of aortic valve leaflets could not be assessed due to tech nically limited visualization of the parasternal short axis images. There is no aortic valvular steno sis. No aortic regurgitation is present. Mitral Valve Mild mitral annular calcification. Mitral valve leaflets are mildly thickened. No evidence of mitral valve stenosis. Trace mitral regurgitation. Tricuspid Valve The tricuspid valve is normal in structure. There is no tricuspid valve stenosis. Trace tricuspid reg urgitation. Pulmonic Valve Pulmonic valve is not well visualized. Great Vessels The aortic root is normal in size. Ascending aorta is not well visualized. Aortic arch is normal in c aliber. IVC is normal in size and collapses >50% with inspiration. Pericardium Trivial pericardial effusion 2D Dimensions Ao Root d 3.01 cm F: 2.7 - 3.3 Auto EF LV EDV A4C 102.0 mL LV EDV A2C 107.1 mL LV EDV BP LV ESV A4C 38.7 mL LV ESV A2C 40.8 mL LV ESV BP LVEF(%) A4C 62.0 % LVEF(%) A2C 61.9 % LVEF(%) BP LV SV A4C 63.2 ml LV SV A2C 66.3 ml LV SV BP LV CO A4C 4.8 L/min LV CO A2C 5.4 L/min LV CO BP HR A4C 76.44 BPM HR A2C 81.45 BPM LV EDV Index (BP) LA Volume LA Length A4C 5.2 cm LA Length A2C LA Area A4C s 12.36 cm2 LA Area A2C s LA Vol A4C A-L 24.80 mL LA Vol A2C A-L LA Vol Biplane A-L LA Vol A4C MOD 24.0 mL LA Vol A2C MOD LA Vol BP MOD LV Diastology MV E' lateral 0.083 (>0.1 m/s) MV E Vmax 0.95 (0.4-1.3 m/s) MV E/E' LAT 11.44 (<14) MV A Vmax 1.40 (0.4-1.3 m/s) E/A Ratio 0.7 Aortic Valve AoV Vmax 1.87 m/s LVOT Vmax 1.71 m/s AoV Peak Grad 14.0 mmHg LVOT Peak Grad 11.7 mmHg AoV Area (Vmax) 2.37 cm2 LVOT VTI 0.342 m AoV VTI 0.344 m LVOT Mean Grad 7.6 mmHg AoV Mean Alonso. 1.26 m/s LVOT SV 88.62 mL AoV Mean Grad 7.2 mmHg LVOT Diam s 1.80 cm AoV Area (VTI) 2.58 cm2 Velocity Ratio 0.91 Mitral Valve MV DT 365 (160-240 msec) Tricuspid Valve RA Pressure 3.00 mmHg TR Vmax 1.14 m/s TR Peak Grad 5.2 mmHg RVSP (TR) 8.2 mmHg
[2023-04-05 08:03] LABS: Anion Gap 8.1 mmol/L (3-11); BUN 33 mg/dL (7-18); CO2 24.9 mmol/L (21.0-32.0); CREATININE 1.1 mg/dL (0.55-1.02); Calcium 9.2 mg/dL (8.5-10.1); Chloride 105 mmol/L (98-107); Estimated GFR 56.81 (mL/min/1.73m2); Glucose 96 mg/dL (74-106); Magnesium 2.4 mg/dL (1.8-2.4); Sodium 138 mmol/L (136-145)
--- NOTE | 2023-04-05 09:37 | PCNE_ITS ---
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 She does use a breathing machine on a regular basis. She gets infusions and is under the care of both a freight breaker and a neurologist. Over the weekend she started developing left upper back and shoulder pain. It worsened if she tried to lay down. She slept sitting up for added fairly big incline. Finally she decided that the pain was so bad that she needed to go to the ER. In the ER she was found to have pulmonary emboli. Her plan was to go home the following day but because of her pain and weakness and shortness of breath she remains hospitalized. They are getting her pain under control. She is presently on apixaban. She does have a coagulability work-up being done. She is significantly incapacitated so lack of mobility alone would be her biggest risk factor. Consults Consult date: 04/05/23 Requesting physician: Pankaj Henderson Assessment and Plan Assessment and plan (1) Embolism, pulmonary with infarction: Status: Acute (2) Peptic reflux disease: Status: Chronic (3) Essential hypertension: Status: Chronic (4) CIDP (chronic inflammatory demyelinating polyneuropathy): Status: Acute (5) Restrictive lung mechanics due to neuromuscular disease: Status: Acute (6) Impaired mobility and activities of daily living: Status: Acute (7) Palliative care patient: Status: Acute Assessment and plan: Kallie is a 63-year-old woman with about a year and a half history of CIDP. She has adapted very well. She presently uses trilogy machine, has gone through speech to learn proper breathing mechanisms., Has done infusions and prednisone. She is under the care of both pulmonology and neurology. Both she and her have worked hard to incorporate the new therapies into their everyday life. She knows that anxiety is playing a piece of what happens when she gets short of breath. We talked about possibly using a little low-dose of diazepam occasionally to see if that helps her. Also we talked about the good effects that morphine can do for her i.e. decrease anxiety, open up bronchial passages, and help with pain. She is open to both of these of course on a as needed basis. I have called these into the pharmacy. She does have a similar plan for of this week. She is very very anxious to go to it because it is a specific seminar on CIDP. She and her have made plans to go down very slowly i.e. travel for 2 days, stop regularly etc. She is on Eliquis so that is a good thing. I will be anxious to see if there is any type of clotting disorder. I will be seeing her outpatient prior to her departure. Echo is still pending. I am assuming it is going to show problems related to her heart strain secondary to pulmonary infarcts I have spent more than 50% of time in counseling with this patient. Review of Systems Narrative: Pain is improving. Shortness of breath is better. She is using the machine on a regular basis. She still does have some shortness of breath. She has not a mbulated much. She does not have chest pain per se but rather shoulder pain and upper back pain. She is not nauseated. 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 stated this was r/o to be cardiac in nature, and is why she is have C&G procedure done on 08/06/21 Chest pain Cough 08/30/17 Cough Difficulty breathing DUB (dysfunctional uterine bleeding) 2.6cm fundal fibroid; 3.8 cm right ovary cyst in 01/08 since resolved. 3.5 cm left kidney cyst Elevated hematocrit Elevated hemoglobin Esophagitis (~08/2021) Essential hypertension External otitis 05/07/14 Gastroesophageal reflux disease Hip pain, left Hyperlipidemia Increased body mass index Knee pain (01/01/07) MRI 01/08= neg. tear; ? of chondromalacia; Med. patellar fault Left shoulder pain 08/05/15 Left shoulder pain (08/05/15) Leg weakness, bilateral Lymphadenopathy Microscopic hematuria neg. 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 I explained her that I know do all my carpal tunnel surgeries via open technique. This avoid an incomplete release or or an injury to the common digital nerve to the middle finger. Patient understands the reason for the change the open technique and agrees to have this done on her right side despite the fact that she had a E CTR on the left side SOB (shortness of breath) Thrombocytosis Vascular headache Vascular headache Weight loss Surgical History Endometrial Biopsy neg H/O esophagogastroduodenoscopy (~08/2021) History of carpal tunnel release 05/13/18 DR. CUADRA; RIGHT History of colonoscopy (~08/2021) History of gynecologic surgery endometrial Bx-neg Open Carpal Tunnel release (~2002) left medial nerve release PROCEDURES 07/21/16; LASERLIDOTOMY S/P carpal tunnel release left medial nerve release Status post carpal tunnel release Status post carpal tunnel release Family History Mother , 59 Essential hypertension Anxiety Depression Heart disease Hyperlipidemia Leukemia Father , MET/LUNG CA at age 79. Diabetes Alcohol abuse Essential hypertension Heart disease Hyperlipidemia Asthma Lung cancer Sister No problems noted. Brother Essential hypertension Anxiety Depression Hyperlipidemia Maternal Grandfather , 90s No problems noted. Paternal Grandfather , 90s Heart disease Stroke Maternal Grandmother , 70s No problems noted. Paternal Grandmother , 70s Alcohol abuse Heart disease Hypertension Stroke Social History Smoking/Tobacco Use Status: Never Second Hand Exposure: Yes Smoking risk assessment performed?: Yes Alcohol Intake: current Alcohol type: wine and hard liquor Drug use: Never Substance use type: marijuana Details: comsumse THC eatables at night for sleep Caregiver/Support person: No Household members: spouse Housing: house Communication Needs: Corrective Lenses Education Level: college Do you need help understanding health information?: Rarely Pets and animals: No Sexually active: Yes Do you think of yourself as: straight/heterosexual Current gender identity: female What is your relationship status?: How often do you talk on the phone with friends or family?: three or more times per week How often do you get together with friends or relatives?: three or more times per week Do you belong to any clubs or organized social groups?: no Panel score (0-1 are the most socially isolated patients): 2 What type of physical activity do you participate in: none Barbara/Episcopal: No preference Special barbara needs: No Seatbelt use: always Drive intox or ride w/intox limo driver: No Do you feel safe at home: Yes Do you feel safe in your relationship?: Yes Exam Narrative Exam Narrative: Kallie is a 63-year-old woman with CIDP. Her is in the room. She is not using accessory muscles to breathe at this time. Her respirations are about 16 to 18/min. Her heart is regular, and in the upper limit of normal. She has good aeration in her lungs. Her mood is optimistic. Results Last Vital Signs Temp 97.9 F 04/05/23 07:57 Pulse 82 04/05/23 07:57 Resp 18 04/05/23 07:57 BP 119/70 04/05/23 07:57 Pulse Ox 97 04/05/23 07:57 Labs 04/05/23 06:32 04/05/23 06:32 Labs: Laboratory Results - last 24 hr 04/05/23 04/05/23 06:32 06:32 WBC 10.75 RBC 4.50 Hgb 12.4 Hct 39.8 MCV 88 MCH 27.6 MCHC 31.2 L RDW 15.6 H Plt Count 316 MPV 9.9 Immature Gran % 2.0 Neutrophils % 77.9 Lymphocytes % 10.0 Monocytes % 7.5 Eosinophils % 2.2 Basophils % 0.4 Nucleated RBC % 0.0 Absolute Neutrophils 8.37 H Absolute Lymphocytes 1.08 L Absolute Monocytes 0.81 H Absolute Eosinophils 0.24 Absolute Basophils 0.04 Sodium 138 Potassium 4.0 Chloride 105 Carbon Dioxide 24.9 Anion Gap 8.1 BUN 33 H Creatinine 1.1 H Est GFR (CKD-EPI 2020) 56.81 Glucose 96 Calcium 9.[address] scan - chest: report reviewed Additional studies: FINDINGS: The examination is limited due to patient motion artifact.? Tracheobronchial tree: Patent where visualized. Pulmonary parenchyma: Atelectatic changes are seen in the right lower lobe.? There is a large area of consolidation in the left lower lobe.? While pneumonia and atelectasis should be considered, infarction cannot be excluded given the pulmonary emboli present.? No architectural distortion. Pulmonary Arteries: The examination is limited due to patient motion artifact.? There are pulmonary emboli in segmental and subsegmental branches of the left upper and left lower lobe.? There is no saddle embolus. Mediastinum and Sofia: No dominant adenopathy or fluid collection.? The esophagus is unremarkable.? Visualized thyroid gland: Unremarkable.? Pleura: No effusion or pneumothorax. Heart: Cardiomegaly.? Coronary artery calcifications are present.? The RV to LV ratio is greater than 1. Aorta: Thoracic aorta non-dilated. No evidence of dissection. Atherosclerosis. Upper abdomen:? Unremarkable. Soft tissues: Unremarkable.? Bones: Within normal limits for the patient's age. IMPRESSION: 1. Pulmonary emboli in segmental and subsegmental branches to the left upper and left lower lobe.? No saddle embolus. 2. Peripheral left lower lobe infiltrate which given the pulmonary emboli, fracture infarction cannot be excluded. 3. RV to LV ratio greater than 1 suggesting right heart strain. 4. Findings were discussed with Kacie Alarcon at 4:11 p.m. on 04/02/2023. Echo pending
[2023-04-05 10:05] LABS: Antithrombin 3, Funct. 113 % (85-125)
--- NOTE | 2023-04-05 14:33 | DSE_ITS ---
Date of service: 04/05/23 Time of Service: 14:33 DS: Diagnosis Discharge Diagnosis (1) Embolism, pulmonary with infarction: Status: Acute (2) CIDP (chronic inflammatory demyelinating polyneuropathy): Status: Acute (3) Peptic reflux disease: Status: Chronic (4) Essential hypertension: Status: Chronic (5) Restrictive lung mechanics due to neuromuscular disease: Status: Acute (6) Impaired mobility and activities of daily living: Status: Acute (7) Hypokalemia: Status: Resolved Discharge Plan Disposition Patient Disposition: Home Condition: Good Discharge Details Reason For Visit: Pulmonary Emboli Admit Date/Time: 04/02/23 17:27 Admit Provider: Pankaj Henderson Attending Provider: Pankaj Henderson Primary Care Provider: Tonya Costello Hospital Course Hospital Course: Ms Rogel is a 63 yo female with a h/o CIDP (chronic inflammatory demyelinating polyneuropathy), HLD, HTN, polychthemia, Restrictive lung mechanics, chronic constipation, who was admitted to [facility] Hospitalist service on 04/02/23 with acute PE, having presented with dyspnea x several days and left sided chest pain, which occurred the morning of admission; sharp in nature. In the ED she was not hypoxic, but was tachycardic. She ruled out for acute ACS. Because of her PESI score of 92, a CTA of the chest was obtained and showed ANGELA and LLL pulmonary emboli with evidence of pulmonary infarcts. By CT, there was also a concern for R heart strain. The patient was evaluated in the ED by Dr Smith, who performed a POCUS on the patient and was also concerned about RV dysfunction. The patient was initiated on lovenox initially, but then switched over to apixaban. The patient did experience severe pleuritic left sided CP on 04/03/23, which resolved with PO dilaudid. There was a concern for a recurrent PE clinically, but the patient yet again did not have hypoxia or tachycardia at that time to suggest a hemodynamically significant one. We ruled out LE DVTs. A CTA was not repeated because it would not change her management. A formal echocardiogram was obtained on 04/05/23 and did not demonstrate pulmonary hypertension. RV function could not be assessed. The patient is now feeling much better, her pain is controlled. She passed ambulatory pulse ox testing on and is able to be discharged home today. Interestingly, CIDP has been reported in the past to be associated with pulmonary embolism. She is driving to ID with her for the CIDP conference. I did instruct her to bring her pulmonary toilet devices with her and to take frequent breaks. She should follow up with Dr Smith in 1-2 weeks as well as with her PCP. I [place] also sending [place] [facility] [place] Care for patient as well as completion of her discharge summary on day of discharge took 45 minutes. Home Meds and New Rx's Prescriptions: New Eliquis 5 mg tablet See Rx Instructions .ROUTE .COMPLEX Qty: 74 0RF Rx Instructions: 2 tabs twice daily for 13 doses, then 1 tab twice daily Continued cholecalciferol (vitamin D3) 25 mcg (1,000 unit) capsule 25 mcg PO DAILY calcium carbonate [Calcium 600] 600 mg calcium (1,500 mg) tablet 600 mg PO DAILY loratadine [Claritin] 10 mg tablet 10 mg PO PRN PRN clotrimazole-betamethasone 1-0.05 % cream 1 applic Topical PRN PRN Rx Instructions: apply to involved area triamcinolone acetonide 0.1 % ointment 1 applic Topical PRN PRN Rx Instructions: apply to arms mecobalamin (vitamin B12) 1,000 mcg tablet,chewable 1,000 mcg PO DAILY pregabalin 150 mg capsule 150 mg PO Q8H Qty: 270 3RF duloxetine 30 mg capsule,delayed release(DR/EC) 30 mg PO DAILY Qty: 90 3RF dexamethasone 4 mg tablet 40 mg PO DAILY Qty: 40 0RF Rx Instructions: Take 40 mg daily x 4 days every 4weeks Linzess 145 mcg capsule 145 mcg PO DAILY Qty: 30 12RF latanoprost [Xalatan] 2.5 ML drops 1 drp Ophthalmic HS Lubricating Drops 15 ML drops 15 ml Ophthalmic PRN hydrocortisone [Anusol-HC] 2.5 % cream with perineal applicator 1 applic [place] QD-BID PRN (Reason: hemorrhoids) Qty: 30 4RF estradiol [Vagifem] 10 mcg tablet 10 mcg VG 2X Week Qty: 25 12RF pantoprazole [Protonix] 40 mg tablet,delayed release (DR/EC) 40 mg PO DAILY Qty: 90 6RF No Action morphine concentrate 100 mg/5 mL (20 mg/mL) solution See Rx Instructions sublingual Q1H PRN MDD 5ml PRN (Reason: pain) Qty: 30 0RF Rx Instructions: 0.25-1 ML SL Q1H PRN PRN; diazepam 2 mg tablet 2 mg PO BID PRN (Reason: anxiety) Qty: 20 2RF Discharge Instructions Instructions: Apixaban (By mouth), Pulmonary Embolism (DC) Additional Instructions: Take apixaban (eliquis) 10 mg (2 of the 5 mg tablets) twice daily for 10 more doses (5 days), then decrease the dose to 5 mg (1 tab) by mouth twice daily. Return to the hospital with any fever, bleeding, chest pain, or worsening shortness of breath. Follow up with your PCP in 1-2 weeks. Follow up with Dr Smith. A referral to [place] [facility]. Stand Alone Forms: Nursing Discharge Form Referrals: [place] - (Acute PE, H/o CIDP) Tonya Costello MD, [place] [Primary Care Provider] - 04/12/23 9:20 am () Ilene Smith MD [ [facility] STAFF PHYSICIAN] - Activity:: Activity as Tolerated Equipment/Supplies:: No Equipment Needed Diet:: Resume home diet Discharge Orders Discharge Orders: Discharge Order (Routine); Ordered 04/05/23 Ordered By: Carmen Mcallister DS: Summary Time Spent with Patient providing and/or coordinating discharge services: Greater than 30 minutes Status at Discharge Functional status at discharge: independent ambulation Overall status at discharge: patient is progressing back to baseline Mental Status: mental status grossly normal Speech and Movement: speech and movement normal Mood: congruent mood Affect: normal affect Exam Narrative Exam Narrative: General: Pleasant middle-aged female who is A&Ox3, appears comfortable in bed, on RA, not dyspneic, tachypneic, or cyanotic on RA HEENT: EOMI, MMM Heart: RRR, no m/r/g Lungs: CTAB Abdomen: soft, nontender, nondistended Extremities: trace edema BLEs, symmetric Psych Mental Status: mental status grossly normal Speech and Movement: speech and movement normal Mood: congruent mood Affect: normal affect DS: Data Vitals/I&O Vitals and I&O: Vital Signs Temperature 36.6 C 04/05/23 07:57 Temperature Source Tympanic 04/05/23 07:57 Pulse 82 04/05/23 07:57 Pulse Rhythm Regular 04/05/23 08:00 Pulse 111 H 04/02/23 18:30 Respiratory Rate 18 04/05/23 07:57 Respiratory Effort Normal, Non-Labored 04/05/23 08:00 Respiratory Depth Normal 04/05/23 08:00 Respiratory Pattern Normal 04/05/23 08:00 Blood Pressure 119/70 04/05/23 07:57 Blood Pressure Mean 101 04/02/23 18:30 Blood Pressure Position Sitting 04/02/23 09:14 Pulse Oximetry 97 04/05/23 07:57 Oxygen Delivery Method Room Air 04/05/23 07:57 Oxygen Flow Rate 0 04/05/23 07:57 Fraction of Inspired Oxygen (FIO2) 21 04/03/23 22:38 Pain Level 0 04/04/23 07:54 Comment Trilogy 04/03/23 03:57 Intake & Output 04/04/23 04/05/23 04/05/23 23:59 11:59 23:59 Intake Total 360 / 720 360 / 720 Balance 360 / 720 360 / 720 Intake: Oral 360 / 720 360 / 720 Other: Urine Appearance Clear Data Completed and Pending Completed studies during hospitalization [Text1]: CXR 04/02/23: 1. Findings suggest a pulmonary venous congestion and interstitial edema. 2. New opacity in the left lung base which may represent a focal consolidation or atelectasis.? CTA chest 04/02/23; 1. Pulmonary emboli in segmental and subsegmental branches to the left upper and left lower lobe.? No saddle embolus. 2. Peripheral left lower lobe infiltrate which given the pulmonary emboli, fracture infarction cannot be excluded. 3. RV to LV ratio greater than 1 suggesting right heart strain. Venous doppler BLEs 04/04/23: 1.? No ultrasound evidence of DVT in either lower extremity. Echo 04/05/23: Technically difficult study Concentric left ventricular hypertrophy.? Ejection fraction is 60 to 65%.? Wall motion is hyperdynamic Normal right ventricular size Both atria are normal in size Aortic valve is sclerotic without stenosis or regurgitation Mild mitral annular calcification.? Mildly thickened mitral leaflets.? Trace mitral regurgitation Trivial pericardial effusion Labs on day of discharge: Labs from last 24 hours 04/05/23 04/05/23 06:32 06:32 WBC 10.75 RBC 4.50 Hgb 12.4 Hct 39.8 MCV 88 MCH 27.6 MCHC 31.2 L RDW 15.6 H Plt Count 316 MPV 9.9 Immature Gran % 2.0 Neutrophils % 77.9 Lymphocytes % 10.0 Monocytes % 7.5 Eosinophils % 2.2 Basophils % 0.4 Nucleated RBC % 0.0 Absolute Neutrophils 8.37 H Absolute Lymphocytes 1.08 L Absolute Monocytes 0.81 H Absolute Eosinophils 0.24 Absolute Basophils 0.04 Sodium 138 Potassium 4.0 Chloride 105 Carbon Dioxide 24.9 Anion Gap 8.1 BUN 33 H Creatinine 1.1 H Est GFR (CKD-EPI 2020) 56.81 Glucose 96 Calcium 9.2 Magnesium 2.4 PFSH All Active Problems (Updated 04/05/23 @ 15:34 by Carmen Mcallister MD) Palliative care patient (Acute) Embolism, pulmonary with infarction (Acute) Discharge planning issues (Acute) Pulmonary embolism and infarction (Acute) Chronic narrow angle glaucoma of left eye (Chronic) [place] [facility]czema (Chronic 08/20/14) Hypercholesterolemia (Chronic) 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 stated this was r/o to be cardiac in nature, and is why she is have C&G procedure done on 08/06/21 Chest pain Cough 08/30/17 Cough Difficulty breathing DUB (dysfunctional uterine bleeding) 2.6cm fundal fibroid; 3.8 cm right ovary cyst in 01/08 since resolved. 3.5 cm left kidney cyst Elevated hematocrit Elevated hemoglobin Esophagitis (~08/2021) Essential hypertension External otitis 05/07/14 Gastroesophageal reflux disease Hip pain, left Hyperlipidemia Increased body mass index Knee pain (01/01/07) MRI 01/08= neg. tear; ? of chondromalacia; Med. patellar fault Left shoulder pain 08/05/15 Left shoulder pain (08/05/15) Leg weakness, bilateral Lymphadenopathy Microscopic hematuria neg. C&S; nl Bun and Cr.; neg IUP; neg cystocopy Microscopic hematuria Mild stage chronic narrow angle glaucoma of right eye [place]28[place] [facility] [place] Muscle strain Normal colonoscopy (~08/2021) On prednisone therapy Otitis externa (05/07/14) Right carpal tunnel syndrome (02/21/18) Patient has clinically obvious carpal tunnel syndrome right upper extremity. I explained her that I know do all my carpal tunnel surgeries via open technique. This avoid an incomplete release or or an injury to the common digital nerve to the middle finger. Patient understands the reason for the change the open technique and agrees to have this done on her right side despite the fact that she had a E CTR on the left side SOB (shortness of breath) Thrombocytosis Vascular headache Vascular headache Weight loss Surgical History Endometrial Biopsy neg H/O esophagogastroduodenoscopy (~08/2021) History of carpal tunnel release 05/13/18 DR. CUADRA; RIGHT History of colonoscopy (~08/2021) History of gynecologic surgery endometrial Bx-neg Open Carpal Tunnel release (~2002) left medial nerve release PROCEDURES 07/21/16; LASERLIDOTOMY S/P carpal tunnel release left medial nerve release Status post carpal tunnel release Status post carpal tunnel release Family History Mother , 59 Essential hypertension Anxiety Depression Heart disease Hyperlipidemia Leukemia Father , MET/LUNG CA at age 79. Diabetes Alcohol abuse Essential hypertension Heart disease Hyperlipidemia Asthma Lung cancer Sister No problems noted. Brother Essential hypertension Anxiety Depression Hyperlipidemia Maternal Grandfather , 90s No problems noted. Paternal Grandfather , 90s Heart disease Stroke Maternal Grandmother , 70s No problems noted. Paternal Grandmother , 70s Alcohol abuse Heart disease Hypertension Stroke Social History Smoking/Tobacco Use Status: Never Second Hand Exposure: Yes Smoking risk assessment performed?: Yes Alcohol Intake: current Alcohol type: wine and hard liquor Drug use: Never Substance use type: marijuana Details: comsumse THC eatables at night for sleep Caregiver/Support person: No Household members: spouse Housing: house Communication Needs: Corrective Lenses Education Level: college Do you need help understanding health information?: Rarely Pets and animals: No Sexually active: Yes Do you think of yourself as: straight/heterosexual Current gender identity: female What is your relationship status?: How often do you talk on the phone with friends or family?: three or more times per week How often do you get together with friends or relatives?: three or more times per week Do you belong to any clubs or organized social groups?: no Panel score (0-1 are the most socially isolated patients): 2 What type of physical activity do you participate in: none Barbara/Adventism: No preference Special barbara needs: No Seatbelt use: always Drive intox or ride w/intox stacker driver: No Do you feel safe at home: Yes Do you feel safe in your relationship?: Yes Time Spent with Patient Time Spent with Patient: 45-69 minutes Time was spent: preparing to see the patient(eg.review tests), obtaining and/or reviewing separately otained hiistory, ordering medications,tests, procedures, referring, communicating with other health career services officer, indepentently interpreting results, counseling the patient and care coordination
[2023-04-06 10:23] LABS: Antithrombin Activity, Plasma 109 % (80 - 130)
[2023-04-06 10:38] LABS: Protein S Ag, Free 67 % (65 - 160)
[2023-04-06 11:46] LABS: Activated Partial Thrombo Time 28 sec (25 - 37); DRVVT Screen Ratio 0.98 ratio (<1.20); INR 1.2 (0.9-1.1); Prothrombin Time (PT) 13.3 sec (9.4 - 12.5)
[2023-04-07 12:47] LABS: Protein C, Functional >150 % (71-199)
[2023-04-07 12:48] LABS: Protein S, Functional 84 % (64-147)
[2023-04-07 14:14] LABS: Factor V Leiden(R506Q) Mut Negative (Negative)
[2023-04-09 14:32] LABS: Protein C Ag, P 112 % (72-160)
[2023-04-14 17:09] LABS: Thrombin-Antithrombin Complex 3.4 ng/mL
== END 2023-04-05 16:30 | disposition home or self-care (01) ==
LOC: ER 16:00 → MS 19:03
PROVIDERS: Internal Medicine; Registered Nurse Emergency; Student in an Organized Health Care Education/Training Program; Admitting Provider Family Medicine; Emergency Provider Physician Assistant; PCP Family Medicine; Visit Provider Family Medicine
DX: I26.99 Other pulmonary embolism without acute cor pulmonale (principal); I10 Essential (primary) hypertension; R06.02 Shortness of breath; E78.00 Pure hypercholesterolemia, unspecified; G61.81 Chronic inflammatory demyelinating polyneuritis; K59.09 Other constipation; I51.7 Cardiomegaly; J98.6 Disorders of diaphragm; Z79.899 Other long term (current) drug therapy; R07.89 Other chest pain; H40.2220 Chronic angle-closure glaucoma, left eye, stage unspecified; L30.9 Dermatitis, unspecified; Z91.040 Latex allergy status; D75.1 Secondary polycythemia; Z74.09 Other reduced mobility; R11.0 Nausea; K21.9 Gastro-esophageal reflux disease without esophagitis; E55.9 Vitamin D deficiency, unspecified; J98.4 Other disorders of lung
CPT/HCPCS: 36415; 71275; 80048; 80053; 81241; 83520; 85300; 85302; 85305; 85306; 85390; 85610; 85613; 85730; 87637; 93005; 93308; 94618; 96360; 96361; 96372; 96374; 96375; 96376; 99285; J3490; 36410; 71046; 83605; 83735; 83880; 84484; 85014; 85018; 85025; 85303; 85379; 93010; 93306; 93970; 99223; 99233; 99239; J1650; J2270; J2405

== ENCOUNTER 2023-05-03 09:35 | Emergency (ER) | payer BC, SELFPAY ==
[2023-05-03] VITALS (32 sets, daily range): BP systolic 141–183; BP diastolic 69–92; PULSE 64–91; RESP 15–31; TEMP 36.5–36.8; O2SAT 95–99
--- NOTE | 2023-05-03 09:30 | RT.EKG_ITS ---
APPROVED REPORT Exam: Resting ECG Reason for Exam: TIA/CVA Patient Location: E HR:84 bpm ECG Measurements Heart Rate 84 AXIS NJ 152 P 40 QRSd 83 QRS -3 QT 351 T 37 QTc 416 Conclusion Sinus rhythm...normal P axis, V-rate 60- 99 Probable left atrial enlargement...P >50mS, <-0.10mV V1
--- NOTE | 2023-05-03 09:30 | DI.CT_ITS ---
Exam(s) CT HEAD WO EXAM: CT HEAD WO CLINICAL HISTORY: TIA/CVA. TECHNIQUE: Imaging Protocol: Axial computed tomography images with coronal and sagittal reformatted images were created and reviewed COMPARISON: No exams were available for comparison FINDINGS: Exam mildly limited by motion. Ventricles and Extra axial spaces: Normal in size and morphology for the patient's age. Hemorrhage: None. Cerebral parenchyma: No evidence of acute infarct or mass. Midline shift: None. Brainstem/Cerebellum: Normal. Calvarium: Normal. Visualized Paranasal sinuses/Mastoids: Clear. Soft Tissues: Unremarkable. IMPRESSION: No acute intracranial process. RADIATION DOSE DELIVERED: Total DLP DATA REPOSITORY: All CT scans at this facility are submitted to the National Radiology Data Registry (NRDR) Dose Index Registry (DIR) with the [employer] (ACR). RADIATION OPTIMIZATION: All CT scans at this facility use at least one of these dose optimization te chniques: automated exposure control; mA and/or kV adjustment per patient size (includes targeted exa ms where dose is matched to clinical indication); or iterative reconstruction.
[2023-05-03 09:59] LABS: Abs Immature Grans 0.08 10^3/uL (0.0-0.06); Absolute Basophil Count 0.03 10^3/uL (0.0-0.2); Absolute Eosinophil Count 0.25 10^3/uL (0.0-0.7); Absolute Lymphocyte Count 1.75 10^3/uL (1.2-3.4); Absolute Monocyte Count 0.61 10^3/uL (0.1-0.8); Absolute Neutrophil Count 4.75 10^3/uL (1.2-6.7); Basophils % 0.4; Eosinophils % 3.3; HCT 46.5 % (36.0-46.0); Immature Grans % 1.1; Lymphocytes % 23.4; MCH 27.3 pg (27.0-33.0); MCHC 30.1 % (32.0-36.0); MCV 91 fL (80-95); MPV 9.3 fL (8.0-11.0); Monocytes % 8.2; Neutrophils % 63.6; Platelet Count 347 10^3/uL (130-400); RBC 5.12 10^6/uL (3.93-5.22); RDW 15.9 % (11.7-14.6); RDW-SD 52.8 fL; WBC 7.47 10^3/uL (4.4-10.8)
[2023-05-03 10:16] LABS: ALT 28 U/L (14-59); AST 25 U/L (15-37); Albumin 3.3 g/dL (3.4-5.0); Alkaline Phosphatase 72 U/L (46-116); Anion Gap 8.7 mmol/L (3-11); BUN 27 mg/dL (7-18); Bilirubin, Total 0.3 mg/dL (0.2-1.0); CO2 28.3 mmol/L (21.0-32.0); CREATININE 1.2 mg/dL (0.55-1.02); Calcium 9.2 mg/dL (8.5-10.1); Chloride 105 mmol/L (98-107); Estimated GFR 51.18 (mL/min/1.73m2); Glucose 85 mg/dL (74-106); Magnesium 2.2 mg/dL (1.8-2.4); Potassium 3.4 mmol/L (3.5-5.1); Sodium 142 mmol/L (136-145); Total Protein 6.9 g/dL (6.4-8.2); Troponin I < 50 ng/L (<or=60)
--- NOTE | 2023-05-03 10:50 | W.ED.GENAD ---
Discharge Plan Disposition Patient Disposition: Home Discharge Details Clinical Impression: CVA (cerebral vascular accident) Primary Care Provider: Tonya Costello ED Provider: Kin Huizar Home Meds and New Rx's Prescriptions: New aspirin [Adult Aspirin Regimen] 81 mg tablet,delayed release (DR/EC) 81 mg PO DAILY Qty: 30 2RF Continued cholecalciferol (vitamin D3) 25 mcg (1,000 unit) capsule 25 mcg PO DAILY calcium carbonate [Calcium 600] 600 mg calcium (1,500 mg) tablet 600 mg PO DAILY loratadine [Claritin] 10 mg tablet 10 mg PO PRN PRN clotrimazole-betamethasone 1-0.05 % cream 1 applic Topical PRN PRN Rx Instructions: apply to involved area triamcinolone acetonide 0.1 % ointment 1 applic Topical PRN PRN Rx Instructions: apply to arms mecobalamin (vitamin B12) 1,000 mcg tablet,chewable 1,000 mcg PO DAILY pregabalin 150 mg capsule 150 mg PO Q8H Qty: 270 3RF duloxetine 30 mg capsule,delayed release(DR/EC) 30 mg PO DAILY Qty: 90 3RF Linzess 145 mcg capsule 145 mcg PO DAILY Qty: 30 12RF latanoprost [Xalatan] 2.5 ML drops 1 drp Ophthalmic HS Lubricating Drops 15 ML drops 15 ml Ophthalmic PRN hydrocortisone [Anusol-HC] 2.5 % cream with perineal applicator 1 applic SD QD-BID PRN (Reason: hemorrhoids) Qty: 30 4RF estradiol [Vagifem] 10 mcg tablet 10 mcg VG 2X Week Qty: 25 12RF pantoprazole [Protonix] 40 mg tablet,delayed release (DR/EC) 40 mg PO DAILY Qty: 90 6RF morphine concentrate 100 mg/5 mL (20 mg/mL) solution See Rx Instructions sublingual Q1H PRN MDD 5ml PRN (Reason: pain) Qty: 30 0RF Rx Instructions: 0.25-1 ML SL Q1H PRN PRN; diazepam 2 mg tablet 2 mg PO BID PRN (Reason: anxiety) Qty: 20 2RF dexamethasone 4 mg tablet 40 mg PO DAILY Qty: 40 0RF Rx Instructions: Take 40 mg daily x 4 days every 4weeks Eliquis 5 mg tablet 5 mg PO BID Qty: 180 7RF Discharge Instructions Instructions: Self Care Measures After a Stroke (ED) Additional Instructions: Your MRI imaging showed 2 small areas of stroke that are more likely causing your symptoms. We are adding a 81 mg daily aspirin that you should continue to take. Please be mindful of any bleeding episodes given that you are already on a blood thinner on top of the newly recommended aspirin. Return to the emergency department immediately for any new or significant worsening of symptoms otherwise follow-up with your neurologist as discussed. Referrals: Laverne Arreola MD [ [facility] STAFF PHYSICIAN] - 2 weeks Medical Decision Making Patient presenting to the emergency department for chief complaint of left arm numbness along with some facial droop and intermittent slurred speech. She states that the speech and facial droop started Wednesday but was only a brief episode before she noted resolution of symptoms. The intermittent's of symptoms of slurred speech and facial droop continued through Wednesday and Wednesday which they message patient's primary care provider and neurologist about her circumstances. She does report that the numb and tingly feeling to her left upper arm has been persistent since Wednesday but it is slightly positional and that when she brings her arm over her chest it feels better. Patient denies any headache, fever chills, cold symptoms, syncope, or injury. Patient has pertinent past medical history of hypertension, hyperlipidemia, recent PE with treatment of Eliquis, chronic inflammatory demyelinating polyneuropathy in which she received steroid treatments for this on Wednesday and states she typically does have some symptoms the next day. Physical exam does show left upper extremity weakness and perceived paresthesia but states that the weakness is at baseline with no change. Cranial nerve exam along with lower extremity function appears to be at baseline with no obvious change in condition reported by patient or perceived by gross neurological exam. Exam otherwise noncontributory. High suspicion of TIA versus neuro inflammatory change secondary to recent steroids causing similar type symptoms. I do not feel that any interventions are emergently warranted at this time but will continue to monitor. CBC reviewed and is noncontributory, CMP shows slightly low potassium at 3.4 and albumin of 3.3 that I do not feel needs emergent intervention. Patient does have renal dysfunction but BUN/creatinine and GFR are at patient's baseline with no emergent concern noted. CT imaging reviewed along with radiologist interpretation that shows no acute findings. Given situation we will proceed with MRI MRA imaging and will pretreat patient with Ativan due to her anxiety. Spoke with radiologist in regards to MRI MRA findings which showed right frontal and right parietal ischemic findings and slight narrowing of the right middle cerebral artery. Given nonworrisome exam at this time but concerning findings especially given that patient is on Eliquis and will discuss case with neurologist. Spoke with Dr. Arreola and after discussion she recommended patient be started on 81 mg daily of aspirin and will follow-up on an outpatient basis with neurology. Discussed with patient follow-up along with return precautions for any new or significant worsening of symptoms. After discussion of diagnosis and plan of care, significant other and patient has no further needs, questions, or concerns and states clear understanding to return to the emergency department for any worsening symptoms. This documentation was generated using [employer] system, please disregard any oddities of phrase or misspellings. Imaging Data Radiologic Study: Imaging: CT Scan Radiologist's impression: Exam(s) CT HEAD WO EXAM: CT HEAD WO CLINICAL HISTORY: TIA/CVA. TECHNIQUE: Imaging Protocol: Axial computed tomography images with coronal and sagittal reformatted images were created and reviewed COMPARISON: No exams were available for comparison FINDINGS: Exam mildly limited by motion. Ventricles and Extra axial spaces: Normal in size and morphology for the patient's age. Hemorrhage: None. Cerebral parenchyma: No evidence of acute infarct or mass. Midline shift: None. Brainstem/Cerebellum: Normal. Calvarium: Normal. Visualized Paranasal sinuses/Mastoids: Clear. Soft Tissues: Unremarkable. IMPRESSION: No acute intracranial process. Radiologic Study #2: Imaging: MRI Radiologist's impression: Exam(s) MR ANGIO NECK WO EXAM: MR ANGIO NECK WO CLINICAL HISTORY: TIA, left arm tingling, slurred speech left facial. TECHNIQUE: 2D and 3D [id number] MRA of the Neck was performed. COMPARISON: No exams were available for comparison FINDINGS: Common Carotid: Right: No dissection, occlusion or significant stenosis. Left: No dissection, occlusion or significant stenosis. External Carotid: Right: No evidence of occlusion or significant stenosis. Left: No evidence of occlusion or significant stenosis. Internal Carotid: Right: No dissection, occlusion or significant stenosis. Left: No dissection, occlusion or significant stenosis. Vertebral Artery: Right: No dissection, occlusion or significant stenosis. Left: No dissection, occlusion or significant stenosis. IMPRESSION: No evidence of dissection, occlusion or significant stenosis. Radiologic Study #3: Imaging: MRI Radiologist's impression: Exam(s) MR ANGIO BRAIN WO CLINICAL HISTORY: TIA, left arm tingling, slurred speech left facial. TECHNIQUE: 3D [id number] study was performed without contrast. COMPARISON: None. FINDINGS: Carotid Arteries: Petrous: Normal. Cavernous: Normal. Cerebral: Normal. Middle Cerebral Arteries: Right: No aneurysm. Distal branches show decreased diameter. Left: No aneurysm or significant stenosis. Anterior Cerebral Arteries: Right: Right A1 segment diminutive, common variant.. No aneurysm or significant stenosis. Left: No aneurysm or significant stenosis. Posterior cerebral arteries: Both posterior communicating arteries diminutive. Right: No aneurysm or significant stenosis Left: No aneurysm or significant stenosis Vertebral Arteries: Right: No aneurysm or significant stenosis. No dissection. Left: No aneurysm or significant stenosis. No dissection.. Basilar Artery: No aneurysm or significant stenosis. Small Vessels: No evidence of beading. IMPRESSION: Distal branches of the right middle cerebral artery show decreased diameter. Radiologic Study #4: Imaging: MRI Radiologist's impression: Exam(s) MR BRAIN WO EXAM: MR BRAIN WO CLINICAL HISTORY: TIA, left arm tingling, slurred speech left facial TECHNIQUE: Multiplanar multisequence MRI of the brain was performed. COMPARISON: MR MR ANGIO BRAIN WO from 05/03/[address] HEAD WO from 05/03/2023 FINDINGS: VENTRICLES AND EXTRA AXIAL SPACES: Normal in size and morphology for the patient's age. MIDLINE SHIFT: None. CEREBRAL PARENCHYMA: Abnormality areas of high signal in the high right posterior frontal cortex. A few few tiny foci of high signal are seen in the high right parietal cortex and posterior right parietal lobe. Multiple small foci of restricted diffusion are seen in these areas, consistent with acute infarcts. HEMORRHAGE: None. BRAINSTEM/CEREBELLUM: Normal. VISUALIZED PARANASAL SINUSES/MASTOIDS:Clear. Vasculature: Normal flow void. PITUITARY GLAND: Unremarkable. ORBITS: Unremarkable. IMPRESSION: Small foci of high signal on restricted diffusion in the high right frontal and right parietal lobe consistent acute to subacute infarcts. Lab Data Lab results reviewed: Yes I reviewed the patient's lab results. HPI General Mode of arrival: wheelchair. Date/Time Provider Initiated Documentation: 05/03/23 09:35. Limitations to Documentation: no limitations. Information obtained by: patient, family and RN notes reviewed. History of Present Illness 63 year old F presents to the emergency department with the chief complaint of Left arm numbness, slurred speech, left-sided facial droop, Patient started experiencing this day(s) (2) and it has been intermittent. No relieving factors improve symptom(s), No exacerbating factors reported . Patient notes no other symptoms.. Patient did receive the following treatments prior to arrival, none Related Data Home Medications Medication Instructions Recorded Confirmed carboxymethylcellulose 0.5 15 ml ophthalmic (eye) PRN 02/15/17 05/03/23 %-glycerin 0.9 % eye drops (Lubricating Drops) latanoprost 0.005 % eye drops 1 drp ophthalmic (eye) HS 02/15/17 05/03/23 (Xalatan) clotrimazole-betamethasone 1 1 applic topical PRN PRN 07/08/20 05/03/23 %-0.05 % topical cream triamcinolone acetonide 0.1 % 1 applic topical PRN PRN 07/08/20 05/03/23 topical ointment hydrocortisone 2.5 % topical cream 1 applic SD QD-BID PRN hemorrhoids 09/10/21 05/03/23 with perineal applicator #30 grams (Anusol-HC) estradiol 10 mcg vaginal tablet 10 mcg vaginal 2X Week #25 tab-caps 01/12/22 05/03/23 (Vagifem) pantoprazole 40 mg tablet,delayed 40 mg PO DAILY #90 tabs 08/17/22 05/03/23 release (Protonix) calcium carbonate 600 mg calcium 600 mg PO DAILY 10/19/22 05/03/23 (1,500 mg) tablet (Calcium) cholecalciferol (vitamin D3) 25 25 mcg PO DAILY 10/19/22 05/03/23 mcg (1,000 unit) capsule mecobalamin (vitamin B12) 1,000 1,000 mcg PO DAILY 10/20/22 05/03/23 mcg chewable tablet linaclotide 145 mcg capsule 145 mcg PO DAILY #30 caps 02/01/23 05/03/23 (Linzess) loratadine 10 mg tablet (Claritin) 10 mg PO PRN PRN 02/01/23 05/03/23 duloxetine 30 mg capsule,delayed 30 mg PO DAILY #90 caps 03/09/23 05/03/23 release pregabalin 150 mg capsule 150 mg PO Q8H #270 caps 03/09/23 05/03/23 diazepam 2 mg tablet 2 mg PO BID PRN anxiety #20 tabs 04/05/23 05/03/23 morphine concentrate 100 mg/5 mL See Rx Instructions sublingual Q1H 04/05/23 05/03/23 (20 mg/mL) oral solution PRN PRN pain #30 mL dexamethasone 4 mg tablet 40 mg (10 x 4 mg) PO DAILY #40 tabs 04/26/23 05/03/23 apixaban 5 mg tablet (Eliquis) 5 mg PO BID #180 tabs 04/30/23 05/03/23 aspirin 81 mg tablet,delayed 81 mg PO DAILY #30 tabs 05/03/23 release (Adult Aspirin Regimen) Previous Rx's Medication Instructions Recorded hydrocortisone 2.5 % topical cream 1 applic SD QD-BID PRN hemorrhoids 09/10/21 with perineal applicator #30 grams (Anusol-HC) estradiol 10 mcg vaginal tablet 10 mcg vaginal 2X Week #25 tab-caps 01/12/22 (Vagifem) pantoprazole 40 mg tablet,delayed 40 mg PO DAILY #90 tabs 08/17/22 release (Protonix) linaclotide 145 mcg capsule 145 mcg PO DAILY #30 caps 02/01/23 (Linzess) duloxetine 30 mg capsule,delayed 30 mg PO DAILY #90 caps 03/09/23 release pregabalin 150 mg capsule 150 mg PO Q8H #270 caps 03/09/23 diazepam 2 mg tablet 2 mg PO BID PRN anxiety #20 tabs 04/05/23 morphine concentrate 100 mg/5 mL See Rx Instructions sublingual Q1H 04/05/23 (20 mg/mL) oral solution PRN PRN pain #30 mL dexamethasone 4 mg tablet 40 mg (10 x 4 mg) PO DAILY #40 tabs 04/26/23 apixaban 5 mg tablet (Eliquis) 5 mg PO BID #180 tabs 04/30/23 aspirin 81 mg tablet,delayed 81 mg PO DAILY #30 tabs 05/03/23 release (Adult Aspirin Regimen) Allergies Allergy/AdvReac Type Severity Reaction Status Date / Time aspartame AdvReac Intermediate Verified 05/03/23 09:46 hydrochlorothiazide AdvReac Intermediate Leg cramps Verified 05/03/23 09:46 latex AdvReac Intermediate skin Verified 05/03/23 09:46 cracks and bleeds General Stated Complaint: CVA/TIA CHERI: 3 Review of Systems Constitutional Constitutional: Denies chills, Denies fever(s) and Denies headache(s) Eyes Eyes: Denies change in vision ENT Ears, Nose, Mouth, and Throat: Denies headache(s) and Denies neck pain Cardiovascular Cardiovascular: Denies chest pain, Denies syncope and Denies dyspnea Respiratory Respiratory: Denies cough and Denies dyspnea Gastrointestinal Gastrointestinal: Denies abdominal pain, Denies nausea and Denies vomiting Musculoskeletal Musculoskeletal: Denies back pain and Denies neck pain Integumentary/Breasts Skin/Breast: Denies rash Neurologic Neurologic: Denies syncope and Denies headache(s) PFSH All Active Problems (Updated 05/03/23 @ 15:06 by Kin Huizar NP) CVA (cerebral vascular accident) (Chronic) Embolism, pulmonary with infarction (Acute) Pulmonary embolism and infarction (Acute) 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 stated this was r/o to be cardiac in nature, and is why she is have C&G procedure done on 08/06/21 Hip pain, left Achilles bursitis Atypical mole (01/18/17) Carpal tunnel syndrome Left shoulder pain (08/05/15) Microscopic hematuria Otitis externa (05/07/14) Vascular headache DUB (dysfunctional uterine bleeding) 2.6cm fundal fibroid; 3.8 cm right ovary cyst in 01/08 since resolved. 3.5 cm left kidney cyst Carpal tunnel syndrome bilateral; left by EMS; left medial nerve release Microscopic hematuria neg. C&S; nl Bun and Cr.; neg IUP; neg cystocopy Vascular headache Achilles bursitis confirmed by MRI 06/11 Abnormal glandular Pap smear of vagina 10/24/12 follow up normal External otitis 05/07/14 Left shoulder pain 08/05/15 Atypical mole 01/18/17 Cough 08/30/17 Cervical pain Right carpal tunnel syndrome (02/21/18) Patient has clinically obvious carpal tunnel syndrome right upper extremity. I explained her that I know do all my carpal tunnel surgeries via open technique. This avoid an incomplete release or or an injury to the common digital nerve to the middle finger. Patient understands the reason for the change the open technique and agrees to have this done on her right side despite the fact that she had a E CTR on the left side Knee pain (01/01/07) MRI 01/08= neg. tear; ? of chondromalacia; Med. patellar fault Increased body mass index Mild stage chronic narrow angle glaucoma of right eye 12/28/16 [facility] Gastroesophageal reflux disease Hyperlipidemia Essential hypertension Muscle strain Surgical History H/O esophagogastroduodenoscopy (~08/2021) History of colonoscopy (~08/2021) Status post carpal tunnel release History of gynecologic surgery endometrial Bx-neg S/P carpal tunnel release left medial nerve release History of carpal tunnel release 05/13/18 DR. CUADRA; RIGHT Status post carpal tunnel release PROCEDURES 07/21/16; LASERLIDOTOMY Open Carpal Tunnel release (~2002) left medial nerve release Endometrial Biopsy neg Family History Mother , 59 Essential hypertension Anxiety Depression Heart disease Hyperlipidemia Leukemia Father , MET/LUNG CA at age 79. Diabetes Alcohol abuse Essential hypertension Heart disease Hyperlipidemia Asthma Lung cancer Sister No problems noted. Brother Essential hypertension Anxiety Depression Hyperlipidemia Maternal Grandfather , 90s No problems noted. Paternal Grandfather , 90s Heart disease Stroke Maternal Grandmother , 70s No problems noted. Paternal Grandmother , 70s Alcohol abuse Heart disease Hypertension Stroke Social History Smoking/Tobacco Use Status: Never Second Hand Exposure: Yes Smoking risk assessment performed?: Yes Alcohol Intake: current Alcohol type: wine and hard liquor Drug use: Never Substance use type: marijuana Details: comsumse THC eatables at night for sleep Caregiver/Support person: No Household members: spouse Housing: house Communication Needs: Corrective Lenses Education Level: college Do you need help understanding health information?: Rarely Pets and animals: No Sexually active: Yes Do you think of yourself as: straight/heterosexual Current gender identity: female What is your relationship status?: How often do you talk on the phone with friends or family?: three or more times per week How often do you get together with friends or relatives?: three or more times per week Do you belong to any clubs or organized social groups?: no Panel score (0-1 are the most socially isolated patients): 2 What type of physical activity do you participate in: none Barbara/Mormon: No preference Special barbara needs: No Seatbelt use: always Drive 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 Do you feel safe at home: Yes Do you feel safe in your relationship?: Yes Exam Const General: cooperative, healthy appearing, no acute distress and well groomed Orientation: alert, awake and oriented x3 HENMT Head: normal to inspection Ears: hearing grossly normal bilaterally and TM's normal bilaterally Mouth: oral mucosae normal and moist mucous membranes Throat: posterior oropharynx normal Eyes Visual Churchill: normal visual churchill by confrontation Alignment and Position: alignment normal Periorbital: periorbital findings normal Eyelids: eyelids normal Sclera: sclerae normal Cornea: corneas normal Pupils: PERRL EOM: EOM intact bilaterally Neck Neck: normal visual inspection, full ROM, no lymphadenopathy and no meningeal signs Resp Effort & Inspection: normal respiratory effort and able to speak in complete sentences Auscultation: clear to auscultation bilaterally Cardio Rate: regular rate Rhythm: regular rhythm Heart Sounds: S1 normal and S2 normal Neuro General: patient alert, patient awake, patient oriented x3, gait normal, tone normal, moves all extremities, CN's II-XI intact bilaterally and not confused Cognition: normal cognition Speech: speech normal Motor: muscle tone normal throughout, strength 5/5 throughout, no pronator drift, no movement abnormalities noted and no fasciculations Sensory Exam: no sensory deficits noted Coordination: Does not sway with eyes open and rapid alternating movement LE normal Extrem General: other (Left arm diffuse weakness) Course Vital Signs Vital signs: Vital Signs Pulse 91 H 05/03/23 09:35 Respiratory Rate 17 05/03/23 09:35 Blood Pressure 183/87 H 05/03/23 09:35 Pulse Oximetry 99 05/03/23 09:35 Temperature Source Oral 05/03/23 09:35 Pulse 88 05/03/23 10:02 Respiratory Rate 15 05/03/23 09:43 Respiratory Effort Non-Labored, Short of Breath 05/03/23 09:43 Respiratory Depth Normal 05/03/23 09:43 Respiratory Pattern Normal 05/03/23 09:43 Blood Pressure 167/69 H 05/03/23 10:02 Blood Pressure Mean 99 05/03/23 10:02 Blood Pressure Position Sitting 05/03/23 09:35 Pulse Oximetry 99 05/03/23 09:35 Oxygen Delivery Method Room Air 05/03/23 09:35 Oxygen Flow Rate 0 05/03/23 09:35 Pain Level 0 05/03/23 09:35 Lab/Test Results Lab/Test Results: Laboratory Tests Range/Units 05/03/23 09:45 WBC (4.4-10.8) 10^3/uL 7.47 RBC (3.93-5.22) 10^6/uL 5.12 Hgb (11.2-15.7) g/dL 14.0 Hct (36.0-46.0) % 46.5 H MCV (80-95) fL 91 MCH (27.0-33.0) pg 27.3 MCHC (32.0-36.0) % 30.1 L RDW (11.7-14.6) % 15.9 H Plt Count (130-400) 10^3/uL 347 MPV (8.0-11.0) fL 9.3 Immature Gran % 1.1 Neutrophils % 63.6 Lymphocytes % 23.4 Monocytes % 8.2 Eosinophils % 3.3 Basophils % 0.4 Nucleated RBC % (0.0-0.3) % 0.0 Absolute Neutrophils (1.2-6.7) 10^3/uL 4.75 Absolute Lymphocytes (1.2-3.4) 10^3/uL 1.75 Absolute Monocytes (0.1-0.8) 10^3/uL 0.61 Absolute Eosinophils (0.0-0.7) 10^3/uL 0.25 Absolute Basophils (0.0-0.2) 10^3/uL 0.03 Sodium (136-145) mmol/L 142 Potassium (3.5-5.1) mmol/L 3.4 L Chloride (98-107) mmol/L 105 Carbon Dioxide (21.0-32.0) mmol/L 28.3 Anion Gap (3-11) mmol/L 8.7 BUN (7-18) mg/dL 27 H Creatinine (0.55-1.02) mg/dL 1.2 H Est GFR (CKD-EPI 2020) (mL/min/1.73m2) 51.18 Glucose (74-106) mg/dL 85 Calcium (8.5-10.1) mg/dL 9.2 Magnesium (1.8-2.4) mg/dL 2.2 Total Bilirubin (0.2-1.0) mg/dL 0.3 AST (15-37) U/L 25 ALT (14-59) U/L 28 Alkaline Phosphatase (46-116) U/L 72 Troponin I (<or=60) ng/L < 50 Total Protein (6.4-8.2) g/dL 6.9 Albumin (3.4-5.0) g/dL 3.3 L
--- NOTE | 2023-05-03 11:30 | DI.MRI_ITS ---
Exam(s) MR ANGIO BRAIN WO CLINICAL HISTORY: TIA, left arm tingling, slurred speech left facial. TECHNIQUE: 3D [id number] study was performed without contrast. COMPARISON: None. FINDINGS: Carotid Arteries: Petrous: Normal. Cavernous: Normal. Cerebral: Normal. Middle Cerebral Arteries: Right: No aneurysm. Distal branches show decreased diameter. Left: No aneurysm or significant stenosis. Anterior Cerebral Arteries: Right: Right A1 segment diminutive, common variant.. No aneurysm or significant stenosis. Left: No aneurysm or significant stenosis. Posterior cerebral arteries: Both posterior communicating arteries diminutive. Right: No aneurysm or significant stenosis Left: No aneurysm or significant stenosis Vertebral Arteries: Right: No aneurysm or significant stenosis. No dissection. Left: No aneurysm or significant stenosis. No dissection.. Basilar Artery: No aneurysm or significant stenosis. Small Vessels: No evidence of beading. IMPRESSION: Distal branches of the right middle cerebral artery show decreased diameter. DATA REPOSITORY:
--- NOTE | 2023-05-03 11:30 | DI.MRI_ITS ---
Exam(s) MR ANGIO NECK WO EXAM: MR ANGIO NECK WO CLINICAL HISTORY: TIA, left arm tingling, slurred speech left facial. TECHNIQUE: 2D and 3D [id number] MRA of the Neck was performed. COMPARISON: No exams were available for comparison FINDINGS: Common Carotid: Right: No dissection, occlusion or significant stenosis. Left: No dissection, occlusion or significant stenosis. External Carotid: Right: No evidence of occlusion or significant stenosis. Left: No evidence of occlusion or significant stenosis. Internal Carotid: Right: No dissection, occlusion or significant stenosis. Left: No dissection, occlusion or significant stenosis. Vertebral Artery: Right: No dissection, occlusion or significant stenosis. Left: No dissection, occlusion or significant stenosis. IMPRESSION: No evidence of dissection, occlusion or significant stenosis. DATA REPOSITORY:
--- NOTE | 2023-05-03 11:30 | DI.MRI_ITS ---
Exam(s) MR BRAIN WO EXAM: MR BRAIN WO CLINICAL HISTORY: TIA, left arm tingling, slurred speech left facial TECHNIQUE: Multiplanar multisequence MRI of the brain was performed. COMPARISON: MR MR ANGIO BRAIN WO from 05/03/[address] HEAD WO from 05/03/2023 FINDINGS: VENTRICLES AND EXTRA AXIAL SPACES: Normal in size and morphology for the patient's age. MIDLINE SHIFT: None. CEREBRAL PARENCHYMA: Abnormality areas of high signal in the high right posterior frontal cortex. A few few tiny foci of high signal are seen in the high right parietal cortex and posterior right parie idalia lobe. Multiple small foci of restricted diffusion are seen in these areas, consistent with acute infarcts. HEMORRHAGE: None. BRAINSTEM/CEREBELLUM: Normal. VISUALIZED PARANASAL SINUSES/MASTOIDS:Clear. Vasculature: Normal flow void. PITUITARY GLAND: Unremarkable. ORBITS: Unremarkable. IMPRESSION: Small foci of high signal on restricted diffusion in the high right frontal and right parietal lobe c onsistent acute to subacute infarcts. Findings called to [facility] of the emergency department. DATA REPOSITORY:
[2023-05-03] MEDS: LORazepam 2 MG/ML VIAL 0.5 MG IVP (11:59)
--- NOTE | 2023-05-03 12:16 | NUR.NOTE ---
Patient resting on stretcher with no voiced needs/conerncs at this time. Patient's spouse present at bedside. Call light within reach, encouraged to call for assist. :
[2023-05-03 13:43] LABS: Bilirubin Negative (Negative); Blood Negative (Negative); Clarity Clear (Clear); Glucose Negative (Negative); Ketones Negative (Negative); Leukocyte Esterase Small (Negative); Nitrite Negative (Negative); Specific Gravity <= 1.005 (1.005-1.025); Urobilinogen 0.2 mg/dL (Up to 0.2); pH 5.5 (5-8)
[2023-05-03 13:52] LABS: Bacteria Few HPF (Negative); C & S Indicated? Yes; Casts Negative LPF (Negative); Crystals Negative HPF (Negative); Epithelial Cells Rare HPF (Negative); Mucus Negative (Negative); Other Cells Moderate Renal (Negative); RBC Negative HPF (0-2)
--- NOTE | 2023-05-03 13:59 | NUR.NOTE ---
Nursing Note: Pt and Pt's SO thoroughly updated with plan of care. Pt thanked this RN for care. Pt has warm blanket and call light.
--- NOTE | 2023-05-05 13:13 | NUR.NOTE ---
Accessed pt chart to determine if antibiotic was prescribed on discharge. Nursing Note:
== END 2023-05-03 15:19 | disposition home or self-care (01) ==
PROVIDERS: Emergency Provider Nurse Practitioner Family; PCP Family Medicine
DX: R29.810 Facial weakness (principal); I63.9 Cerebral infarction, unspecified; R47.81 Slurred speech; Z79.01 Long term (current) use of anticoagulants; I10 Essential (primary) hypertension; Z79.899 Other long term (current) drug therapy
CPT/HCPCS: 36415; 70544; 70547; 80053; 82962; 93005; 96374; 99285; 70450; 70551; 81003; 81015; 83735; 84484; 85025; 87086; 93010; J2060

== ENCOUNTER 2023-05-06 13:36 | Outpatient (CLI) | payer BC, SELFPAY | END 2023-05-06 13:37 | disposition home or self-care (01) | PROVIDERS: PCP Family Medicine; Visit Provider Family Medicine | DX: I63.9 Cerebral infarction, unspecified (principal) | CPT/HCPCS: 93246 ==

== ENCOUNTER 2023-05-31 10:03 | Outpatient (CLI) | payer BC, SELFPAY ==
--- NOTE | 2023-05-31 10:31 | W.CARDEVENT ---
Date of service: 05/31/23 Time of Service: 10:31 Cardiac Event Recorder Referring Provider:: Tonya Costello Indications:: Cerebral infarction Cardiac Event Note: This is a cardiac event monitor ordered for a cerebral infarction. Patient was monitored for 11 days and 18 hours Rhythm throughout was sinus. Average heart rate was 82. Minimum was 59, maximum 112 There were very rare isolated ventricular ectopic beats There were very rare isolated atrial premature beats A total of 4 self-limited atrial runs occurred. The longest of these was 8 beats in duration. 1 was mislabeled as ventricular tachycardia, but was supraventricular with aberrant conduction There was no atrial fibrillation, no high-grade AV block, no pauses greater than 3 seconds There were no patient symptoms
== END 2023-05-31 10:04 | disposition home or self-care (01) ==
LOC: CARDOPNVT 10:03
PROVIDERS: PCP Family Medicine; Visit Provider Internal Medicine Cardiovascular Disease
DX: I63.9 Cerebral infarction, unspecified (principal); I47.19 Other supraventricular tachycardia

== ENCOUNTER → 2023-06-24 01:58 | Outpatient (CLI) | payer BC, SELFPAY | PROVIDERS: PCP Family Medicine; Visit Provider Psychiatry & Neurology Neurology | DX: I63.9 Cerebral infarction, unspecified (principal) | CPT/HCPCS: 93308; C8924 ==

== ENCOUNTER 2023-06-30 10:35 | Outpatient (CLI) | payer BC, SELFPAY | END 2023-06-30 10:36 | disposition home or self-care (01) | LOC: CARDOPNVT 10:35 | PROVIDERS: PCP Family Medicine; Visit Provider Family Medicine | DX: I63.9 Cerebral infarction, unspecified (principal) | CPT/HCPCS: 93246 ==

== ENCOUNTER 2023-07-22 06:33 | Outpatient (CLI) | payer BC, SELFPAY ==
--- NOTE | 2023-07-22 11:21 | ZIOP_ITS ---
Date of service: 07/22/23 Time of Service: 11:21 14 Day [employer] Information Clerk Referring Provider:: Pravin Indications:: Unspecified cerebral infarction Note: This was a 14-day monitor for unspecified cerebral infarction 1. The underlying rhythm is sinus, rate range 57 to 110 bpm. 2. Few ventricular ectopics without ventricular tachycardia. 3. Several supraventricular ectopic beats with a few runs of supraventricular tachycardia. 4. 13 beat run of irregularly irregular rhythm suspicious for atrial fibrillation Impression: Possible paroxysmal atrial fibrillation.
== END 2023-07-22 06:34 | disposition home or self-care (01) ==
LOC: CARDOPNVT 06:33
PROVIDERS: PCP Family Medicine; Visit Provider Internal Medicine Interventional Cardiology
DX: I63.9 Cerebral infarction, unspecified (principal); I49.9 Cardiac arrhythmia, unspecified

== ENCOUNTER 2023-08-06 14:40 | Outpatient (CLI) | payer BC, SELFPAY ==
[2023-08-06 14:09] LABS: INR 1.2 (0.9-1.1); Prothrombin Time 11.8 sec (9.1-11.1)
== END 2023-08-06 14:41 | disposition home or self-care (01) ==
LOC: LBO 14:40
PROVIDERS: PCP Family Medicine; Visit Provider Physician Assistant Surgical
DX: Z01.818 Encounter for other preprocedural examination (principal)
CPT/HCPCS: 36415; 85610

== ENCOUNTER 2023-08-12 10:57 | Outpatient (CLI) | payer BC, SELFPAY ==
--- NOTE | 2023-08-12 10:45 | RT.EKG_ITS ---
APPROVED REPORT Exam: Resting ECG Reason for Exam: MRI w/ anesthesia Patient Location: O HR:85 bpm ECG Measurements Heart Rate 85 AXIS MD 146 P 33 QRSd 85 QRS -10 QT 354 T 42 QTc 421 Conclusion Sinus rhythm...normal P axis, V-rate 50- 99 Probable left atrial enlargement...P >50mS, <-0.10mV V1 Low voltage, extremity leads...all extremity leads <0.5mV POOR R-WAVE PROGRESSION I have reviewed and interpreted ECG and agree with software generated interpretation.
== END 2023-08-12 10:58 | disposition home or self-care (01) ==
LOC: DI.CM 10:59
PROVIDERS: PCP Family Medicine; Visit Provider Family Medicine
DX: Z01.818 Encounter for other preprocedural examination (principal)
CPT/HCPCS: 93010

== ENCOUNTER 2023-08-19 10:09 | Outpatient (CLI) | payer BC, SELFPAY ==
[2023-08-19 19:44] LABS: Estradiol 18 pg/mL (See Note)
[2023-08-19 19:53] LABS: Parathyroid Hormone,Intact 38 pg/mL (19-88)
[2023-08-19 19:55] LABS: Prolactin 54.7 ng/mL (See Note)
[2023-08-20 13:51] LABS: Leukemia/Lymphoma by FC (Blood (See below)
[2023-08-23 18:05] LABS: Pyridoxal 5-Phosphate (PLP), P 8 mcg/L (5-50)
== END 2023-08-19 10:10 | disposition home or self-care (01) ==
LOC: LBO 10:12
PROVIDERS: PCP Family Medicine; Visit Provider Psychiatry & Neurology Neurology
DX: Z01.818 Encounter for other preprocedural examination (principal)
CPT/HCPCS: 36415; 82533; 88185; 82670; 83970; 84146; 84207; 88184; 88189

== ENCOUNTER → 2023-08-19 12:02 | Outpatient (CLI) | payer BC, SELFPAY ==
--- NOTE | 2023-08-19 | DI.RAD_ITS ---
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 TECHNIQUE: 2D digital imaging was performed. COMPARISON: No exams were available for comparison FINDINGS: No evidence of fracture. Soft tissues are unremarkable. HEAD AND NECK: Skull normal. CHEST AND RIBS: Small lytic lesions seen in bilateral ribs as well as bilateral proximal humerus and scapula. The heart size is normal. The lungs are clear with the exception of mild atelectasis at th e left lung base.. PELVIS: Normal. LONG BONES: Faint tiny lytic lesions in the bilateral proximal femurs. SPINE:Degenerative changes cervical, thoracic and lumbar spine IMPRESSION: Numerous tiny lytic lesions seen in the ribs, proximal humeri, scapulae and proximal femurs. DATA REPOSITORY: RADIATION DOSE DELIVERED:
== END ==
PROVIDERS: PCP Family Medicine; Visit Provider Psychiatry & Neurology Neurology
DX: M99.88 Other biomechanical lesions of rib cage (principal)
CPT/HCPCS: 77075

== ENCOUNTER 2023-08-21 10:05 | Outpatient (REF) | payer BC, SELFPAY ==
[2023-08-24 15:05] LABS: Albumin, Urine % 13.2 %; Albumin, Urine mg/24hrs 28 mg/24hrs; Globulins, Urine % 86.8 %; Globulins, Urine mg/24hrs 185 mg/24hrs; Immunotyping, Urine (See Note); Total Protein Urine 14 mg/dL (See Note); Total Protein, Urine 24hrs 213 mg/24hrs (<150); Urine Volume 1520 mL
== END 2023-08-21 10:06 | disposition home or self-care (01) ==
LOC: LBN 10:05
PROVIDERS: PCP Family Medicine; Visit Provider Psychiatry & Neurology Neurology
DX: E88.09 Other disorders of plasma-protein metabolism, not elsewhere classified (principal)
CPT/HCPCS: 84156; 84166; 86335; 81050

== ENCOUNTER 2023-09-08 04:45 | Outpatient (CLI) | payer BC, SELFPAY ==
[2023-09-08 08:47] LABS: Abs Immature Grans 0.06 10^3/uL (0.0-0.06); Absolute Basophil Count 0.04 10^3/uL (0.0-0.2); Absolute Eosinophil Count 0.15 10^3/uL (0.0-0.7); Absolute Lymphocyte Count 2.42 10^3/uL (1.2-3.4); Absolute Monocyte Count 0.57 10^3/uL (0.1-0.8); Basophils % 0.5; Eosinophils % 1.8; HCT 47.7 % (36.0-46.0); HGB 14.4 g/dL (11.2-15.7); Immature Grans % 0.7; Lymphocytes % 29.4; MCH 27.5 pg (27.0-33.0); MCHC 30.2 % (32.0-36.0); MCV 91 fL (80-95); MPV 9.3 fL (8.0-11.0); Monocytes % 6.9; Neutrophils % 60.7; Platelet Count 509 10^3/uL (130-400); RBC 5.24 10^6/uL (3.93-5.22); RDW 17.2 % (11.7-14.6); RDW-SD 57.1 fL; WBC 8.24 10^3/uL (4.4-10.8)
[2023-09-08 09:10] LABS: AST 8 U/L (15-37); Albumin 3.5 g/dL (3.4-5.0); Alkaline Phosphatase 66 U/L (46-116); Anion Gap 7.7 mmol/L (3-11); BUN 26 mg/dL (7-18); Bilirubin, Total 0.4 mg/dL (0.2-1.0); CO2 28.3 mmol/L (21.0-32.0); CREATININE 1.1 mg/dL (0.55-1.02); Calcium 9.1 mg/dL (8.5-10.1); Chloride 107 mmol/L (98-107); Estimated GFR 56.81 (mL/min/1.73m2); Glucose 75 mg/dL (74-106); LDH 102 U/L (81-234); Potassium 3.8 mmol/L (3.5-5.1); Sodium 143 mmol/L (136-145); Total Protein 7.2 g/dL (6.4-8.2)
[2023-09-08 09:26] LABS: Iron 56 ug/dL (50-170); Total Iron Binding Capacity 231 ug/dL (250-450); Transferrin Sat 24 % (15-50)
[2023-09-08 09:48] LABS: ALT 14 U/L (14-59); Ferritin 118 ng/mL (8-252); Vitamin B12 517 pg/mL (193-986)
[2023-09-10 12:09] LABS: Copper, Serum 48 mcg/dL (77-206)
[2023-09-13 09:44] LABS: Pyridoxal 5-Phosphate (PLP), P 15 mcg/L (5-50)
== END 2023-09-08 04:46 | disposition home or self-care (01) ==
LOC: LBO 04:45
PROVIDERS: PCP Family Medicine; Visit Provider Internal Medicine Hematology & Oncology
DX: R59.9 Enlarged lymph nodes, unspecified (principal); G61.81 Chronic inflammatory demyelinating polyneuritis; E61.0 Copper deficiency; E53.9 Vitamin B deficiency, unspecified
CPT/HCPCS: 36415; 80053; 82525; 82607; 82728; 83540; 83550; 83615; 84207; 85025

== ENCOUNTER 2023-09-22 05:06 | Outpatient (CLI) | payer BC, SELFPAY ==
[2023-09-22 09:29] LABS: Iron 59 ug/dL (50-170); Total Iron Binding Capacity 236 ug/dL (250-450); Transferrin Sat 25 % (15-50)
[2023-09-22 09:37] LABS: Ferritin 112 ng/mL (8-252)
== END 2023-09-22 05:07 | disposition home or self-care (01) ==
LOC: LBO 05:06
PROVIDERS: PCP Family Medicine; Visit Provider Internal Medicine Hematology & Oncology
DX: R59.9 Enlarged lymph nodes, unspecified (principal); G61.81 Chronic inflammatory demyelinating polyneuritis; E61.0 Copper deficiency; E53.9 Vitamin B deficiency, unspecified; D75.839 Thrombocytosis, unspecified
CPT/HCPCS: 36415; 82728; 83540; 83550

== ENCOUNTER 2023-10-13 05:32 | Outpatient (CLI) | payer BC, SELFPAY ==
[2023-10-13 13:51] LABS: Iron 76 ug/dL (50-170); Total Iron Binding Capacity 261 ug/dL (250-450); Transferrin Sat 29 % (15-50)
[2023-10-13 14:05] LABS: Ferritin 195 ng/mL (8-252)
[2023-10-13 14:28] LABS: Abs Immature Grans 0.11 10^3/uL (0.0-0.06); Absolute Basophil Count 0.31 10^3/uL (0.0-0.2); Absolute Eosinophil Count 0.69 10^3/uL (0.0-0.7); Absolute Monocyte Count 0.77 10^3/uL (0.1-0.8); Absolute Neutrophil Count 3.35 10^3/uL (1.2-6.7); Basophils % 4.3; Eosinophils % 9.7; HCT 48.5 % (36.0-46.0); HGB 15.2 g/dL (11.2-15.7); Immature Grans % 1.5; Lymphocytes % 26.6; MCH 30.2 pg (27.0-33.0); MCHC 31.3 % (32.0-36.0); MCV 96 fL (80-95); MPV 10.2 fL (8.0-11.0); Monocytes % 10.8; Neutrophils % 47.1; Platelet Count 376 10^3/uL (130-400); RBC 5.03 10^6/uL (3.93-5.22); RDW 18.3 % (11.7-14.6); RDW-SD 62.6 fL; WBC 7.13 10^3/uL (4.4-10.8)
[2023-10-13 14:48] LABS: ALT 22 U/L (14-59); AST 13 U/L (15-37); Albumin 3.4 g/dL (3.4-5.0); Alkaline Phosphatase 60 U/L (46-116); Anion Gap 11.6 mmol/L (3-11); BUN 25 mg/dL (7-18); Bilirubin, Total 0.4 mg/dL (0.2-1.0); CO2 27.4 mmol/L (21.0-32.0); Chloride 106 mmol/L (98-107); Glucose 73 mg/dL (74-106); LDH 104 U/L (81-234); Potassium 4.1 mmol/L (3.5-5.1); Sodium 145 mmol/L (136-145); Total Protein 6.1 g/dL (6.4-8.2)
== END 2023-10-13 05:33 | disposition home or self-care (01) ==
LOC: LBO 05:32
PROVIDERS: PCP Family Medicine; Visit Provider Internal Medicine Hematology & Oncology
DX: G62.9 Polyneuropathy, unspecified (principal); D47.2 Monoclonal gammopathy; E34.9 Endocrine disorder, unspecified; R23.9 Unspecified skin changes; R59.9 Enlarged lymph nodes, unspecified; G61.81 Chronic inflammatory demyelinating polyneuritis; E61.0 Copper deficiency; E53.9 Vitamin B deficiency, unspecified; D75.839 Thrombocytosis, unspecified
CPT/HCPCS: 36415; 80053; 82728; 83540; 83550; 83615; 85025

== ENCOUNTER 2023-10-31 17:30 | Emergency (ER) | payer BC, SELFPAY ==
[2023-10-31 17:34] VITALS: BP 141/72; PULSE 73; RESP 18; TEMP 36.2; O2SAT 98
[2023-10-31 17:40] VITALS: BP 141/72; PULSE 73; RESP 18; TEMP 36.2; O2SAT 98
--- NOTE | 2023-10-31 17:43 | W.ED.GENAD ---
Discharge Plan Disposition Patient Disposition: Home Condition: Stable Discharge Details Clinical Impression: Cellulitis Primary Care Provider: Tonya Costello ED Provider: Harish Christian Home Meds and New Rx's Prescriptions: New sulfamethoxazole-trimethoprim 800-160 mg tablet 1 tab PO BID 7 Days Qty: 14 0RF mupirocin 2 % ointment 1 applic topical TID Qty: 15 0RF Continued cholecalciferol (vitamin D3) 25 mcg (1,000 unit) capsule 25 mcg PO DAILY calcium carbonate [Calcium 600] 600 mg calcium (1,500 mg) tablet 600 mg PO DAILY estradiol [Vagifem] 10 mcg tablet 10 mcg VG 2X Week Qty: 25 12RF pantoprazole [Protonix] 40 mg tablet,delayed release (DR/EC) 40 mg PO DAILY Qty: 90 6RF mecobalamin (vitamin B12) 1,000 mcg tablet,chewable 1,000 mcg PO DAILY duloxetine 30 mg capsule,delayed release(DR/EC) 30 mg PO DAILY Qty: 90 3RF Linzess 145 mcg capsule 145 mcg PO DAILY Qty: 30 12RF pyridoxine (vitamin B6) 50 mg tablet 50 mg PO DAILY copper gluconate 2 mg tablet 2 mg PO DAILY dexamethasone 4 mg tablet 20 mg PO DAILY Rx Instructions: 20mg Mondays and with the Revlimid. lenalidomide [Revlimid] 25 mg capsule 25 mg PO DAILY acyclovir 400 mg tablet 400 mg PO BID Patient Comments: TAKE 1 TABLET BY MOUTH TWICE DAILY latanoprost [Xalatan] 2.5 ML drops 1 drp Ophthalmic HS Lubricating Drops 15 ML drops 15 ml Ophthalmic PRN morphine concentrate 100 mg/5 mL (20 mg/mL) solution See Rx Instructions sublingual Q1H PRN MDD 5ml PRN (Reason: pain) Qty: 30 0RF Rx Instructions: 0.25-1 ML SL Q1H PRN PRN; diazepam 2 mg tablet 2 mg PO BID PRN (Reason: anxiety) Qty: 20 2RF Eliquis 5 mg tablet 5 mg PO BID Qty: 180 7RF oxycodone 5 mg tablet 5 mg PO BID MDD 10 PRN (Reason: pain) Qty: 10 0RF hydrocortisone [Anusol-HC] 2.5 % cream with perineal applicator 1 applic SC QD-BID PRN (Reason: hemorrhoids) Qty: 30 4RF pregabalin 150 mg capsule 150 mg PO BID Qty: 180 3RF THC CeresMed Gummies See Rx Instructions PO HS Rx Instructions: 10-15mg orally bedtime; aspirin [Adult Aspirin Regimen] 81 mg tablet,delayed release (DR/EC) 81 mg PO DAILY Qty: 30 2RF Held sulfamethoxazole-trimethoprim 800-160 mg tablet PO Hold Instructions: Resume on 11/08/23. Hold until completing the course of twice daily Bactrim Patient Comments: TAKE 1 TABLET BY MOUTH 3 TIMES A WEEK Discharge Instructions Instructions: Sulfamethoxazole/Trimethoprim (By mouth), Mupirocin (On the skin), Cellulitis (ED) Additional Instructions: You were seen in the emergency department for your likely mild cellulitis from a former muscle biopsy site. Do not suspect any DVT pathology, this is in the wrong location to be anything but a possible very superficial thrombophlebitis which is treated with NSAIDs or blood thinners which you are on and gentle compression. I think it is reasonable to trial twice daily Bactrim for 7 days, you are on this medication chronically but this is not at a dose that would treat an active infection. I have also sent a prescription for topical mupirocin which is a prescription strength topical antibiotic ointment that helps fight strep and staph bacteria is for any mild or minor cuts and scrapes. Please use this as needed going forward. Please monitor the area closely, you should see improvement by day 3 or 4 on antibiotics. If you have further swelling, drainage from the area or unilateral leg swelling or medial thigh tenderness I think you should return for an ultrasound but you are on Eliquis which is the treatment for blood clot. Referrals: Tonya Costello MD, [place] [Primary Care Provider] - Discharge Data Discharge Date/Time-TO BE ENTERED AT DEPARTURE: 10/31/23 18:29 HPI General Date/Time Provider Initiated Documentation: 10/31/23 17:42. HPI Narrative: 63 year-old female presents to ED today by POV/ambulating with a chief complaint of small mildly red patch of skin adjacent to a recent muscle biopsy site that had been healing well until now with onset noted today. 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 Severity is described as unable to quantify. Palliating factors include nothing specific attempted. Provoking factors include nothing specific. Patient is anticoagulated on Eliquis. Related Data Home Medications Medication Instructions Recorded Confirmed carboxymethylcellulose 0.5 15 ml ophthalmic (eye) PRN 02/15/17 10/31/23 %-glycerin 0.9 % eye drops (Lubricating Drops) latanoprost 0.005 % eye drops 1 drp ophthalmic (eye) HS 02/15/17 10/31/23 (Xalatan) calcium carbonate (Calcium 600) 600 mg PO DAILY 10/19/22 10/31/23 cholecalciferol (vitamin D3) 25 25 mcg PO DAILY 10/19/22 10/31/23 mcg (1,000 unit) capsule mecobalamin (vitamin B12) 1,000 1,000 mcg PO DAILY 10/20/22 10/31/23 mcg chewable tablet linaclotide 145 mcg capsule 145 mcg PO DAILY #30 caps 02/01/23 10/31/23 (Linzess) duloxetine 30 mg capsule,delayed 30 mg PO DAILY #90 caps 03/09/23 10/31/23 release diazepam 2 mg tablet 2 mg PO BID PRN anxiety #20 tabs 04/05/23 10/31/23 morphine concentrate 100 mg/5 mL See Rx Instructions sublingual Q1H 04/05/23 10/31/23 (20 mg/mL) oral solution PRN PRN pain #30 mL apixaban 5 mg tablet (Eliquis) 5 mg PO BID #180 tabs 04/30/23 10/31/23 aspirin 81 mg tablet,delayed 81 mg PO DAILY #30 tabs 05/03/23 10/31/23 release (Adult Aspirin Regimen) oxycodone 5 mg tablet 5 mg PO BID PRN pain #10 tabs 09/02/23 10/31/23 hydrocortisone 2.5 % topical cream 1 applic SC QD-BID PRN hemorrhoids 09/09/23 10/31/23 with perineal applicator #30 grams (Anusol-HC) estradiol 10 mcg vaginal tablet 10 mcg vaginal 2X Week #25 tab-caps 09/15/23 10/31/23 (Vagifem) pantoprazole 40 mg tablet,delayed 40 mg PO DAILY #90 tabs 09/15/23 10/31/23 release (Protonix) pregabalin 150 mg capsule 150 mg PO BID #180 caps 09/16/23 10/31/23 acyclovir 400 mg tablet 400 mg PO BID 09/27/23 10/31/23 copper gluconate 2 mg tablet 2 mg PO DAILY 09/27/23 10/31/23 dexamethasone 4 mg tablet 20 mg PO DAILY 09/27/23 10/31/23 lenalidomide 25 mg capsule 25 mg PO DAILY 09/27/23 10/31/23 (Revlimid) pyridoxine (vitamin B6) 50 mg 50 mg PO DAILY 09/27/23 10/31/23 tablet sulfamethoxazole 800 tab PO 09/27/23 09/27/23 mg-trimethoprim 160 mg tablet THC CeresMed Gummies See Rx Instructions PO HS 09/28/23 mupirocin 2 % topical ointment 1 applic topical TID cellulitis 10/31/23 #15 grams sulfamethoxazole 800 1 tab PO BID cellulitis 7 days #14 10/31/23 mg-trimethoprim 160 mg tablet tabs Previous Rx's Medication Instructions Recorded linaclotide 145 mcg capsule 145 mcg PO DAILY #30 caps 02/01/23 (Linzess) duloxetine 30 mg capsule,delayed 30 mg PO DAILY #90 caps 03/09/23 release diazepam 2 mg tablet 2 mg PO BID PRN anxiety #20 tabs 04/05/23 morphine concentrate 100 mg/5 mL See Rx Instructions sublingual Q1H 04/05/23 (20 mg/mL) oral solution PRN PRN pain #30 mL apixaban 5 mg tablet (Eliquis) 5 mg PO BID #180 tabs 04/30/23 aspirin 81 mg tablet,delayed 81 mg PO DAILY #30 tabs 05/03/23 release (Adult Aspirin Regimen) oxycodone 5 mg tablet 5 mg PO BID PRN pain #10 tabs 09/02/23 hydrocortisone 2.5 % topical cream 1 applic SC QD-BID PRN hemorrhoids 09/09/23 with perineal applicator #30 grams (Anusol-HC) estradiol 10 mcg vaginal tablet 10 mcg vaginal 2X Week #25 tab-caps 09/15/23 (Vagifem) pantoprazole 40 mg tablet,delayed 40 mg PO DAILY #90 tabs 09/15/23 release (Protonix) pregabalin 150 mg capsule 150 mg PO BID #180 caps 09/16/23 mupirocin 2 % topical ointment 1 applic topical TID cellulitis 10/31/23 #15 grams sulfamethoxazole 800 1 tab PO BID cellulitis 7 days #14 10/31/23 mg-trimethoprim 160 mg tablet tabs Allergies Allergy/AdvReac Type Severity Reaction Status Date / Time aspartame AdvReac Intermediate leg cramps Verified 10/31/23 17:41 hydrochlorothiazide AdvReac Intermediate Leg cramps Verified 10/31/23 17:41 latex AdvReac Intermediate skin Verified 10/31/23 17:41 cracks and bleeds General Stated Complaint: Cellulitis CHERI: 3 Review of Systems All systems reviewed & are unremarkable except as noted in HPI and below Exam Narrative Exam Narrative: GENERAL APPEARANCE: Well-nourished, non-toxic, awake and alert, atraumatic, no acute distress. SKIN: Warm, pink, dry, macular erythema just superior to lateral anterior calf muscle biopsy site with well-established scab, area is roughly 3x5cm, no fluctuant swelling, L dorsalis pedis 2+, sensation baseline, no purulent drainage, consistent with mild cellulitis HEAD: Normocephalic, atraumatic, normal hair distribution for gender/age. EYES: Normal conjunctiva, no exudates on lids/lashes. ENT: Nares patent, no circumoral cyanosis, no facial swelling NECK: Supple, trachea midline, painless cervical ROM. LUNGS/CHEST: Non-labored respirations, normal A/P diameter, symmetrical expansion, no chest wall deformity HEART (CV/PV): Regular rate, no peripheral edema, no JVD. ABDOMEN: Soft, non-distended, no guarding. MSK: Normal ROM, no swelling/deformity to bilateral UEs or LEs, moving all extremities without weakness, no cyanosis, spine midline without tenderness, normal curvature. NEURO: Mental Status AAOx4 - alert to person, place, time, events No facial droop, no forehead involvement. Motor: No focal weakness - strength 5/5 in bilateral UEs and LEs, proximal and distal, symmetric. Sensory: sensation intact to light touch globally. Gait normal: patient ambulated without ataxia into ED room. PSYCH: euthymic, cooperative, pleasant, appropriate speech Course Vital Signs Vital signs: Vital Signs Temperature 36.2 C L 10/31/23 17:34 Pulse 73 10/31/23 17:34 Respiratory Rate 18 10/31/23 17:34 Blood Pressure 141/72 H 10/31/23 17:34 Pulse Oximetry 98 10/31/23 17:34 Temperature 36.2 C L 10/31/23 17:40 Temperature Source Skin 10/31/23 17:40 Pulse 73 10/31/23 17:40 Respiratory Rate 18 10/31/23 17:40 Respiratory Effort Normal 10/31/23 17:40 Blood Pressure 141/72 H 10/31/23 17:40 Blood Pressure Position Sitting 10/31/23 17:40 Pulse Oximetry 98 10/31/23 17:40 Oxygen Delivery Method Room Air 10/31/23 17:40 Oxygen Flow Rate 0 10/31/23 17:40 Pain Level 0 10/31/23 17:40 Medical Decision Making This dictation utilizes [id number] dictation software and may contain unedited grammatical errors. 63 y/o F presents to ED today with a chief complaint of mild redness developing recently after a muscle biopsy some weeks ago. 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 This area is mildly erythematous, denies drainage of pus, denies gross welling or unilateral leg swelling, denies red streaking, denies medial thigh pain, denies fever. Patients' medical history: Poems syndrome, elevated hematocrit, thrombocytosis on anticoagulation, dysfunctional uterine bleeding, GERD, hyperlipidemia, hypertension, lytic bone lesions, atrial fibrillation. Family and social history: noncontributory. Pertinent exam findings / vital signs include SKIN: Warm, pink, dry, macular erythema just superior to lateral anterior calf muscle biopsy site with well-established scab, area is roughly 3x5cm, no fluctuant swelling, L dorsalis pedis 2+, sensation baseline, no purulent drainage, consistent with mild cellulitis. Differential / pathologies of concern include superficial thrombophlebitis, mild early cellulitis. Diagnostic studies of: -none. Interventions of: -outpatient Rx for BID Bactrim, and topical mupirocin. ED Course/Assessment/Plan: 63-year-old female presents with a small erythematous macular area just superior to the past muscle biopsy in the recent weeks, has been healing normally but noticed a skin change and is very cautious about anything with infectious etiology due to problems syndrome. Appears to be a mild early cellulitis without any fluctuance or unilateral leg swelling, patient has distal pedal pulse intact, no lymphadenitis from the area, no drainage of pus, well away from the deep vein system without any signs of DVT and is on Eliquis. I counseled them on trial of antibiotic relief and provided outpatient mupirocin to use on any future minor cuts and abrasions and strict return criteria for any increasing swelling, drainage of pus from the area, fevers, red streaking, unilateral leg swelling, pain with ambulation for ultrasound. Findings not consistent with DVT, spreading infection. Disposition of Cellulitis. Patient verbalized understanding of the plan and return to ED criteria and engaged in shared decision making. Medical Records Medical records reviewed: Yes I reviewed the patient's medical records. Quality:[facility] Health Related Social Needs: No Data to Display PFSH All Active Problems (Updated 10/31/23 @ 17:53 by HUEY Edmond) Cellulitis (Acute) Nail dystrophy (Acute) POEMS syndrome (Acute) Lytic bone lesions on xray (Acute) multiple. 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 stated this was r/o to be cardiac in nature, and is why she is have C&G procedure done on 08/06/21 Hip pain, left Achilles bursitis Atypical mole (01/18/17) Carpal tunnel syndrome Left shoulder pain (08/05/15) Microscopic hematuria Otitis externa (05/07/14) Vascular headache DUB (dysfunctional uterine bleeding) 2.6cm fundal fibroid; 3.8 cm right ovary cyst in 01/08 since resolved. 3.5 cm left kidney cyst Carpal tunnel syndrome bilateral; left by EMS; left medial nerve release Microscopic hematuria neg. C&S; nl Bun and Cr.; neg IUP; neg cystocopy Vascular headache Achilles bursitis confirmed by MRI 06/11 Abnormal glandular Pap smear of vagina 10/24/12 follow up normal External otitis 05/07/14 Left shoulder pain 08/05/15 Atypical mole 01/18/17 Cough 08/30/17 Cervical pain Right carpal tunnel syndrome (02/21/18) Patient has clinically obvious carpal tunnel syndrome right upper extremity. I explained her that I know do all my carpal tunnel surgeries via open technique. This avoid an incomplete release or or an injury to the common digital nerve to the middle finger. Patient understands the reason for the change the open technique and agrees to have this done on her right side despite the fact that she had a E CTR on the left side Knee pain (01/01/07) MRI 01/08= neg. tear; ? of chondromalacia; Med. 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 CUADRA; RIGHT Status post carpal tunnel release PROCEDURES 07/21/16; LASERLIDOTOMY Open Carpal Tunnel release (~2002) left medial nerve release Endometrial Biopsy neg Family History Mother , 59 Essential hypertension Anxiety Depression Heart disease Hyperlipidemia Leukemia Father , MET/LUNG CA at age 79. Diabetes Alcohol abuse Essential hypertension Heart disease Hyperlipidemia Asthma Lung cancer Sister No problems noted. Brother Essential hypertension Anxiety Depression Hyperlipidemia Maternal Grandfather , 90s No problems noted. Paternal Grandfather , 90s Heart disease Stroke Maternal Grandmother , 70s No problems noted. Paternal Grandmother , 70s Alcohol abuse Heart disease Hypertension Stroke Social History Smoking/Tobacco Use Status: Never Second Hand Exposure: Yes Smoking risk assessment performed?: Yes Alcohol Intake: current Alcohol type: wine and hard liquor Drug use: Never Substance use type: marijuana Details: comsumse THC eatables at night for sleep Caregiver/Support person: No Household members: spouse Housing: house Communication Needs: Corrective Lenses Education Level: college Do you need help understanding health information?: Rarely Pets and animals: No Sexually active: Yes Do you think of yourself as: straight/heterosexual Current gender identity: female What is your relationship status?: How often do you talk on the phone with friends or family?: three or more times per week How often do you get together with friends or relatives?: three or more times per week Do you belong to any clubs or organized social groups?: no Panel score (0-1 are the most socially isolated patients): 2 What type of physical activity do you participate in: none Barbara/Advent: No preference Special barbara needs: No Seatbelt use: always Drive intox or ride w/intox electric lift truck driver: No Do you feel safe at home: Yes Do you feel safe in your relationship?: Yes
[2023-10-31 18:27] VITALS: BP 141/72; PULSE 73; RESP 18; TEMP 36.2; O2SAT 98
[2023-10-31] MEDS: Sulfameth/Trimeth DS TAB 1 TAB PO (18:27)
== END 2023-10-31 18:29 | disposition home or self-care (01) ==
LOC: ER 18:24
PROVIDERS: Emergency Provider Physician Assistant; PCP Family Medicine
DX: L03.116 Cellulitis of left lower limb (principal); G90.9 Disorder of the autonomic nervous system, unspecified; I10 Essential (primary) hypertension; E78.5 Hyperlipidemia, unspecified; Z79.01 Long term (current) use of anticoagulants; Z79.82 Long term (current) use of aspirin
CPT/HCPCS: 99283

== ENCOUNTER 2023-11-10 05:17 | Outpatient (CLI) | payer BC, SELFPAY ==
[2023-11-10 09:19] LABS: Abs Immature Grans 0.04 10^3/uL (0.0-0.06); Absolute Basophil Count 0.13 10^3/uL (0.0-0.2); Absolute Eosinophil Count 1.84 10^3/uL (0.0-0.7); Absolute Lymphocyte Count 1.92 10^3/uL (1.2-3.4); Absolute Monocyte Count 0.57 10^3/uL (0.1-0.8); Absolute Neutrophil Count 1.61 10^3/uL (1.2-6.7); Basophils % 2.1 %; Eosinophils % 30.1 %; HCT 40.5 % (36.0-46.0); HGB 12.7 g/dL (11.2-15.7); Immature Grans % 0.7 %; Lymphocytes % 31.4 %; MCH 30.7 pg (27.0-33.0); MCHC 31.4 % (32.0-36.0); MCV 98 fL (80-95); MPV 9.8 fL (8.0-11.0); Monocytes % 9.3 %; Neutrophils % 26.4 %; Platelet Count 189 10^3/uL (130-400); RBC 4.14 10^6/uL (3.93-5.22); RDW-SD 63.6 fL; WBC 6.11 10^3/uL (4.4-10.8)
[2023-11-10 09:42] LABS: Iron 66 ug/dL (50-170); Total Iron Binding Capacity 254 ug/dL (250-450); Transferrin Sat 26 % (15-50)
[2023-11-10 09:55] LABS: ALT 24 U/L (14-59); AST 13 U/L (15-37); Albumin 3.3 g/dL (3.4-5.0); Alkaline Phosphatase 56 U/L (46-116); Anion Gap 7.7 mmol/L (3-11); BUN 27 mg/dL (7-18); Bilirubin, Total 0.4 mg/dL (0.2-1.0); CO2 29.3 mmol/L (21.0-32.0); CREATININE 1.2 mg/dL (0.55-1.02); Calcium 8.5 mg/dL (8.5-10.1); Chloride 109 mmol/L (98-107); Estimated GFR 51.18 (mL/min/1.73m2); Ferritin 208 ng/mL (8-252); Glucose 77 mg/dL (74-106); Potassium 3.9 mmol/L (3.5-5.1); Sodium 146 mmol/L (136-145); Total Protein 6.1 g/dL (6.4-8.2)
[2023-11-10 10:08] LABS: LDH 110 U/L (81-234)
== END 2023-11-10 05:18 | disposition home or self-care (01) ==
LOC: LBO 05:17
PROVIDERS: PCP Family Medicine; Visit Provider Internal Medicine Hematology & Oncology
DX: R59.9 Enlarged lymph nodes, unspecified (principal); G61.81 Chronic inflammatory demyelinating polyneuritis; E61.0 Copper deficiency; E53.9 Vitamin B deficiency, unspecified; D75.839 Thrombocytosis, unspecified
CPT/HCPCS: 36415; 80053; 82728; 83540; 83550; 83615; 85025

== ENCOUNTER 2023-11-16 05:19 | Outpatient (CLI) | payer BC, SELFPAY ==
[2023-11-16] MEDS: Levalbuterol HFA 15 GM INH 4 PUFF IH (10:58)
[2023-11-16] MEDS: Inhaler, Assist Device 1 EACH MC (10:59)
--- NOTE | 2023-11-16 14:52 | W.PFT ---
Date of service: 11/16/23 Time of Service: 08:02 Pulmonary Function Test Result Indications: POEMS Interpretation Spirometry: There is no airflow limitation. No bronchodilator response. Restrictive appearing spirometry Lung Volumes: Normal lung volumes Diffusion Capacity: Normal diffusion Airway Pressure: Normal airways pressure Impression Normal pulmonary function testing Clinical Correlation therefore is recommended.
== END 2023-11-16 05:20 | disposition home or self-care (01) ==
LOC: RT 05:19
PROVIDERS: PCP Family Medicine; Visit Provider Student in an Organized Health Care Education/Training Program
DX: G61.81 Chronic inflammatory demyelinating polyneuritis (principal)
CPT/HCPCS: 94060; 94726; 94729

== ENCOUNTER 2023-12-08 05:28 | Outpatient (CLI) | payer BC, SELFPAY ==
[2023-12-08 13:20] LABS: Abs Immature Grans 0.07 10^3/uL (0.0-0.06); Absolute Basophil Count 0.17 10^3/uL (0.0-0.2); Absolute Eosinophil Count 0.96 10^3/uL (0.0-0.7); Absolute Lymphocyte Count 2.07 10^3/uL (1.2-3.4); Absolute Monocyte Count 0.64 10^3/uL (0.1-0.8); Absolute Neutrophil Count 2.08 10^3/uL (1.2-6.7); Basophils % 2.8 %; HCT 39.3 % (36.0-46.0); HGB 12.6 g/dL (11.2-15.7); Immature Grans % 1.2 %; Lymphocytes % 34.6 %; MCH 31.7 pg (27.0-33.0); MCHC 32.1 % (32.0-36.0); MCV 99 fL (80-95); MPV 10.2 fL (8.0-11.0); Monocytes % 10.7 %; Neutrophils % 34.7 %; Platelet Count 285 10^3/uL (130-400); RBC 3.98 10^6/uL (3.93-5.22); RDW 18.2 % (11.7-14.6); RDW-SD 66.2 fL; WBC 5.99 10^3/uL (4.4-10.8)
[2023-12-08 13:41] LABS: Iron 74 ug/dL (50-170); Total Iron Binding Capacity 244 ug/dL (250-450); Transferrin Sat 30 % (15-50)
[2023-12-08 13:47] LABS: ALT 28 U/L (14-59); AST 12 U/L (15-37); Albumin 3.3 g/dL (3.4-5.0); Alkaline Phosphatase 57 U/L (46-116); Anion Gap 6.3 mmol/L (3-11); BUN 23 mg/dL (7-18); Bilirubin, Total 0.4 mg/dL (0.2-1.0); CO2 30.7 mmol/L (21.0-32.0); CREATININE 1.4 mg/dL (0.55-1.02); Calcium 8.7 mg/dL (8.5-10.1); Chloride 107 mmol/L (98-107); Estimated GFR 42.54 (mL/min/1.73m2); Ferritin 194 ng/mL (8-252); Glucose 86 mg/dL (74-106); Potassium 3.9 mmol/L (3.5-5.1); Sodium 144 mmol/L (136-145); Total Protein 6.3 g/dL (6.4-8.2)
[2023-12-08 14:03] LABS: LDH 115 U/L (81-234)
== END 2023-12-08 05:29 | disposition home or self-care (01) ==
LOC: LBO 05:28
PROVIDERS: PCP Family Medicine; Visit Provider Internal Medicine Hematology & Oncology
DX: G62.9 Polyneuropathy, unspecified (principal); D47.2 Monoclonal gammopathy; E34.9 Endocrine disorder, unspecified; R23.9 Unspecified skin changes
CPT/HCPCS: 36415; 80053; 82728; 83540; 83550; 83615; 85025

== ENCOUNTER 2023-12-27 11:14 | Outpatient (CLI) | payer BC, SELFPAY ==
[2023-12-27 13:09] LABS: ALT 35 U/L (14-59); AST 19 U/L (15-37); Albumin 3.7 g/dL (3.4-5.0); Alkaline Phosphatase 62 U/L (46-116); Anion Gap 9.8 mmol/L (3-11); BUN 20 mg/dL (7-18); Bilirubin, Total 0.47 mg/dL (0.2-1.0); CO2 30.2 mmol/L (21.0-32.0); CREATININE 1.2 mg/dL (0.55-1.02); Calcium 9.2 mg/dL (8.5-10.1); Chloride 104 mmol/L (98-107); Estimated GFR 51.18 (mL/min/1.73m2); Glucose 69 mg/dL (74-106); Potassium 3.5 mmol/L (3.5-5.1); Sodium 144 mmol/L (136-145); Total Protein 7.2 g/dL (6.4-8.2); Vitamin B12 1203 pg/mL (193-986)
[2023-12-27 19:09] LABS: Hepatitis C Ab w Rflx HCV PCR Negative (Negative)
[2023-12-29 12:11] LABS: Copper, Serum 91 mcg/dL (77-206)
== END 2023-12-27 11:15 | disposition home or self-care (01) ==
LOC: LOS 11:22
PROVIDERS: PCP Family Medicine; Referring Provider Family Medicine; Visit Provider Family Medicine
DX: I10 Essential (primary) hypertension (principal); G62.9 Polyneuropathy, unspecified; D47.2 Monoclonal gammopathy; E34.9 Endocrine disorder, unspecified; R23.9 Unspecified skin changes; R79.0 Abnormal level of blood mineral; Z11.59 Encounter for screening for other viral diseases
CPT/HCPCS: 36415; 80053; 82525; 86803; 82607

== ENCOUNTER 2024-02-09 17:38 | Outpatient (CLI) | payer BC, SELFPAY ==
[2024-02-09 14:25] LABS: Abs Immature Grans 0.01 10^3/uL (0.0-0.06); Absolute Basophil Count 0.18 10^3/uL (0.0-0.2); Absolute Eosinophil Count 0.46 10^3/uL (0.0-0.7); Absolute Monocyte Count 0.56 10^3/uL (0.1-0.8); Absolute Neutrophil Count 1.04 10^3/uL (1.2-6.7); Basophils % 4.6 %; Eosinophils % 11.6 %; HCT 33.3 % (36.0-46.0); HGB 10.9 g/dL (11.2-15.7); Immature Grans % 0.3 %; MCHC 32.7 % (32.0-36.0); MCV 104 fL (80-95); MPV 9.7 fL (8.0-11.0); Monocytes % 14.2 %; Neutrophils % 26.3 %; Platelet Count 272 10^3/uL (130-400); RBC 3.21 10^6/uL (3.93-5.22); RDW 15.5 % (11.7-14.6); RDW-SD 60.2 fL; WBC 3.95 10^3/uL (4.4-10.8)
[2024-02-09 15:26] LABS: Iron 42 ug/dL (50-170); Total Iron Binding Capacity 264 ug/dL (250-450); Transferrin Sat 16 % (15-50)
[2024-02-09 15:42] LABS: ALT 33 U/L (14-59); AST 24 U/L (15-37); Albumin 3.5 g/dL (3.4-5.0); Alkaline Phosphatase 61 U/L (46-116); Anion Gap 6.7 mmol/L (3-11); BUN 20 mg/dL (7-18); Bilirubin, Total 0.41 mg/dL (0.2-1.0); CO2 30.3 mmol/L (21.0-32.0); CREATININE 1.3 mg/dL (0.55-1.02); Calcium 9.3 mg/dL (8.5-10.1); Chloride 104 mmol/L (98-107); Estimated GFR 46.49 (mL/min/1.73m2); Ferritin 189 ng/mL (8-252); Glucose 84 mg/dL (74-106); Potassium 3.6 mmol/L (3.5-5.1); Sodium 141 mmol/L (136-145); Total Protein 6.5 g/dL (6.4-8.2); Vitamin B12 808 pg/mL (193-986)
[2024-02-10 21:28] LABS: Copper, Serum 77 mcg/dL (77-206)
[2024-02-14 23:37] LABS: Pyridoxal 5-Phosphate (PLP), P 52 mcg/L (5-50)
== END 2024-02-09 17:39 | disposition home or self-care (01) ==
LOC: LBO 17:39
PROVIDERS: PCP Family Medicine; Visit Provider Internal Medicine Hematology & Oncology
DX: G62.9 Polyneuropathy, unspecified (principal); D47.2 Monoclonal gammopathy; E34.9 Endocrine disorder, unspecified; R23.9 Unspecified skin changes; E61.0 Copper deficiency; E53.9 Vitamin B deficiency, unspecified
CPT/HCPCS: 36415; 80053; 82525; 82607; 82728; 83540; 83550; 84207; 85025

== ENCOUNTER 2024-03-20 04:34 | Outpatient (CLI) | payer BC, SELFPAY ==
[2024-03-20 10:16] LABS: Abs Immature Grans 0.02 10^3/uL (0.0-0.06); Absolute Basophil Count 0.15 10^3/uL (0.0-0.2); Absolute Eosinophil Count 0.42 10^3/uL (0.0-0.7); Absolute Lymphocyte Count 0.84 10^3/uL (1.2-3.4); Absolute Monocyte Count 0.38 10^3/uL (0.1-0.8); Absolute Neutrophil Count 1.94 10^3/uL (1.2-6.7); Eosinophils % 11.2 %; HCT 34.6 % (36.0-46.0); HGB 11.3 g/dL (11.2-15.7); Immature Grans % 0.5 %; Lymphocytes % 22.4 %; MCH 33.6 pg (27.0-33.0); MCHC 32.7 % (32.0-36.0); MCV 103 fL (80-95); MPV 10.3 fL (8.0-11.0); Monocytes % 10.1 %; Neutrophils % 51.8 %; Platelet Count 220 10^3/uL (130-400); RBC 3.36 10^6/uL (3.93-5.22); RDW 14.6 % (11.7-14.6); RDW-SD 55.3 fL; WBC 3.75 10^3/uL (4.4-10.8)
[2024-03-20 10:49] LABS: ALT 32 U/L (14-59); AST 20 U/L (15-37); Albumin 3.3 g/dL (3.4-5.0); Alkaline Phosphatase 76 U/L (46-116); BUN 17 mg/dL (7-18); CREATININE 1.3 mg/dL (0.55-1.02); Calcium 9.1 mg/dL (8.5-10.1); Chloride 107 mmol/L (98-107); Estimated GFR 46.21 (mL/min/1.73m2); Ferritin 187 ng/mL (8-252); Glucose 83 mg/dL (74-106); Potassium 3.7 mmol/L (3.5-5.1); Sodium 145 mmol/L (136-145); Total Protein 6.4 g/dL (6.4-8.2)
[2024-03-20 11:00] LABS: LDH 100 U/L (81-234)
[2024-03-20 11:15] LABS: Iron 60 ug/dL (50-170); Total Iron Binding Capacity 263 ug/dL (250-450); Transferrin Sat 23 % (15-50)
== END 2024-03-20 04:35 | disposition home or self-care (01) ==
LOC: LBO 04:42
PROVIDERS: PCP Family Medicine; Visit Provider Internal Medicine Hematology & Oncology
DX: R59.9 Enlarged lymph nodes, unspecified (principal); G61.81 Chronic inflammatory demyelinating polyneuritis; E61.0 Copper deficiency; E53.9 Vitamin B deficiency, unspecified; D75.839 Thrombocytosis, unspecified; G62.9 Polyneuropathy, unspecified; D47.2 Monoclonal gammopathy; E34.9 Endocrine disorder, unspecified; R23.9 Unspecified skin changes
CPT/HCPCS: 36415; 80053; 82728; 83540; 83550; 83615; 85025

== ENCOUNTER 2024-05-24 11:10 | Outpatient (CLI) | payer BC, SELFPAY ==
[2024-05-24 12:13] LABS: ALT 68 U/L (14-59); AST 32 U/L (15-37); Albumin 3.3 g/dL (3.4-5.0); Alkaline Phosphatase 109 U/L (46-116); Anion Gap 6.1 mmol/L (3-11); BUN 18 mg/dL (7-18); Bilirubin, Total 0.46 mg/dL (0.2-1.0); CO2 30.9 mmol/L (21.0-32.0); CREATININE 1.2 mg/dL (0.55-1.02); Calcium 9.1 mg/dL (8.5-10.1); Chloride 108 mmol/L (98-107); Estimated GFR 50.86 (mL/min/1.73m2); Ferritin 217 ng/mL (8-252); Glucose 84 mg/dL (74-106); Potassium 3.8 mmol/L (3.5-5.1); Sodium 145 mmol/L (136-145); Total Protein 6.9 g/dL (6.4-8.2)
[2024-05-24 12:20] LABS: Iron 43 ug/dL (50-170); Total Iron Binding Capacity 252 ug/dL (250-450); Transferrin Sat 17 % (15-50)
[2024-05-24 12:34] LABS: LDH 114 U/L (81-234)
[2024-05-24 16:54] LABS: HCT 34.8 % (36.0-46.0); HGB 10.8 g/dL (11.2-15.7); MCH 32.1 pg (27.0-33.0); MCV 104 fL (80-95); MPV 10.5 fL (8.0-11.0); Platelet Count 240 10^3/uL (130-400); RBC 3.36 10^6/uL (3.93-5.22); RDW 14.8 % (11.7-14.6); RDW-SD 56.2 fL; WBC 2.39 10^3/uL (4.4-10.8)
[2024-05-24 19:14] LABS: Absolute Neutrophil Count 0.53 10^3/uL (1.2-6.7)
[2024-05-24 19:17] LABS: Absolute Eosinophil Count 0.48 10^3/uL (0.0-0.7); Absolute Monocyte Count 0.33 10^3/uL (0.1-0.8); Atypical Lymphocytes % 1 %
[2024-05-24 19:18] LABS: Absolute Basophil Count 0.05 10^3/uL (0.0-0.2); Diff Comment Manual Differential
[2024-05-24 19:22] LABS: Macrocytosis 1+; Polychromasia Present
[2024-05-24 19:23] LABS: Poikilocytes 2+
== END 2024-05-24 11:11 | disposition home or self-care (01) ==
LOC: LBO 11:10
PROVIDERS: Nurse Practitioner Adult Health; PCP Family Medicine; Visit Provider Internal Medicine Hematology & Oncology
DX: R59.9 Enlarged lymph nodes, unspecified (principal); G61.81 Chronic inflammatory demyelinating polyneuritis; E61.0 Copper deficiency; E53.9 Vitamin B deficiency, unspecified; D75.839 Thrombocytosis, unspecified; G62.9 Polyneuropathy, unspecified; D47.2 Monoclonal gammopathy; E34.9 Endocrine disorder, unspecified; R23.9 Unspecified skin changes
CPT/HCPCS: 36415; 80053; 82728; 83540; 83550; 83615; 85025

== ENCOUNTER 2024-06-13 13:27 | Outpatient (CLI) | payer MEDICARE, SELFPAY ==
--- NOTE | 2024-06-13 09:45 | DI.RAD_ITS ---
Exam(s) XR CHEST 2V PA LATERAL EXAM: XR CHEST 2V PA LATERAL CLINICAL HISTORY: J98.6 ? resolution of left hemidiaphragm. TECHNIQUE: 2D digital imaging was performed. COMPARISON: CR XR CHEST 2V PA LATERAL from 04/02/2023 FINDINGS: 2 views: Heart size is normal. The mediastinum is not widened. Elevated left hemidiaphragm is unchanged. There is some atelectasis in the left lower lobe above the elevated left hemidiaphragm. Cannot exclu de very early infiltrate at this level. The right lung is clear. No obvious pleural effusions. IMPRESSION: Elevated left hemidiaphragm again noted, as seen on 04/02/2023. Atelectasis or mild infiltrate in the left lung base just above the elevated left hemidiaphragm. No pleural effusions. DATA REPOSITORY: RADIATION DOSE DELIVERED:
== END 2024-06-13 13:47 ==
PROVIDERS: PCP Family Medicine; Visit Provider Family Medicine
DX: J98.6 Disorders of diaphragm (principal); J98.11 Atelectasis
CPT/HCPCS: 71046

== ENCOUNTER → 2024-06-20 14:18 | Outpatient (BNVA) | payer MEDICARE, SELFPAY | PROVIDERS: PCP Family Medicine; Referring Provider Family Medicine; Visit Provider Physician Assistant Surgical | DX: G61.81 Chronic inflammatory demyelinating polyneuritis (principal); J98.6 Disorders of diaphragm; J98.4 Other disorders of lung; G70.9 Myoneural disorder, unspecified; I26.99 Other pulmonary embolism without acute cor pulmonale; G62.9 Polyneuropathy, unspecified; D47.2 Monoclonal gammopathy; E34.9 Endocrine disorder, unspecified; R23.9 Unspecified skin changes | CPT/HCPCS: 99214 ==

== ENCOUNTER 2024-07-12 02:12 | Outpatient (CLI) | payer MEDICARE, SELFPAY ==
--- NOTE | 2024-07-12 07:00 | DI.RAD_ITS ---
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 CONTRAST MATERIAL: Refer to procedure report. COMPARISON: CR XR CHEST 2V PA LATERAL from 06/13/2024 FINDINGS: Chest x-ray: MEDIASTINUM: Normal. HEART: Normal. PULMONARY VASCULATURE: Normal. LUNGS: Clear. PLEURAL SPACE: No pleural effusion or pneumothorax. BONE:Within normal limits for the patient's age. OTHER FINDINGS:There is elevation of the left hemidiaphragm which is unchanged. Fluoroscopy was provided during the performance of a sniff test. There is very little, if any, excur jose f of the left hemidiaphragm. There is normal excursion of the right hemidiaphragm. Ka,r=28.4 mGy IMPRESSION: Very little, if any, excursion of the left hemidiaphragm is noted during this examination. RADIATION DOSE DELIVERED: 0.0 0.0 0
== END 2024-07-12 02:32 ==
LOC: DI 02:12
PROVIDERS: PCP Family Medicine; Visit Provider Physician Assistant Surgical
DX: J98.6 Disorders of diaphragm (principal)
CPT/HCPCS: 76000

== ENCOUNTER 2024-07-20 01:10 | Outpatient (CLI) | payer MEDICARE, SELFPAY ==
[2024-07-20 12:05] LABS: Abs Immature Grans 0.01 10^3/uL (0.0-0.06); Absolute Basophil Count 0.08 10^3/uL (0.0-0.2); Absolute Eosinophil Count 0.44 10^3/uL (0.0-0.7); Absolute Lymphocyte Count 1.07 10^3/uL (1.2-3.4); Absolute Neutrophil Count 0.77 10^3/uL (1.2-6.7); Basophils % 2.9 %; Eosinophils % 15.9 %; HCT 34.6 % (36.0-46.0); HGB 11.3 g/dL (11.2-15.7); Immature Grans % 0.4 %; Lymphocytes % 38.6 %; MCH 33.4 pg (27.0-33.0); MCHC 32.7 % (32.0-36.0); MCV 102 fL (80-95); MPV 10.3 fL (8.0-11.0); Monocytes % 14.4 %; Neutrophils % 27.8 %; Platelet Count 196 10^3/uL (130-400); RBC 3.38 10^6/uL (3.93-5.22); RDW 14.6 % (11.7-14.6); RDW-SD 55.3 fL; WBC 2.77 10^3/uL (4.4-10.8)
[2024-07-20 12:16] LABS: Diff Comment Diff Reviewed; RBC Morphology Normal
[2024-07-20 13:04] LABS: Iron 44 ug/dL (50-170); Total Iron Binding Capacity 268 ug/dL (250-450); Transferrin Sat 16 % (15-50)
[2024-07-20 13:08] LABS: ALT 34 U/L (14-59); AST 18 U/L (15-37); Albumin 3.4 g/dL (3.4-5.0); Alkaline Phosphatase 97 U/L (46-116); Anion Gap 4.3 mmol/L (3-11); BUN 17 mg/dL (7-18); Bilirubin, Total 0.35 mg/dL (0.2-1.0); CO2 30.7 mmol/L (21.0-32.0); CREATININE 1.4 mg/dL (0.55-1.02); Calcium 9.2 mg/dL (8.5-10.1); Chloride 107 mmol/L (98-107); Estimated GFR 42.27 (mL/min/1.73m2); Ferritin 195 ng/mL (8-252); Glucose 90 mg/dL (74-106); LDH 118 U/L (81-234); Sodium 142 mmol/L (136-145); Total Protein 6.6 g/dL (6.4-8.2)
== END 2024-07-20 01:11 | disposition home or self-care (01) ==
LOC: LBO 01:10
PROVIDERS: Nurse Practitioner Adult Health; PCP Family Medicine; Visit Provider Internal Medicine Hematology & Oncology
DX: D75.839 Thrombocytosis, unspecified (principal); G62.9 Polyneuropathy, unspecified; D47.2 Monoclonal gammopathy; E34.9 Endocrine disorder, unspecified; R23.9 Unspecified skin changes; R59.9 Enlarged lymph nodes, unspecified; G61.81 Chronic inflammatory demyelinating polyneuritis; E61.0 Copper deficiency; E53.9 Vitamin B deficiency, unspecified
CPT/HCPCS: 36415; 80053; 82728; 83540; 83550; 83615; 85025

== ENCOUNTER → 2024-07-26 10:57 | Outpatient (BNVA) | payer MEDICARE, SELFPAY | PROVIDERS: PCP Family Medicine; Referring Provider Family Medicine; Visit Provider Podiatrist | DX: G62.9 Polyneuropathy, unspecified (principal); D47.2 Monoclonal gammopathy; E34.9 Endocrine disorder, unspecified; R23.9 Unspecified skin changes; M20.41 Other hammer toe(s) (acquired), right foot; M20.42 Other hammer toe(s) (acquired), left foot; R60.0 Localized edema; G63 Polyneuropathy in diseases classified elsewhere; I73.89 Other specified peripheral vascular diseases; M21.372 Foot drop, left foot; M21.371 Foot drop, right foot; L84 Corns and callosities; M79.674 Pain in right toe(s); M79.675 Pain in left toe(s); L60.2 Onychogryphosis; R09.89 Other specified symptoms and signs involving the circulatory and respiratory systems; R20.8 Other disturbances of skin sensation; L65.9 Nonscarring hair loss, unspecified; L53.8 Other specified erythematous conditions; R23.8 Other skin changes | CPT/HCPCS: 11719 ==

== ENCOUNTER 2024-07-31 03:20 | Outpatient (CLI) | payer MEDICARE, SELFPAY ==
[2024-07-31 13:25] LABS: Iron 76 ug/dL (50-170); Total Iron Binding Capacity 268 ug/dL (250-450); Transferrin Sat 28 % (15-50)
[2024-07-31 13:38] LABS: Ferritin 164 ng/mL (8-252)
[2024-07-31 15:52] LABS: Absolute Eosinophil Count 0.25 10^3/uL (0.0-0.7); Absolute Lymphocyte Count 1.34 10^3/uL (1.2-3.4); Absolute Monocyte Count 0.28 10^3/uL (0.1-0.8); Absolute Neutrophil Count 1.32 10^3/uL (1.2-6.7); Eosinophils % 7.6 %; HCT 34.8 % (36.0-46.0); HGB 11.1 g/dL (11.2-15.7); Lymphocytes % 40.7 %; MCH 32.9 pg (27.0-33.0); MCHC 31.9 % (32.0-36.0); MCV 103 fL (80-95); MPV 10.3 fL (8.0-11.0); Monocytes % 8.5 %; Neutrophils % 40.2 %; Platelet Count 221 10^3/uL (130-400); RBC 3.37 10^6/uL (3.93-5.22); RDW 14.6 % (11.7-14.6); RDW-SD 55.9 fL; WBC 3.29 10^3/uL (4.4-10.8)
== END 2024-07-31 03:21 | disposition home or self-care (01) ==
LOC: LBO 03:20
PROVIDERS: PCP Family Medicine; Visit Provider Internal Medicine Hematology & Oncology
DX: D75.839 Thrombocytosis, unspecified (principal); G62.9 Polyneuropathy, unspecified; R59.9 Enlarged lymph nodes, unspecified; G61.81 Chronic inflammatory demyelinating polyneuritis; E61.0 Copper deficiency; E53.9 Vitamin B deficiency, unspecified; D47.2 Monoclonal gammopathy; E34.9 Endocrine disorder, unspecified; R23.9 Unspecified skin changes; G63 Polyneuropathy in diseases classified elsewhere
CPT/HCPCS: 36415; 82728; 83540; 83550; 85025

== ENCOUNTER 2024-08-07 01:18 | Outpatient (CLI) | payer MEDICARE, SELFPAY ==
[2024-08-07 09:23] LABS: Abs Immature Grans 0.01 10^3/uL (0.0-0.06); Absolute Basophil Count 0.08 10^3/uL (0.0-0.2); Absolute Eosinophil Count 0.22 10^3/uL (0.0-0.7); Absolute Lymphocyte Count 1.21 10^3/uL (1.2-3.4); Absolute Monocyte Count 0.47 10^3/uL (0.1-0.8); Absolute Neutrophil Count 1.25 10^3/uL (1.2-6.7); Basophils % 2.5 %; Eosinophils % 6.8 %; HCT 33.7 % (36.0-46.0); Immature Grans % 0.3 %; Lymphocytes % 37.3 %; MCH 33.3 pg (27.0-33.0); MCHC 32.6 % (32.0-36.0); MCV 102 fL (80-95); MPV 9.4 fL (8.0-11.0); Monocytes % 14.5 %; Neutrophils % 38.6 %; Platelet Count 190 10^3/uL (130-400); RDW 14.4 % (11.7-14.6); WBC 3.24 10^3/uL (4.4-10.8)
[2024-08-07 09:59] LABS: Iron 75 ug/dL (50-170); Total Iron Binding Capacity 280 ug/dL (250-450); Transferrin Sat 27 % (15-50)
[2024-08-07 10:12] LABS: ALT 30 U/L (14-59); AST 20 U/L (15-37); Albumin 3.4 g/dL (3.4-5.0); Alkaline Phosphatase 91 U/L (46-116); Anion Gap 5.5 mmol/L (3-11); BUN 20 mg/dL (7-18); Bilirubin, Total 0.39 mg/dL (0.2-1.0); CO2 30.5 mmol/L (21.0-32.0); CREATININE 1.4 mg/dL (0.55-1.02); Calcium 9.2 mg/dL (8.5-10.1); Chloride 109 mmol/L (98-107); Estimated GFR 42.27 (mL/min/1.73m2); Ferritin 180 ng/mL (8-252); Glucose 77 mg/dL (74-106); Potassium 3.8 mmol/L (3.5-5.1); Sodium 145 mmol/L (136-145); Total Protein 6.6 g/dL (6.4-8.2)
[2024-08-07 10:31] LABS: LDH 117 U/L (81-234)
== END 2024-08-07 01:19 | disposition home or self-care (01) ==
PROVIDERS: Internal Medicine Hematology & Oncology; PCP Family Medicine; Visit Provider Nurse Practitioner Adult Health
DX: D75.839 Thrombocytosis, unspecified (principal); R23.9 Unspecified skin changes
CPT/HCPCS: 36415; 80053; 82728; 83540; 83550; 83615; 85025

== ENCOUNTER 2024-08-30 03:17 | Outpatient (CLI) | payer MEDICARE, SELFPAY ==
[2024-08-30 10:14] LABS: Abs Immature Grans 0.01 10^3/uL (0.0-0.06); Absolute Basophil Count 0.05 10^3/uL (0.0-0.2); Basophils % 2.1 %; Immature Grans % 0.4 %; RDW 14.8 % (11.7-14.6)
[2024-08-30 10:22] LABS: Absolute Eosinophil Count 0.29 10^3/uL (0.0-0.7); Absolute Lymphocyte Count 0.85 10^3/uL (1.2-3.4); Absolute Monocyte Count 0.34 10^3/uL (0.1-0.8); Absolute Neutrophil Count 0.86 10^3/uL (1.2-6.7); Eosinophils % 12.1 %; HCT 35.4 % (36.0-46.0); HGB 11.5 g/dL (11.2-15.7); Lymphocytes % 35.4 %; MCHC 32.5 % (32.0-36.0); MCV 101 fL (80-95); MPV 10.1 fL (8.0-11.0); Monocytes % 14.2 %; Neutrophils % 35.8 %; Platelet Count 184 10^3/uL (130-400); RBC 3.49 10^6/uL (3.93-5.22); RDW-SD 55.5 fL
[2024-08-30 10:33] LABS: Diff Comment Diff Reviewed; RBC Morphology Normal
[2024-08-30 10:56] LABS: ALT 123 U/L (14-59); AST 68 U/L (15-37); Albumin 3.4 g/dL (3.4-5.0); Alkaline Phosphatase 117 U/L (46-116); Anion Gap 5.9 mmol/L (3-11); BUN 16 mg/dL (7-18); Bilirubin, Total 0.45 mg/dL (0.2-1.0); CO2 31.1 mmol/L (21.0-32.0); CREATININE 1.3 mg/dL (0.55-1.02); Calcium 8.7 mg/dL (8.5-10.1); Chloride 107 mmol/L (98-107); Estimated GFR 46.21 (mL/min/1.73m2); Ferritin 216 ng/mL (8-252); Glucose 85 mg/dL (74-106); Potassium 3.4 mmol/L (3.5-5.1); Sodium 144 mmol/L (136-145); Total Protein 6.5 g/dL (6.4-8.2); Vitamin B12 1009 pg/mL (193-986)
[2024-08-30 11:22] LABS: Iron 86 ug/dL (50-170); Total Iron Binding Capacity 280 ug/dL (250-450); Transferrin Sat 31 % (15-50)
[2024-09-01 20:28] LABS: Copper, Serum 76 mcg/dL (77-206)
[2024-09-05 21:10] LABS: Pyridoxal 5-Phosphate (PLP), P 67 mcg/L (5-50)
== END 2024-08-30 03:18 | disposition home or self-care (01) ==
LOC: LBO 03:17
PROVIDERS: PCP Family Medicine; Visit Provider Internal Medicine Hematology & Oncology
DX: R74.9 Abnormal serum enzyme level, unspecified (principal); G62.9 Polyneuropathy, unspecified; D47.2 Monoclonal gammopathy; E34.9 Endocrine disorder, unspecified; R23.9 Unspecified skin changes; G63 Polyneuropathy in diseases classified elsewhere
CPT/HCPCS: 36415; 80053; 82525; 82607; 82728; 83540; 83550; 84207; 85025

== ENCOUNTER 2024-09-27 02:22 | Outpatient (CLI) | payer MEDICARE, SELFPAY ==
[2024-09-27 12:39] LABS: Abs Immature Grans 0.01 10^3/uL (0.0-0.06); Absolute Basophil Count 0.06 10^3/uL (0.0-0.2); Absolute Lymphocyte Count 1.22 10^3/uL (1.2-3.4); Absolute Monocyte Count 0.45 10^3/uL (0.1-0.8); Absolute Neutrophil Count 1.41 10^3/uL (1.2-6.7); Basophils % 1.6 %; Eosinophils % 13.7 %; HCT 36.5 % (36.0-46.0); HGB 11.6 g/dL (11.2-15.7); Immature Grans % 0.3 %; Lymphocytes % 33.4 %; MCH 32.7 pg (27.0-33.0); MCHC 31.8 % (32.0-36.0); MCV 103 fL (80-95); MPV 9.5 fL (8.0-11.0); Monocytes % 12.3 %; Neutrophils % 38.7 %; Platelet Count 192 10^3/uL (130-400); RBC 3.55 10^6/uL (3.93-5.22); RDW 14.6 % (11.7-14.6); RDW-SD 55.6 fL; WBC 3.65 10^3/uL (4.4-10.8)
[2024-09-27 13:09] LABS: Iron 51 ug/dL (50-170); Total Iron Binding Capacity 271 ug/dL (250-450); Transferrin Sat 19 % (15-50)
[2024-09-27 14:06] LABS: ALT 52 U/L (14-59); AST 43 U/L (15-37); Albumin 3.6 g/dL (3.4-5.0); Alkaline Phosphatase 102 U/L (46-116); Anion Gap 10.9 mmol/L (3-11); BUN 17 mg/dL (7-18); Bilirubin, Total 0.4 mg/dL (0.2-1.0); CO2 28.1 mmol/L (21.0-32.0); CREATININE 1.1 mg/dL (0.55-1.02); Calcium 8.9 mg/dL (8.5-10.1); Chloride 105 mmol/L (98-107); Estimated GFR 56.46 (mL/min/1.73m2); Ferritin 193 ng/mL (8-252); Glucose 86 mg/dL (74-106); Sodium 144 mmol/L (136-145); Total Protein 6.9 g/dL (6.4-8.2); Vitamin B12 689 pg/mL (193-986)
[2024-09-27 14:22] LABS: LDH 126 U/L (81-234)
[2024-09-28 10:51] LABS: IgA 200 mg/dL (85-499); IgG 650 mg/dL (610-1616); IgM 27 mg/dL (35-242)
[2024-09-28 13:17] LABS: Albumin 62.6 % (55.8-66.1); Albumin g/dL 3.9 g/dL (3.6-5.2); Total Protein 6.3 g/dL (6.3-8.2)
[2024-09-28 19:48] LABS: Copper, Serum 77 mcg/dL (77-206)
[2024-09-28 20:41] LABS: Beta-2-Microglobulin 2.85 mcg/mL
[2024-10-02 21:28] LABS: Pyridoxal 5-Phosphate (PLP), P 62 mcg/L (5-50)
== END 2024-09-27 02:23 | disposition home or self-care (01) ==
LOC: LBO 02:22
PROVIDERS: PCP Family Medicine; Visit Provider Nurse Practitioner Adult Health
DX: R59.9 Enlarged lymph nodes, unspecified (principal)
CPT/HCPCS: 36415; 80053; 82525; 82784; 82232; 82607; 82728; 83540; 83550; 83615; 84165; 84207; 85025

== ENCOUNTER → 2024-10-04 10:57 | Outpatient (BNVA) | payer MEDICARE, SELFPAY | PROVIDERS: PCP Family Medicine; Referring Provider Family Medicine; Visit Provider Podiatrist | DX: L60.2 Onychogryphosis; G62.9 Polyneuropathy, unspecified; M79.674 Pain in right toe(s); M79.675 Pain in left toe(s); D47.2 Monoclonal gammopathy; E34.9 Endocrine disorder, unspecified; R23.9 Unspecified skin changes; M20.41 Other hammer toe(s) (acquired), right foot; M20.42 Other hammer toe(s) (acquired), left foot; R60.0 Localized edema; G63 Polyneuropathy in diseases classified elsewhere; I73.89 Other specified peripheral vascular diseases; R20.8 Other disturbances of skin sensation; L65.9 Nonscarring hair loss, unspecified; L53.8 Other specified erythematous conditions; R23.8 Other skin changes; L84 Corns and callosities | CPT/HCPCS: 11719 ==

== ENCOUNTER 2024-10-25 13:49 | Outpatient (CLI) | payer MEDICARE, SELFPAY ==
[2024-10-25 14:30] LABS: Abs Immature Grans 0.01 10^3/uL (0.0-0.06); Absolute Basophil Count 0.08 10^3/uL (0.0-0.2); Absolute Eosinophil Count 0.49 10^3/uL (0.0-0.7); Absolute Lymphocyte Count 1.16 10^3/uL (1.2-3.4); Absolute Monocyte Count 0.52 10^3/uL (0.1-0.8); Absolute Neutrophil Count 1.33 10^3/uL (1.2-6.7); Basophils % 2.2 %; Eosinophils % 13.6 %; HCT 35.6 % (36.0-46.0); HGB 11.7 g/dL (11.2-15.7); Immature Grans % 0.3 %; Lymphocytes % 32.3 %; MCH 32.5 pg (27.0-33.0); MCHC 32.9 % (32.0-36.0); MCV 99 fL (80-95); MPV 9.7 fL (8.0-11.0); Monocytes % 14.5 %; Neutrophils % 37.1 %; Platelet Count 218 10^3/uL (130-400); RDW 13.8 % (11.7-14.6); RDW-SD 50.2 fL; WBC 3.59 10^3/uL (4.4-10.8)
[2024-10-25 15:00] LABS: Iron 35 ug/dL (50-170); Total Iron Binding Capacity 272 ug/dL (250-450); Transferrin Sat 13 % (15-50)
[2024-10-25 15:13] LABS: ALT 52 U/L (14-59); AST 31 U/L (15-37); Albumin 3.4 g/dL (3.4-5.0); Alkaline Phosphatase 100 U/L (46-116); Anion Gap 3.9 mmol/L (3-11); BUN 13 mg/dL (7-18); Bilirubin, Total 0.3 mg/dL (0.2-1.0); CO2 29.1 mmol/L (21.0-32.0); CREATININE 1.3 mg/dL (0.55-1.02); Calcium 8.9 mg/dL (8.5-10.1); Chloride 108 mmol/L (98-107); Estimated GFR 46.21 (mL/min/1.73m2); Ferritin 182 ng/mL (8-252); Glucose 93 mg/dL (74-106); Potassium 3.6 mmol/L (3.5-5.1); Sodium 141 mmol/L (136-145); Total Protein 6.7 g/dL (6.4-8.2); Vitamin B12 690 pg/mL (193-986)
[2024-10-25 17:40] LABS: LDH 163 U/L (81-234)
[2024-10-26 10:07] LABS: IgA 193 mg/dL (85-499); IgG 632 mg/dL (610-1616); IgM 26 mg/dL (35-242)
[2024-10-26 13:23] LABS: Albumin 61.7 % (55.8-66.1); Albumin g/dL 3.9 g/dL (3.6-5.2); Total Protein 6.3 g/dL (6.3-8.2)
[2024-10-27 14:35] LABS: Copper, Serum 75 mcg/dL (77-206)
[2024-10-30 22:42] LABS: Beta-2-Microglobulin 3.06 mcg/mL
[2024-10-31 02:12] LABS: Pyridoxal 5-Phosphate (PLP), P 66 mcg/L (5-50)
== END 2024-10-25 13:50 | disposition home or self-care (01) ==
LOC: LBO 13:49
PROVIDERS: PCP Family Medicine; Visit Provider Nurse Practitioner Adult Health
DX: R59.9 Enlarged lymph nodes, unspecified (principal); G62.9 Polyneuropathy, unspecified; D47.2 Monoclonal gammopathy; E34.9 Endocrine disorder, unspecified; E61.0 Copper deficiency; E53.9 Vitamin B deficiency, unspecified
CPT/HCPCS: 36415; 80053; 82525; 82784; 82232; 82607; 82728; 83540; 83550; 83615; 84165; 84207; 85025

== ENCOUNTER 2024-11-17 00:26 | Outpatient (CLI) | payer MEDICARE, SELFPAY ==
--- NOTE | 2024-11-17 07:45 | DI.CT_ITS ---
Exam(s) CT CHEST PE CTA EXAM: CT CHEST PE CTA CLINICAL HISTORY: ? PE,h/o pe, is it still present,z86.711. TECHNIQUE: Imaging Protocol: CT angiography of the chest was performed using pulmonary embolus jame col. Multi planar reconstructions were performed. CONTRAST MATERIAL: Intravenous: Omnipaque 350 Contrast volume: 100 cc COMPARISON: CT CT CHEST PE CTA from 04/02/2023 FINDINGS: CHEST: PULMONARY ARTERIES: There are no intraluminal filling defects to suggest acute pulmonary emboli.The p reviously present emboli in the left upper lobe and left lower lobe appear to have resolved. There a re obvious no new intra luminal filling defects evident on the present study. LUNGS: There are no infiltrates nor evidence of pulmonary infarction.. No ominous pulmonary nodules. There are no pleural effusions. MEDIASTINUM: There is no hilar nor mediastinal adenopathy. Visualized thyroid unremarkable. CARDIAC: Heart size is upper normal. There is no pericardial effusion.Caliber of the thoracic aorta is within normal limits. No evidence of aortic dissection. There is no significant shift of the inte rventricular septum. PARTIALLY VISUALIZED UPPERMOST ABDOMEN: No adrenal nodules. Partially included cyst in the left kidn ey noted which measures 5.6 cm OSSEOUS: No significant osseous lesions.. IMPRESSION: 1. No evidence of acute pulmonary emboli. In addition, the previously present emboli in the left yamile g appear to have resolved. There is no evidence of pulmonary infarction.No pleural effusions. 2. No evidence of aortic dissection nor pericardial effusion. RADIATION DOSE DELIVERED: 111.33mGy.cm Total DLP DATA REPOSITORY: All CT scans at this facility are submitted to the National Radiology Data Registry (NRDR) Dose Index Registry (DIR) with the [employer] (A[employer]). RADIATION OPTIMIZATION: All CT scans at this facility use at least one of these dose optimization te chniques: automated exposure control; mA and/or kV adjustment per patient size (includes targeted exa ms where dose is matched to clinical indication); or iterative reconstruction.
[2024-11-17] MEDS: Normal Saline - Diluent 50 ML VIAL IJ (10:47)
[2024-11-17] MEDS: Omnipaque 350 MG/ML 500 ML BTL-Imaging package 100 ML IJ (10:47)
--- NOTE | 2024-11-17 11:10 | DI.RAD_ITS ---
Exam(s) XR SHOULDER LT COMPLETE 2+V EXAM: XR SHOULDER LT COMPLETE 2+V CLINICAL HISTORY: l shoulder pain,m25.512. TECHNIQUE: 2D digital imaging was performed. COMPARISON: No exams were available for comparison FINDINGS: Four views No evidence of fracture or dislocation or abnormal soft calcifications. The subacromial space appear s unremarkable. There is no degenerative change in the glenohumeral joint and the AC joint also appe ars unremarkable. Bone density normal. No osseous lesions IMPRESSION: No significant radiograph findings in the left shoulder. DATA REPOSITORY: RADIATION DOSE DELIVERED:
== END 2024-11-17 00:46 ==
LOC: DI 00:27
PROVIDERS: PCP Family Medicine; Visit Provider Family Medicine
DX: M25.512 Pain in left shoulder (principal); Z86.711 Personal history of pulmonary embolism; Z09 Encounter for follow-up examination after completed treatment for conditions other than malignant neoplasm
CPT/HCPCS: 71275; 73030

== ENCOUNTER 2024-11-22 10:02 | Outpatient (CLI) | payer MEDICARE, SELFPAY ==
[2024-11-22 10:51] LABS: Abs Immature Grans 0.01 10^3/uL (0.0-0.06); Absolute Basophil Count 0.08 10^3/uL (0.0-0.2); Absolute Eosinophil Count 0.71 10^3/uL (0.0-0.7); Absolute Lymphocyte Count 1.08 10^3/uL (1.2-3.4); Absolute Monocyte Count 0.48 10^3/uL (0.1-0.8); Absolute Neutrophil Count 1.59 10^3/uL (1.2-6.7); HCT 36.6 % (36.0-46.0); HGB 11.9 g/dL (11.2-15.7); Immature Grans % 0.3 %; Lymphocytes % 27.3 %; MCH 32.2 pg (27.0-33.0); MCHC 32.5 % (32.0-36.0); MCV 99 fL (80-95); MPV 10.1 fL (8.0-11.0); Monocytes % 12.2 %; Neutrophils % 40.2 %; Platelet Count 189 10^3/uL (130-400); RBC 3.69 10^6/uL (3.93-5.22); RDW-SD 50.8 fL; WBC 3.95 10^3/uL (4.4-10.8)
[2024-11-22 11:37] LABS: Iron 58 ug/dL (50-170); Total Iron Binding Capacity 292 ug/dL (250-450); Transferrin Sat 20 % (15-50)
[2024-11-22 11:38] LABS: ALT 48 U/L (14-59); AST 29 U/L (15-37); Albumin 3.5 g/dL (3.4-5.0); Alkaline Phosphatase 103 U/L (46-116); Anion Gap 6.3 mmol/L (3-11); BUN 16 mg/dL (7-18); Bilirubin, Total 0.4 mg/dL (0.2-1.0); CO2 28.7 mmol/L (21.0-32.0); CREATININE 1.2 mg/dL (0.55-1.02); Calcium 8.9 mg/dL (8.5-10.1); Chloride 106 mmol/L (98-107); Estimated GFR 50.86 (mL/min/1.73m2); Ferritin 140 ng/mL (8-252); Glucose 108 mg/dL (74-106); Potassium 3.4 mmol/L (3.5-5.1); Sodium 141 mmol/L (136-145); Total Protein 6.8 g/dL (6.4-8.2); Vitamin B12 613 pg/mL (193-986)
[2024-11-22 11:49] LABS: LDH 154 U/L (81-234)
[2024-11-23 07:56] LABS: IgA 188 mg/dL (85-499); IgG 618 mg/dL (610-1616); IgM 23 mg/dL (35-242)
[2024-11-23 11:59] LABS: Albumin 62.7 % (55.8-66.1); Albumin g/dL 3.8 g/dL (3.6-5.2); Total Protein 6.1 g/dL (6.3-8.2)
[2024-11-24 13:39] LABS: Copper, Serum 73 mcg/dL (77-206)
[2024-11-28 09:41] LABS: Pyridoxal 5-Phosphate (PLP), P 63 mcg/L (5-50)
[2024-11-28 20:40] LABS: Beta-2-Microglobulin 2.66 mcg/mL
== END 2024-11-22 10:03 | disposition home or self-care (01) ==
LOC: LBO 10:02
PROVIDERS: PCP Family Medicine; Visit Provider Nurse Practitioner Adult Health
DX: G62.9 Polyneuropathy, unspecified (principal); D47.2 Monoclonal gammopathy
CPT/HCPCS: 36415; 80053; 82525; 82784; 82232; 82607; 82728; 83540; 83550; 83615; 84165; 84207; 85025

== ENCOUNTER 2024-12-08 01:20 | Outpatient (CLI) | payer MEDICARE, SELFPAY ==
[2024-12-08] MEDS: Levalbuterol HFA 15 GM INH 4 PUFF IH (11:37)
[2024-12-08] MEDS: Inhaler, Assist Device 1 EACH MC (11:37)
--- NOTE | 2024-12-24 14:21 | W.PFT ---
Date of service: 12/08/24 Time of Service: 08:02 Pulmonary Function Test Result Indications: POEMS Interpretation Spirometry: Restrictive spirometry. No significant bronchodilator response. Normal MIP and MEP. Lung Volumes: Mild restrictive lung disease Diffusion Capacity: Normal diffusion Airway Pressure: Normal airways resistance Impression Mild restrictive lung disease with a normal MIP/MEP and normal diffusion. Clinical Correlation therefore is recommended.
== END 2024-12-08 01:21 | disposition home or self-care (01) ==
LOC: RT 01:21
PROVIDERS: PCP Family Medicine; Visit Provider Student in an Organized Health Care Education/Training Program
DX: G61.81 Chronic inflammatory demyelinating polyneuritis (principal)
CPT/HCPCS: 94060; 94726; 94729

== ENCOUNTER 2024-12-11 01:43 | Outpatient (CLI) | payer MEDICARE, SELFPAY ==
--- NOTE | 2024-12-11 | DI.US_ITS ---
APPROVED REPORT EXAM: Comprehensive 2D, Doppler, and color-flow Echocardiogram Patient Location: Out-Patient Softball Coach: Artie Payne RDCS (AE) Indications: Amyloidosis Other Information Study Quality: Fair. Technically limited study due to body habitus. Conclusion Borderline concentric left ventricular hypertrophy. Ejection fraction is 65%. Wall motion is normal Normal right ventricular size and function Mildly dilated left atrium. Normal right atrial size Mitral annular calcification Wall motion Left Ventricle The left ventricle is normal size. The left ventricular systolic function is normal. The left ventric ular ejection fraction is within the normal range. Borderline concentric left ventricular hypertrophy There is normal LV segmental wall motion. There is no ventricular septal defect visualized. LVEF is 65%. Right Ventricle The right ventricle is normal size. The right ventricular systolic function is normal. Atria Left atrium is mildly dilated The right atrium size is normal. The interatrial septum is intact with no evidence for an atrial septal defect. Aortic Valve The aortic valve is normal in structure. There is no aortic valvular stenosis. No aortic regurgitatio n is present. Mitral Valve Moderate mitral annular calcification. No evidence of mitral valve stenosis. There is no mitral valve regurgitation noted. Tricuspid Valve The tricuspid valve is normal in structure. There is no tricuspid valve stenosis. Trivial tricuspid v alve regurgitation noted. Pulmonic Valve The pulmonary valve is normal in structure. There is no pulmonic valvular stenosis. There is no pulmo gamal valvular regurgitation. Great Vessels The aortic root is normal in size. The ascending aorta is normal in size. Aortic arch is normal in ca liber. IVC is normal in size and collapses >50% with inspiration. Pericardium There is no pericardial effusion. 2D Dimensions IVSD d PLAX 1.02 cm F: 0.6-1.0 Ao Root d 2.63 cm F: 2.7 - 3.3 LVPW d PLAX 1.00 cm F: 0.6 - 1.0 Ao Asc Diam d 3.23 cm F: 2.3 - 3.1 LVID d PLAX 4.48 cm F: 3.8 - 5.2 LVDs 2.19 cm F: 2.2 - 3.5 LV EF Teichholz 82.6 % FS 51.20 % LV EDV (Teich) 91.6 mL LV ESV (Teich) 16.0 mL Stroke Vol Index (Teich) 36.72 M-Mode TAPSE 2.85 cm (M/F) >1.7 Auto EF LV EDV A4C 90.3 mL LV EDV A2C 74.1 mL LV EDV BP 82.4 mL LV ESV A4C 29.5 mL LV ESV A2C 22.7 mL LV ESV BP 25.7 mL LVEF(%) A4C 67.4 % LVEF(%) A2C 69.4 % LVEF(%) BP 68.8 % LV SV A4C 60.9 ml LV SV A2C 51.5 ml LV SV BP 56.7 ml LV CO A4C 4.0 L/min LV CO A2C 3.4 L/min LV CO BP 3.7 L/min HR A4C 65.94 BPM HR A2C 65.11 BPM LV EDV Index (BP) LA Volume LA Length A4C 5.3 cm LA Length A2C 5.6 cm LA Area A4C s 15.76 cm2 LA Area A2C s 16.47 cm2 LA Vol A4C A-L 39.60 mL LA Vol A2C A-L 40.85 mL LA Vol Biplane A-L 41.4 mL LA Vol/BSA A4C A-L LA Vol/BSA A2C A-L LA Vol/BSA BP A-L 20.1 mL/m2 LA Vol A4C MOD 37.6 mL LA Vol A2C MOD 40.1 mL LA Vol BP MOD 39.7 mL RA Volume RA Area A4C 6.7 cm2 RA ESV A4C (A-L) 10.6mL RA Vol/BSA A4C A-L RA Length A4C 3.6 cm RA ESV A4C (MOD) 10.0mL LV Diastology MV E' medial 0.092 (>0.07 m/s) MV E Vmax 1.15 (0.4-1.3 m/s) MV E/E' MED 12.44 (<14) MV A Vmax 1.45 (0.4-1.3 m/s) E/A Ratio 0.8 Aortic Valve AoV Vmax 2.35 m/s LVOT Vmax 1.31 m/s AoV Peak Grad 22.1 mmHg LVOT Peak Grad 6.8 mmHg AoV Area (Vmax) 1.55 cm2 LVOT VTI 0.315 m AoV VTI 0.495 m LVOT Mean Grad 4.0 mmHg AoV Mean Alonso. 1.55 m/s LVOT SV 88.23 mL AoV Mean Grad 11.2 mmHg LVOT Diam s 1.85 cm AoV Area (VTI) 1.78 cm2 AV Regurg Peak Gr. 22.13 mmHg Velocity Ratio 0.56 Mitral Valve MV DT 425 (160-240 msec) Pulmonary Valve PV Vmax 1.02 (0.5-1.5 m/s) RVOT Vmax 0.78 m/s PV Peak Grad 4.1 mmHg RVOT Peak Gr. 2.4 mmHg PV Mean Alonso 0.82 m/s RVOT VTI 0.167 m PV Mean Grad 2.9 mmHg RVOT Mean Gr. 1.3 mmHg
== END 2024-12-11 02:03 ==
LOC: DI 01:43
PROVIDERS: PCP Family Medicine; Visit Provider Internal Medicine Cardiovascular Disease
DX: I51.7 Cardiomegaly (principal); E85.4 Organ-limited amyloidosis
CPT/HCPCS: 93306

== ENCOUNTER 2024-12-20 03:09 | Outpatient (CLI) | payer MEDICARE, SELFPAY ==
[2024-12-20 11:29] LABS: Absolute Basophil Count 0.07 10^3/uL (0.0-0.2); Absolute Eosinophil Count 0.52 10^3/uL (0.0-0.7); Absolute Lymphocyte Count 1.04 10^3/uL (1.2-3.4); Absolute Monocyte Count 0.45 10^3/uL (0.1-0.8); Absolute Neutrophil Count 1.24 10^3/uL (1.2-6.7); Basophils % 2.1 %; Eosinophils % 15.7 %; HCT 36.9 % (36.0-46.0); HGB 11.7 g/dL (11.2-15.7); Lymphocytes % 31.3 %; MCH 31.4 pg (27.0-33.0); MCHC 31.7 % (32.0-36.0); MCV 99 fL (80-95); MPV 9.8 fL (8.0-11.0); Monocytes % 13.6 %; Neutrophils % 37.3 %; Platelet Count 192 10^3/uL (130-400); RBC 3.73 10^6/uL (3.93-5.22); RDW 14.1 % (11.7-14.6); RDW-SD 51.4 fL; WBC 3.32 10^3/uL (4.4-10.8)
[2024-12-20 11:57] LABS: Iron 63 ug/dL (50-170); Total Iron Binding Capacity 273 ug/dL (250-450); Transferrin Sat 23 % (15-50)
[2024-12-20 12:20] LABS: ALT 35 U/L (14-59); AST 21 U/L (15-37); Albumin 3.4 g/dL (3.4-5.0); Alkaline Phosphatase 93 U/L (46-116); Anion Gap 8.2 mmol/L (3-11); BUN 14 mg/dL (7-18); Bilirubin, Total 0.4 mg/dL (0.2-1.0); CO2 28.8 mmol/L (21.0-32.0); CREATININE 1.2 mg/dL (0.55-1.02); Chloride 105 mmol/L (98-107); Estimated GFR 50.86 (mL/min/1.73m2); Ferritin 223 ng/mL (8-252); Glucose 89 mg/dL (74-106); Potassium 3.7 mmol/L (3.5-5.1); Sodium 142 mmol/L (136-145); Total Protein 6.7 g/dL (6.4-8.2); Vitamin B12 864 pg/mL (193-986)
[2024-12-20 12:31] LABS: LDH 115 U/L (81-234)
[2024-12-21 09:39] LABS: IgA 189 mg/dL (85-499); IgG 633 mg/dL (610-1616); IgM 33 mg/dL (35-242)
[2024-12-21 13:01] LABS: Albumin 60.4 % (55.8-66.1); Albumin g/dL 3.7 g/dL (3.6-5.2); Total Protein 6.2 g/dL (6.3-8.2)
[2024-12-22 10:14] LABS: Beta-2-Microglobulin 2.79 mcg/mL
[2024-12-22 16:17] LABS: Copper, Serum 73 mcg/dL (77-206)
[2024-12-25 20:23] LABS: Pyridoxal 5-Phosphate (PLP), P 67 mcg/L (5-50)
== END 2024-12-20 03:10 | disposition home or self-care (01) ==
LOC: LBO 03:09
PROVIDERS: PCP Family Medicine; Visit Provider Nurse Practitioner Adult Health
DX: G62.9 Polyneuropathy, unspecified (principal); R59.9 Enlarged lymph nodes, unspecified; D47.2 Monoclonal gammopathy; E34.9 Endocrine disorder, unspecified; R23.9 Unspecified skin changes; E61.0 Copper deficiency; E53.9 Vitamin B deficiency, unspecified; G63 Polyneuropathy in diseases classified elsewhere
CPT/HCPCS: 36415; 80053; 82525; 82784; 82232; 82607; 82728; 83540; 83550; 83615; 84165; 84207; 85025

== ENCOUNTER 2024-12-29 09:28 | Outpatient (CLI) | payer MEDICARE, SELFPAY ==
--- NOTE | 2024-12-29 11:23 | DI.RAD_ITS ---
Exam(s) XR HIP RT COMPLETE AP PELVIS EXAM: XR HIP RT COMPLETE AP PELVIS CLINICAL HISTORY: Rt hip pain, M25.551. TECHNIQUE: 2D digital imaging was performed of the right hip. Two images were obtained. AP pelvis and lateral right hip views were obtained. COMPARISON: CR XR HIP LT COMPLETE AP PELVIS from 07/10/2020 FINDINGS: BONES: No acute fracture is present. No bony destructive lesion is seen. JOINTS: No dislocation present. There is mild narrowing of the hip joints bilaterally, left greater than right. SOFT TISSUE: Normal. IMPRESSION: Mild narrowing of the hip joints bilaterally, left greater than right. DATA REPOSITORY: RADIATION DOSE DELIVERED:
--- NOTE | 2024-12-29 11:24 | DI.RAD_ITS ---
Exam(s) XR LUMBAR SPINE COMPLETE EXAM: XR LUMBAR SPINE COMPLETE CLINICAL HISTORY: lumbar radicular pain and rt hip pain, M54.16, M25.551. TECHNIQUE: 2D digital imaging was performed of the lumbar spine. Six images were obtained. AP, lateral, right oblique, left oblique and L5-S1 spot views were obtained. COMPARISON: CR XR DEXA BONE DENSITY W/WO SHIRA from 07/03/2022 FINDINGS: Examination limited by overlying bowel. BONES: No fracture or destructive lesion. There are endplate osteophytes seen at L1-L2, L4-L5 and L5-S1. Degenerative changes of the facets are seen at L5-S1. DISKS: There is disc space narrowing at L4-5 and L5-S1. ALIGNMENT: Lumbar spinal alignment is within normal limits. No spondylolysis or spondylolisthesis. SOFT TISSUE: Atherosclerotic calcification is seen. There is a moderate amount of stool throughout the colon suggesting constipation. IMPRESSION: 1. [id number] degenerative changes in the lumbar spine. 2. Constipation. DATA REPOSITORY: RADIATION DOSE DELIVERED:
== END 2024-12-29 09:48 ==
PROVIDERS: PCP Family Medicine; Visit Provider Family Medicine
DX: M25.551 Pain in right hip (principal); M54.16 Radiculopathy, lumbar region
CPT/HCPCS: 72110; 73502

== ENCOUNTER 2025-01-17 02:47 | Outpatient (CLI) | payer MEDICARE, SELFPAY ==
[2025-01-17 12:07] LABS: Abs Immature Grans 0.02 10^3/uL (0.0-0.06); HCT 36.3 % (36.0-46.0); HGB 11.5 g/dL (11.2-15.7); Immature Grans % 0.6 %; MCH 31.8 pg (27.0-33.0); MCHC 31.7 % (32.0-36.0); MCV 100 fL (80-95); MPV 10.3 fL (8.0-11.0); Platelet Count 161 10^3/uL (130-400); RBC 3.62 10^6/uL (3.93-5.22); RDW 15.2 % (11.7-14.6); RDW-SD 56.0 fL; WBC 3.61 10^3/uL (4.4-10.8)
[2025-01-17 12:30] LABS: ALT 47 U/L (14-59); AST 38 U/L (15-37); Albumin 3.5 g/dL (3.4-5.0); Alkaline Phosphatase 101 U/L (46-116); Anion Gap 6.6 mmol/L (3-11); BUN 15 mg/dL (7-18); Bilirubin, Total 0.4 mg/dL (0.2-1.0); CO2 30.4 mmol/L (21.0-32.0); Calcium 9.1 mg/dL (8.5-10.1); Chloride 106 mmol/L (98-107); Estimated GFR 71.83 (mL/min/1.73m2); Glucose 81 mg/dL (74-106); LDH 120 U/L (81-234); Potassium 4.0 mmol/L (3.5-5.1); Sodium 143 mmol/L (136-145); Total Protein 6.8 g/dL (6.4-8.2)
[2025-01-17 13:05] LABS: Iron 66 ug/dL (50-170); Total Iron Binding Capacity 299 ug/dL (250-450); Transferrin Sat 22 % (15-50)
[2025-01-17 13:44] LABS: Ferritin 222 ng/mL (8-252); Vitamin B12 652 pg/mL (193-986)
[2025-01-17 22:08] LABS: Total Protein 6.2 g/dL (6.3-8.2)
[2025-01-18 13:23] LABS: Albumin 60.3 % (55.8-66.1); Albumin g/dL 3.7 g/dL (3.6-5.2); Alpha 1 g/dL 0.30 g/dL (0.15-0.40); Alpha 2 g/dL 0.70 g/dL (0.50-1.00); Beta g/dL 0.80 g/dL (0.60-1.20); Gamma g/dL 0.60 g/dL (0.60-1.60)
[2025-01-19 11:37] LABS: Copper, Serum 71 mcg/dL (77-206)
[2025-01-22 11:15] LABS: Pyridoxal 5-Phosphate (PLP), P 44 mcg/L (5-50)
== END 2025-01-17 02:48 | disposition home or self-care (01) ==
PROVIDERS: PCP Family Medicine; Visit Provider Nurse Practitioner Adult Health
DX: R59.9 Enlarged lymph nodes, unspecified (principal)
CPT/HCPCS: 36415; 80053; 82525; 82784; 82232; 82607; 82728; 83540; 83550; 83615; 84165; 84207; 85025

== ENCOUNTER → 2025-02-05 09:51 | Outpatient (BNVA) | payer MEDICARE, SELFPAY | PROVIDERS: PCP Family Medicine; Referring Provider Family Medicine; Visit Provider Podiatrist | DX: G62.9 Polyneuropathy, unspecified (principal); D47.2 Monoclonal gammopathy; E34.9 Endocrine disorder, unspecified; R23.9 Unspecified skin changes; M20.41 Other hammer toe(s) (acquired), right foot; M20.42 Other hammer toe(s) (acquired), left foot; R60.0 Localized edema; G63 Polyneuropathy in diseases classified elsewhere | CPT/HCPCS: 11719 ==

== ENCOUNTER 2025-02-08 03:14 | Outpatient (CLI) | payer MEDICARE, SELFPAY ==
--- NOTE | 2025-02-08 08:25 | DI.MAMMO_ITS ---
Exam(s) MAMMO SCREENING EXAM: MAMMO SCREENING CLINICAL HISTORY: screening,z12.39 TECHNIQUE: Bilateral full field digital CC and MLO mammographic images were obtained with 3D tomosynthesis and utilizing computer aided detection (CAD). COMPARISON: Comparison is made with prior examinations. FINDINGS: Masses/Architectural Distortion: No suspicious masses or areas of architectural distortion are present. Microcalcifications: No suspicious pleomorphic-type are seen. Skin Thickening/Nipple Retraction: None. IMPRESSION: 1. No significant interval change with no specific features of malignancy noted. 2. Unless there is more urgent need, screening mammography is recommended, as per [place] guidelines. BI-RADS Category 1 - Negative Breast Density - Category B - There are scattered areas of fibroglandular density. Breast density Category C or D implies that the patient has dense breast tissue. Dense breast tissue can make it harder to find cancer on a mammogram. Dense breast tissue is also associated with an increased risk of breast cancer. This information about the result of the mammogram report was provided to the patient to raise their awareness. Use this report when you speak with the patient about their risks for breast cancer, which includes their family history. At that time, you may recommend additional screening tests (Ultrasound or MRI) as these tests may add significant information. A negative radiographic report should not delay biopsy if a dominant or clinically suspicious mass is present. Up to ten percent of cancers are not identified on mammography. A negative report may reinforce clinical impression. Adenosis and dense breasts may obscure an underlying neoplasm. False positive reports average 6 to 10%. Patient will receive a letter notifying them of these results.
== END 2025-02-08 03:34 ==
LOC: DI 03:14
PROVIDERS: PCP Family Medicine; Visit Provider Family Medicine
DX: Z12.31 Encounter for screening mammogram for malignant neoplasm of breast (principal); R92.323 Mammographic fibroglandular density, bilateral breasts
CPT/HCPCS: 77063; 77067

== ENCOUNTER 2025-02-14 04:08 | Outpatient (CLI) | payer MEDICARE, SELFPAY ==
[2025-02-14 12:41] LABS: Abs Immature Grans 0.02 10^3/uL (0.0-0.06); HCT 37.1 % (36.0-46.0); HGB 12.3 g/dL (11.2-15.7); Immature Grans % 0.6 %; MCH 32.5 pg (27.0-33.0); MCHC 33.2 % (32.0-36.0); MCV 98 fL (80-95); MPV 10.1 fL (8.0-11.0); Platelet Count 169 10^3/uL (130-400); RBC 3.78 10^6/uL (3.93-5.22); RDW 15.1 % (11.7-14.6); RDW-SD 54.4 fL; WBC 3.56 10^3/uL (4.4-10.8)
[2025-02-14 13:05] LABS: ALT 52 U/L (14-59); AST 35 U/L (15-37); Albumin 3.8 g/dL (3.4-5.0); Alkaline Phosphatase 93 U/L (46-116); Anion Gap 6.3 mmol/L (3-11); BUN 14 mg/dL (7-18); Bilirubin, Total 0.5 mg/dL (0.2-1.0); CO2 28.7 mmol/L (21.0-32.0); Calcium 9.0 mg/dL (8.5-10.1); Chloride 107 mmol/L (98-107); Estimated GFR 56.46 (mL/min/1.73m2); Ferritin 216 ng/mL (8-252); Glucose 96 mg/dL (74-106); LDH 134 U/L (81-234); Potassium 3.8 mmol/L (3.5-5.1); Sodium 142 mmol/L (136-145); Total Protein 6.9 g/dL (6.4-8.2)
[2025-02-14 22:58] LABS: Vitamin B12 629 pg/mL (193-986)
[2025-02-14 22:59] LABS: Total Protein 6.5 g/dL (6.3-8.2)
[2025-02-15 14:09] LABS: Albumin 63.2 % (55.8-66.1); Albumin g/dL 4.1 g/dL (3.6-5.2); Alpha 1 g/dL 0.30 g/dL (0.15-0.40); Alpha 2 g/dL 0.60 g/dL (0.50-1.00); Beta g/dL 0.80 g/dL (0.60-1.20); Gamma g/dL 0.60 g/dL (0.60-1.60)
[2025-02-15 18:30] LABS: Iron 70 ug/dL (50-170); Total Iron Binding Capacity 333 ug/dL (250-450); Transferrin Sat 21 % (15-50)
[2025-02-16 13:37] LABS: Copper, Serum 72 mcg/dL (77-206)
[2025-02-20 12:53] LABS: Pyridoxal 5-Phosphate (PLP), P 21 mcg/L (5-50)
== END 2025-02-14 04:09 | disposition home or self-care (01) ==
LOC: LBO 04:08
PROVIDERS: PCP Family Medicine; Visit Provider Nurse Practitioner Adult Health
DX: R59.9 Enlarged lymph nodes, unspecified (principal)
CPT/HCPCS: 36415; 80053; 82525; 82784; 82232; 82607; 82728; 83540; 83550; 83615; 84165; 84207; 85025

== ENCOUNTER 2025-03-01 03:13 | Outpatient (CLI) | payer MEDICARE, SELFPAY ==
--- NOTE | 2025-03-01 06:15 | DI.DEXA_ITS ---
Exam(s) XR DEXA BONE DENSITY W/WO SHIRA EXAM: XR DEXA BONE DENSITY W/WO SHIRA CLINICAL HISTORY: menopause and high steroid use,postmenopausal status,z78.0 TECHNIQUE: COMPARISON: CR XR DEXA BONE DENSITY W/WO SHIRA from 07/03/2022 FINDINGS: Lateral Spine Image: Unremarkable. No compression deformities identified. Left hip: Total T-Score: 0.5. This compares to 1.2 on the prior examination. Total Z-Score: 1.6 T- and Z-scores: There is no evidence of osteoporosis. Lumbar Spine: Total T-Score: 1.8. This compares to 2.8 on the prior examination. Total Z-Score: 3.4 T- and Z-scores: Within normal limits. IMPRESSION: No evidence of osteoporosis.
== END 2025-03-01 03:33 ==
LOC: DI 03:13
PROVIDERS: PCP Family Medicine; Visit Provider Family Medicine
DX: Z13.820 Encounter for screening for osteoporosis (principal); Z78.0 Asymptomatic menopausal state
CPT/HCPCS: 77080

== ENCOUNTER → 2025-03-26 11:16 | Outpatient (BNVA) | payer MEDICARE, SELFPAY | PROVIDERS: PCP Family Medicine; Referring Provider Family Medicine; Visit Provider Psychiatry & Neurology Neurology | DX: R29.898 Other symptoms and signs involving the musculoskeletal system (principal); R11.0 Nausea; R63.4 Abnormal weight loss; I63.9 Cerebral infarction, unspecified; I26.99 Other pulmonary embolism without acute cor pulmonale; H47.10 Unspecified papilledema; G62.9 Polyneuropathy, unspecified; D47.2 Monoclonal gammopathy; E34.9 Endocrine disorder, unspecified; R23.9 Unspecified skin changes; I10 Essential (primary) hypertension | CPT/HCPCS: 99215 ==

== ENCOUNTER 2025-04-16 03:24 | Outpatient (CLI) | payer MEDICARE, SELFPAY ==
[2025-04-16 10:56] LABS: Abs Immature Grans 0.01 10^3/uL (0.0-0.06); HCT 34.7 % (36.0-46.0); HGB 11.0 g/dL (11.2-15.7); Immature Grans % 0.4 %; MCH 31.5 pg (27.0-33.0); MCHC 31.7 % (32.0-36.0); MCV 99 fL (80-95); MPV 9.8 fL (8.0-11.0); Platelet Count 152 10^3/uL (130-400); RBC 3.49 10^6/uL (3.93-5.22); RDW 14.0 % (11.7-14.6); RDW-SD 50.9 fL; WBC 2.75 10^3/uL (4.4-10.8)
[2025-04-16 11:22] LABS: RBC Morphology Normal
[2025-04-16 11:51] LABS: Iron 86 ug/dL (50-170); Total Iron Binding Capacity 259 ug/dL (250-450); Transferrin Sat 33 % (15-50)
[2025-04-16 12:03] LABS: ALT 34 U/L (14-59); AST 19 U/L (15-37); Albumin 3.3 g/dL (3.4-5.0); Alkaline Phosphatase 82 U/L (46-116); Anion Gap 10.5 mmol/L (3-11); BUN 12 mg/dL (7-18); Bilirubin, Total 0.4 mg/dL (0.2-1.0); CO2 26.5 mmol/L (21.0-32.0); Calcium 8.9 mg/dL (8.5-10.1); Chloride 107 mmol/L (98-107); Estimated GFR 56.11 (mL/min/1.73m2); Ferritin 224 ng/mL (8-252); Glucose 80 mg/dL (74-106); Potassium 3.7 mmol/L (3.5-5.1); Sodium 144 mmol/L (136-145); Total Protein 6.5 g/dL (6.4-8.2); Vitamin B12 529 pg/mL (193-986)
[2025-04-16 12:31] LABS: LDH 126 U/L (81-234)
[2025-04-17 13:32] LABS: Albumin 61.6 % (55.8-66.1); Albumin g/dL 3.7 g/dL (3.6-5.2); Alpha 1 g/dL 0.30 g/dL (0.15-0.40); Alpha 2 g/dL 0.60 g/dL (0.50-1.00); Beta g/dL 0.80 g/dL (0.60-1.20); Gamma g/dL 0.60 g/dL (0.60-1.60); Total Protein 6.0 g/dL (6.3-8.2)
[2025-04-17 19:50] LABS: Copper, Serum 84 mcg/dL (77-206)
[2025-04-19 17:12] LABS: Pyridoxal 5-Phosphate (PLP), P 40 mcg/L (5-50)
== END 2025-04-16 03:25 | disposition home or self-care (01) ==
LOC: LBO 03:24
PROVIDERS: PCP Family Medicine; Visit Provider Nurse Practitioner Adult Health
DX: R59.9 Enlarged lymph nodes, unspecified (principal); D47.2 Monoclonal gammopathy
CPT/HCPCS: 36415; 80053; 82525; 82784; 83520; 82232; 82607; 82728; 83540; 83550; 83615; 84165; 84207; 85025

== ENCOUNTER 2025-05-09 08:27 | Outpatient (CLI) | payer MEDICARE, SELFPAY ==
[2025-05-09 13:03] LABS: Abs Immature Grans 0.02 10^3/uL (0.0-0.06); HCT 36.2 % (36.0-46.0); HGB 11.6 g/dL (11.2-15.7); Immature Grans % 0.5 %; MCH 31.8 pg (27.0-33.0); MCHC 32.0 % (32.0-36.0); MCV 99 fL (80-95); MPV 10.4 fL (8.0-11.0); Platelet Count 168 10^3/uL (130-400); RBC 3.65 10^6/uL (3.93-5.22); RDW 14.3 % (11.7-14.6); RDW-SD 52.1 fL; WBC 3.67 10^3/uL (4.4-10.8)
[2025-05-09 13:53] LABS: Iron 47 ug/dL (50-170); Total Iron Binding Capacity 284 ug/dL (250-450); Transferrin Sat 17 % (15-50)
[2025-05-09 14:29] LABS: ALT 57 U/L (14-59); AST 39 U/L (15-37); Albumin 3.4 g/dL (3.4-5.0); Alkaline Phosphatase 106 U/L (46-116); Anion Gap 7.8 mmol/L (3-11); BUN 13 mg/dL (7-18); Bilirubin, Total 0.4 mg/dL (0.2-1.0); CO2 29.2 mmol/L (21.0-32.0); Calcium 8.7 mg/dL (8.5-10.1); Chloride 102 mmol/L (98-107); Ferritin 294 ng/mL (8-252); Glucose 86 mg/dL (74-106); Potassium 3.5 mmol/L (3.5-5.1); Sodium 139 mmol/L (136-145); Total Protein 6.8 g/dL (6.4-8.2); Vitamin B12 645 pg/mL (193-986)
[2025-05-09 15:23] LABS: LDH 137 U/L (81-234)
[2025-05-10 13:10] LABS: Albumin 61.7 % (55.8-66.1); Albumin g/dL 3.8 g/dL (3.6-5.2); Alpha 1 g/dL 0.30 g/dL (0.15-0.40); Alpha 2 g/dL 0.70 g/dL (0.50-1.00); Beta g/dL 0.80 g/dL (0.60-1.20); Gamma g/dL 0.60 g/dL (0.60-1.60); Total Protein 6.2 g/dL (6.3-8.2)
[2025-05-11 12:43] LABS: Copper, Serum 82 mcg/dL (77-206)
[2025-05-14 11:31] LABS: Pyridoxal 5-Phosphate (PLP), P 35 mcg/L (5-50)
== END 2025-05-09 08:28 | disposition home or self-care (01) ==
LOC: LBO 08:27
PROVIDERS: PCP Family Medicine; Visit Provider Nurse Practitioner Adult Health
DX: R59.9 Enlarged lymph nodes, unspecified (principal); G62.9 Polyneuropathy, unspecified; D47.2 Monoclonal gammopathy; E34.9 Endocrine disorder, unspecified; R23.9 Unspecified skin changes; E61.0 Copper deficiency; E53.9 Vitamin B deficiency, unspecified
CPT/HCPCS: 36415; 80053; 82525; 82784; 82232; 82607; 82728; 83540; 83550; 83615; 84165; 84207; 85025

== ENCOUNTER → 2025-05-21 13:21 | Outpatient (BNVA) | payer MEDICARE, SELFPAY | PROVIDERS: PCP Family Medicine; Referring Provider Family Medicine; Visit Provider Student in an Organized Health Care Education/Training Program | DX: K64.8 Other hemorrhoids (principal); R93.89 Abnormal findings on diagnostic imaging of other specified body structures; R19.4 Change in bowel habit | CPT/HCPCS: 99214 ==

== ENCOUNTER 2025-06-08 02:20 | Outpatient (CLI) | payer MEDICARE, SELFPAY ==
[2025-06-08 10:49] LABS: Abs Immature Grans 0.00 10^3/uL (0.0-0.06); HCT 34.6 % (36.0-46.0); HGB 10.8 g/dL (11.2-15.7); MCH 31.3 pg (27.0-33.0); MCHC 31.2 % (32.0-36.0); MCV 100 fL (80-95); MPV 10.2 fL (8.0-11.0); Platelet Count 175 10^3/uL (130-400); RBC 3.45 10^6/uL (3.93-5.22); RDW 15.0 % (11.7-14.6); RDW-SD 55.2 fL; WBC 2.47 10^3/uL (4.4-10.8)
[2025-06-08 11:05] LABS: LDH 135 U/L (120-246)
[2025-06-08 11:06] LABS: ALT 100 U/L (10-49); AST 38 U/L (<34); Albumin 4.1 g/dL (3.2-5.0); Alkaline Phosphatase 123 U/L (46-116); Anion Gap 7.7 mmol/L (3-11); BUN 9 mg/dL (9-23); Bilirubin, Total 0.40 mg/dL (0.2-1.2); CO2 30.3 mmol/L (20.0-31.0); Calcium 9.0 mg/dL (8.3-10.6); Chloride 106 mmol/L (98-107); Glucose 71 mg/dL (74-106); Potassium 3.6 mmol/L (3.5-5.1); Sodium 144 mmol/L (136-145); Total Protein 6.7 g/dL (5.7-8.2)
[2025-06-08 11:09] LABS: Vitamin B12 790 pg/mL (211-911)
[2025-06-08 11:10] LABS: Ferritin 253 ng/mL (7-271)
[2025-06-08 11:58] LABS: Iron 64 ug/dL (50-170); Total Iron Binding Capacity 302 ug/dL (250-425); Transferrin Sat 21 % (15-50)
[2025-06-08 14:09] LABS: RBC Morphology Normal
[2025-06-11 14:29] LABS: Albumin 57.9 % (55.8-66.1); Albumin g/dL 3.6 g/dL (3.6-5.2); Alpha 1 g/dL 0.40 g/dL (0.15-0.40); Alpha 2 g/dL 0.80 g/dL (0.50-1.00); Beta g/dL 0.90 g/dL (0.60-1.20); Gamma g/dL 0.60 g/dL (0.60-1.60); Total Protein 6.2 g/dL (6.3-8.2)
[2025-06-11 20:31] LABS: Pyridoxal 5-Phosphate (PLP), P 15 mcg/L (5-50)
[2025-06-11 21:48] LABS: Copper, Serum 89 mcg/dL (77-206)
== END 2025-06-08 02:21 | disposition home or self-care (01) ==
PROVIDERS: PCP Family Medicine; Visit Provider Nurse Practitioner Adult Health
DX: E53.9 Vitamin B deficiency, unspecified (principal); R23.9 Unspecified skin changes; R59.9 Enlarged lymph nodes, unspecified; E61.0 Copper deficiency
CPT/HCPCS: 36415; 80053; 82525; 82784; 82232; 82607; 82728; 83540; 83550; 83615; 84165; 84207; 85025

== ENCOUNTER → 2025-06-09 12:58 | Outpatient (CLI) | payer MEDICARE, SELFPAY ==
--- NOTE | 2025-06-09 13:00 | DI.RAD_ITS ---
Exam(s) XR CHEST 2V PA LATERAL EXAM: XR CHEST 2V PA LATERAL CLINICAL HISTORY: eval pathology R05.9. TECHNIQUE: 2D digital imaging was performed. COMPARISON: CR,RF RF CHEST FLUOROSCOPY CXR 2V from 07/12/2024 FINDINGS: 2 views: Heart size is normal. The mediastinum is not widened. Elevated left hemidiaphragm is unchanged. However, there is now platelike atelectasis above the left hemidiaphragm which was not evident July 2024. Right lung is clear. There are no pleural effusions. No pneumothorax. No pulmonary edema. IMPRESSION: There is now platelike atelectasis above the previously documented elevated left hemidiaphragm. Appropriate follow-up to rule out developing infiltrate at this location is recommended. Preliminary virtual Radiology report reviewed DATA REPOSITORY: RADIATION DOSE DELIVERED:
--- NOTE | 2025-06-09 13:56 | DI.VRAD_ITS ---
PROCEDURE INFORMATION: Exam: XR Chest Exam date and time: 06/09/2025 1:14 PM Age: 65 years old Clinical indication: Cough TECHNIQUE: Imaging protocol: Radiologic exam of the chest. Views: 2 views. COMPARISON: CT CHEST PE CTA 11/17/2024 10:45 AM FINDINGS: Lungs: Low lung volumes. Left basilar atelectasis. No consolidation. Pleural spaces: Unremarkable. No pleural effusion. No pneumothorax. Heart/Mediastinum: Unremarkable. No cardiomegaly. Diaphragm: Elevated left hemidiaphragm. Bones/joints: No acute osseous abnormality. IMPRESSION: No acute findings. Dictated and Authenticated by: Yao Alvarez MD. Orderin Bryce Kolb MD
== END ==
LOC: DI 12:58
PROVIDERS: PCP Family Medicine; Visit Provider Nurse Practitioner Family
DX: R05.9 Cough, unspecified (principal); J98.11 Atelectasis
CPT/HCPCS: 71046

== ENCOUNTER → 2025-06-18 13:51 | Outpatient (BNVA) | payer MEDICARE, SELFPAY | PROVIDERS: PCP Family Medicine; Referring Provider Family Medicine; Visit Provider Podiatrist | DX: G62.9 Polyneuropathy, unspecified (principal); D47.2 Monoclonal gammopathy; E34.9 Endocrine disorder, unspecified; R23.9 Unspecified skin changes; M20.41 Other hammer toe(s) (acquired), right foot; M20.42 Other hammer toe(s) (acquired), left foot; R60.0 Localized edema; G63 Polyneuropathy in diseases classified elsewhere; M79.674 Pain in right toe(s); M79.675 Pain in left toe(s); R09.89 Other specified symptoms and signs involving the circulatory and respiratory systems; R20.8 Other disturbances of skin sensation; L65.9 Nonscarring hair loss, unspecified; L53.8 Other specified erythematous conditions; R23.8 Other skin changes; R23.4 Changes in skin texture; L60.2 Onychogryphosis | CPT/HCPCS: 11719 ==

== ENCOUNTER → 2025-06-20 00:03 | Outpatient (CLI) | payer MEDICARE, SELFPAY ==
--- NOTE | 2025-06-20 06:30 | DI.US_ITS ---
Exam(s) US PELVIS TRANSVAGINAL EXAM: US PELVIS TRANSVAGINAL CLINICAL HISTORY[place] [place] previously seen fibroids,r94.8,d25.9 TECHNIQUE: Transabdominal and transvaginal imaging was performed using standard protocol. COMPARISON: CT CT ABDOMEN AND PELVIS W CONTRAST (STANDARD) from 05/03/2025 FINDINGS: The bladder appears normal. UTERUS: Anteverted. 5.4 x 2.2 x 3.7 cm Endometrium: 3 mm . Small amount of fluid within the endometrial cavity. No focal abnormality is visible. Myometrium: Fibroids. Right fundal fibroid measuring 1.5 x 2.2 by 2.1 cm. Three other smaller fibroids noted, one containing calcifications. Cervix: Unremarkable. OVARIES: Right: Cyst or mass: None. Left: Cyst or mass: None. DOPPLER: Color: Symmetric and uniform flow to both ovaries. No hyperemia. CUL-DE-SAC: Free fluid: None. IMPRESSION: 1. Uterine fibroids, largest measuring 2.2 cm. Small amount of fluid within the endometrial cavity. No focal endometrial abnormalities identified.. 2. Unremarkable bilateral ovaries. DATA REPOSITORY:
== END ==
LOC: DI 00:03
PROVIDERS: PCP Family Medicine; Visit Provider Family Medicine
DX: R94.8 Abnormal results of function studies of other organs and systems (principal); D25.9 Leiomyoma of uterus, unspecified
CPT/HCPCS: 76830; 76856

== ENCOUNTER 2025-06-22 06:14 | Day surgery (SDC) | payer MEDICARE, SELFPAY ==
[2025-06-22 06:25] VITALS: BP 135/89; PULSE 68; RESP 18; TEMP 36.3; O2SAT 96
[2025-06-22] MEDS: Lactated Ringers 1,000 ML 80 ML IV (06:59)
--- NOTE | 2025-06-22 07:20 | W.PM.HP.N ---
Date of service: 06/22/25 Time of Service: 07:20 Assessment and Plan Assessment and plan (1) Abnormal findings on diagnostic imaging of abdomen: Status: Acute Assessment and plan: Patient is a 65 yo female who presents for a colonoscopy due to potential abnormality identified on recent imaging. The concern was regarding the ascending colon/hepatic flexure. She denies any recent changes in her health. The risks and benefits of the procedure were discussed with her and consent was obtained prior to the procedure. Plan for diagnostic colonoscopy. History of Present Illness Narrative: Patient is a 65 yo female who presents for a colonoscopy due to potential abnormality identified on recent imaging. The concern was regarding the ascending colon/hepatic flexure. She denies any recent changes in her health. Review of Systems Constitutional Constitutional: Denies chills and Denies fever(s) Cardiovascular Cardiovascular: Denies chest pain and Denies dyspnea Respiratory Respiratory: Denies dyspnea Gastrointestinal Gastrointestinal: Denies abdominal pain, Denies nausea and Denies vomiting PFSH All Active Problems (Updated 06/22/25 @ 07:23 by Belkis Muir MD) Abnormal findings on diagnostic imaging of abdomen (Acute) Uterine fibroid (Acute) Rash (Acute) Lumbar radicular pain (Acute) Hip pain, right (Acute) TOS (thoracic outlet syndrome) (Acute) Healed or old pulmonary embolism (Acute) Iron deficiency anemia (Acute) Abnormal positron emission tomography (PET) scan (Acute) Neuropathy associated with POEMS syndrome (Acute) Edema (Acute) Atherosclerosis of artery of both lower extremities (Acute) Ulcer of right foot limited to breakdown of skin (Acute) Hammertoe of left foot (Acute) Hammertoe of right foot (Acute) Encounter for hepatitis C screening test for low risk patient (Acute) Low serum copper level (Acute) Nail dystrophy (Acute) POEMS syndrome (Acute) Lytic bone lesions on xray (Acute) multiple. 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 stated this was r/o to be cardiac in nature, and is why she is have C&G procedure done on 08/06/21 Hip pain, left Achilles bursitis Atypical mole (01/18/17) Carpal tunnel syndrome Left shoulder pain (08/05/15) Microscopic hematuria Otitis externa (05/07/14) Vascular headache DUB (dysfunctional uterine bleeding) 2.6cm fundal fibroid; 3.8 cm right ovary cyst in 01/08 since resolved. 3.5 cm left kidney cyst Carpal tunnel syndrome bilateral; left by EMS; left medial nerve release Microscopic hematuria neg. C&S; nl Bun and Cr.; neg IUP; neg cystocopy Vascular headache Achilles bursitis confirmed by MRI 06/11 Abnormal glandular Pap smear of vagina 10/24/12 follow up normal External otitis 05/07/14 Left shoulder pain 08/05/15 Atypical mole 01/18/17 Cough 08/30/17 Cervical pain Right carpal tunnel syndrome (02/21/18) Patient has clinically obvious carpal tunnel syndrome right upper extremity. I explained her that I know do all my carpal tunnel surgeries via open technique. This avoid an incomplete release or or an injury to the common digital nerve to the middle finger. Patient understands the reason for the change the open technique and agrees to have this done on her right side despite the fact that she had a E CTR on the left side Knee pain (01/01/07) MRI 01/08= neg. tear; ? of chondromalacia; Med. 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 CUADRA; RIGHT Status post carpal tunnel release PROCEDURES 07/21/16; LASERLIDOTOMY Open Carpal Tunnel release (~2002) left medial nerve release Endometrial Biopsy neg Family History Mother , 59 Essential hypertension Anxiety Depression Heart disease Hyperlipidemia Leukemia Father , MET/LUNG CA at age 79. Diabetes Alcohol abuse Essential hypertension Heart disease Hyperlipidemia Asthma Lung cancer Sister No problems noted. Brother Essential hypertension Anxiety Depression Hyperlipidemia Maternal Grandfather , 90s No problems noted. Paternal Grandfather , 90s Heart disease Stroke Maternal Grandmother , 70s No problems noted. Paternal Grandmother , 70s Alcohol abuse Heart disease Hypertension Stroke Social History Smoking/Tobacco Use Status: Never Second Hand Exposure: Yes Smoking risk assessment performed?: Yes Alcohol Intake: current Alcohol type: wine and hard liquor Drug use: Never Substance use type: marijuana Details: comsumse THC eatables at night for sleep Adopted: No Caregiver/Support person: Yes Household members: spouse Housing: house Communication Needs: Corrective Lenses Education Level: master's degree Do you need help understanding health information?: Rarely current occupation: Retired Educator Pets and animals: No Sexually active: Yes Do you think of yourself as: straight/heterosexual Current gender identity: female What is your relationship status?: How often do you talk on the phone with friends or family?: three or more times per week How often do you get together with friends or relatives?: twice per week How often do you attend caodaism or protestant services?: decline to answer Do you belong to any clubs or organized social groups?: no Panel score (0-1 are the most socially isolated patients): 2 What type of physical activity do you participate in: other Details: PT exercises Duration: < 15 minutes/day Frequency: daily Barbara/Alevism: Non tenriism Special barbara needs: No Agree to transfusion: Yes Seatbelt use: always Helmet use: Yes Helmet use: always Drive intox or ride w/intox street flusher driver: No Working smoke detector in home: Yes Carbon monox detector in home: Yes Firearms in home: No Do you feel safe at home: Yes Do you feel safe in your relationship?: Yes Victim of physical abuse: No Victim of emotional abuse: No Victim of sexual abuse: No Would you like helpful sources: No Meds Allergies and Home Medications Allergies Allergy/AdvReac Type Severity Reaction Status Date / Time acetazolamide AdvReac Intermediate Dizziness/L Verified 06/22/25 06:24 ighthead aspartame AdvReac Intermediate leg cramps Verified 06/22/25 06:24 hydrochlorothiazide AdvReac Intermediate Leg cramps Verified 06/22/25 06:24 latex AdvReac Intermediate skin Verified 06/22/25 06:24 cracks and bleeds Home Medications ?Medication ?Instructions ?Recorded ?Confirmed ?Type carboxymethylcellulose 0.5 15 ml ophthalmic (eye) PRN 02/15/17 06/20/25 History %-glycerin 0.9 % eye drops (Lubricating Drops) latanoprost 0.005 % eye drops 1 drp ophthalmic (eye) HS 02/15/17 06/20/25 History (Xalatan) cholecalciferol (vitamin D3) 25 25 mcg PO DAILY 10/19/22 06/20/25 History mcg (1,000 unit) capsule acyclovir 400 mg tablet 400 mg PO BID 09/27/23 06/22/25 History THC CeresMed Gummies See Rx Instructions PO HS 09/28/23 06/20/25 History triamcinolone acetonide 0.1 % 1 applic topical BID #80 grams 11/18/23 06/20/25 Rx topical cream pantoprazole 40 mg tablet,delayed 40 mg PO DAILY #90 tabs 10/03/24 06/20/25 Rx release (Protonix) copper gluconate 2 mg tablet 8 mg PO DAILY 01/01/25 06/20/25 History dexamethasone 4 mg tablet 12 mg PO .weekly 01/01/25 06/20/25 History pyridoxine (vitamin B6) 50 mg 50 mg PO QWEEK 01/01/25 06/20/25 History tablet sulfamethoxazole 800 1 tab PO .3x/week 01/01/25 06/20/25 History mg-trimethoprim 160 mg tablet aspirin 325 mg tablet 325 mg PO DAILY 01/23/25 06/20/25 History calcium carbonate 500 mg PO DAILY 01/23/25 06/20/25 History mecobalamin (vitamin B12) 500 mcg 500 mcg PO DAILY 01/23/25 06/20/25 History chewable tablet pregabalin 150 mg capsule 150 mg PO BID #180 caps 02/01/25 06/20/25 Rx estradiol 10 mcg vaginal tablet 10 mcg vaginal 2X Week #25 tab-caps 03/23/25 06/20/25 Rx (Vagifem) hydrocortisone 2.5 % topical cream 1 applic NM QD-BID PRN hemorrhoids 04/10/25 06/20/25 Rx with perineal applicator #30 grams (Anusol-HC) duloxetine 60 mg capsule,delayed 60 mg PO DAILY #90 caps 05/17/25 06/22/25 Rx release lenalidomide 10 mg capsule 20 mg PO DIRECTED 05/21/25 06/20/25 History albuterol sulfate 90 mcg/actuation 2 puff inhalation Q6H PRN 06/09/25 06/20/25 Rx aerosol inhaler shortness of breath or wheezing #8.5 grams Exam Narrative Exam Narrative: General: Well appearing, no acute distress. Skin: Good turgor, no visible rashes or lesion HEENT: Normocephalic, atraumatic CV: Regular rate Lungs: Bilateral equal chest rise, non-labored breathing Abdomen: Non-distended Extremities: Warm, well perfused Neurologic: No focal deficits Psychiatric: Alert and oriented, normal mood and affect Results Last Vital Signs Temp 36.3 C L 06/22/25 06:25 Pulse 68 06/22/25 06:25 Resp 18 06/22/25 06:25 BP 135/89 06/22/25 06:25 Pulse Ox 96 06/22/25 06:25 VTE Prohylaxis Risk Level: Low Risk Contraindications: Other (Preprocedure) Prophylaxis: Patient ambulatory Time Spent Time spent with Patient: <40 minutes Time was spent: preparing to see the patient(eg.review tests), obtaining and/or reviewing separately otained hiistory and counseling the patient
--- NOTE | 2025-06-22 07:22 | W.ANESPRE ---
General Info Date of Service Date Performed: 06/22/25 Height: 5 ft 4.5 in Weight: 99.1 kg Body Mass Index (BMI): 36.9 Surgical Procedure: Operation Date: 06/22/25 07:35 Proposed Procedure Side Surgeon marylou Muir MD Meds Allergies and Home Medications Allergies Allergy/AdvReac Type Severity Reaction Status Date / Time acetazolamide AdvReac Intermediate Dizziness/L Verified 06/22/25 06:24 ighthead aspartame AdvReac Intermediate leg cramps Verified 06/22/25 06:24 hydrochlorothiazide AdvReac Intermediate Leg cramps Verified 06/22/25 06:24 latex AdvReac Intermediate skin Verified 06/22/25 06:24 cracks and bleeds Home Medication ?Medication ?Instructions ?Recorded carboxymethylcellulose 0.5 15 ml ophthalmic (eye) PRN 02/15/17 %-glycerin 0.9 % eye drops (Lubricating Drops) latanoprost 0.005 % eye drops 1 drp ophthalmic (eye) HS 02/15/17 (Xalatan) cholecalciferol (vitamin D3) 25 25 mcg PO DAILY 10/19/22 mcg (1,000 unit) capsule acyclovir 400 mg tablet 400 mg PO BID 09/27/23 THC CeresMed Gummies See Rx Instructions PO HS 09/28/23 triamcinolone acetonide 0.1 % 1 applic topical BID #80 grams 11/18/23 topical cream pantoprazole 40 mg tablet,delayed 40 mg PO DAILY #90 tabs 10/03/24 release (Protonix) copper gluconate 2 mg tablet 8 mg PO DAILY 01/01/25 dexamethasone 4 mg tablet 12 mg PO .weekly 01/01/25 pyridoxine (vitamin B6) 50 mg 50 mg PO QWEEK 01/01/25 tablet sulfamethoxazole 800 1 tab PO .3x/week 01/01/25 mg-trimethoprim 160 mg tablet aspirin 325 mg tablet 325 mg PO DAILY 01/23/25 calcium carbonate 500 mg PO DAILY 01/23/25 mecobalamin (vitamin B12) 500 mcg 500 mcg PO DAILY 01/23/25 chewable tablet pregabalin 150 mg capsule 150 mg PO BID #180 caps 02/01/25 estradiol 10 mcg vaginal tablet 10 mcg vaginal 2X Week #25 tab-caps 03/23/25 (Vagifem) hydrocortisone 2.5 % topical cream 1 applic OR QD-BID PRN hemorrhoids 04/10/25 with perineal applicator #30 grams (Anusol-HC) duloxetine 60 mg capsule,delayed 60 mg PO DAILY #90 caps 05/17/25 release lenalidomide 10 mg capsule 20 mg PO DIRECTED 05/21/25 albuterol sulfate 90 mcg/actuation 2 puff inhalation Q6H PRN 06/09/25 aerosol inhaler shortness of breath or wheezing #8.5 grams Current Visit Medications: Current Medications Generic Name Dose Route Start Last Admin Trade Name Freq PRN Reason Stop Dose Admin Ringer's Solution 1,000 mls @ 80 mls/hr 06/22/25 06:00 06/22/25 06:59 IV 06/22/25 23:59 80 mls/hr INFUSION BRADY Administration Sodium Chloride 0 ml 06/22/25 06:00 Normal Saline Flush 10 Ml Syr IV 06/22/25 23:59 PRN PRN Sodium Chloride 0 ml 06/22/25 06:00 Normal Saline 10 Ml Vial IJ 06/22/25 23:59 DIRECTED PRN Sterile Water 0 ml 06/22/25 06:00 Water,Injection,Sterile 10 Ml Vial IJ 06/22/25 23:59 DIRECTED PRN PFSH Active Problems Active Problems: Problem Status Onset Code Uterine fibroid Acute D25.9 Rash Acute R21 Lumbar radicular pain Acute M54.16 Hip pain, right Acute M25.551 TOS (thoracic outlet syndrome) Acute G54.0 Healed or old pulmonary embolism Acute Z86.711 Iron deficiency anemia Acute D50.9 Abnormal positron emission tomography (PET) scan Acute R94.8 Neuropathy associated with POEMS syndrome Acute E88.09, G63 Edema Acute R60.9 Atherosclerosis of artery of both lower extremities Acute I70.203 Ulcer of right foot limited to breakdown of skin Acute L97.511 Hammertoe of left foot Acute M20.42 Hammertoe of right foot Acute M20.41 Encounter for hepatitis C screening test for low risk patient Acute Z11.59 Low serum copper level Acute R79.0 Nail dystrophy Acute L60.3 POEMS syndrome Acute G62.9, D47.2, E34.9, R23.9 Lytic bone lesions on xray Acute M89.9 Swelling, lymph nodes Acute R59.9 Atrial fibrillation Chronic I48.91 Optic nerve swelling Acute H47.10 Encounter for nail care Acute Z76.89 Pulmonary embolism and infarction Acute I26.99 Chronic narrow angle glaucoma of left eye Chronic H40.2220 Eczema Chronic 08/20/14 L30.9 Hypercholesterolemia Chronic E78.00 Latex allergy Chronic 04/21/13 Z91.040 Peptic reflux disease Chronic 11 K21.9 Vaginal atrophy Chronic 11/26/15 N95.2 Essential hypertension Chronic 04/21/13 I10 Annual physical exam Acute Z00.00 Nausea Acute R11.0 Vitamin D deficiency Acute E55.9 Balance disorder Acute R26.89 Abdominal hernia Acute K46.9 Diaphragm paralysis Acute J98.6 Restrictive lung mechanics due to neuromuscular disease Acute J98.4, G70.9 Impaired mobility and activities of daily living Acute Z74.09, Z78.9 Umbilical hernia Acute K42.9 Chronic constipation without overflow incontinence Acute K59.09 Medical History Medical History Palliative care patient Difficulty breathing On prednisone therapy Cough SOB (shortness of breath) Leg weakness, bilateral Weight loss Lymphadenopathy Elevated hematocrit Thrombocytosis Esophagitis (~08/2021) Normal colonoscopy (~08/2021) Elevated hemoglobin Chest pain Abdominal pain Chest pain Pt. stated this was r/o to be cardiac in nature, and is why she is have C&G procedure done on 08/06/21 Hip pain, left Achilles bursitis Atypical mole (01/18/17) Carpal tunnel syndrome Left shoulder pain (08/05/15) Microscopic hematuria Otitis externa (05/07/14) Vascular headache DUB (dysfunctional uterine bleeding) 2.6cm fundal fibroid; 3.8 cm right ovary cyst in 01/08 since resolved. 3.5 cm left kidney cyst Carpal tunnel syndrome bilateral; left by EMS; left medial nerve release Microscopic hematuria neg. C&S; nl Bun and Cr.; neg IUP; neg cystocopy Vascular headache Achilles bursitis confirmed by MRI 06/11 Abnormal glandular Pap smear of vagina 10/24/12 follow up normal External otitis 05/07/14 Left shoulder pain 08/05/15 Atypical mole 01/18/17 Cough 08/30/17 Cervical pain Right carpal tunnel syndrome (02/21/18) Patient has clinically obvious carpal tunnel syndrome right upper extremity. I explained her that I know do all my carpal tunnel surgeries via open technique. This avoid an incomplete release or or an injury to the common digital nerve to the middle finger. Patient understands the reason for the change the open technique and agrees to have this done on her right side despite the fact that she had a E CTR on the left side Knee pain (01/01/07) MRI 01/08= neg. tear; ? of chondromalacia; Med. 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 CUADRA; RIGHT Status post carpal tunnel release PROCEDURES 07/21/16; LASERLIDOTOMY Open Carpal Tunnel release (~2002) left medial nerve release Endometrial Biopsy neg Tobacco Smoking/Tobacco Use Status: Never Passive smoking exposure: Yes (Second hand smoke when I was a child (age [age])) Second hand exposure: Yes Alcohol Alcohol Intake: current Alcohol type: wine and hard liquor Substance Use Substance use: Never Substance use type: marijuana Details: comsumse THC eatables at night for sleep Vital Signs and Lab Results Vital Signs Most Recent Vital Signs in EMR: Most Recent Vital Signs Temp Pulse Resp BP Pulse Ox 36.3 C L 68 18 135/89 96 06/22/25 06:25 06/22/25 06:25 06/22/25 06:25 06/22/25 06:25 06/22/25 06:25 Lab Results Complete Blood Count: WBC, (4.4-10.8) 2.47 10^3/uL L 06/08/25, 10:35 RBC, (3.93-5.22) 3.45 10^6/uL L 06/08/25, 10:35 Hgb, (11.2-15.7) 10.8 g/dL L 06/08/25, 10:35 Hct, (36.0-46.0) 34.6 % L 06/08/25, 10:35 Plt Count, (130-400) 175 10^3/uL 06/08/25, 10:35 Complete Metabolic Panel: Sodium, (136-145) 144 mmol/L 06/08/25, 10:35 Potassium, (3.5-5.1) 3.6 mmol/L 06/08/25, 10:35 Chloride, (98-107) 106 mmol/L 06/08/25, 10:35 Carbon Dioxide, (20.0-31.0) 30.3 mmol/L 06/08/25, 10:35 BUN, (9-23) 9 mg/dL 06/08/25, 10:35 Creatinine, (0.55-1.02) 1.08 mg/dL H 06/08/25, 10:35 Est GFR (CKD-EPI 2020), (mL/min/1.73m2) 51.04 06/08/25, 10:35 Calcium, (8.3-10.6) 9.0 mg/dL 06/08/25, 10:35 Albumin, (3.2-5.0) 4.1 g/dL 06/08/25, 10:35 Glucose, (74-106) 71 mg/dL L 06/08/25, 10:35 Liver Function Panel: ALT, (10-49) 100 U/L H 06/08/25, 10:35 AST, (<34) 38 U/L H 06/08/25, 10:35 Imaging and Studies Imaging and Studies Study information below may be from another EMR and interpreted by another provider. Please see original notes in EMR for more complete details. EKG Summary: 08/12/23: Conclusion Sinus rhythm...normal P axis, V-rate 50- 99 Probable left atrial enlargement...P >50mS, <-0.10mV V1 Low voltage, extremity leads...all extremity leads <0.5mV Stress Test Summary: 06/03/21: Stress ECG Conclusion 1. Resting electrocardiogram showed poor R wave progression 2. Patient exercised on the Pa protocol and completed a workload of 7.15 METS, limited by fatigue 3. Normal heart rate and blood pressure response to exercise. Patient achieved greater than 100% of predicted heart rate for age 4. Electrocardiographically there was no evidence of myocardial ischemia 5. There were no significant dysrhythmias Dean Treadmill Score is 5.6 which is Low risk. Echocardiogram Summary: 12/11/24: Conclusion Borderline concentric left ventricular hypertrophy. Ejection fraction is 65%. Wall motion is normal Normal right ventricular size and function Mildly dilated left atrium. Normal right atrial size Mitral annular calcification Pulmonary Function Summary: 12/24/24: Pulmonary Function Test Result Indications: POEMS Interpretation Spirometry: Restrictive spirometry. No significant bronchodilator response. Normal MIP and MEP. Lung Volumes: Mild restrictive lung disease Diffusion Capacity: Normal diffusion Airway Pressure: Normal airways resistance Impression Mild restrictive lung disease with a normal MIP/MEP and normal diffusion. Clinical Correlation therefore is recommended. Other Study Summary:: Conclusion This is a 48-hour Holter monitor reportedly ordered for chest pain Rhythm throughout was sinus with an average heart rate of 82. Minimum was 62, maximum 131 There were very rare ventricular ectopic beats, no couplets, no ventricular tachycardia There were very rare atrial premature beats. There was one 7 beat atrial run There was no atrial fibrillation, no high-grade AV block, no pauses greater than 3 seconds There were no apparent patient symptoms <Electronically signed by GOVIND MAURO MD in [place]> E-Sign Date: 05/26/21 E-Sign Time: 1214 Anesthesia Assessment and Plan Anesthesia History Personal History: PONV and Awareness Under Anesthesia Family History: No Family History of Anesthesia Complications Exercise Tolerance Exercise Tolerance: Metabolic Equivalents>4 Pertinent Negatives Pertinent Negatives: No Major Cardiovascular Symptoms or Complaints and No Major Pulmonary Symptoms or Complaints Cardiac & Pulmonary Exam Cardiac Exam: Normal S1/S2 Heart Sounds Pulmonary Exam: Clear Bilateral Breath Sounds Implantable Cardiac Device Does patient have a Pacemaker or an ICD?: No Airway Exam Known Difficult Airway: No Mallampati Class: 1 Mouth Opening: Normal (> 3cm) Thyromental Distance: Greater than 3 cm Neck Range of Motion: Full ROM Neck Circumference: Normal Teeth Condition: Normal Dentition ASA Classification ASA Score: ASA 2 Emergency Case?: No NPO Status NPO Status: NPO Clears >2 hours, Solids >8 hours Anesthesia Plan Resuscitation Status: Full Code Anesthesia Technique: General Anesthesia Airway Planned: Natural Airway Monitors Used: Standard Monitors
[2025-06-22 07:27] VITALS: BMI 36.9
[2025-06-22 08:00] VITALS: BP 97/56; PULSE 64; RESP 17; TEMP 36.4; O2SAT 99
--- NOTE | 2025-06-22 08:01 | COLE_ITS ---
Date of service: 06/22/25 Time of Service: 08:01 Colonoscopy Report Date of procedure: 06/22/25 Pre-op diagnosis general: Abnormal imaging of colon Post-op diagnosis procedure note: same Procedure: Colonoscopy Surgeon: Belkis Muir Anesthesia Type: General:No Airway Estimated blood loss (mL): 0 Pathology: none sent Complications: None Disposition: PACU Indications: Patient is a 65 yo female who presents for a colonoscopy due to potential abnormality identified on recent imaging. The concern was regarding the ascending colon/hepatic flexure. She denies any recent changes in her health. The risks and benefits of the procedure were discussed with her and consent was obtained prior to the procedure. Prep: Miralax/Dulcolax Procedure Start Time: 07:40 Procedure End Time: 07:55 Retraction Time: 9 Findings: Normal colonoscopy. Procedure Description: Informed consent was obtained. The patient was taken to the endoscopy suite and placed in the left lateral decubitus position. After adequate intravenous sedation, digital rectal exam was performed, which was normal. A colonoscope was inserted into the rectum and easily negotiated to the cecum. The ileocecal valve and appendiceal orifice were identified. The entire colonic mucosa was then carefully circumferentially inspected upon slow withdrawal of the scope. There was scattered diverticulosis throughout the colon. Otherwise the colon all appeared normal. Retroflexion in the rectum was unremarkable. The patient tolerated the procedure well with no complications. Postoperatively, the patient was transferred to the recovery room in stable condition. Clinton Bowel Prep Clinton Bowel Prep Right Colon: 3 Left Colon: 3 Transverse Colon: 3 Total Score: 9
--- NOTE | 2025-06-22 08:11 | W.ANESPOSTOP ---
Postoperative Evaluation Date, Time and Location Date Performed: 06/22/25 Time Performed: 08:11 Patient Location: Day Surgery Unit Vital Signs Most Recent Imported Vital Signs: Most Recent Vital Signs Temp Pulse Resp BP Pulse Ox 36.4 C L 64 17 97/56 L 99 06/22/25 08:00 06/22/25 08:00 06/22/25 08:00 06/22/25 08:00 06/22/25 08:00 Pain Score Most Recent Pain Score: Most Recent Pain Score Pain Level 0 06/22/25 08:00 Assessment Mental Status: Awake (Alert & Oriented to Patient Baseline) Airway and Respiratory Function: Patent airway with normal (patient baseline) respiratory exam Cardiovascular Function: Hemodynamically Stable Hydration Status: Adequately Hydrated Nausea & Vomiting: No Nausea or Vomiting Pain: Pt. Denies Any Pain Peripheral Nerve Block: Patient did not receive a nerve block
[2025-06-22 08:25] VITALS: BP 117/53; PULSE 53; RESP 16; TEMP 36.5; O2SAT 98
--- NOTE | 2025-06-22 08:32 | W.PM.DSUDISC ---
Date of service: 06/22/25 Discharge Plan Disposition Patient Disposition: Home Condition: Good Discharge Details Reason For Visit: Abnormality of colon on imaging Attending Provider: Belkis Muir Primary Care Provider: Tonya Costello Home Meds and New Rx's Prescriptions: Continued cholecalciferol (vitamin D3) 25 mcg (1,000 unit) capsule 25 mcg PO DAILY albuterol sulfate 90 mcg/actuation HFA aerosol inhaler 2 puff inhalation Q6H PRN (Reason: shortness of breath or wheezing) Qty: 8.5 0RF acyclovir 400 mg tablet 400 mg PO BID Patient Comments: TAKE 1 TABLET BY MOUTH TWICE DAILY copper gluconate 2 mg tablet 8 mg PO DAILY pyridoxine (vitamin B6) 50 mg tablet 50 mg PO QWEEK sulfamethoxazole-trimethoprim 800-160 mg tablet 1 tab PO .3x/week Patient Comments: TAKE 1 TABLET BY MOUTH 3 TIMES A WEEK For POEMS tx aspirin 325 mg tablet 325 mg PO DAILY calcium carbonate 500 mg calcium (1,250 mg) tablet 500 mg PO DAILY mecobalamin (vitamin B12) 500 mcg tablet,chewable 500 mcg PO DAILY lenalidomide 10 mg capsule 20 mg PO DIRECTED dexamethasone 4 mg tablet 12 mg PO .weekly Rx Instructions: 20mg Mondays . Will be going down to 12mg on Mondays. latanoprost [Xalatan] 2.5 ML drops 1 drp Ophthalmic HS Lubricating Drops 15 ML drops 15 ml Ophthalmic PRN THC CeresMed Gummies See Rx Instructions PO HS Rx Instructions: 10-15mg orally bedtime; triamcinolone acetonide 0.1 % cream 1 applic topical BID Qty: 80 5RF Rx Instructions: apply to foot pantoprazole [Protonix] 40 mg tablet,delayed release (DR/EC) 40 mg PO DAILY Qty: 90 6RF pregabalin 150 mg capsule 150 mg PO BID Qty: 180 3RF Rx Instructions: ok to fill 02/01/25 (early) estradiol [Vagifem] 10 mcg tablet 10 mcg VG 2X Week Qty: 25 12RF hydrocortisone [Anusol-HC] 2.5 % cream with perineal applicator 1 applic WI QD-BID PRN (Reason: hemorrhoids) Qty: 30 4RF duloxetine 60 mg capsule,delayed release(DR/EC) 60 mg PO DAILY Qty: 90 3RF Discharge Instructions Additional Instructions: Your colonoscopy went well today. You had some small outpouchings of the colon called diverticulosis otherwise your colonoscopy was normal. If you have any questions or concerns please contact the general surgery office. 1. If tolerated, consume a soft, low fiber diet for 1-2 days. 2[address] Do not drive, drink alcohol, operate machinery, make critical decisions, or do activities that require coordination or balance for 24 hours. 3. Because air was put into your colon during the procedure, expelling air from your rectum (passing gas or farting) is normal. 4. You may not have a bowel movement for 1-3 days because of the colonoscopy prep. This is normal. 5. Go directly to the emergency room if you notice any of the following: Develop chills (warm to touch), or if you have a thermometer and your temperature is above 101 Difficulty breathing or difficultly swallowing Persistent vomiting Severe abdominal pain, other than gas cramps Severe chest pain Black, tarry stools Any bleeding ? exceeding one tablespoon 6. Call your physician if the site where your intravenous was started becomes red, swollen, painful, and warm to touch. 7. Your physician has reviewed your pre-procedure medications. Please continue to take those medications as previously ordered. You will be given specific information/education regarding any changes to your medications before leaving. Stand Alone Forms: Anesthesia Discharge Inst[facility] Alla Tapia ([facility]), Portal Information Activity:: Activity as Tolerated Diet:: As Tolerated Discharge Orders Discharge Orders: Discharge Order (Routine); Ordered 06/22/25 Ordered By: Belkis Muir DS: Diagnosis Discharge Diagnosis (1) Abnormal findings on diagnostic imaging of abdomen: Status: Acute
== END 2025-06-22 08:40 | disposition home or self-care (01) ==
PROVIDERS: PCP Family Medicine; Visit Provider Student in an Organized Health Care Education/Training Program
PROC: 0DJD8ZZ Inspection of Lower Intestinal Tract, Via Natural or Artificial Opening Endoscopic (ICD-10-PCS; CPT 45378; principal; 2025-06-22 07:30)
DX: R93.5 Abnormal findings on diagnostic imaging of other abdominal regions, including retroperitoneum (principal); K57.30 Diverticulosis of large intestine without perforation or abscess without bleeding
CPT/HCPCS: 45378; J2003; J2704